=== PATIENT | female | born 1965 | race Caucasian/White ===

== ENCOUNTER → 2016-11-20 | Outpatient (CLI) | payer MEDICARE, BC | LOC: MW.CHRC 08:00 | DX: J32.9 Chronic sinusitis, unspecified (principal) | CPT/HCPCS: G0463 ==

== ENCOUNTER → 2016-12-25 | Outpatient (CLI) | payer MEDICARE, BC ==
[~2016-12-25] MED LIST: Gadobutrol 7.5 mMOL/7.5 ML SDV IVPUSH STA
--- NOTE | 2016-12-26 09:31 | MR ---
EXAMINATION: MRI of the brain with and without contrast. TECHNIQUE: Multiplanar and multisequence imaging of the brain without and following the administrati on of 7.5 mL of Gadavist. HISTORY: Multiple sclerosis. FINDINGS: Cerebral hemispheres and the deep nuclei are without hemorrhage, mass, edema, enhancement or atrophy . Multifocal periventricular, subcortical and callosal white matter FLAIR signal abnormalities are again noted. Overall these have a similar appearance and distribution to the previous MRI. There is no evidence of diffusion restriction or enhancement. No extraaxial collections or hemorrhage. Ventricular system is of normal size and configuration with out hydrocephalus. The brainstem and cerebellum are without hemorrhage, mass, edema, gliosis, enhanc ement or atrophy. Carotid basilar artery flow voids are intact. The otomastoid airspaces are clear. No internal gino tory canal or cerebellopontine angle masses or enhancement. Paranasal sinuses are clear. Globes, optic nerves, orbital apices, optic chiasm, optic tracts, and visual cortices are unremarka ble. The pituitary and sella turcica are unremarkable. No meningeal enhancement. The craniocervical junction is unremarkable without Chiari malformation. No siderosis or evidence of vascular malformation. The calvarium is intact. IMPRESSION: 1. Multifocal FLAIR signal abnormalities in cerebral white matter consistent with multiple sclerosis . There is no increased in size or number, and also no evidence of enhancement to suggest active dem yelination.
--- NOTE | 2016-12-26 09:57 | MR ---
EXAMINATION: MRI of the cervical and thoracic spine with and without contrast HISTORY: Multiple sclerosis COMPARISON: 01/27/2015 TECHNIQUE: Multiplanar multisequence images obtained of the cervical spine before and following the administration of 7.5 mL of Gadavist. FINDINGS: Cervical spine: There is straightening of the cervical lordosis, likely positional. Vertebral body h eights appear grossly maintained. No suspicious bone marrow signal changes identified. There is no a bnormal enhancement. There is increased T2 and STIR signal noted within the upper thoracic spine. Tu bes tiny foci of increased signal is noted posterior to C2 and C3 along the right aspect of the cord . The visualized intracranial compartments appear normal. The paravertebral soft tissues appear norm al. C2-C3: Unremarkable. C3-C4: No significant disc bulge or spinal canal stenosis. Mild left neural foraminal stenosis. C4-C5: Moderate diffuse disc bulge asymmetric at the midline, abutting the spinal cord. There is mil d overall spinal canal stenosis. Mild left neural foraminal stenosis. C5-C6: Small diffuse disc bulge asymmetric to the right with mild spinal canal stenosis. Mild right neural foraminal stenosis. C6-C7: Small midline disc protrusion without significant spinal canal stenosis. No significant neura l foraminal stenosis. C7-T1: Unremarkable. Thoracic spine: There is a prominent S-shaped curvature of the thoracic spine. The vertebral body he ights appear grossly maintained. There is no abnormal bone marrow signal identified. There is no abn ormal enhancement. There is increased signal within the upper cervical spinal cord, similar in appea coleman to an MRI dated 11/28/2009. There is also prominence of the central canal from approximately T4- T8 and again near T11. There is no abnormal enhancement to suggest active demyelination. There are a few small disc bulges within the upper thoracic spine without significant spinal canal o r neural foraminal stenosis. IMPRESSION: 1. There are 2 tiny areas of increased signal within the cervical spine posterior to C2. These are l ikely stable but retrospective comparison to old studies. 2. There is a mild prominence of the central canal within the mid to lower thoracic spine, stable in comparison to the previous MRI dated 11/28/2009. 3. Mildly increased cord signal is noted within the upper thoracic spine, new since 2009. 4. Multilevel degenerative disc disease noted within the cervical spine and less so within the thora cic spine. 5. A shaped scoliosis of the thoracic spine with prominent dextrocurvature.
== END ==
LOC: MW.MRI 09:15
PROVIDERS: ATTEND Psychiatry & Neurology Neuromuscular Medicine
DX: G35 Multiple sclerosis (principal); M47.9 Spondylosis, unspecified; M41.9 Scoliosis, unspecified
CPT/HCPCS: 70553; 72156; 72157; A9585

== ENCOUNTER → 2017-01-02 | Outpatient (CLI) | payer MEDICARE, BC ==
[2017-01-02 11:21] LABS: CHLORIDE,CL 106 mmol/L (98-110); SODIUM,NA 142 mmol/L (136-146)
== END ==
LOC: MW.CHNEURO 10:19
PROVIDERS: ATTEND Psychiatry & Neurology Neuromuscular Medicine
DX: G35 Multiple sclerosis (principal)
CPT/HCPCS: 36415; 80053; 85025; 99214

== ENCOUNTER → 2017-01-31 | Outpatient (CLI) | payer MEDICARE, BC | LOC: MW.CHRC 08:52 | PROVIDERS: ATTEND Family Medicine | DX: R53.83 Other fatigue (principal) | CPT/HCPCS: 36415; 84439; 84443; 86140; 96372; G0463; J3301 ==

== ENCOUNTER 2017-04-06 19:45 | Emergency (ER) | payer MEDICARE, BC ==
--- NOTE | 2017-04-06 20:37 | EDM.PDOC ---
ED HPI GENERAL MEDICAL PROBLEM - General Chief Complaint: Neuro Symptoms/Deficits Stated Complaint: PT HAS DIFFICULTY BREATHING Time Seen by Provider: 04/06/17 20:04 Source of Information: Reports: Patient History Limitations: Reports: No Limitations - History of Present Illness INITIAL COMMENTS - FREE TEXT/NARRATIVE: Presents reporting that she is "not getting air into my lungs". "I know the oxygen is good in my blood but the air is just not getting down into lungs" The patient has MS and lives with her parents who assist her. Her dad states that her nose has been plugged and therefore she has been mouth breathing so her mouth is dry. She is a smoker. She states that she has to urinate but when nursing got her up she could not void. She states that she has intermittent problems with urinary retention and does have to be cathed at times. She has had some yeast infections in her groin and dami-area. Her mom usually helps her ambulate and get to the bathroom. Upper Back Pain Score (Numeric/FACES): 5 - Related Data Allergies Allergy/AdvReac Type Severity Reaction Status Date / Time No Known Allergies Allergy Verified 04/06/17 19:55 Home Meds: Home Meds DULoxetine HCl [Cymbalta] 60 mg PO DAILY 08/22/15 [History] Gabapentin [Neurontin] 300 mg PO TID 08/22/15 [History] LORazepam 1 mg PO TID 08/22/15 [History] Pantoprazole Sodium 40 mg PO DAILY 08/22/15 [History] Teriflunomide [Aubagio] 14 mg PO DAILY 08/22/15 [History] busPIRone HCl [busPIRone] 30 mg PO BID 08/22/15 [History] traZODone 200 mg PO BEDTIME 10/21/15 [History] Baclofen 20 mg PO TID 10/24/15 [History] Cholecalciferol (Vitamin D3) [Vitamin D3] 1,000 unit PO DAILY 10/24/15 [History] traMADol [Ultram] 1 tab PO TID PRN 12/22/15 [History] Cranberry 4,200 mg PO 04/06/17 [History] Venlafaxine HCl [Venlafaxine ER] 75 mg PO DAILY 04/06/17 [History] tiZANidine [Zanaflex] 2 mg PO 04/06/17 [History] Past Medical History Other HEENT History: top and bottom dentures Cardiovascular History: Reports: None Respiratory 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 (See Below) Other Respiratory History: 30 yr history of smoking, use Nicorettes on & off, current use 1/2 pack per day Gastrointestinal History: Reports: Cholelithiasis, GERD Other Gastrointestinal History: hx: Gallstones, 'unsure if they are still there , they do not give me any trouble" Genitourinary History: Reports: None [employer] 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 (See Below) Other OB/BYN History: Pelvic pain 'midline' Musculoskeletal 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 (See Below) Other Musculoskeletal History: Scoliosis Upper and lower back, Multiple Sclerosis "mobility good, but occasionally I use a walker" Neurological History: Reports: MS Other Neuro History: Good mobility generally, but "sometimes use walker when not up to par or feel weak" Psychiatric History: Reports: Anxiety Endocrine/Metabolic History: Reports: Obesity/BMI 30+ Hematologic History: Reports: None Immunologic History: Reports: None Oncologic (Cancer) History: Reports: None Dermatologic History: Reports: None - Infectious Disease History Infectious Disease History: Reports: Chicken Pox, Measles - Past Surgical History HEENT Surgical 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 (See Below) Female Surgical History: Reports: Tubal Ligation Musculoskeletal Surgical 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 (See Below) Social & Family History - Family History Family Medical History: Noncontributory - Tobacco Use Smoking Status *Q: Current Every Day Smoker Years of Tobacco use: 30 Packs/Tins Daily: 0.5 - Recreational Drug Use Recreational Drug Use: No Drug Use in Last 12 Months: No ED ROS GENERAL - Review of Systems Review Of Systems: See Below Constitutional: Denies: Fever, Chills HEENT: Reports: Rhinitis (stuffiness), Other (dry mouth). Denies: Ear Pain Respiratory: Reports: Shortness of Breath (as per HPI), Cough (three days ago better now) Cardiovascular: Reports: No Symptoms Endocrine: Reports: No Symptoms GI/Abdominal: Reports: No Symptoms. Denies: Abdominal Pain, Constipation, Diarrhea : Reports: Urgency, Urinary Retention Musculoskeletal: Reports: Other (weakness/has MS) Skin: Reports: No Symptoms Neurological: Reports: Weakness Psychiatric: Reports: Depression Hematologic/Lymphatic: Reports: No Symptoms Immunologic: Reports: No Symptoms ED EXAM, NEURO - Physical Exam Exam: See Below Exam Limited By: No Limitations General Appearance: Alert, No Apparent Distress Ears: Normal External Exam Nose: Normal Inspection Throat/Mouth: Normal Inspection, Normal Lips, Normal Oropharynx, No Airway Compromise, Other (White film on tongue and anterior pharynx. Erythematous sore are on lateral tongue.) Head Exam: Atraumatic, Normocephalic Neck: Normal Inspection, Non-Tender, Full Range of Motion. No: Lymphadenopathy (L), Lymphadenopathy (R) Respiratory/Chest: No Respiratory Distress, Lungs Clear, Normal Breath Sounds, No Accessory Muscle Use, Other (few wheezes RLL) Cardiovascular: Normal Peripheral Pulses, Regular Rate, Rhythm, No Edema, No Murmur GI/Abdominal: Normal Bowel Sounds, Soft, Non-Tender, No Distention (Female) Exam: Other (50cc clear light yellow urine with in and out cath) Neurological: Alert, Oriented x 3 Back Exam: Normal Inspection. No: CVA Tenderness (L), CVA Tenderness (R) Extremities: Normal Inspection Psychiatric: Normal Affect, Normal Mood Skin Exam: Warm, Dry, Intact, Normal Color, No Rash Course - Vital Signs Last Recorded V/S: Last Vital Signs Temp 36.6 C 04/06/17 19:48 Pulse 101 H 04/06/17 20:37 Resp 19 04/06/17 20:37 BP 153/104 H 04/06/17 20:37 Pulse Ox 97 04/06/17 20:37 - Orders/Labs/Meds Orders: Active Orders 24 hr Category Date Time Status Chest 2V [CR] Stat Exams 04/06/17 20:28 Ordered Labs: Laboratory Tests 04/06/17 04/06/17 04/06/17 Range/Units 20:00 20:00 20:30 WBC 10.26 (4.0-11.0) K/uL RBC 4.77 (4.30-5.90) M/uL Hgb 15.1 (12.0-16.0) g/dL Hct 44.8 (36.0-46.0) % MCV 93.9 (80.0-98.0) fL MCH 31.7 (27.0-32.0) pg MCHC 33.7 (31.0-37.0) g/dL RDW Std Deviation 48.0 (28.0-62.0) fl RDW Coeff of Ade 14 (11.0-15.0) % Plt Count 292 (150-400) K/uL MPV 9.80 (7.40-12.00) fL Neut % (Auto) 72.5 (48.0-80.0) % Lymph % (Auto) 15.6 L (16.0-40.0) % [place] % (Auto) 10.8 (0.0-15.0) % Eos % (Auto) 0.8 (0.0-7.0) % Baso % (Auto) 0.3 (0.0-1.5) % Neut # (Auto) 7.4 H (1.4-5.7) K/uL Lymph # (Auto) 1.6 (0.6-2.4) K/uL [place] # (Auto) 1.1 H (0.0-0.8) K/uL Eos # (Auto) 0.1 (0.0-0.7) K/uL Baso # (Auto) 0.0 (0.0-0.1) K/uL Nucleated RBC % 0.0 /100WBC Nucleated RBCs # 0 K/uL Sodium 140 (136-146) mmol/L Potassium 3.9 (3.5-5.1) mmol/L Chloride 105 (98-110) mmol/L Carbon Dioxide 24 (21-31) mmol/L BUN 5 L (6.0-23.0) mg/dL Creatinine 0.8 (0.6-1.5) mg/dL Est Cr Clr Drug Dosing 65.80 mL/min Estimated GFR (MDRD) > 60.0 ml/min Glucose 108 (60-110) mg/dL Calcium 9.4 (8.8-10.8) mg/dL Total Bilirubin 0.3 (0.1-1.5) mg/dL AST 17 (5-40) IU/L ALT 11 (8-54) IU/L Alkaline Phosphatase 74 (40-150) Total Protein 7.3 (6.0-8.0) g/dL Albumin 4.0 (3.5-5.0) g/dL Globulin 3.3 (2.0-3.5) g/dL Albumin/Globulin Ratio 1.2 L (1.3-2.8) Urine Color YELLOW Urine Appearance CLEAR Urine pH 6.0 (5.0-8.0) Ur Specific [place] 1.020 (1.001-1.035) Urine Protein NEGATIVE (NEGATIVE) mg/dL Urine Glucose (UA) NEGATIVE (NEGATIVE) mg/dL Urine Ketones TRACE H (NEGATIVE) mg/dL Urine Occult Blood NEGATIVE (NEGATIVE) Urine Nitrite NEGATIVE (NEGATIVE) Urine Bilirubin NEGATIVE (NEGATIVE) Urine Urobilinogen 0.2 (<2.0) EU/dL Ur Leukocyte Esterase NEGATIVE (NEGATIVE) Urine RBC 0-2 (0-2/HPF) Urine WBC 0-3 (0-5/HPF) Ur Epithelial Cells OCCASIONAL (NONE-FEW) Urine Bacteria FEW (NEGATIVE) Departure - Departure Time of Disposition: 21:41 Disposition: Home, Self-Care 01 Condition: Good Clinical Impression: Oral candidiasis - Discharge Information Referrals: PCP,None [Primary Care Provider] - [facility] [place] [Outside] [facility] [Outside] Forms: ED Department Discharge Additional Instructions: 1. Please follow up with Dr. Parsons early next week for your MS symptoms. 2. Nystatin swish, hold in mouth as long as possible and swallow 4 times daily for the next 7 days - My Orders Last 24 Hours: My Active Orders 04/06/17 20:28 Chest 2V [CR] Stat - Assessment/Plan Last 24 Hours: My Active Orders 04/06/17 20:28 Chest 2V [CR] Stat
[2017-04-06 20:43] LABS: CHLORIDE,CL 105 mmol/L (98-110); SODIUM,NA 140 mmol/L (136-146)
[2017-04-06 22:27] VITALS: BP 135/99
--- NOTE | 2017-04-08 11:34 | CR ---
EXAM DATE: 04/06/17 PATIENT'S AGE: 51 Patient: JESUS ALBERTO SCALES Facility: [place], [place] Site . Site : 1965 Study: XRay Chest [id number]/15/2017 9:06:02 PM Ordering Physician: Doctor Levin Final Report: INDICATION: Pain and shortness of breath TECHNIQUE: Chest 2 views. COMPARISON: 10/11/2015 FINDINGS: Cardiovascular and mediastinum: Heart size and vasculature are normal in caliber and appearance. Mediastinum is within normal limits. Lungs and pleural spaces: Lungs are clear. No sign of infiltrate or mass. No sign of pleural effusion. No pneumothorax. Bones and soft tissues: Significant scoliosis thoracic spine IMPRESSION: No acute pulmonary or cardiac abnormalities. Dictated by Roverto Waite MD @ 04/06/2017 9:08:31 PM Dictated by: Roverto Waite MD @ 04/06/2017 21:12:51 (Electronic Signature) Report Signed by Proxy. LISETTE
== END 2017-04-06 22:10 | disposition home or self-care (01) ==
LOC: MW.ED 19:45
DX: B37.0 Candidal stomatitis (principal); K21.9 Gastro-esophageal reflux disease without esophagitis; F41.9 Anxiety disorder, unspecified; G35 Multiple sclerosis; F17.210 Nicotine dependence, cigarettes, uncomplicated; E66.9 Obesity, unspecified; Z68.33 Body mass index [BMI] 33.0-33.9, adult; Z79.899 Other long term (current) drug therapy; Z98.51 Tubal ligation status
CPT/HCPCS: 36415; 71020; 71020-26; 80053; 81001; 82962; 85025; 93005; 99283; 99284

== ENCOUNTER 2018-10-26 18:03 | Inpatient (IN) | payer MEDICARE, BC ==
[2018-10-26] MEDS ORDERED: Sodium Chloride 0.9% 1,000 ML IV ONE (18:14)
[2018-10-26] MEDS ORDERED: Sodium Chloride 0.9% 2.5 ML Syringe FLUSH PRN (18:14)
[2018-10-26] MEDS ORDERED: Albuterol/Ipratropium 3.0-0.5 MG/3 ML Neb Soln NEB ONE (18:14)
[2018-10-26] MEDS ORDERED: Sodium Chloride 0.9% 10 ML Syringe FLUSH PRN (18:14)
--- NOTE | 2018-10-26 18:30 | EDM.PDOC ---
ED HPI GENERAL MEDICAL PROBLEM - General Chief Complaint: Neuro Symptoms/Deficits Stated Complaint: STROKE CODE Time Seen by Provider: 10/26/18 18:07 - History of Present Illness INITIAL COMMENTS - FREE TEXT/NARRATIVE: HISTORY AND PHYSICAL: History of present illness: The patient is a 53-year-old female with a known history of multiple sclerosis uses a walker on a regular basis and lives with her mother and presents with EMS for progressive deterioration of mental status and a near fall earlier today. The patient has had diminished mental status all day and her last well time was 11 AM. Mom says that over the last few weeks to months she has had very little stimulation or outside activity and merely goes from her bed to her recliner where she spends the whole day and then goes back to bed. She has not been doing physical therapy and she has not been taking care of herself as well as she should be. Mom says that today she was more drowsy and sleepy when she woke up and she helped her up out of bed and she actually had to try to feed her because the patient kept falling asleep. The patient was seen an outside clinic or bronchitis the middle of September and mom says she still has never improved from those symptoms but they did not return for follow-up. Mom also tells me that she is prone to UTIs and she would be worried about that as well. She has not had any fevers at home but she has had a harsh cough since the middle of September and she has not had any abdominal pain vomiting or diarrhea per mom. The near fall today was when the patient was up with her walker and she was so weak that she went to her knees but she did not pass out or blackout and her mother was right there to help her up. Mom says that all day she has been very drowsy and has not been speaking very much. According to mom she tells me that the patient signed DNR papers at some point in one of her hospitalizations but she is not sure where they are at. When I asked the patient if she's having any abdominal pain or chest pain she tells me know with a nod. Mom tells me that overall the patient has been deteriorating in her clinical status over several weeks if not more than a month. She has had progression in her weakness and has not been doing her physical therapy nor has she been doing much as far as activities and not leaving the house. Today she has had a significant drop off in her mental status which is why mom observed her throughout the day and then called EMS to bring her here; this been progressive throughout the day. Mom insists though that she has been progressively declining over the last few weeks to months and she has never really recovered or cleared her cough and congestion since she was seen at the outside clinic mid September. Review of systems: As per history of present illness and below otherwise all systems reviewed and negative. Past medical history: As per history of present illness and as reviewed below otherwise noncontributory. Surgical history: As per history of present illness and as reviewed below otherwise noncontributory. Social history: No reported history of drug or alcohol abuse. Family history: As per history of present illness and as reviewed below otherwise noncontributory. Physical exam: General: Well-developed well-nourished overweight female who is nontoxic and vital signs were noted by me. She is very drowsy on my evaluation but she opens her eyes and follows simple commands. She is maintaining her airway. HEENT: Atraumatic, normocephalic, pupils reactive, negative for conjunctival pallor or scleral icterus, mucous membranes moist, throat clear, neck supple, nontender, trachea midline. Lungs: Poor effort and diminished breath sounds in all zaman with coarse breath sounds but no stridor or abdominal worker breathing, breath sounds equal bilaterally, chest nontender. Heart: S1S2, regular rate and rhythm no overt murmurs Abdomen: Soft, nondistended, nontender. Negative for masses or hepatosplenomegaly. Hypoactive bowel sounds Pelvis: Stable nontender. Genitourinary: Deferred. Rectal: Deferred. Extremities: Atraumatic, there are no overt defects or deformities of the bony architecture of the extremities. Neurovascular unremarkable. Neuro: Patient is able to follow simple commands and can squeeze my hands bilaterally wiggle her toes and over her eyes and not questions. She also will take breaths when asked for to an open her mouth and eyes. It is difficult to further assess sensation or cerebellum. I do not feel that there is any focality to this exam but she has generalized weakness throughout all extremities but very diminished movement in the lower extremities and strength of 2/5 on clinic lead and upper extremities. Exam nonfocal. Diagnostics: EKG CBC CMP INR troponin TSH UA with reflex culture lactic acid influenza CT scan of the head and chest x-ray Blood sugar per EMS was 99 Therapeutics: IV O2 monitor, IV fluids Rocephin This case was called as a stroke code via EMS but from the history that I'm obtaining it is more a case of altered mental status. Either way the patient's last known well time was 11 AM which puts her outside of the window for TPA. Patient is back from CT and lab is drawing blood. The patient is still very drowsy but still opens her eyes more readily to voice and follows simple commands. CT scan results were called to me from the tele-radiologist at 1846. He sees multiple spots that he thought was more small vessel disease but says that in light of her history of MS and could be demyelinating lesions. There is no acute bleed or mass tumor or stroke. Patient is now saying that she knows she is in the hospital and is talking more. 1910: Case was discussed with Dr. Marlena pelayo who accepts the patient for observation admission. Family was made aware of this care plan. Case will be endorsed to Dr. Larose to follow-up the testing results and facilitate disposition. Critical care time excluding procedures:35min Impression: Altered mental status with history of multiple sclerosis, progressive deterioration of overall physical condition , probable pneumonia Definitive disposition and diagnosis as appropriate pending reevaluation and review of above. - Related Data Allergies Allergy/AdvReac Type Severity Reaction Status Date / Time No Known Allergies Allergy Verified 10/26/18 18:29 Home Meds: Home Meds DULoxetine HCl [Cymbalta] 60 mg PO DAILY 08/22/15 [History] Gabapentin [Neurontin] 300 mg PO TID 08/22/15 [History] Pantoprazole Sodium 40 mg PO DAILY 08/22/15 [History] Teriflunomide [Aubagio] 14 mg PO DAILY 08/22/15 [History] traZODone 100 mg PO BEDTIME 10/21/15 [History] Baclofen 20 mg PO TID 10/24/15 [History] Cholecalciferol (Vitamin D3) [Vitamin D3] 1,000 unit PO DAILY 10/24/15 [History] traMADol [Ultram] 1 tab PO TID PRN 12/22/15 [History] Diazepam [Valium] 5 mg PO DAILY 10/26/18 [History] Past Medical History Other HEENT History: top and bottom dentures Cardiovascular History: Reports: None Respiratory 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 (See Below) Other Respiratory History: 30 yr history of smoking, use [place] on & off, current use 1/2 pack per day Gastrointestinal History: Reports: Cholelithiasis, GERD Other Gastrointestinal History: hx: Gallstones, 'unsure if they are still there , they do not give me any trouble" Genitourinary History: Reports: None RETORT KILN BURNER 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 (See Below) Other RETORT KILN BURNER History: Pelvic pain 'midline' Musculoskeletal 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 (See Below) Other Musculoskeletal History: Scoliosis Upper and lower back, Multiple Sclerosis "mobility good, but occasionally I use a walker" Neurological History: Reports: MS Other Neuro History: Good mobility generally, but "sometimes use walker when not up to par or feel weak" Psychiatric History: Reports: Anxiety Endocrine/Metabolic History: Reports: Obesity/BMI 30+ Hematologic History: Reports: None Immunologic History: Reports: None Oncologic (Cancer) History: Reports: None Dermatologic History: Reports: None - Infectious Disease History Infectious Disease History: Reports: Chicken Pox, Measles - Past Surgical History HEENT Surgical 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 (See Below) Female Surgical History: Reports: Tubal Ligation Musculoskeletal Surgical 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 (See Below) Social & Family History - Family History Family Medical History: Noncontributory ED ROS GENERAL - Review of Systems Review Of Systems: ROS reveals no pertinent complaints other than HPI. ED EXAM, GENERAL - Physical Exam Exam: See Below (The dictation) Course - Vital Signs Last Recorded V/S: Last Vital Signs Temp 37.0 C 10/27/18 04:00 Pulse 93 10/27/18 04:00 Resp 10 L 10/27/18 04:00 BP 126/83 10/27/18 04:00 Pulse Ox 98 10/27/18 04:00 - Orders/Labs/Meds Orders: Active Orders 24 hr Category Date Time Status Cardiac Monitoring [RC] . DIRECTED Care 10/26/18 18:12 Active EKG Documentation Completion [RC] STAT Care 10/26/18 18:12 Active Oxygen Therapy, ED [RC] ASDIRECTED Care 10/26/18 18:12 Active Pulse Oximetry [RC] ASDIRECTED Care 10/26/18 18:12 Active RT Aerosol Therapy [RC] ASDIRECTED Care 10/26/18 18:14 Active CULTURE BLOOD [BC] Stat Lab 10/26/18 19:08 Results CULTURE BLOOD [BC] Stat Lab 10/26/18 19:14 Results Sodium Chloride 0.9% [Saline Flush] Med 10/26/18 18:14 Active 10 ml FLUSH ASDIRECTED PRN Sodium Chloride 0.9% [Saline Flush] Med 10/26/18 18:14 Active 2.5 ml FLUSH ASDIRECTED PRN Blood Culture x2 Reflex Set [OM.PC] Stat Oth 10/26/18 18:13 Ordered Saline Lock Insert [OM.PC] Stat Oth 10/26/18 18:12 Ordered Medication Orders Acetaminophen (Tylenol) 650 mg PO Q4H PRN PRN Reason: Pain (Mild 1-3)/fever Baclofen (Lioresal) 20 mg PO TID [facility] Last Admin: 10/27/18 06:30 Dose: 20 mg Admin: 10/26/18 22:46 Dose: Diazepam (Valium.) 5 mg PO DAILY [facility] Docusate Sodium (Colace) 100 mg PO BID PRN PRN Reason: Constipation Duloxetine HCl (Cymbalta) 60 mg PO DAILY [facility] Enoxaparin Sodium (Lovenox) 40 mg SUBCUT Q24H [facility] Last Admin: 10/26/18 23:41 Dose: 40 mg Gabapentin (Neurontin) 300 mg PO TID [facility] Last Admin: 10/27/18 06:30 Dose: 300 mg Teriflunomide [ Aubagio] 14mg Own Med 14 mg PO DAILY [facility] Ondansetron HCl (Zofran Odt) 4 mg PO Q4H PRN PRN Reason: nausea, able to take PO Oxycodone HCl (Oxycodone) 5 mg PO Q4H PRN PRN Reason: Pain (moderate 4-6) Pantoprazole Sodium (Protonix) 40 mg PO DAILY [facility] Sodium Chloride (Saline Flush) 10 ml FLUSH ASDIRECTED PRN PRN Reason: Keep Vein Open Last Admin: 10/26/18 18:54 Dose: 10 ml Sodium Chloride (Saline Flush) 2.5 ml FLUSH ASDIRECTED PRN PRN Reason: Keep Vein Open Last Admin: 10/26/18 18:54 Dose: 2.5 ml Temazepam (Restoril) 15 mg PO BEDTIME PRN PRN Reason: Sleep Tramadol HCl (Ultram) 50 mg PO TID PRN PRN Reason: Pain Trazodone HCl (Trazodone Hcl) 100 mg PO BEDTIME TRA Last Admin: 10/26/18 22:46 Dose: Not Given Labs: Laboratory Tests 10/26/18 10/26/18 10/26/18 Range/Units 18:47 18:47 18:47 WBC 7.01 (4.0-11.0) K/uL RBC 4.86 (4.30-5.90) M/uL Hgb 14.0 (12.0-16.0) g/dL Hct 44.1 (36.0-46.0) % MCV 90.7 (80.0-98.0) fL MCH 28.8 (27.0-32.0) pg MCHC 31.7 (31.0-37.0) g/dL RDW Std Deviation 49.1 (28.0-62.0) fl RDW Coeff of Ade 15 (11.0-15.0) % Plt Count 135 L (150-400) K/uL MPV 10.70 (7.40-12.00) fL Neut % (Auto) 74.2 (48.0-80.0) % Lymph % (Auto) 6.6 L (16.0-40.0) % [place] % (Auto) 10.1 (0.0-15.0) % Eos % (Auto) 8.8 H (0.0-7.0) % Baso % (Auto) 0.3 (0.0-1.5) % Neut # (Auto) 5.2 (1.4-5.7) K/uL Lymph # (Auto) 0.5 L (0.6-2.4) K/uL [place] # (Auto) 0.7 (0.0-0.8) K/uL Eos # (Auto) 0.6 (0.0-0.7) K/uL Baso # (Auto) 0.0 (0.0-0.1) K/uL Nucleated RBC % 0.0 /100WBC Nucleated RBCs # 0 K/uL INR 0.94 Lactate 1.3 (0.20-2.00) mmol/L Sodium (136-145) mmol/L Potassium (3.5-5.1) mmol/L Chloride (98-107) mmol/L Carbon Dioxide (21.0-32.0) mmol/L BUN (7.0-18.0) mg/dL Creatinine (0.6-1.0) mg/dL Est Cr Clr Drug Dosing Estimated GFR (MDRD) ml/min Glucose (74-106) mg/dL Calcium (8.5-10.1) mg/dL Total Bilirubin (0.2-1.0) mg/dL AST (15-37) IU/L ALT (14-63) IU/L Alkaline Phosphatase (46-116) U/L Troponin I (0.000-0.056) ng/mL Total Protein (6.4-8.2) g/dL Albumin (3.4-5.0) g/dL Globulin (2.6-4.0) g/dL Albumin/Globulin Ratio (0.9-1.6) TSH 3rd Generation (0.36-3.74) uIU/mL Urine Color Urine Appearance Urine pH (5.0-8.0) Ur Specific [place] (1.001-1.035) Urine Protein (NEGATIVE) mg/dL Urine Glucose (UA) (NEGATIVE) mg/dL Urine Ketones (NEGATIVE) mg/dL Urine Occult Blood (NEGATIVE) Urine Nitrite (NEGATIVE) Urine Bilirubin (NEGATIVE) Urine Urobilinogen (<2.0) EU/dL Ur Leukocyte Esterase (NEGATIVE) 10/26/18 10/26/18 Range/Units 18:47 18:49 WBC (4.0-11.0) K/uL RBC (4.30-5.90) M/uL Hgb (12.0-16.0) g/dL Hct (36.0-46.0) % MCV (80.0-98.0) fL MCH (27.0-32.0) pg MCHC (31.0-37.0) g/dL RDW Std Deviation (28.0-62.0) fl RDW Coeff of Ade (11.0-15.0) % Plt Count (150-400) K/uL MPV (7.40-12.00) fL Neut % (Auto) (48.0-80.0) % Lymph % (Auto) (16.0-40.0) % [place] % (Auto) (0.0-15.0) % Eos % (Auto) (0.0-7.0) % Baso % (Auto) (0.0-1.5) % Neut # (Auto) (1.4-5.7) K/uL Lymph # (Auto) (0.6-2.4) K/uL [place] # (Auto) (0.0-0.8) K/uL Eos # (Auto) (0.0-0.7) K/uL Baso # (Auto) (0.0-0.1) K/uL Nucleated RBC % /100WBC Nucleated RBCs # K/uL INR Lactate (0.20-2.00) mmol/L Sodium 143 (136-145) mmol/L Potassium 4.1 (3.5-5.1) mmol/L Chloride 103 (98-107) mmol/L Carbon Dioxide 32.4 H (21.0-32.0) mmol/L BUN 15 (7.0-18.0) mg/dL Creatinine 1.5 H (0.6-1.0) mg/dL Est Cr Clr Drug Dosing TNP Estimated GFR (MDRD) 36.3 ml/min Glucose 87 (74-106) mg/dL Calcium 10.1 (8.5-10.1) mg/dL Total Bilirubin 0.3 (0.2-1.0) mg/dL AST 34 (15-37) IU/L ALT 41 (14-63) IU/L Alkaline Phosphatase 148 H (46-116) U/L Troponin I < 0.050 (0.000-0.056) ng/mL Total Protein 7.4 (6.4-8.2) g/dL Albumin 3.6 (3.4-5.0) g/dL Globulin 3.8 (2.6-4.0) g/dL Albumin/Globulin Ratio 0.9 (0.9-1.6) TSH 3rd Generation 3.73 (0.36-3.74) uIU/mL Urine Color YELLOW Urine Appearance CLEAR Urine pH 6.5 (5.0-8.0) Ur Specific [place] 1.010 (1.001-1.035) Urine Protein NEGATIVE (NEGATIVE) mg/dL Urine Glucose (UA) NEGATIVE (NEGATIVE) mg/dL Urine Ketones NEGATIVE (NEGATIVE) mg/dL Urine Occult Blood NEGATIVE (NEGATIVE) Urine Nitrite NEGATIVE (NEGATIVE) Urine Bilirubin NEGATIVE (NEGATIVE) Urine Urobilinogen 0.2 (<2.0) EU/dL Ur Leukocyte Esterase NEGATIVE (NEGATIVE) Meds: Medications Generic Name Dose Route Start Last Admin Trade Name Freq PRN Reason Stop Dose Admin Acetaminophen 650 mg 10/26/18 21:59 Tylenol PO Q4H PRN Pain (Mild 1-3)/fever Baclofen 20 mg 10/26/18 22:38 10/27/18 06:30 Lioresal PO 20 mg TID TRA Administration Diazepam 5 mg 10/27/18 09:00 Valium. PO DAILY [facility] Docusate Sodium 100 mg 10/26/18 21:59 Colace PO BID PRN Constipation Duloxetine HCl 60 mg 10/27/18 09:00 Cymbalta PO DAILY [facility] Enoxaparin Sodium 40 mg 10/26/18 22:00 10/26/18 23:41 Lovenox SUBCUT 40 mg Q24H TRA Administration Gabapentin 300 mg 10/27/18 06:00 10/27/18 06:30 Neurontin PO 300 mg TID [facility] Administration Teriflunomide [ 14 mg 10/27/18 09:00 Aubagio] 14mg Own PO Med DAILY [facility] Ondansetron HCl 4 mg 10/26/18 21:59 Zofran Odt PO Q4H PRN nausea, able to take PO Oxycodone HCl 5 mg 10/26/18 21:59 Oxycodone PO Q4H PRN Pain (moderate 4-6) Pantoprazole Sodium 40 mg 10/27/18 09:00 Protonix PO DAILY [facility] Sodium Chloride 10 ml 10/26/18 18:14 10/26/18 18:54 Saline Flush FLUSH 10 ml ASDIRECTED PRN Administration Keep Vein Open Sodium Chloride 2.5 ml 10/26/18 18:14 10/26/18 18:54 Saline Flush FLUSH 2.5 ml ASDIRECTED PRN Administration Keep Vein Open Temazepam 15 mg 10/26/18 21:59 Restoril PO BEDTIME PRN Sleep Tramadol HCl 50 mg 10/26/18 22:02 Ultram PO TID PRN Pain Trazodone HCl 100 mg 10/26/18 22:38 10/26/18 22:46 Trazodone Hcl PO Not Given BEDTIME TRA Discontinued Medications Generic Name Dose Route Start Last Admin Trade Name Perryq PRN Reason Stop Dose Admin Albuterol/Ipratropium 3 ml 10/26/18 18:14 10/26/18 19:01 Duoneb 3.0-0.5 Mg/3 Ml NEB 10/26/18 18:15 3 ml ONETIME ONE Administration Sodium Chloride 1,000 mls @ 999 mls/hr 10/26/18 18:14 10/26/18 18:55 Normal Saline IV 10/26/18 19:14 999 mls/hr STAT ONE Administration Ceftriaxone Sodium/Dextrose 2 50 mls @ 100 mls/hr 10/26/18 19:11 10/26/18 19: 21 gm/ Premix IV 10/26/18 19:40 100 mls/hr ONETIME ONE Administration Departure - Departure Time of Disposition: 20:00 Disposition: Refer to Observation Condition: Fair Clinical Impression: Altered mental status Qualifiers: Altered mental status type: somnolence Qualified Code(s): R40.0 - Somnolence Pneumonia Qualifiers: Pneumonia type: due to unspecified organism - Discharge Information - My Orders Last 24 Hours: My Active Orders 10/26/18 18:12 Cardiac Monitoring [RC] . DIRECTED EKG Documentation Completion [RC] STAT Oxygen Therapy, ED [RC] ASDIRECTED Pulse Oximetry [RC] ASDIRECTED Saline Lock Insert [OM.PC] Stat 10/26/18 18:13 Blood Culture x2 Reflex Set [OM.PC] Stat 10/26/18 18:14 RT Aerosol Therapy [RC] ASDIRECTED Sodium Chloride 0.9% [Saline Flush] 10 ml FLUSH ASDIRECTED PRN Sodium Chloride 0.9% [Saline Flush] 2.5 ml FLUSH ASDIRECTED PRN 10/26/18 19:08 CULTURE BLOOD [BC] Stat 10/26/18 19:14 CULTURE BLOOD [BC] Stat - Assessment/Plan Last 24 Hours: My Active Orders 10/26/18 18:12 Cardiac Monitoring [RC] . DIRECTED EKG Documentation Completion [RC] STAT Oxygen Therapy, ED [RC] ASDIRECTED Pulse Oximetry [RC] ASDIRECTED Saline Lock Insert [OM.PC] Stat 10/26/18 18:13 Blood Culture x2 Reflex Set [OM.PC] Stat 10/26/18 18:14 RT Aerosol Therapy [RC] ASDIRECTED Sodium Chloride 0.9% [Saline Flush] 10 ml FLUSH ASDIRECTED PRN Sodium Chloride 0.9% [Saline Flush] 2.5 ml FLUSH ASDIRECTED PRN 10/26/18 19:08 CULTURE BLOOD [BC] Stat 10/26/18 19:14 CULTURE BLOOD [BC] Stat
--- NOTE | 2018-10-26 18:50 | CT ---
INDICATION: Stroke CT, history of multiple sclerosis. TECHNIQUE: CT head without contrast. COMPARISON: None. FINDINGS: CSF spaces: Within normal limits for age. Brain parenchyma: Dao-white differentiation is distinct. Small amount of low-density in the deep white matter without mass effect. Skull base and calvarium: The visualized paranasal sinuses and mastoid air cells demonstrate no acute or significant findings. The visualized orbits are grossly unremarkable. No skull fractures. IMPRESSION: 1. No intracranial bleed or mass effect. 2. Mild nonspecific white matter disease although this can be consistent with the given history of multiple sclerosis. Results called to Dr. Mahmood at 1846 on 10/26/2018 Please note that all CT scans at this facility use dose modulation, iterative reconstruction, and/or weight-based dosing when appropriate to reduce radiation dose to as low as reasonably achievable. Dictated by Magnus Bean MD @ Oct 26 2018 6:44PM Signed by Dr. Magnus Bean @ Oct 26 2018 6:48PM
[2018-10-26] MEDS ORDERED: cefTRIAXone 2 GM in Premix Bag 1 BAG IV ONE (19:11)
--- NOTE | 2018-10-26 19:28 | CR ---
INDICATION: Shortness of breath. TECHNIQUE: One view. IMPRESSION: Scoliosis. Low lung volumes. Heart size within normal limits for low volumes and AP projection. Some crowding of the bronchovascular markings. No definitive focal pneumonia or other airspace opacity. No acute fracture, pneumothorax or effusion. Dictated by Adolfo Loyd MD @ Oct 26 2018 7:26PM Signed by Dr. Adolfo Loyd @ Oct 26 2018 7:27PM
[2018-10-26 19:29] LABS: CHLORIDE,CL 103 mmol/L (98-107); SODIUM,NA 143 mmol/L (136-145)
[2018-10-26] MEDS ORDERED: Docusate Sodium 100 MG Cap PO PRN (21:59)
[2018-10-26] MEDS ORDERED: Acetaminophen 325 MG Tab PO PRN (21:59)
[2018-10-26] MEDS ORDERED: oxyCODONE 5 MG Tab PO PRN (21:59)
[2018-10-26] MEDS ORDERED: Temazepam 15 MG Cap PO PRN (21:59)
[2018-10-26] MEDS ORDERED: traMADol 50 MG Tab PO PRN (22:02)
--- NOTE | 2018-10-26 22:14 | PCM.HP ---
H&P History of Present Illness - General Date of Service: 10/26/18 Admit Problem/Dx: Admission Diagnosis/Problem Admission Diagnosis/Problem Altered mental status Source of Information: Patient, Family, Old Records History Limitations: Reports: Altered Mental Status - History of Present Illness Initial Comments - Free Text/Narative: The patient is a 53-year-old lady who has a known history of multiple sclerosis. She presented to the emergency department secondary to progressive deterioration and near fall. Patient's mother has reported that she has had worsening of her mental status all day and there was concern with regards to stroke. The patient had been admitted through the emergency department as a stroke code workup. Records are medicated of the patient does have rather progressive multiple sclerosis and has not been taking care of herself or meeting her activities of daily living. Patient's mother is with her. Also the patient has been complaining of a cough that has been somewhat chronic in nature. Has not been necessarily related to oral food intake. The patient herself has been complaining of being hot primarily. The patient herself has denied any problems although she has somewhat of a poor historian. Most of the information therefore has been taken from her mother as well as charting. Onset of Symptoms: Reports: Gradual Duration of Symptoms: Reports: Day(s):, Getting Worse Location: Reports: Generalized Associated Symptoms: Reports: Other (Multiple sclerosis) - Related Data Allergies/Adverse Reactions: Allergies Allergy/AdvReac Type Severity Reaction Status Date / Time No Known Allergies Allergy Verified 10/26/18 18:29 Home Medications: Home Meds DULoxetine HCl [Cymbalta] 60 mg PO DAILY 08/22/15 [History] Gabapentin [Neurontin] 300 mg PO TID 08/22/15 [History] Pantoprazole Sodium 40 mg PO DAILY 08/22/15 [History] Teriflunomide [Aubagio] 14 mg PO DAILY 08/22/15 [History] traZODone 100 mg PO BEDTIME 10/21/15 [History] Baclofen 20 mg PO TID 10/24/15 [History] Cholecalciferol (Vitamin D3) [Vitamin D3] 1,000 unit PO DAILY 10/24/15 [History] traMADol [Ultram] 1 tab PO TID PRN 12/22/15 [History] Diazepam [Valium] 5 mg PO DAILY 10/26/18 [History] Past Medical History Other HEENT History: top and bottom dentures Cardiovascular History: Reports: None Respiratory 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 (See Below) Other Respiratory History: 30 yr history of smoking, use [place] on & off, current use 1/2 pack per day Gastrointestinal History: Reports: Cholelithiasis, GERD Other Gastrointestinal History: hx: Gallstones, 'unsure if they are still there , they do not give me any trouble" Genitourinary History: Reports: None [employer]PER[employer] 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 (See Below) Other OB/BYN History: Pelvic pain 'midline' Musculoskeletal 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 (See Below) Other Musculoskeletal History: Scoliosis Upper and lower back, Multiple Sclerosis "mobility good, but occasionally I use a walker" Neurological History: Reports: MS Other Neuro History: Good mobility generally, but "sometimes use walker when not up to par or feel weak" Psychiatric History: Reports: Anxiety Endocrine/Metabolic History: Reports: Obesity/BMI 30+ Hematologic History: Reports: None Immunologic History: Reports: None Oncologic (Cancer) History: Reports: None Dermatologic History: Reports: None - Infectious Disease History Infectious Disease History: Reports: Chicken Pox, Measles - Past Surgical History HEENT Surgical 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 (See Below) Female Surgical History: Reports: Tubal Ligation Musculoskeletal Surgical 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 (See Below) Social & Family History - Family History Family Medical History: Noncontributory - Tobacco Use Smoking Status *Q: Former Smoker Used Tobacco, but Quit: Yes Month/Year Tobacco Last Used: 2016 - Recreational Drug Use Recreational Drug Use: No - Living Situation & Occupation Living situation: Reports: Single, with Family Occupation: Disabled H&P Review of Systems - Review of Systems: Review Of Systems: Unable To Obtain (Poor historian, review of systems not reliable.) Exam - Exam Exam: See Below - Vital Signs Vital Signs: Last Vital Signs Temp 36.6 C 10/26/18 20:30 Pulse 82 10/26/18 20:30 Resp 19 10/26/18 20:30 BP 115/70 10/26/18 20:30 Pulse Ox 96 10/26/18 20:30 Weight: 105.233 kg - Exam Quality Assessment: Supplemental Oxygen General: Alert, Oriented, Cooperative, Other (Slow to respond) HEENT: Conjunctiva Clear, EACs Clear, EOMI, Pupils Equal, Pupils Reactive. No: Mucosa Moist & [place] (dry) Neck: Supple, Trachea Midline Lungs: Clear to Auscultation. No: Normal Respiratory Effort Cardiovascular: Regular Rate, Regular Rhythm GI/Abdominal Exam: Normal Bowel Sounds, Soft, Non-Tender, No Distention (Female) Exam: Deferred Rectal (Female) Exam: Deferred Back Exam: Normal Inspection. No: Full Range of Motion (Weakness and lack of motion secondary to MS) Extremities: No Pedal Edema, Limited Range of Motion. No: Normal Range of Motion (Secondary to MS) Skin: Warm, Dry, Intact Neurological: Cranial Nerves Intact, Abnormal Gait. No: Strength Equal Bilateral Neuro Extensive - Mental Status: Memory Intact, Inattentive, Slow Response to Commands Neuro Extensive - Motor, Sensory, Reflexes: CN II-XII Intact Psychiatric: Alert, Normal Mood. No: Normal Affect (Flat affect) - Patient Data Lab Results Last 24 hrs: Laboratory Results - last 24 hr 10/26/18 10/26/18 10/26/18 Range/Units 18:47 18:47 18:47 WBC 7.01 (4.0-11.0) K/uL RBC 4.86 (4.30-5.90) M/uL Hgb 14.0 (12.0-16.0) g/dL Hct 44.1 (36.0-46.0) % MCV 90.7 (80.0-98.0) fL MCH 28.8 (27.0-32.0) pg MCHC 31.7 (31.0-37.0) g/dL RDW Std Deviation 49.1 (28.0-62.0) fl RDW Coeff of Ade 15 (11.0-15.0) % Plt Count 135 L (150-400) K/uL MPV 10.70 (7.40-12.00) fL Neut % (Auto) 74.2 (48.0-80.0) % Lymph % (Auto) 6.6 L (16.0-40.0) % [place] % (Auto) 10.1 (0.0-15.0) % Eos % (Auto) 8.8 H (0.0-7.0) % Baso % (Auto) 0.3 (0.0-1.5) % Neut # (Auto) 5.2 (1.4-5.7) K/uL Lymph # (Auto) 0.5 L (0.6-2.4) K/uL [place] # (Auto) 0.7 (0.0-0.8) K/uL Eos # (Auto) 0.6 (0.0-0.7) K/uL Baso # (Auto) 0.0 (0.0-0.1) K/uL Nucleated RBC % 0.0 /100WBC Nucleated RBCs # 0 K/uL INR 0.94 Lactate 1.3 (0.20-2.00) mmol/L Sodium (136-145) mmol/L Potassium (3.5-5.1) mmol/L Chloride (98-107) mmol/L Carbon Dioxide (21.0-32.0) mmol/L BUN (7.0-18.0) mg/dL Creatinine (0.6-1.0) mg/dL Est Cr Clr Drug Dosing Estimated GFR (MDRD) ml/min Glucose (74-106) mg/dL Calcium (8.5-10.1) mg/dL Total Bilirubin (0.2-1.0) mg/dL AST (15-37) IU/L ALT (14-63) IU/L Alkaline Phosphatase (46-116) U/L Troponin I (0.000-0.056) ng/mL Total Protein (6.4-8.2) g/dL Albumin (3.4-5.0) g/dL Globulin (2.6-4.0) g/dL Albumin/Globulin Ratio (0.9-1.6) TSH 3rd Generation (0.36-3.74) uIU/mL Urine Color Urine Appearance Urine pH (5.0-8.0) Ur Specific [place] (1.001-1.035) Urine Protein (NEGATIVE) mg/dL Urine Glucose (UA) (NEGATIVE) mg/dL Urine Ketones (NEGATIVE) mg/dL Urine Occult Blood (NEGATIVE) Urine Nitrite (NEGATIVE) Urine Bilirubin (NEGATIVE) Urine Urobilinogen (<2.0) EU/dL Ur Leukocyte Esterase (NEGATIVE) 10/26/18 10/26/18 Range/Units 18:47 18:49 WBC (4.0-11.0) K/uL RBC (4.30-5.90) M/uL Hgb (12.0-16.0) g/dL Hct (36.0-46.0) % MCV (80.0-98.0) fL MCH (27.0-32.0) pg MCHC (31.0-37.0) g/dL RDW Std Deviation (28.0-62.0) fl RDW Coeff of Ade (11.0-15.0) % Plt Count (150-400) K/uL MPV (7.40-12.00) fL Neut % (Auto) (48.0-80.0) % Lymph % (Auto) (16.0-40.0) % [place] % (Auto) (0.0-15.0) % Eos % (Auto) (0.0-7.0) % Baso % (Auto) (0.0-1.5) % Neut # (Auto) (1.4-5.7) K/uL Lymph # (Auto) (0.6-2.4) K/uL [place] # (Auto) (0.0-0.8) K/uL Eos # (Auto) (0.0-0.7) K/uL Baso # (Auto) (0.0-0.1) K/uL Nucleated RBC % /100WBC Nucleated RBCs # K/uL INR Lactate (0.20-2.00) mmol/L Sodium 143 (136-145) mmol/L Potassium 4.1 (3.5-5.1) mmol/L Chloride 103 (98-107) mmol/L Carbon Dioxide 32.4 H (21.0-32.0) mmol/L BUN 15 (7.0-18.0) mg/dL Creatinine 1.5 H (0.6-1.0) mg/dL Est Cr Clr Drug Dosing TNP Estimated GFR (MDRD) 36.3 ml/min Glucose 87 (74-106) mg/dL Calcium 10.1 (8.5-10.1) mg/dL Total Bilirubin 0.3 (0.2-1.0) mg/dL AST 34 (15-37) IU/L ALT 41 (14-63) IU/L Alkaline Phosphatase 148 H (46-116) U/L Troponin I < 0.050 (0.000-0.056) ng/mL Total Protein 7.4 (6.4-8.2) g/dL Albumin 3.6 (3.4-5.0) g/dL Globulin 3.8 (2.6-4.0) g/dL Albumin/Globulin Ratio 0.9 (0.9-1.6) TSH 3rd Generation 3.73 (0.36-3.74) uIU/mL Urine Color YELLOW Urine Appearance CLEAR Urine pH 6.5 (5.0-8.0) Ur Specific [place] 1.010 (1.001-1.035) Urine Protein NEGATIVE (NEGATIVE) mg/dL Urine Glucose (UA) NEGATIVE (NEGATIVE) mg/dL Urine Ketones NEGATIVE (NEGATIVE) mg/dL Urine Occult Blood NEGATIVE (NEGATIVE) Urine Nitrite NEGATIVE (NEGATIVE) Urine Bilirubin NEGATIVE (NEGATIVE) Urine Urobilinogen 0.2 (<2.0) EU/dL Ur Leukocyte Esterase NEGATIVE (NEGATIVE) Result Diagrams: 10/27/18 05:45 10/27/18 05:45 Cj Results Last 24 hrs: Microbiology 10/26/18 19:27 Influenza Type A Antigen Screen - Final Nasopharyngeal Swab NEGATIVE INFLUENZA A VIRUS AG Influenza Type B Antigen Screen - Final NEGATIVE INFLUENZA B VIRUS AG 10/26/18 19:14 Anaerobic Blood Culture - Final Blood - Venous - Lab Draw 10/26/18 19:08 Anaerobic Blood Culture - Final Blood - Venous *Q Meaningful Use (ADM) - VTE *Q VTE Mechanical Contraindications *Q: At Risk for Falls - Problem List (1) Altered mental status SNOMED Code(s): 296282609 ICD Code: R41.82 - ALTERED MENTAL STATUS, UNSPECIFIED Status: Acute Priority: High Current Visit: Yes Qualifiers: Altered mental status type: disorientation Qualified Code(s): R41.0 - Disorientation, unspecified (2) Multiple sclerosis SNOMED Code(s): 78199431 ICD Code: G35 - MULTIPLE SCLEROSIS Status: Chronic Priority: High Current Visit: Yes (3) Acute kidney insufficiency SNOMED Code(s): 941804072 ICD Code: N28.9 - DISORDER OF KIDNEY AND URETER, UNSPECIFIED Status: Acute Priority: High Current Visit: Yes (4) Total self-care deficit SNOMED Code(s): 41112029 ICD Code: R41.89 - OTH SYMPTOMS AND SIGNS W COGNITIVE FUNCTIONS AND AWARENESS Status: Acute Current Visit: Yes (5) Mobility impaired SNOMED Code(s): 16706953 ICD Code: Z74.09 - OTHER REDUCED MOBILITY Status: Acute Current Visit: Yes Problem List Initiated/Reviewed/Updated: Yes Orders Last 24hrs: Active Orders 24 hr Category Date Time Status Patient Status [ADT] Stat ADT 10/26/18 19:12 Active Cardiac Monitoring [RC] . DIRECTED Care 10/26/18 18:12 Active EKG Documentation Completion [RC] STAT Care 10/26/18 18:12 Active Oxygen Therapy [RC] PRN Care 10/26/18 21:59 Active Oxygen Therapy, ED [RC] ASDIRECTED Care 10/26/18 18:12 Active Pulse Oximetry [RC] ASDIRECTED Care 10/26/18 18:12 Active RT Aerosol Therapy [RC] ASDIRECTED Care 10/26/18 18:14 Active Up With Assistance [RC] ASDIRECTED Care 10/26/18 21:59 Active VTE/DVT Education [RC] PER UNIT ROUTINE Care 10/26/18 21:59 Active Vital Signs [RC] Q4H Care 10/26/18 21:59 Active Regular Diet [DIET] Diet 10/26/18 Breakfast Active CBC WITH AUTO DIFF [HEME] AM Lab 10/27/18 05:11 Ordered COMPREHENSIVE METABOLIC PN,CMP [CHEM] AM Lab 10/27/18 05:11 Ordered CULTURE BLOOD [BC] Stat Lab 10/26/18 19:08 Results CULTURE BLOOD [BC] Stat Lab 10/26/18 19:14 Results Acetaminophen [Tylenol] Med 10/26/18 21:59 Ordered 650 mg PO Q4H PRN Baclofen [Baclofen] Med 10/27/18 06:00 Ordered 20 mg PO TID DULoxetine [Cymbalta] Med 10/27/18 09:00 Ordered 60 mg PO DAILY Docusate Sodium [Colace] Med 10/26/18 21:59 Ordered 100 mg PO BID PRN Enoxaparin [Lovenox] Med 10/26/18 22:00 Ordered 30 mg SUBCUT Q24H Gabapentin [Neurontin] Med 10/27/18 06:00 Ordered 300 mg PO TID Ondansetron [Zofran ODT] Med 10/26/18 21:59 Ordered 4 mg PO Q4H PRN Pantoprazole [ProTONIX] Med 10/27/18 09:00 Ordered 40 mg PO DAILY Sodium Chloride 0.9% [Saline Flush] Med 10/26/18 18:14 Active 10 ml FLUSH ASDIRECTED PRN Sodium Chloride 0.9% [Saline Flush] Med 10/26/18 18:14 Active 2.5 ml FLUSH ASDIRECTED PRN Temazepam [Restoril] Med 10/26/18 21:59 Ordered 15 mg PO BEDTIME PRN Teriflunomide [Aubagio] Med 10/27/18 09:00 Ordered 14 mg PO DAILY diazePAM [Valium] Med 10/27/18 09:00 Ordered 5 mg PO DAILY oxyCODONE Med 10/26/18 21:59 Ordered 5 mg PO Q4H PRN traMADol [Ultram] Med 10/26/18 22:02 Ordered DOSE mg PO TID PRN traZODone HCl [Trazodone HCl] Med 10/27/18 21:00 Ordered 100 mg PO BEDTIME Blood Culture x2 Reflex Set [OM.PC] Stat Oth 10/26/18 18:13 Ordered Saline Lock Insert [OM.PC] Stat Oth 10/26/18 18:12 Ordered VTE Mechanical Contraindications [AST] Per Unit Routine Oth 10/26/18 21:59 Ordered Resuscitation Status Routine Resus Stat 10/26/18 21:59 Ordered Medication Orders Acetaminophen (Tylenol) 650 mg PO Q4H PRN PRN Reason: Pain (Mild 1-3)/fever Diazepam (Valium.) 5 mg PO DAILY [facility] Docusate Sodium (Colace) 100 mg PO BID PRN PRN Reason: Constipation Duloxetine HCl (Cymbalta) 60 mg PO DAILY [facility] Enoxaparin Sodium (Lovenox) 30 mg SUBCUT Q24H [facility] Gabapentin (Neurontin) 300 mg PO TID [facility] Non-Formulary Medication (Baclofen [Baclofen]) 20 mg PO TID [facility] Non-Formulary Medication (Teriflunomide [Aubagio]) 14 mg PO DAILY [facility] Ondansetron HCl (Zofran Odt) 4 mg PO Q4H PRN PRN Reason: nausea, able to take PO Oxycodone HCl (Oxycodone) 5 mg PO Q4H PRN PRN Reason: Pain (moderate 4-6) Pantoprazole Sodium (Protonix) 40 mg PO DAILY [facility] Sodium Chloride (Saline Flush) 10 ml FLUSH ASDIRECTED PRN PRN Reason: Keep Vein Open Last Admin: 10/26/18 18:54 Dose: 10 ml Sodium Chloride (Saline Flush) 2.5 ml FLUSH ASDIRECTED PRN PRN Reason: Keep Vein Open Last Admin: 10/26/18 18:54 Dose: 2.5 ml Temazepam (Restoril) 15 mg PO BEDTIME PRN PRN Reason: Sleep Tramadol HCl (Ultram) mg PO TID PRN PRN Reason: Pain Trazodone HCl (Trazodone Hcl) 100 mg PO BEDTIME TRA Assessment/Plan Comment:: The patient is a 53-year-old lady who has rather advanced multiple sclerosis. She is currently in a DNR/DNI category. The patient's mother has been experiencing worsening decline in her health with the patient being unable to take care of her own ADLs. Patient will be admitted to inpatient out of concern for possible correction facility placement. The patient has been weak and this has presented difficulties with her ambulation. The patient is a poor historian. I do not suspect that the patient is having difficulty with stroke or other issues. She does see Dr. Quinonez as an outpatient. She is also on medication for her multiple sclerosis. This will be continued. I've also ordered physical therapy for evaluation. Repeat laboratory studies have been ordered for the morning.
[2018-10-26] MEDS: Baclofen 10 MG Tab PO SCH (22:46)
[2018-10-26] MEDS: Enoxaparin 40 MG/0.4 ML Syringe SUBCUT SCH (23:41)
[2018-10-27 06:17] LABS: CHLORIDE,CL 105 mmol/L (98-107); SODIUM,NA 141 mmol/L (136-145)
[2018-10-27] MEDS: Gabapentin 300 MG Cap PO SCH ×3 (06:30→21:16)
[2018-10-27] MEDS: Baclofen 10 MG Tab PO SCH ×3 (06:30→21:16)
[2018-10-27] MEDS ORDERED: Diazepam 5 MG Tab PO SCH (09:00)
[2018-10-27] MEDS: Pantoprazole 40 MG Tab.CR PO SCH (09:00)
[2018-10-27] MEDS: DULoxetine 60 MG Cap PO SCH (09:01)
[2018-10-27] MEDS: TERIFLUNOMIDE 14 MG PO SCH (09:02)
--- NOTE | 2018-10-27 11:52 | PCM.PN ---
- General Info Date of Service: 10/27/18 Admission Dx/Problem (Free Text): Admission Diagnosis/Problem Admission Diagnosis/Problem Altered mental status Subjective Update: The patient is a 53-year-old lady who has a known history of multiple sclerosis. She presented to the emergency department secondary to progressive deterioration and near fall. Patient's mother has reported that she has had worsening of her mental status all day and there was concern with regards to stroke. The patient had been admitted through the emergency department as a stroke code workup. Today the patient is somewhat more alert. She is complaining of it being hot. Patient's mother is with her and able to supply additional information. The patient normally sees Dr. Quinonez. The patient has denied any pain. She is a poor historian. Functional Status: Reports: Pain Controlled, Tolerating Diet - Review of Systems General: Reports: No Symptoms HEENT: Reports: No Symptoms Pulmonary: Reports: No Symptoms Cardiovascular: Reports: No Symptoms Gastrointestinal: Reports: No Symptoms Genitourinary: Reports: No Symptoms Musculoskeletal: Reports: No Symptoms Skin: Reports: No Symptoms Neurological: Reports: No Symptoms Psychiatric: Reports: No Symptoms Systems Review Comment:: The patient is a poor historian therefore, her history is somewhat suspect. - Patient Data Vitals - Most Recent: Last Vital Signs Temp 36.9 C 10/27/18 08:00 Pulse 101 H 10/27/18 08:00 Resp 20 10/27/18 08:00 BP 110/64 10/27/18 08:00 Pulse Ox 90 L 10/27/18 08:00 Weight - Most Recent: 105.233 kg I&O - Last 24 Hours: Intake & Output 10/26/18 10/27/18 10/27/18 22:59 06:59 14:59 Intake Total 0 Output Total 1200 Balance -1200 Lab Results Last 24 Hours: Laboratory Results - last 24 hr 10/26/18 10/26/18 10/26/18 Range/Units 18:47 18:47 18:47 WBC 7.01 (4.0-11.0) K/uL RBC 4.86 (4.30-5.90) M/uL Hgb 14.0 (12.0-16.0) g/dL Hct 44.1 (36.0-46.0) % MCV 90.7 (80.0-98.0) fL MCH 28.8 (27.0-32.0) pg MCHC 31.7 (31.0-37.0) g/dL RDW Std Deviation 49.1 (28.0-62.0) fl RDW Coeff of Ade 15 (11.0-15.0) % Plt Count 135 L (150-400) K/uL MPV 10.70 (7.40-12.00) fL Neut % (Auto) 74.2 (48.0-80.0) % Lymph % (Auto) 6.6 L (16.0-40.0) % [place] % (Auto) 10.1 (0.0-15.0) % Eos % (Auto) 8.8 H (0.0-7.0) % Baso % (Auto) 0.3 (0.0-1.5) % Neut # (Auto) 5.2 (1.4-5.7) K/uL Lymph # (Auto) 0.5 L (0.6-2.4) K/uL [place] # (Auto) 0.7 (0.0-0.8) K/uL Eos # (Auto) 0.6 (0.0-0.7) K/uL Baso # (Auto) 0.0 (0.0-0.1) K/uL Add Manual Diff Neutrophils % (Manual) (48.0-80.0) % Lymphocytes % (Manual) (16.0-40.0) % Monocytes % (Manual) (0.0-15.0) % Eosinophils % (Manual) (0.0-7.0) % Basophils % (Manual) (0.0-1.5) % Nucleated RBC % 0.0 /100WBC Absolute Seg Neuts (1.4-5.7) Lymphocytes # (Manual) (0.6-2.4) Monocytes # (Manual) (0.0-0.8) Eosinophils # (Manual) (0.0-0.7) Basophils # (Manual) (0.0-0.1) Nucleated RBCs # 0 K/uL INR 0.94 Lactate 1.3 (0.20-2.00) mmol/L Sodium (136-145) mmol/L Potassium (3.5-5.1) mmol/L Chloride (98-107) mmol/L Carbon Dioxide (21.0-32.0) mmol/L BUN (7.0-18.0) mg/dL Creatinine (0.6-1.0) mg/dL Est Cr Clr Drug Dosing Estimated GFR (MDRD) ml/min Glucose (74-106) mg/dL Calcium (8.5-10.1) mg/dL Total Bilirubin (0.2-1.0) mg/dL AST (15-37) IU/L ALT (14-63) IU/L Alkaline Phosphatase (46-116) U/L Troponin I (0.000-0.056) ng/mL Total Protein (6.4-8.2) g/dL Albumin (3.4-5.0) g/dL Globulin (2.6-4.0) g/dL Albumin/Globulin Ratio (0.9-1.6) TSH 3rd Generation (0.36-3.74) uIU/mL Urine Color Urine Appearance Urine pH (5.0-8.0) Ur Specific [place] (1.001-1.035) Urine Protein (NEGATIVE) mg/dL Urine Glucose (UA) (NEGATIVE) mg/dL Urine Ketones (NEGATIVE) mg/dL Urine Occult Blood (NEGATIVE) Urine Nitrite (NEGATIVE) Urine Bilirubin (NEGATIVE) Urine Urobilinogen (<2.0) EU/dL Ur Leukocyte Esterase (NEGATIVE) 10/26/18 10/26/18 10/27/18 Range/Units 18:47 18:49 05:45 WBC 5.65 (4.0-11.0) K/uL RBC 4.32 (4.30-5.90) M/uL Hgb 12.4 (12.0-16.0) g/dL Hct 39.4 (36.0-46.0) % MCV 91.2 (80.0-98.0) fL MCH 28.7 (27.0-32.0) pg MCHC 31.5 (31.0-37.0) g/dL RDW Std Deviation 48.6 (28.0-62.0) fl RDW Coeff of Ade 15 (11.0-15.0) % Plt Count 136 L (150-400) K/uL MPV 10.80 (7.40-12.00) fL Neut % (Auto) (48.0-80.0) % Lymph % (Auto) (16.0-40.0) % [place] % (Auto) (0.0-15.0) % Eos % (Auto) (0.0-7.0) % Baso % (Auto) (0.0-1.5) % Neut # (Auto) (1.4-5.7) K/uL Lymph # (Auto) (0.6-2.4) K/uL [place] # (Auto) (0.0-0.8) K/uL Eos # (Auto) (0.0-0.7) K/uL Baso # (Auto) (0.0-0.1) K/uL Add Manual Diff YES Neutrophils % (Manual) 66 (48.0-80.0) % Lymphocytes % (Manual) 14 L (16.0-40.0) % Monocytes % (Manual) 7 (0.0-15.0) % Eosinophils % (Manual) 12 H (0.0-7.0) % Basophils % (Manual) 1 (0.0-1.5) % Nucleated RBC % 0.0 /100WBC Absolute Seg Neuts 3.7 (1.4-5.7) Lymphocytes # (Manual) 0.8 (0.6-2.4) Monocytes # (Manual) 0.4 (0.0-0.8) Eosinophils # (Manual) 0.7 (0.0-0.7) Basophils # (Manual) 0.1 (0.0-0.1) Nucleated RBCs # 0 K/uL INR Lactate (0.20-2.00) mmol/L Sodium 143 (136-145) mmol/L Potassium 4.1 (3.5-5.1) mmol/L Chloride 103 (98-107) mmol/L Carbon Dioxide 32.4 H (21.0-32.0) mmol/L BUN 15 (7.0-18.0) mg/dL Creatinine 1.5 H (0.6-1.0) mg/dL Est Cr Clr Drug Dosing TNP Estimated GFR (MDRD) 36.3 ml/min Glucose 87 (74-106) mg/dL Calcium 10.1 (8.5-10.1) mg/dL Total Bilirubin 0.3 (0.2-1.0) mg/dL AST 34 (15-37) IU/L ALT 41 (14-63) IU/L Alkaline Phosphatase 148 H (46-116) U/L Troponin I < 0.050 (0.000-0.056) ng/mL Total Protein 7.4 (6.4-8.2) g/dL Albumin 3.6 (3.4-5.0) g/dL Globulin 3.8 (2.6-4.0) g/dL Albumin/Globulin Ratio 0.9 (0.9-1.6) TSH 3rd Generation 3.73 (0.36-3.74) uIU/mL Urine Color YELLOW Urine Appearance CLEAR Urine pH 6.5 (5.0-8.0) Ur Specific [place] 1.010 (1.001-1.035) Urine Protein NEGATIVE (NEGATIVE) mg/dL Urine Glucose (UA) NEGATIVE (NEGATIVE) mg/dL Urine Ketones NEGATIVE (NEGATIVE) mg/dL Urine Occult Blood NEGATIVE (NEGATIVE) Urine Nitrite NEGATIVE (NEGATIVE) Urine Bilirubin NEGATIVE (NEGATIVE) Urine Urobilinogen 0.2 (<2.0) EU/dL Ur Leukocyte Esterase NEGATIVE (NEGATIVE) 10/27/18 Range/Units 05:45 WBC (4.0-11.0) K/uL RBC (4.30-5.90) M/uL Hgb (12.0-16.0) g/dL Hct (36.0-46.0) % MCV (80.0-98.0) fL MCH (27.0-32.0) pg MCHC (31.0-37.0) g/dL RDW Std Deviation (28.0-62.0) fl RDW Coeff of Ade (11.0-15.0) % Plt Count (150-400) K/uL MPV (7.40-12.00) fL Neut % (Auto) (48.0-80.0) % Lymph % (Auto) (16.0-40.0) % [place] % (Auto) (0.0-15.0) % Eos % (Auto) (0.0-7.0) % Baso % (Auto) (0.0-1.5) % Neut # (Auto) (1.4-5.7) K/uL Lymph # (Auto) (0.6-2.4) K/uL [place] # (Auto) (0.0-0.8) K/uL Eos # (Auto) (0.0-0.7) K/uL Baso # (Auto) (0.0-0.1) K/uL Add Manual Diff Neutrophils % (Manual) (48.0-80.0) % Lymphocytes % (Manual) (16.0-40.0) % Monocytes % (Manual) (0.0-15.0) % Eosinophils % (Manual) (0.0-7.0) % Basophils % (Manual) (0.0-1.5) % Nucleated RBC % /100WBC Absolute Seg Neuts (1.4-5.7) Lymphocytes # (Manual) (0.6-2.4) Monocytes # (Manual) (0.0-0.8) Eosinophils # (Manual) (0.0-0.7) Basophils # (Manual) (0.0-0.1) Nucleated RBCs # K/uL INR Lactate (0.20-2.00) mmol/L Sodium 141 (136-145) mmol/L Potassium 4.3 (3.5-5.1) mmol/L Chloride 105 (98-107) mmol/L Carbon Dioxide 30.3 (21.0-32.0) mmol/L BUN 10 (7.0-18.0) mg/dL Creatinine 1.1 H (0.6-1.0) mg/dL Est Cr Clr Drug Dosing TNP Estimated GFR (MDRD) 52.0 ml/min Glucose 97 (74-106) mg/dL Calcium 9.7 (8.5-10.1) mg/dL Total Bilirubin 0.2 (0.2-1.0) mg/dL AST 26 (15-37) IU/L ALT 34 (14-63) IU/L Alkaline Phosphatase 148 H (46-116) U/L Troponin I (0.000-0.056) ng/mL Total Protein 6.9 (6.4-8.2) g/dL Albumin 3.0 L (3.4-5.0) g/dL Globulin 3.9 (2.6-4.0) g/dL Albumin/Globulin Ratio 0.8 L (0.9-1.6) TSH 3rd Generation (0.36-3.74) uIU/mL Urine Color Urine Appearance Urine pH (5.0-8.0) Ur Specific [place] (1.001-1.035) Urine Protein (NEGATIVE) mg/dL Urine Glucose (UA) (NEGATIVE) mg/dL Urine Ketones (NEGATIVE) mg/dL Urine Occult Blood (NEGATIVE) Urine Nitrite (NEGATIVE) Urine Bilirubin (NEGATIVE) Urine Urobilinogen (<2.0) EU/dL Ur Leukocyte Esterase (NEGATIVE) Cj Results Last 24 Hours: Microbiology 10/26/18 19:27 Influenza Type A Antigen Screen - Final Nasopharyngeal Swab NEGATIVE INFLUENZA A VIRUS AG Influenza Type B Antigen Screen - Final NEGATIVE INFLUENZA B VIRUS AG 10/26/18 19:14 Anaerobic Blood Culture - Final Blood - Venous - Lab Draw 10/26/18 19:08 Anaerobic Blood Culture - Final Blood - Venous Med Orders - Current: Current Medications Acetaminophen (Tylenol) 650 mg PO Q4H PRN PRN Reason: Pain (Mild 1-3)/fever Baclofen (Lioresal) 20 mg PO TID [facility] Last Admin: 10/27/18 06:30 Dose: 20 mg Diazepam (Valium.) 5 mg PO DAILY [facility] Last Admin: 10/27/18 09:01 Dose: 5 mg Docusate Sodium (Colace) 100 mg PO BID PRN PRN Reason: Constipation Duloxetine HCl (Cymbalta) 60 mg PO DAILY [facility] Last Admin: 10/27/18 09:01 Dose: 60 mg Enoxaparin Sodium (Lovenox) 40 mg SUBCUT Q24H [facility] Last Admin: 10/26/18 23:41 Dose: 40 mg Gabapentin (Neurontin) 300 mg PO TID [facility] Last Admin: 10/27/18 06:30 Dose: 300 mg Ondansetron HCl (Zofran Odt) 4 mg PO Q4H PRN PRN Reason: nausea, able to take PO Oxycodone HCl (Oxycodone) 5 mg PO Q4H PRN PRN Reason: Pain (moderate 4-6) Pantoprazole Sodium (Protonix) 40 mg PO DAILY [facility] Last Admin: 10/27/18 09:00 Dose: 40 mg Teriflunomide [ (Aubagio] 14mg) 14 each PO DAILY [facility] Last Admin: 10/27/18 09:02 Dose: 14 each Sodium Chloride (Saline Flush) 10 ml FLUSH ASDIRECTED PRN PRN Reason: Keep Vein Open Last Admin: 10/26/18 18:54 Dose: 10 ml Sodium Chloride (Saline Flush) 2.5 ml FLUSH ASDIRECTED PRN PRN Reason: Keep Vein Open Last Admin: 10/26/18 18:54 Dose: 2.5 ml Temazepam (Restoril) 15 mg PO BEDTIME PRN PRN Reason: Sleep Tramadol HCl (Ultram) 50 mg PO TID PRN PRN Reason: Pain Trazodone HCl (Trazodone) 100 mg PO BEDTIME TRA Discontinued Medications Albuterol/Ipratropium (Duoneb 3.0-0.5 Mg/3 Ml) 3 ml NEB ONETIME ONE Stop: 10/26/18 18:15 Last Admin: 10/26/18 19:01 Dose: 3 ml Sodium Chloride (Normal Saline) 1,000 mls @ 999 mls/hr IV STAT ONE Stop: 10/26/18 19:14 Last Admin: 10/26/18 18:55 Dose: 999 mls/hr Ceftriaxone Sodium/Dextrose 2 (gm/ Premix) 50 mls @ 100 mls/hr IV ONETIME ONE Stop: 10/26/18 19:40 Last Admin: 10/26/18 19:21 Dose: 100 mls/hr Trazodone HCl (Trazodone Hcl) 100 mg PO BEDTIME TRA Last Admin: 10/26/18 22:46 Dose: Not Given - Exam Quality Assessment: No: Supplemental Oxygen General: Alert, Oriented, Cooperative, Lethargic HEENT: Pupils Equal, Pupils Reactive, EOMI Neck: Supple, Trachea Midline Lungs: Clear to Auscultation, Normal Respiratory Effort Cardiovascular: Regular Rate, Regular Rhythm GI/Abdominal Exam: Normal Bowel Sounds, No Distention (Female) Exam: Deferred Back Exam: Normal Inspection. No: Full Range of Motion (Related to multiple sclerosis) Extremities: No Pedal Edema. No: Normal Range of Motion (Generalized weakness) Skin: Warm, Dry, Intact Neurological: No New Focal Deficit Psy/Mental Status: Alert, Depressed. No: Normal Affect (Flat) - Problem List & Annotations (1) Altered mental status SNOMED Code(s): 397197027 Code(s): R41.82 - ALTERED MENTAL STATUS, UNSPECIFIED Status: Acute Priority: High Current Visit: Yes Qualifiers: Altered mental status type: disorientation Qualified Code(s): R41.0 - Disorientation, unspecified (2) Multiple sclerosis SNOMED Code(s): 59505105 Code(s): G35 - MULTIPLE SCLEROSIS Status: Chronic Priority: High Current Visit: Yes (3) Acute kidney insufficiency SNOMED Code(s): 207406786 Code(s): N28.9 - DISORDER OF KIDNEY AND URETER, UNSPECIFIED Status: Acute Priority: High Current Visit: Yes (4) Total self-care deficit SNOMED Code(s): 27045240 Code(s): R41.89 - OTH SYMPTOMS AND SIGNS W COGNITIVE FUNCTIONS AND AWARENESS Status: Acute Current Visit: Yes (5) Mobility impaired SNOMED Code(s): 88849353 Code(s): Z74.09 - OTHER REDUCED MOBILITY Status: Acute Current Visit: Yes - Problem List Review Problem List Initiated/Reviewed/Updated: Yes - My Orders Last 24 Hours: My Active Orders 10/26/18 21:59 Oxygen Therapy [RC] PRN Up With Assistance [RC] ASDIRECTED VTE/DVT Education [RC] PER UNIT ROUTINE Vital Signs [RC] Q4H Acetaminophen [Tylenol] 650 mg PO Q4H PRN Docusate Sodium [Colace] 100 mg PO BID PRN Ondansetron [Zofran ODT] 4 mg PO Q4H PRN Temazepam [Restoril] 15 mg PO BEDTIME PRN oxyCODONE 5 mg PO Q4H PRN VTE Mechanical Contraindications [AST] Per Unit Routine Resuscitation Status Routine 10/26/18 22:00 Enoxaparin [Lovenox] 40 mg SUBCUT Q24H 10/26/18 22:02 traMADol [Ultram] 50 mg PO TID PRN 10/26/18 22:38 Baclofen [Lioresal] 20 mg PO TID 10/27/18 06:00 Gabapentin [Neurontin] 300 mg PO TID 10/27/18 07:54 Consult to Physical Therapy [PT Evaluation and Treatment] [CONS] Routine OT Evaluation and Treatment [CONS] Routine 10/27/18 08:15 Admission Status [Patient Status] [ADT] Routine 10/27/18 09:00 DULoxetine [Cymbalta] 60 mg PO DAILY Pantoprazole [ProTONIX] 40 mg PO DAILY Patient's Own Medication [Ptom] 14 each PO DAILY diazePAM [Valium] 5 mg PO DAILY 10/27/18 21:00 traZODone 100 mg PO BEDTIME - Plan Plan:: The patient is a 53-year-old lady who is currently in a DO NOT INTUBATE/DO NOT RESUSCITATE category. She has advanced multiple sclerosis. She has had worsening health over the past several weeks. The patient recently has been unable to continue with her ADLs. I've ordered PT OT to help ascertain the degree of care that she is needing. The patient is overall very weak and is facing difficulties in ambulation. Unfortunately, the patient is a poor historian and her history therefore somewhat suspect. The patient is likely at this time or appropriate for assisted facility and order consultation for assisted facility. Repeat laboratory studies have been ordered for the morning.
[2018-10-27] MEDS: Ondansetron 4 MG Tab.DIS PO PRN (18:31)
[2018-10-27] MEDS: traZODone 50 MG Tab PO SCH (21:16)
[2018-10-27] MEDS: Enoxaparin 40 MG/0.4 ML Syringe SUBCUT SCH (21:16)
[2018-10-28] MEDS: Gabapentin 300 MG Cap PO SCH ×3 (05:31→22:00)
[2018-10-28] MEDS: Baclofen 10 MG Tab PO SCH ×3 (05:32→21:55)
[2018-10-28 05:42] LABS: CHLORIDE,CL 100 mmol/L (98-107); SODIUM,NA 139 mmol/L (136-145)
[2018-10-28] MEDS ORDERED: methylPREDNISolone Sodium Succinate 2 GM Vial IV SCH (09:00)
[2018-10-28] MEDS: Pantoprazole 40 MG Tab.CR PO SCH (09:03)
[2018-10-28] MEDS: DULoxetine 60 MG Cap PO SCH (09:04)
[2018-10-28] MEDS: TERIFLUNOMIDE 14 MG PO SCH (09:06)
--- NOTE | 2018-10-28 09:42 | PCM.PN ---
<Francisco Mejia - Last Filed: 10/28/18 09:36> - General Info Date of Service: 10/28/18 Subjective Update: 53F hx of multiple sclerosis admitted for complaints of worsening mental status , generalized weakness that predominately is affecting her lower extremities, and hypoxia. Mom was at the bedside today. Patient says that she feels weak, is short of breath, and feels anxious. She also feels her legs are weaker than usual. - Review of Systems General: Reports: Other (see hpi) - Patient Data Vitals - Most Recent: Last Vital Signs Temp 37.2 C 10/28/18 08:00 Pulse 93 10/28/18 04:00 Resp 18 10/28/18 08:00 BP 127/80 10/28/18 08:00 Pulse Ox 91 L 10/28/18 08:00 Weight - Most Recent: 105.233 kg I&O - Last 24 Hours: Intake & Output 10/27/18 10/28/18 10/28/18 22:59 06:59 14:59 Intake Total 800 500 Output Total 700 1300 Balance 100 -800 Lab Results Last 24 Hours: Laboratory Results - last 24 hr 10/28/18 10/28/18 Range/Units 05:00 05:00 WBC 7.13 (4.0-11.0) K/uL RBC 4.57 (4.30-5.90) M/uL Hgb 12.9 (12.0-16.0) g/dL Hct 41.3 (36.0-46.0) % MCV 90.4 (80.0-98.0) fL MCH 28.2 (27.0-32.0) pg MCHC 31.2 (31.0-37.0) g/dL RDW Std Deviation 47.7 (28.0-62.0) fl RDW Coeff of Ade 15 (11.0-15.0) % Plt Count 137 L (150-400) K/uL MPV 10.80 (7.40-12.00) fL Add Manual Diff YES Neutrophils % (Manual) 64 (48.0-80.0) % Band Neutrophils % 5 % Lymphocytes % (Manual) 22 (16.0-40.0) % Monocytes % (Manual) 8 (0.0-15.0) % Eosinophils % (Manual) 1 (0.0-7.0) % Nucleated RBC % 0.0 /100WBC Absolute Seg Neuts 4.6 (1.4-5.7) Band Neutrophils # 0.4 Lymphocytes # (Manual) 1.6 (0.6-2.4) Monocytes # (Manual) 0.6 (0.0-0.8) Eosinophils # (Manual) 0.1 (0.0-0.7) Nucleated RBCs # 0 K/uL Sodium 139 (136-145) mmol/L Potassium 3.9 (3.5-5.1) mmol/L Chloride 100 (98-107) mmol/L Carbon Dioxide 30.4 (21.0-32.0) mmol/L BUN 9 (7.0-18.0) mg/dL Creatinine 1.0 (0.6-1.0) mg/dL Est Cr Clr Drug Dosing TNP Estimated GFR (MDRD) 58.0 ml/min Glucose 83 (74-106) mg/dL Calcium 10.1 (8.5-10.1) mg/dL Cj Results Last 24 Hours: Microbiology 10/26/18 19:14 Aerobic Blood Culture - Preliminary Blood - Venous - Lab Draw NO GROWTH AFTER 1 DAY Anaerobic Blood Culture - Final 10/26/18 19:08 Aerobic Blood Culture - Preliminary Blood - Venous NO GROWTH AFTER 1 DAY Anaerobic Blood Culture - Final Med Orders - Current: Current Medications Acetaminophen (Tylenol) 650 mg PO Q4H PRN PRN Reason: Pain (Mild 1-3)/fever Baclofen (Lioresal) 20 mg PO TID [facility] Last Admin: 10/28/18 05:32 Dose: 20 mg Diazepam (Valium.) 5 mg PO TID [facility] Docusate Sodium (Colace) 100 mg PO BID PRN PRN Reason: Constipation Duloxetine HCl (Cymbalta) 60 mg PO DAILY [facility] Last Admin: 10/28/18 09:04 Dose: 60 mg Enoxaparin Sodium (Lovenox) 40 mg SUBCUT Q24H [facility] Last Admin: 10/27/18 21:16 Dose: 40 mg Gabapentin (Neurontin) 300 mg PO TID [facility] Last Admin: 10/28/18 05:31 Dose: 300 mg Methylprednisolone Sodium Succinate 1,000 mg/ Sodium Chloride 258 mls @ 258 mls /hr IV DAILY [facility] Ondansetron HCl (Zofran Odt) 4 mg PO Q4H PRN PRN Reason: nausea, able to take PO Last Admin: 10/27/18 18:31 Dose: 4 mg Oxycodone HCl (Oxycodone) 5 mg PO Q4H PRN PRN Reason: Pain (moderate 4-6) Pantoprazole Sodium (Protonix) 40 mg PO DAILY [facility] Last Admin: 10/28/18 09:03 Dose: 40 mg Teriflunomide [ (Aubagio] 14mg) 14 each PO DAILY [facility] Last Admin: 10/28/18 09:06 Dose: 14 each Sodium Chloride (Saline Flush) 10 ml FLUSH ASDIRECTED PRN PRN Reason: Keep Vein Open Last Admin: 10/26/18 18:54 Dose: 10 ml Sodium Chloride (Saline Flush) 2.5 ml FLUSH ASDIRECTED PRN PRN Reason: Keep Vein Open Last Admin: 10/26/18 18:54 Dose: 2.5 ml Temazepam (Restoril) 15 mg PO BEDTIME PRN PRN Reason: Sleep Tramadol HCl (Ultram) 50 mg PO TID PRN PRN Reason: Pain Trazodone HCl (Trazodone) 100 mg PO BEDTIME [facility] Last Admin: 10/27/18 21:16 Dose: 100 mg Discontinued Medications Albuterol/Ipratropium (Duoneb 3.0-0.5 Mg/3 Ml) 3 ml NEB ONETIME ONE Stop: 10/26/18 18:15 Last Admin: 10/26/18 19:01 Dose: 3 ml Diazepam (Valium.) 5 mg PO DAILY [facility] Last Admin: 10/27/18 09:01 Dose: 5 mg Sodium Chloride (Normal Saline) 1,000 mls @ 999 mls/hr IV STAT ONE Stop: 10/26/18 19:14 Last Admin: 10/26/18 18:55 Dose: 999 mls/hr Ceftriaxone Sodium/Dextrose 2 (gm/ Premix) 50 mls @ 100 mls/hr IV ONETIME ONE Stop: 10/26/18 19:40 Last Admin: 10/26/18 19:21 Dose: 100 mls/hr Trazodone HCl (Trazodone Hcl) 100 mg PO BEDTIME [facility] Last Admin: 10/26/18 22:46 Dose: Not Given - Exam Quality Assessment: Supplemental Oxygen General: Alert, Oriented HEENT: Pupils Equal, Pupils Reactive, EOMI, Mucous Membr. Moist/[place] Neck: Supple Lungs: Other (mild expiratory wheezing at the bases) Cardiovascular: Regular Rate, Regular Rhythm GI/Abdominal Exam: Normal Bowel Sounds, Soft, Non-Tender, No Organomegaly, No Distention, No Abnormal Bruit, No Mass, Pelvis Stable Back Exam: Normal Inspection, Full Range of Motion Extremities: Non-Tender, No Pedal Edema, Normal Capillary Refill, Other (rn oncology research strength 5/5 bilaterally. 4/5 strength for flexion extension at the elbows bilaterally. patient is unable to flex her leg at the hip to raise her foot off the bed. however, extension at the hip against resistance is 5/5. I don't have a baseline to compare to but mom says this is worse than usual. ) Peripheral Pulses: 2+: Dorsalis Pedis (L), Dorsalis Pedis (R) Skin: Warm, Dry, Intact Psy/Mental Status: Alert, Anxious - Problem List Review Problem List Initiated/Reviewed/Updated: Yes - My Orders Last 24 Hours: My Active Orders 10/28/18 09:00 methylPREDNISolone Sod Succ [Solu-MEDROL] 1,000 mg Sodium Chloride 0.9% [ Normal Saline] 250 ml IV DAILY 10/28/18 14:00 diazePAM [Valium] 5 mg PO TID - Plan Plan:: Assessment: #1. Multiple sclerosis exacerbation #2. Hypoxia #3. Chronic neuropathic pain #4. Subjective worsening of mental status Plan: #1. Will initiate methylprednisolone IV 1g daily x3 days and monitor response. She may benefit from a longer duration of corticosteroid therapy whether it be IV or a oral prednisone taper upon discharge. #2. Continue to titrate oxygen as needed #3. Disposition - home once stable as per families wishes. Will discuss home health with social work to see if this is a possibility for her. <Lorne Orta - Last Filed: 10/28/18 15:57> - General Info Subjective Update: I have seen and examined the patient independently of biomedical analytical scientist. I agree with the assessment and plan of care as outlined for this patient by the resident. Please see orders. She will be started on high dose steroids for MS flare. - Patient Data Vitals - Most Recent: Last Vital Signs Temp 36.9 C 10/28/18 12:16 Pulse 69 10/28/18 12:16 Resp 20 10/28/18 12:16 BP 126/80 10/28/18 12:16 Pulse Ox 93 L 10/28/18 12:16 I&O - Last 24 Hours: Intake & Output 10/28/18 10/28/18 10/28/18 06:59 14:59 22:59 Intake Total 500 Output Total 1300 Balance -800 Lab Results Last 24 Hours: Laboratory Results - last 24 hr 10/28/18 10/28/18 Range/Units 05:00 05:00 WBC 7.13 (4.0-11.0) K/uL RBC 4.57 (4.30-5.90) M/uL Hgb 12.9 (12.0-16.0) g/dL Hct 41.3 (36.0-46.0) % MCV 90.4 (80.0-98.0) fL MCH 28.2 (27.0-32.0) pg MCHC 31.2 (31.0-37.0) g/dL RDW Std Deviation 47.7 (28.0-62.0) fl RDW Coeff of Ade 15 (11.0-15.0) % Plt Count 137 L (150-400) K/uL MPV 10.80 (7.40-12.00) fL Add Manual Diff YES Neutrophils % (Manual) 64 (48.0-80.0) % Band Neutrophils % 5 % Lymphocytes % (Manual) 22 (16.0-40.0) % Monocytes % (Manual) 8 (0.0-15.0) % Eosinophils % (Manual) 1 (0.0-7.0) % Nucleated RBC % 0.0 /100WBC Absolute Seg Neuts 4.6 (1.4-5.7) Band Neutrophils # 0.4 Lymphocytes # (Manual) 1.6 (0.6-2.4) Monocytes # (Manual) 0.6 (0.0-0.8) Eosinophils # (Manual) 0.1 (0.0-0.7) Nucleated RBCs # 0 K/uL Sodium 139 (136-145) mmol/L Potassium 3.9 (3.5-5.1) mmol/L Chloride 100 (98-107) mmol/L Carbon Dioxide 30.4 (21.0-32.0) mmol/L BUN 9 (7.0-18.0) mg/dL Creatinine 1.0 (0.6-1.0) mg/dL Est Cr Clr Drug Dosing TNP Estimated GFR (MDRD) 58.0 ml/min Glucose 83 (74-106) mg/dL Calcium 10.1 (8.5-10.1) mg/dL Cj Results Last 24 Hours: Microbiology 10/26/18 19:14 Aerobic Blood Culture - Preliminary Blood - Venous - Lab Draw NO GROWTH AFTER 1 DAY Anaerobic Blood Culture - Final 10/26/18 19:08 Aerobic Blood Culture - Preliminary Blood - Venous NO GROWTH AFTER 1 DAY Anaerobic Blood Culture - Final Med Orders - Current: Current Medications Acetaminophen (Tylenol) 650 mg PO Q4H PRN PRN Reason: Pain (Mild 1-3)/fever Baclofen (Lioresal) 20 mg PO TID [facility] Last Admin: 10/28/18 13:59 Dose: 20 mg Diazepam (Valium.) 5 mg PO TID [facility] Last Admin: 10/28/18 13:59 Dose: 5 mg Docusate Sodium (Colace) 100 mg PO BID PRN PRN Reason: Constipation Duloxetine HCl (Cymbalta) 60 mg PO DAILY [facility] Last Admin: 10/28/18 09:04 Dose: 60 mg Enoxaparin Sodium (Lovenox) 40 mg SUBCUT Q24H [facility] Last Admin: 10/27/18 21:16 Dose: 40 mg Gabapentin (Neurontin) 300 mg PO TID [facility] Last Admin: 10/28/18 13:59 Dose: 300 mg Methylprednisolone Sodium Succinate 1,000 mg/ Sodium Chloride 258 mls @ 258 mls /hr IV DAILY [facility] Last Admin: 10/28/18 10:29 Dose: 258 mls/hr Ondansetron HCl (Zofran Odt) 4 mg PO Q4H PRN PRN Reason: nausea, able to take PO Last Admin: 10/28/18 14:58 Dose: 4 mg Oxycodone HCl (Oxycodone) 5 mg PO Q4H PRN PRN Reason: Pain (moderate 4-6) Pantoprazole Sodium (Protonix) 40 mg PO DAILY [facility] Last Admin: 10/28/18 09:03 Dose: 40 mg Teriflunomide [ (Aubagio] 14mg) 14 each PO DAILY [facility] Last Admin: 10/28/18 09:06 Dose: 14 each Sodium Chloride (Saline Flush) 10 ml FLUSH ASDIRECTED PRN PRN Reason: Keep Vein Open Last Admin: 10/26/18 18:54 Dose: 10 ml Sodium Chloride (Saline Flush) 2.5 ml FLUSH ASDIRECTED PRN PRN Reason: Keep Vein Open Last Admin: 10/26/18 18:54 Dose: 2.5 ml Temazepam (Restoril) 15 mg PO BEDTIME PRN PRN Reason: Sleep Tramadol HCl (Ultram) 50 mg PO TID PRN PRN Reason: Pain Trazodone HCl (Trazodone) 100 mg PO BEDTIME [facility] Last Admin: 10/27/18 21:16 Dose: 100 mg Discontinued Medications Albuterol/Ipratropium (Duoneb 3.0-0.5 Mg/3 Ml) 3 ml NEB ONETIME ONE Stop: 10/26/18 18:15 Last Admin: 10/26/18 19:01 Dose: 3 ml Diazepam (Valium.) 5 mg PO DAILY [facility] Last Admin: 10/27/18 09:01 Dose: 5 mg Sodium Chloride (Normal Saline) 1,000 mls @ 999 mls/hr IV STAT ONE Stop: 10/26/18 19:14 Last Admin: 10/26/18 18:55 Dose: 999 mls/hr Ceftriaxone Sodium/Dextrose 2 (gm/ Premix) 50 mls @ 100 mls/hr IV ONETIME ONE Stop: 10/26/18 19:40 Last Admin: 10/26/18 19:21 Dose: 100 mls/hr Trazodone HCl (Trazodone Hcl) 100 mg PO BEDTIME [facility] Last Admin: 10/26/18 22:46 Dose: Not Given - Problem List & Annotations (1) Altered mental status SNOMED Code(s): 234348624 Code(s): R41.82 - ALTERED MENTAL STATUS, UNSPECIFIED Status: Acute Priority: High Current Visit: Yes Qualifiers: Altered mental status type: disorientation Qualified Code(s): R41.0 - Disorientation, unspecified (2) Multiple sclerosis SNOMED Code(s): 52569146 Code(s): G35 - MULTIPLE SCLEROSIS Status: Chronic Priority: High Current Visit: Yes (3) Acute kidney insufficiency SNOMED Code(s): 274064857 Code(s): N28.9 - DISORDER OF KIDNEY AND URETER, UNSPECIFIED Status: Acute Priority: High Current Visit: Yes (4) Total self-care deficit SNOMED Code(s): 86299804 Code(s): R41.89 - OT SYMPTOMS AND SIGNS W COGNITIVE FUNCTIONS AND AWARENESS Status: Acute Current Visit: Yes (5) Mobility impaired SNOMED Code(s): 60942793 Code(s): Z74.09 - OTHER REDUCED MOBILITY Status: Acute Current Visit: Yes - My Orders Last 24 Hours: My Active Orders 10/27/18 21:00 traZODone 100 mg PO BEDTIME
[2018-10-28] MEDS: Diazepam 5 MG Tab PO SCH ×2 (13:59→22:00)
[2018-10-28] MEDS: Ondansetron 4 MG Tab.DIS PO PRN (14:58)
[2018-10-28] MEDS: Enoxaparin 40 MG/0.4 ML Syringe SUBCUT SCH (22:00)
[2018-10-29 06:00] LABS: CHLORIDE,CL 101 mmol/L (98-107); SODIUM,NA 141 mmol/L (136-145)
[2018-10-29] MEDS: traZODone 50 MG Tab PO SCH ×2 (06:44→21:15)
[2018-10-29] MEDS: Gabapentin 300 MG Cap PO SCH ×3 (06:49→21:15)
[2018-10-29] MEDS: Baclofen 10 MG Tab PO SCH ×3 (06:49→21:16)
[2018-10-29] MEDS: Diazepam 5 MG Tab PO SCH ×3 (06:50→21:15)
[2018-10-29] MEDS ORDERED: Albuterol/Ipratropium 3.0-0.5 MG/3 ML Neb Soln NEB SCH (08:00)
--- NOTE | 2018-10-29 08:48 | PCM.PN ---
<Francisco Mejia - Last Filed: 10/29/18 09:29> - General Info Date of Service: 10/29/18 Subjective Update: Patient says that she feels a bit better than yesterday overall. Has been working with PT. Still requiring 4L o2 via NC. She denies any chest pain, fever. - Review of Systems General: Reports: Other (see hpi) - Patient Data Vitals - Most Recent: Last Vital Signs Temp 35.3 C 10/29/18 07:48 Pulse 74 10/29/18 07:48 Resp 14 10/29/18 07:48 BP 126/88 10/29/18 07:48 Pulse Ox 90 L 10/29/18 07:48 Weight - Most Recent: 105.233 kg I&O - Last 24 Hours: Intake & Output 10/28/18 10/29/18 10/29/18 22:59 06:59 14:59 Intake Total 1370 800 Output Total 1825 6555 Balance -455 -1075 Lab Results Last 24 Hours: Laboratory Results - last 24 hr 10/29/18 10/29/18 Range/Units 05:05 05:05 WBC 5.39 (4.0-11.0) K/uL RBC 4.39 (4.30-5.90) M/uL Hgb 12.3 (12.0-16.0) g/dL Hct 39.3 (36.0-46.0) % MCV 89.5 (80.0-98.0) fL MCH 28.0 (27.0-32.0) pg MCHC 31.3 (31.0-37.0) g/dL RDW Std Deviation 47.0 (28.0-62.0) fl RDW Coeff of Ade 14 (11.0-15.0) % Plt Count 148 L (150-400) K/uL MPV 11.80 (7.40-12.00) fL Neut % (Auto) 79.9 (48.0-80.0) % Lymph % (Auto) 13.2 L (16.0-40.0) % [place] % (Auto) 6.9 (0.0-15.0) % Eos % (Auto) 0.0 (0.0-7.0) % Baso % (Auto) 0.0 (0.0-1.5) % Neut # (Auto) 4.3 (1.4-5.7) K/uL Lymph # (Auto) 0.7 (0.6-2.4) K/uL [place] # (Auto) 0.4 (0.0-0.8) K/uL Eos # (Auto) 0.0 (0.0-0.7) K/uL Baso # (Auto) 0.0 (0.0-0.1) K/uL Nucleated RBC % 0.0 /100WBC Nucleated RBCs # 0 K/uL Sodium 141 (136-145) mmol/L Potassium 4.1 (3.5-5.1) mmol/L Chloride 101 (98-107) mmol/L Carbon Dioxide 33.1 H (21.0-32.0) mmol/L BUN 11 (7.0-18.0) mg/dL Creatinine 0.9 (0.6-1.0) mg/dL Est Cr Clr Drug Dosing TNP Estimated GFR (MDRD) > 60.0 ml/min Glucose 157 H (74-106) mg/dL Calcium 9.7 (8.5-10.1) mg/dL Total Bilirubin 0.3 (0.2-1.0) mg/dL AST 47 H (15-37) IU/L ALT 31 (14-63) IU/L Alkaline Phosphatase 129 H (46-116) U/L Total Protein 7.1 (6.4-8.2) g/dL Albumin 3.0 L (3.4-5.0) g/dL Globulin 4.1 H (2.6-4.0) g/dL Albumin/Globulin Ratio 0.7 L (0.9-1.6) Cj Results Last 24 Hours: Microbiology 10/26/18 19:14 Aerobic Blood Culture - Preliminary Blood - Venous - Lab Draw NO GROWTH AFTER 2 DAYS Anaerobic Blood Culture - Final 10/26/18 19:08 Aerobic Blood Culture - Preliminary Blood - Venous NO GROWTH AFTER 2 DAYS Anaerobic Blood Culture - Final Med Orders - Current: Current Medications Acetaminophen (Tylenol) 650 mg PO Q4H PRN PRN Reason: Pain (Mild 1-3)/fever Albuterol/Ipratropium (Duoneb 3.0-0.5 Mg/3 Ml) 3 ml NEB Q4H TRA Baclofen (Lioresal) 20 mg PO TID [facility] Last Admin: 10/29/18 06:49 Dose: 20 mg Diazepam (Valium.) 5 mg PO TID [facility] Last Admin: 10/29/18 06:50 Dose: 5 mg Docusate Sodium (Colace) 100 mg PO BID PRN PRN Reason: Constipation Duloxetine HCl (Cymbalta) 60 mg PO DAILY [facility] Last Admin: 10/28/18 09:04 Dose: 60 mg Enoxaparin Sodium (Lovenox) 40 mg SUBCUT Q24H [facility] Last Admin: 10/28/18 22:00 Dose: 40 mg Gabapentin (Neurontin) 300 mg PO TID [facility] Last Admin: 10/29/18 06:49 Dose: 300 mg Methylprednisolone Sodium Succinate 1,000 mg/ Sodium Chloride 258 mls @ 258 mls /hr IV DAILY [facility] Last Admin: 10/28/18 10:29 Dose: 258 mls/hr Ondansetron HCl (Zofran Odt) 4 mg PO Q4H PRN PRN Reason: nausea, able to take PO Last Admin: 10/28/18 14:58 Dose: 4 mg Oxycodone HCl (Oxycodone) 5 mg PO Q4H PRN PRN Reason: Pain (moderate 4-6) Pantoprazole Sodium (Protonix) 40 mg PO DAILY [facility] Last Admin: 10/28/18 09:03 Dose: 40 mg Teriflunomide [ (Aubagio] 14mg) 14 each PO DAILY [facility] Last Admin: 10/28/18 09:06 Dose: 14 each Sodium Chloride (Saline Flush) 10 ml FLUSH ASDIRECTED PRN PRN Reason: Keep Vein Open Last Admin: 10/26/18 18:54 Dose: 10 ml Sodium Chloride (Saline Flush) 2.5 ml FLUSH ASDIRECTED PRN PRN Reason: Keep Vein Open Last Admin: 10/26/18 18:54 Dose: 2.5 ml Temazepam (Restoril) 15 mg PO BEDTIME PRN PRN Reason: Sleep Last Admin: 10/29/18 00:15 Dose: 15 mg Tramadol HCl (Ultram) 50 mg PO TID PRN PRN Reason: Pain Last Admin: 10/28/18 22:05 Dose: 50 mg Trazodone HCl (Trazodone) 100 mg PO BEDTIME [facility] Last Admin: 10/29/18 06:44 Dose: 100 mg Discontinued Medications Albuterol/Ipratropium (Duoneb 3.0-0.5 Mg/3 Ml) 3 ml NEB ONETIME ONE Stop: 10/26/18 18:15 Last Admin: 10/26/18 19:01 Dose: 3 ml Diazepam (Valium.) 5 mg PO DAILY [facility] Last Admin: 10/27/18 09:01 Dose: 5 mg Sodium Chloride (Normal Saline) 1,000 mls @ 999 mls/hr IV STAT ONE Stop: 10/26/18 19:14 Last Admin: 10/26/18 18:55 Dose: 999 mls/hr Ceftriaxone Sodium/Dextrose 2 (gm/ Premix) 50 mls @ 100 mls/hr IV ONETIME ONE Stop: 10/26/18 19:40 Last Admin: 10/26/18 19:21 Dose: 100 mls/hr Trazodone HCl (Trazodone Hcl) 100 mg PO BEDTIME [facility] Last Admin: 10/26/18 22:46 Dose: Not Given - Exam Quality Assessment: Supplemental Oxygen General: Alert, Oriented HEENT: Pupils Equal, Pupils Reactive, EOMI, Mucous Membr. Moist/[place] Neck: Supple Lungs: Other (expiratory wheezing bilaterally ) Cardiovascular: Regular Rate, Regular Rhythm GI/Abdominal Exam: Normal Bowel Sounds, Soft, Non-Tender, No Organomegaly, No Distention, No Abnormal Bruit, No Mass, Pelvis Stable Back Exam: Normal Inspection, Full Range of Motion Extremities: Normal Inspection, Normal Range of Motion, Non-Tender, No Pedal Edema, Normal Capillary Refill Peripheral Pulses: 2+: Dorsalis Pedis (L), Dorsalis Pedis (R) Skin: Warm, Dry, Intact Neurological: Other (no new changes) Psy/Mental Status: Alert, Normal Affect, Normal Mood - Problem List Review Problem List Initiated/Reviewed/Updated: Yes - My Orders Last 24 Hours: My Active Orders 10/28/18 09:00 methylPREDNISolone Sod Succ [Solu-MEDROL] 1,000 mg Sodium Chloride 0.9% [ Normal Saline] 250 ml IV DAILY 10/28/18 14:00 diazePAM [Valium] 5 mg PO TID 10/29/18 07:55 RT Aerosol Therapy [RC] ASDIRECTED 10/29/18 07:57 Chest 1V Frontal [CR] Stat 10/29/18 08:00 Albuterol/Ipratropium [DuoNeb 3.0-0.5 MG/3 ML] 3 ml NEB Q4H - Plan Plan:: Assessment: #1. Acute hypoxic respiratory failure #2. Multiple sclerosis exacerbation Plan: #1. Given her persistent hypoxia, I obtained a CXR which showed no acute findings. She is also wheezing today much more than yesterday, so I have ordered duonebs for this. #2. In regards to her MS exacerbation, she has been working with PT who have been unable to get her up and standing/walking. Mom says that since this past Saturday, she hasn't been able to walk with her walker which is her baseline. We will continue with the solu-medrol which may help with her generalized weakness along with her breathing. I discussed this case with her neurologist who recommended that she may benefit from an outpatient MRI upon discharge. Patient and family are hesitant about this with my discussion so I will leave this until their outpatient follow up appointment. #3. Goals for this patient are to get her off of the oxygen and on room air. I discussed with patient and her mom that she may need a lengthy duration of PT to be able to get up and walking with her walker again. She may benefit from temporary SNF placement as mom thinks that the patient in her current physical state would be too much for her to handle. <Lorne Orta - Last Filed: 10/29/18 12:03> - General Info Admission Dx/Problem (Free Text): I have seen and examined the patient independently of Francisco Mejia MD,administrative medical director. I have discussed the case with him. I agree with the assessment and plan of care outlined by administrative medical director. Please see orders. - Patient Data Vitals - Most Recent: Last Vital Signs Temp 36.5 C 10/29/18 08:00 Pulse 74 10/29/18 07:48 Resp 14 10/29/18 07:48 BP 126/88 10/29/18 07:48 Pulse Ox 90 L 10/29/18 07:48 I&O - Last 24 Hours: Intake & Output 10/28/18 10/29/18 10/29/18 22:59 06:59 14:59 Intake Total 1370 800 Output Total 1825 1875 Balance -455 -1075 Lab Results Last 24 Hours: Laboratory Results - last 24 hr 10/29/18 10/29/18 Range/Units 05:05 05:05 WBC 5.39 (4.0-11.0) K/uL RBC 4.39 (4.30-5.90) M/uL Hgb 12.3 (12.0-16.0) g/dL Hct 39.3 (36.0-46.0) % MCV 89.5 (80.0-98.0) fL MCH 28.0 (27.0-32.0) pg MCHC 31.3 (31.0-37.0) g/dL RDW Std Deviation 47.0 (28.0-62.0) fl RDW Coeff of Ade 14 (11.0-15.0) % Plt Count 148 L (150-400) K/uL MPV 11.80 (7.40-12.00) fL Neut % (Auto) 79.9 (48.0-80.0) % Lymph % (Auto) 13.2 L (16.0-40.0) % [place] % (Auto) 6.9 (0.0-15.0) % Eos % (Auto) 0.0 (0.0-7.0) % Baso % (Auto) 0.0 (0.0-1.5) % Neut # (Auto) 4.3 (1.4-5.7) K/uL Lymph # (Auto) 0.7 (0.6-2.4) K/uL [place] # (Auto) 0.4 (0.0-0.8) K/uL Eos # (Auto) 0.0 (0.0-0.7) K/uL Baso # (Auto) 0.0 (0.0-0.1) K/uL Nucleated RBC % 0.0 /100WBC Nucleated RBCs # 0 K/uL Sodium 141 (136-145) mmol/L Potassium 4.1 (3.5-5.1) mmol/L Chloride 101 (98-107) mmol/L Carbon Dioxide 33.1 H (21.0-32.0) mmol/L BUN 11 (7.0-18.0) mg/dL Creatinine 0.9 (0.6-1.0) mg/dL Est Cr Clr Drug Dosing TNP Estimated GFR (MDRD) > 60.0 ml/min Glucose 157 H (74-106) mg/dL Calcium 9.7 (8.5-10.1) mg/dL Total Bilirubin 0.3 (0.2-1.0) mg/dL AST 47 H (15-37) IU/L ALT 31 (14-63) IU/L Alkaline Phosphatase 129 H (46-116) U/L Total Protein 7.1 (6.4-8.2) g/dL Albumin 3.0 L (3.4-5.0) g/dL Globulin 4.1 H (2.6-4.0) g/dL Albumin/Globulin Ratio 0.7 L (0.9-1.6) Cj Results Last 24 Hours: Microbiology 10/26/18 19:14 Aerobic Blood Culture - Preliminary Blood - Venous - Lab Draw NO GROWTH AFTER 2 DAYS Anaerobic Blood Culture - Final 10/26/18 19:08 Aerobic Blood Culture - Preliminary Blood - Venous NO GROWTH AFTER 2 DAYS Anaerobic Blood Culture - Final Med Orders - Current: Current Medications Acetaminophen (Tylenol) 650 mg PO Q4H PRN PRN Reason: Pain (Mild 1-3)/fever Albuterol/Ipratropium (Duoneb 3.0-0.5 Mg/3 Ml) 3 ml NEB Q4HRRT [facility] Baclofen (Lioresal) 20 mg PO TID [facility] Last Admin: 10/29/18 06:49 Dose: 20 mg Diazepam (Valium.) 5 mg PO TID [facility] Last Admin: 10/29/18 06:50 Dose: 5 mg Docusate Sodium (Colace) 100 mg PO BID PRN PRN Reason: Constipation Duloxetine HCl (Cymbalta) 60 mg PO DAILY [facility] Last Admin: 10/29/18 09:14 Dose: 60 mg Enoxaparin Sodium (Lovenox) 40 mg SUBCUT Q24H [facility] Last Admin: 10/28/18 22:00 Dose: 40 mg Gabapentin (Neurontin) 300 mg PO TID [facility] Last Admin: 10/29/18 06:49 Dose: 300 mg Methylprednisolone Sodium Succinate 1,000 mg/ Sodium Chloride 258 mls @ 258 mls /hr IV DAILY [facility] Last Admin: 10/29/18 09:36 Dose: 258 mls/hr Ondansetron HCl (Zofran Odt) 4 mg PO Q4H PRN PRN Reason: nausea, able to take PO Last Admin: 10/28/18 14:58 Dose: 4 mg Oxycodone HCl (Oxycodone) 5 mg PO Q4H PRN PRN Reason: Pain (moderate 4-6) Pantoprazole Sodium (Protonix) 40 mg PO DAILY [facility] Last Admin: 10/29/18 09:13 Dose: 40 mg Teriflunomide [ (Aubagio] 14mg) 14 each PO DAILY [facility] Last Admin: 10/29/18 09:13 Dose: 14 each Sodium Chloride (Saline Flush) 10 ml FLUSH ASDIRECTED PRN PRN Reason: Keep Vein Open Last Admin: 10/26/18 18:54 Dose: 10 ml Sodium Chloride (Saline Flush) 2.5 ml FLUSH ASDIRECTED PRN PRN Reason: Keep Vein Open Last Admin: 10/26/18 18:54 Dose: 2.5 ml Temazepam (Restoril) 15 mg PO BEDTIME PRN PRN Reason: Sleep Last Admin: 10/29/18 00:15 Dose: 15 mg Tramadol HCl (Ultram) 50 mg PO TID PRN PRN Reason: Pain Last Admin: 10/28/18 22:05 Dose: 50 mg Trazodone HCl (Trazodone) 100 mg PO BEDTIME [facility] Last Admin: 10/29/18 06:44 Dose: 100 mg Discontinued Medications Albuterol/Ipratropium (Duoneb 3.0-0.5 Mg/3 Ml) 3 ml NEB ONETIME ONE Stop: 10/26/18 18:15 Last Admin: 10/26/18 19:01 Dose: 3 ml Albuterol/Ipratropium (Duoneb 3.0-0.5 Mg/3 Ml) 3 ml NEB Q4H [facility] Last Admin: 10/29/18 09:25 Dose: 3 ml Diazepam (Valium.) 5 mg PO DAILY [facility] Last Admin: 10/27/18 09:01 Dose: 5 mg Sodium Chloride (Normal Saline) 1,000 mls @ 999 mls/hr IV STAT ONE Stop: 10/26/18 19:14 Last Admin: 10/26/18 18:55 Dose: 999 mls/hr Ceftriaxone Sodium/Dextrose 2 (gm/ Premix) 50 mls @ 100 mls/hr IV ONETIME ONE Stop: 10/26/18 19:40 Last Admin: 10/26/18 19:21 Dose: 100 mls/hr Trazodone HCl (Trazodone Hcl) 100 mg PO BEDTIME TRA Last Admin: 10/26/18 22:46 Dose: Not Given - Problem List & Annotations (1) Altered mental status SNOMED Code(s): 294138701 Code(s): R41.82 - ALTERED MENTAL STATUS, UNSPECIFIED Status: Acute Priority: High Current Visit: Yes Qualifiers: Altered mental status type: disorientation Qualified Code(s): R41.0 - Disorientation, unspecified (2) Multiple sclerosis SNOMED Code(s): 03503220 Code(s): G35 - MULTIPLE SCLEROSIS Status: Chronic Priority: High Current Visit: Yes (3) Acute kidney insufficiency SNOMED Code(s): 548037661 Code(s): N28.9 - DISORDER OF KIDNEY AND URETER, UNSPECIFIED Status: Acute Priority: High Current Visit: Yes (4) Total self-care deficit SNOMED Code(s): 90813510 Code(s): R41.89 - OTH SYMPTOMS AND SIGNS W COGNITIVE FUNCTIONS AND AWARENESS Status: Acute Current Visit: Yes (5) Mobility impaired SNOMED Code(s): 78884345 Code(s): Z74.09 - OTHER REDUCED MOBILITY Status: Acute Current Visit: Yes
--- NOTE | 2018-10-29 09:00 | CR ---
EXAMINATION: Portable chest radiograph. HISTORY: Shortness of breath. Comparison: 10/26/2018. FINDINGS: The trachea is midline. The cardiomediastinal silhouette is within normal limits. No pulmonary infiltrates, effusions or pneumothorax. The aorta is tortuous. Osseous structures appear unremarkable. Moderate dextroscoliosis. IMPRESSION: No acute cardiopulmonary process.
[2018-10-29] MEDS: TERIFLUNOMIDE 14 MG PO SCH (09:13)
[2018-10-29] MEDS: Pantoprazole 40 MG Tab.CR PO SCH (09:13)
[2018-10-29] MEDS: DULoxetine 60 MG Cap PO SCH (09:14)
[2018-10-29] MEDS: Ondansetron 4 MG Tab.DIS PO PRN (12:09)
[2018-10-29] MEDS: Albuterol/Ipratropium 3.0-0.5 MG/3 ML Neb Soln NEB SCH ×3 (14:16→21:46)
[2018-10-29] MEDS: Enoxaparin 40 MG/0.4 ML Syringe SUBCUT SCH (21:16)
[2018-10-30] MEDS: Albuterol/Ipratropium 3.0-0.5 MG/3 ML Neb Soln NEB SCH ×4 (02:55→17:09)
[2018-10-30] MEDS: Baclofen 10 MG Tab PO SCH ×3 (06:17→21:17)
[2018-10-30] MEDS: Gabapentin 300 MG Cap PO SCH ×3 (06:17→21:17)
[2018-10-30] MEDS: Diazepam 5 MG Tab PO SCH ×3 (06:17→21:17)
[2018-10-30] MEDS ORDERED: Ondansetron 4 MG/2 ML SDV IVPUSH PRN (08:26)
--- NOTE | 2018-10-30 09:18 | PCM.PN ---
<Francisco Mejia - Last Filed: 10/30/18 09:13> - General Info Date of Service: 10/30/18 Subjective Update: States that she feels nauseous and tired this morning. Feels better from a respiratory standpoint. Denies any pain. - Review of Systems General: Reports: Other (negative except for hpi) - Patient Data Vitals - Most Recent: Last Vital Signs Temp 36.2 C 10/30/18 04:12 Pulse 72 10/30/18 04:12 Resp 16 10/30/18 04:12 BP 133/82 10/30/18 04:12 Pulse Ox 96 10/30/18 06:27 Weight - Most Recent: 105.233 kg I&O - Last 24 Hours: Intake & Output 10/29/18 10/30/18 10/30/18 22:59 06:59 14:59 Intake Total 400 400 Output Total 250 450 Balance 150 -50 Cj Results Last 24 Hours: Microbiology 10/26/18 19:14 Aerobic Blood Culture - Preliminary Blood - Venous - Lab Draw NO GROWTH AFTER 3 DAYS Anaerobic Blood Culture - Final 10/26/18 19:08 Aerobic Blood Culture - Preliminary Blood - Venous NO GROWTH AFTER 3 DAYS Anaerobic Blood Culture - Final Med Orders - Current: Current Medications Acetaminophen (Tylenol) 650 mg PO Q4H PRN PRN Reason: Pain (Mild 1-3)/fever Albuterol/Ipratropium (Duoneb 3.0-0.5 Mg/3 Ml) 3 ml NEB Q6HRRT [facility] Baclofen (Lioresal) 20 mg PO TID [facility] Last Admin: 10/30/18 06:17 Dose: 20 mg Diazepam (Valium.) 5 mg PO TID [facility] Last Admin: 10/30/18 06:17 Dose: 5 mg Docusate Sodium (Colace) 100 mg PO BID PRN PRN Reason: Constipation Duloxetine HCl (Cymbalta) 60 mg PO DAILY [facility] Last Admin: 10/29/18 09:14 Dose: 60 mg Enoxaparin Sodium (Lovenox) 40 mg SUBCUT Q24H [facility] Last Admin: 10/29/18 21:16 Dose: 40 mg Gabapentin (Neurontin) 300 mg PO TID [facility] Last Admin: 10/30/18 06:17 Dose: 300 mg Guaifenesin (Mucinex) 600 mg PO TID [facility] Methylprednisolone Sodium Succinate 1,000 mg/ Sodium Chloride 258 mls @ 258 mls /hr IV DAILY [facility] Last Admin: 10/29/18 09:36 Dose: 258 mls/hr Ondansetron HCl (Zofran) 4 mg IVPUSH Q4H PRN PRN Reason: Nausea Oxycodone HCl (Oxycodone) 5 mg PO Q4H PRN PRN Reason: Pain (moderate 4-6) Pantoprazole Sodium (Protonix) 40 mg PO DAILY [facility] Last Admin: 10/29/18 09:13 Dose: 40 mg Teriflunomide [ (Aubagio] 14mg) 14 each PO DAILY [facility] Last Admin: 10/29/18 09:13 Dose: 14 each Sodium Chloride (Saline Flush) 10 ml FLUSH ASDIRECTED PRN PRN Reason: Keep Vein Open Last Admin: 10/26/18 18:54 Dose: 10 ml Sodium Chloride (Saline Flush) 2.5 ml FLUSH ASDIRECTED PRN PRN Reason: Keep Vein Open Last Admin: 10/26/18 18:54 Dose: 2.5 ml Temazepam (Restoril) 15 mg PO BEDTIME PRN PRN Reason: Sleep Last Admin: 10/29/18 00:15 Dose: 15 mg Tramadol HCl (Ultram) 50 mg PO TID PRN PRN Reason: Pain Last Admin: 10/28/18 22:05 Dose: 50 mg Trazodone HCl (Trazodone) 100 mg PO BEDTIME [facility] Last Admin: 10/29/18 21:15 Dose: 100 mg Discontinued Medications Albuterol/Ipratropium (Duoneb 3.0-0.5 Mg/3 Ml) 3 ml NEB ONETIME ONE Stop: 10/26/18 18:15 Last Admin: 10/26/18 19:01 Dose: 3 ml Albuterol/Ipratropium (Duoneb 3.0-0.5 Mg/3 Ml) 3 ml NEB Q4H [facility] Last Admin: 10/29/18 09:25 Dose: 3 ml Albuterol/Ipratropium (Duoneb 3.0-0.5 Mg/3 Ml) 3 ml NEB Q4HRRT [facility] Last Admin: 10/30/18 06:27 Dose: 3 ml Diazepam (Valium.) 5 mg PO DAILY [facility] Last Admin: 10/27/18 09:01 Dose: 5 mg Sodium Chloride (Normal Saline) 1,000 mls @ 999 mls/hr IV STAT ONE Stop: 10/26/18 19:14 Last Admin: 10/26/18 18:55 Dose: 999 mls/hr Ceftriaxone Sodium/Dextrose 2 (gm/ Premix) 50 mls @ 100 mls/hr IV ONETIME ONE Stop: 10/26/18 19:40 Last Admin: 10/26/18 19:21 Dose: 100 mls/hr Ondansetron HCl (Zofran Odt) 4 mg PO Q4H PRN PRN Reason: nausea, able to take PO Last Admin: 10/29/18 12:09 Dose: 4 mg Trazodone HCl (Trazodone Hcl) 100 mg PO BEDTIME [facility] Last Admin: 10/26/18 22:46 Dose: Not Given - Exam Quality Assessment: Supplemental Oxygen General: Alert, Oriented HEENT: Pupils Equal, Pupils Reactive, EOMI, Mucous Membr. Moist/[place] Neck: Supple Lungs: Clear to Auscultation, Normal Respiratory Effort Cardiovascular: Regular Rate, Regular Rhythm Extremities: Normal Inspection, Normal Range of Motion, Non-Tender, No Pedal Edema, Normal Capillary Refill Peripheral Pulses: 2+: Dorsalis Pedis (L), Dorsalis Pedis (R) Skin: Warm, Dry, Intact Psy/Mental Status: Alert, Normal Affect, Normal Mood - Problem List Review Problem List Initiated/Reviewed/Updated: Yes - My Orders Last 24 Hours: My Active Orders 10/30/18 08:26 Ondansetron [Zofran] 4 mg IVPUSH Q4H PRN 10/30/18 14:00 guaiFENesin [Mucinex] 600 mg PO TID - Plan Plan:: Assessment: #1. Acute hypoxic respiratory failure #2. Multiple sclerosis exacerbation Plan: #1. Oxygen demand has decreased slightly. Will continue with IV solumedrol and encourage cooperation w/ PT. #2. Mom has filled out a form for dispo to [place] once medically stable. I anticipate this to be in the next 1-2 days. #3. Remove wells catheter. <Lorne Orta M - Last Filed: 10/30/18 10:53> - General Info Admission Dx/Problem (Free Text): Pending transfer to [place]. I have seen and examined the patient independently of Francisco Mejia MD,medical library assistant. I have discussed the case with him. I agree with the assessment and plan of care outlined by medical library assistant. Please see orders. - Patient Data Vitals - Most Recent: Last Vital Signs Temp 36.6 C 10/30/18 08:00 Pulse 73 10/30/18 08:00 Resp 18 10/30/18 08:00 BP 128/70 10/30/18 08:00 Pulse Ox 94 L 10/30/18 08:00 I&O - Last 24 Hours: Intake & Output 10/29/18 10/30/18 10/30/18 22:59 06:59 14:59 Intake Total 400 400 258 Output Total 250 450 Balance 150 -50 258 Cj Results Last 24 Hours: Microbiology 10/26/18 19:14 Aerobic Blood Culture - Preliminary Blood - Venous - Lab Draw NO GROWTH AFTER 3 DAYS Anaerobic Blood Culture - Final 10/26/18 19:08 Aerobic Blood Culture - Preliminary Blood - Venous NO GROWTH AFTER 3 DAYS Anaerobic Blood Culture - Final Med Orders - Current: Current Medications Acetaminophen (Tylenol) 650 mg PO Q4H PRN PRN Reason: Pain (Mild 1-3)/fever Albuterol/Ipratropium (Duoneb 3.0-0.5 Mg/3 Ml) 3 ml NEB Q6HRRT [facility] Baclofen (Lioresal) 20 mg PO TID [facility] Last Admin: 10/30/18 06:17 Dose: 20 mg Diazepam (Valium.) 5 mg PO TID [facility] Last Admin: 10/30/18 06:17 Dose: 5 mg Docusate Sodium (Colace) 100 mg PO BID PRN PRN Reason: Constipation Duloxetine HCl (Cymbalta) 60 mg PO DAILY [facility] Last Admin: 10/30/18 09:39 Dose: 60 mg Enoxaparin Sodium (Lovenox) 40 mg SUBCUT Q24H [facility] Last Admin: 10/29/18 21:16 Dose: 40 mg Gabapentin (Neurontin) 300 mg PO TID [facility] Last Admin: 10/30/18 06:17 Dose: 300 mg Guaifenesin (Mucinex) 600 mg PO TID [facility] Methylprednisolone Sodium Succinate 1,000 mg/ Sodium Chloride 258 mls @ 258 mls /hr IV DAILY [facility] Last Admin: 10/30/18 09:59 Dose: 258 mls/hr Ondansetron HCl (Zofran) 4 mg IVPUSH Q4H PRN PRN Reason: Nausea Oxycodone HCl (Oxycodone) 5 mg PO Q4H PRN PRN Reason: Pain (moderate 4-6) Pantoprazole Sodium (Protonix) 40 mg PO DAILY [facility] Last Admin: 10/30/18 09:39 Dose: 40 mg Teriflunomide [ (Aubagio] 14mg) 14 each PO DAILY [facility] Last Admin: 10/30/18 09:40 Dose: 14 each Sodium Chloride (Saline Flush) 10 ml FLUSH ASDIRECTED PRN PRN Reason: Keep Vein Open Last Admin: 10/26/18 18:54 Dose: 10 ml Sodium Chloride (Saline Flush) 2.5 ml FLUSH ASDIRECTED PRN PRN Reason: Keep Vein Open Last Admin: 10/26/18 18:54 Dose: 2.5 ml Temazepam (Restoril) 15 mg PO BEDTIME PRN PRN Reason: Sleep Last Admin: 10/29/18 00:15 Dose: 15 mg Tramadol HCl (Ultram) 50 mg PO TID PRN PRN Reason: Pain Last Admin: 10/28/18 22:05 Dose: 50 mg Trazodone HCl (Trazodone) 100 mg PO BEDTIME [facility] Last Admin: 10/29/18 21:15 Dose: 100 mg Discontinued Medications Albuterol/Ipratropium (Duoneb 3.0-0.5 Mg/3 Ml) 3 ml NEB ONETIME ONE Stop: 10/26/18 18:15 Last Admin: 10/26/18 19:01 Dose: 3 ml Albuterol/Ipratropium (Duoneb 3.0-0.5 Mg/3 Ml) 3 ml NEB Q4H [facility] Last Admin: 10/29/18 09:25 Dose: 3 ml Albuterol/Ipratropium (Duoneb 3.0-0.5 Mg/3 Ml) 3 ml NEB Q4HRRT [facility] Last Admin: 10/30/18 06:27 Dose: 3 ml Diazepam (Valium.) 5 mg PO DAILY [facility] Last Admin: 10/27/18 09:01 Dose: 5 mg Sodium Chloride (Normal Saline) 1,000 mls @ 999 mls/hr IV STAT ONE Stop: 10/26/18 19:14 Last Admin: 10/26/18 18:55 Dose: 999 mls/hr Ceftriaxone Sodium/Dextrose 2 (gm/ Premix) 50 mls @ 100 mls/hr IV ONETIME ONE Stop: 10/26/18 19:40 Last Admin: 10/26/18 19:21 Dose: 100 mls/hr Ondansetron HCl (Zofran Odt) 4 mg PO Q4H PRN PRN Reason: nausea, able to take PO Last Admin: 10/29/18 12:09 Dose: 4 mg Trazodone HCl (Trazodone Hcl) 100 mg PO BEDTIME TRA Last Admin: 10/26/18 22:46 Dose: Not Given - Problem List & Annotations (1) Altered mental status SNOMED Code(s): 654012000 Code(s): R41.82 - ALTERED MENTAL STATUS, UNSPECIFIED Status: Acute Priority: High Current Visit: Yes Qualifiers: Altered mental status type: disorientation Qualified Code(s): R41.0 - Disorientation, unspecified (2) Multiple sclerosis SNOMED Code(s): 36419452 Code(s): G35 - MULTIPLE SCLEROSIS Status: Chronic Priority: High Current Visit: Yes (3) Acute kidney insufficiency SNOMED Code(s): 639187694 Code(s): N28.9 - DISORDER OF KIDNEY AND URETER, UNSPECIFIED Status: Acute Priority: High Current Visit: Yes (4) Total self-care deficit SNOMED Code(s): 07070932 Code(s): R41.89 - OTH SYMPTOMS AND SIGNS W COGNITIVE FUNCTIONS AND AWARENESS Status: Acute Current Visit: Yes (5) Mobility impaired SNOMED Code(s): 77965900 Code(s): Z74.09 - OTHER REDUCED MOBILITY Status: Acute Current Visit: Yes - My Orders Last 24 Hours: My Active Orders 10/30/18 12:00 Albuterol/Ipratropium [DuoNeb 3.0-0.5 MG/3 ML] 3 ml NEB Q6HRRT
[2018-10-30] MEDS: Pantoprazole 40 MG Tab.CR PO SCH (09:39)
[2018-10-30] MEDS: DULoxetine 60 MG Cap PO SCH (09:39)
[2018-10-30] MEDS: TERIFLUNOMIDE 14 MG PO SCH (09:40)
[2018-10-30] MEDS: guaiFENesin 600 MG Tab.ER PO SCH ×2 (14:30→21:17)
[2018-10-30] MEDS: traZODone 50 MG Tab PO SCH (21:17)
[2018-10-30] MEDS: Enoxaparin 40 MG/0.4 ML Syringe SUBCUT SCH (21:17)
[2018-10-31] MEDS: Albuterol/Ipratropium 3.0-0.5 MG/3 ML Neb Soln NEB SCH ×3 (01:04→12:30)
[2018-10-31] MEDS: Baclofen 10 MG Tab PO SCH ×2 (06:05→13:59)
[2018-10-31] MEDS: Diazepam 5 MG Tab PO SCH ×2 (06:05→13:58)
[2018-10-31] MEDS: guaiFENesin 600 MG Tab.ER PO SCH ×2 (06:05→13:59)
[2018-10-31] MEDS: Gabapentin 300 MG Cap PO SCH ×2 (06:05→13:59)
[2018-10-31] MEDS: Pantoprazole 40 MG Tab.CR PO SCH (10:01)
[2018-10-31] MEDS: DULoxetine 60 MG Cap PO SCH (10:01)
[2018-10-31] MEDS: TERIFLUNOMIDE 14 MG PO SCH (10:03)
--- NOTE | 2018-10-31 11:53 | PCM.DCSUM1 ---
<Francisco Mejia - Last Filed: 10/31/18 11:47> Discharge Summary - Hospital Course Free Text/Narrative:: Admission diagnosis: #1. Ambulatory dysfunction #2. Altered mental status #3. History of Multiple sclerosis, chronic pain #4. Hypoxia Discharge diagnosis: #1. Multiple sclerosis exacerbation - improved symptoms #2. Hypoxia - improved Hospital course: 53F with a hx of advanced multiple sclerosis who presented to the ER with her mother who is her primary highway patrol officer with concerns of altered mental status, and worsening ambulatory function. Patient stated that 4 days prior to presentation, she was completely unable to walk or get out of bed. Her baseline is that shes able to ambulate with a walker with some difficulty. Mom says that her mental status has deteriorated over the past few months, and this wasnt an acute finding. She was admitted for her weakness and hypoxia of unknown etiology. CXR was urnemarkable x2. She did have an episode of bronchitis a month earlier. She has no hx of cardiopulmonary disease to her knowledge/medical records and she doesn't appear fluid overloaded. She was treated with IV solumedrol 1000mg/daily for her exacerbation which may have helped from her breathing standpoint as well. She was initially on 5L O2 via [place] which was titrated down to 1L upon discharge. If her hypoxia persists, I think it would be a good idea to get an echocardiogram and/or PFT as an outpatient. She is being transferred to [place] for m[facility] care along with physical therapy. This for the patient is considered to be a temporary stay. I also would like her to continue a prednisone taper for the next week. Dr. Evans was notified of this patient and will continue to follow. - Discharge Data Discharge Date: 10/31/18 Discharge Disposition: DC/Tfer to SNF 03 Condition: Stable - Patient Summary/Data Consults: Consultations 10/27/18 07:54 Consult to Physical Therapy [PT Evaluation and Treatment] [CONS] Routine OT Evaluation and Treatment [CONS] Routine 10/27/18 14:02 Consult to Case Management/Bleach Range Operator [CONS] Routine - Discharge Plan Prescriptions/Med Rec: predniSONE [Prednisone] 50 mg PO DAILY 7 Days #7 tablet Home Medications: Home Meds DULoxetine HCl [Cymbalta] 60 mg PO DAILY 08/22/15 [History] Gabapentin [Neurontin] 300 mg PO QAM 08/22/15 [History] Pantoprazole Sodium 40 mg PO DAILY 08/22/15 [History] Teriflunomide [Aubagio] 14 mg PO DAILY 08/22/15 [History] traZODone 200 mg PO BEDTIME 10/21/15 [History] Baclofen 20 mg PO BID 10/24/15 [History] Cholecalciferol (Vitamin D3) [Vitamin D3] 1,000 unit PO DAILY 10/24/15 [History] traMADol [Ultram] 1 tab PO TID PRN 12/22/15 [History] Diazepam [Valium] 5 mg PO TID PRN 10/26/18 [History] Albuterol [Ventolin HFA] 2 puff INH Q4H PRN 10/27/18 [History] Baclofen 40 mg PO PCLUNCH 10/27/18 [History] Gabapentin [Neurontin] 300 mg PO ACLUNCH 10/27/18 [History] Gabapentin [Neurontin] 600 mg PO BEDTIME 10/27/18 [History] hydrOXYzine pamoate [Hydroxyzine Pamoate] 1 - 2 cap PO BID PRN 10/27/18 [History ] DULoxetine HCl [Cymbalta] 30 mg PO BEDTIME 10/28/18 [History] predniSONE [Prednisone] 50 mg PO DAILY 7 Days #7 tablet 10/31/18 [Rx] Referrals: Yudi Morrison NP [Primary Care Provider] - Ryan Evans MD [Physician] - 11/03/18 8:10 am (next [place] rounds) - Discharge Summary/Plan Comment DC Time >30 min.: Yes - Patient Data Vitals - Most Recent: Last Vital Signs Temp 36.6 C 10/31/18 08:00 Pulse 72 10/31/18 08:00 Resp 18 10/31/18 08:00 BP 113/75 10/31/18 08:00 Pulse Ox 94 L 10/31/18 08:00 Weight - Most Recent: 105.233 kg I&O - Last 24 hours: Intake & Output 10/30/18 10/31/18 10/31/18 22:59 06:59 14:59 Intake Total 1140 200 258 Output Total 350 Balance 790 200 258 KRIS Results - Last 24 hrs: Microbiology 10/26/18 19:14 Aerobic Blood Culture - Preliminary Blood - Venous - Lab Draw NO GROWTH AFTER 4 DAYS Anaerobic Blood Culture - Final 10/26/18 19:08 Aerobic Blood Culture - Preliminary Blood - Venous NO GROWTH AFTER 4 DAYS Anaerobic Blood Culture - Final Med Orders - Current: Current Medications Acetaminophen (Tylenol) 650 mg PO Q4H PRN PRN Reason: Pain (Mild 1-3)/fever Albuterol/Ipratropium (Duoneb 3.0-0.5 Mg/3 Ml) 3 ml NEB Q6HRRT [facility] Last Admin: 10/31/18 06:16 Dose: 3 ml Baclofen (Lioresal) 20 mg PO TID [facility] Last Admin: 10/31/18 06:05 Dose: 20 mg Diazepam (Valium.) 5 mg PO TID [facility] Last Admin: 10/31/18 06:05 Dose: 5 mg Docusate Sodium (Colace) 100 mg PO BID PRN PRN Reason: Constipation Duloxetine HCl (Cymbalta) 60 mg PO DAILY [facility] Last Admin: 10/31/18 10:01 Dose: 60 mg Enoxaparin Sodium (Lovenox) 40 mg SUBCUT Q24H [facility] Last Admin: 10/30/18 21:17 Dose: 40 mg Gabapentin (Neurontin) 300 mg PO TID [facility] Last Admin: 10/31/18 06:05 Dose: 300 mg Guaifenesin (Mucinex) 600 mg PO TID [facility] Last Admin: 10/31/18 06:05 Dose: 600 mg Methylprednisolone Sodium Succinate 1,000 mg/ Sodium Chloride 258 mls @ 258 mls /hr IV DAILY [facility] Last Admin: 10/31/18 10:08 Dose: 258 mls/hr Ondansetron HCl (Zofran) 4 mg IVPUSH Q4H PRN PRN Reason: Nausea Oxycodone HCl (Oxycodone) 5 mg PO Q4H PRN PRN Reason: Pain (moderate 4-6) Pantoprazole Sodium (Protonix) 40 mg PO DAILY [facility] Last Admin: 10/31/18 10:01 Dose: 40 mg Teriflunomide [ (Aubagio] 14mg) 14 each PO DAILY [facility] Last Admin: 10/31/18 10:03 Dose: 14 each Sodium Chloride (Saline Flush) 10 ml FLUSH ASDIRECTED PRN PRN Reason: Keep Vein Open Last Admin: 10/26/18 18:54 Dose: 10 ml Sodium Chloride (Saline Flush) 2.5 ml FLUSH ASDIRECTED PRN PRN Reason: Keep Vein Open Last Admin: 10/26/18 18:54 Dose: 2.5 ml Temazepam (Restoril) 15 mg PO BEDTIME PRN PRN Reason: Sleep Last Admin: 10/29/18 00:15 Dose: 15 mg Tramadol HCl (Ultram) 50 mg PO TID PRN PRN Reason: Pain Last Admin: 10/28/18 22:05 Dose: 50 mg Trazodone HCl (Trazodone) 100 mg PO BEDTIME [facility] Last Admin: 10/30/18 21:17 Dose: 100 mg Discontinued Medications Albuterol/Ipratropium (Duoneb 3.0-0.5 Mg/3 Ml) 3 ml NEB ONETIME ONE Stop: 10/26/18 18:15 Last Admin: 10/26/18 19:01 Dose: 3 ml Albuterol/Ipratropium (Duoneb 3.0-0.5 Mg/3 Ml) 3 ml NEB Q4H [facility] Last Admin: 10/29/18 09:25 Dose: 3 ml Albuterol/Ipratropium (Duoneb 3.0-0.5 Mg/3 Ml) 3 ml NEB Q4HRRT [facility] Last Admin: 10/30/18 06:27 Dose: 3 ml Diazepam (Valium.) 5 mg PO DAILY [facility] Last Admin: 10/27/18 09:01 Dose: 5 mg Sodium Chloride (Normal Saline) 1,000 mls @ 999 mls/hr IV STAT ONE Stop: 10/26/18 19:14 Last Admin: 10/26/18 18:55 Dose: 999 mls/hr Ceftriaxone Sodium/Dextrose 2 (gm/ Premix) 50 mls @ 100 mls/hr IV ONETIME ONE Stop: 10/26/18 19:40 Last Admin: 10/26/18 19:21 Dose: 100 mls/hr Ondansetron HCl (Zofran Odt) 4 mg PO Q4H PRN PRN Reason: nausea, able to take PO Last Admin: 10/29/18 12:09 Dose: 4 mg Trazodone HCl (Trazodone Hcl) 100 mg PO BEDTIME [facility] Last Admin: 10/26/18 22:46 Dose: Not Given *Q Meaningful Use (DIS) - VTE *Q VTE Mechanical Contraindications *Q: At Risk for Falls <Lorne Orta - Last Filed: 10/31/18 12:23> Discharge Summary - Hospital Course Free Text/Narrative:: I have examined the patient independently of Francisco Mejia MD, medical office representative. I have discussed the case with the resident. I agree with the assessment and plan of care as outlined for this patient by the resident. Please see orders. - Discharge Diagnosis/Problem(s) (1) Altered mental status SNOMED Code(s): 882857431 ICD Code: R41.82 - ALTERED MENTAL STATUS, UNSPECIFIED Status: Acute Priority: High Current Visit: Yes Qualifiers: Altered mental status type: disorientation Qualified Code(s): R41.0 - Disorientation, unspecified (2) Multiple sclerosis SNOMED Code(s): 62034471 ICD Code: G35 - MULTIPLE SCLEROSIS Status: Chronic Priority: High Current Visit: Yes (3) Acute kidney insufficiency SNOMED Code(s): 333466219 ICD Code: N28.9 - DISORDER OF KIDNEY AND URETER, UNSPECIFIED Status: Acute Priority: High Current Visit: Yes (4) Total self-care deficit SNOMED Code(s): 74698534 ICD Code: R41.89 - OTH SYMPTOMS AND SIGNS W COGNITIVE FUNCTIONS AND AWARENESS Status: Acute Current Visit: Yes (5) Mobility impaired SNOMED Code(s): 45312707 ICD Code: Z74.09 - OTHER REDUCED MOBILITY Status: Acute Current Visit: Yes - Patient Summary/Data Consults: Consultations 10/27/18 07:54 Consult to Physical Therapy [PT Evaluation and Treatment] [CONS] Routine OT Evaluation and Treatment [CONS] Routine 10/27/18 14:02 Consult to Case Management/Bleach Range Operator [CONS] Routine - Patient Data Vitals - Most Recent: Last Vital Signs Temp 36.6 C 10/31/18 08:00 Pulse 72 10/31/18 08:00 Resp 18 10/31/18 08:00 BP 113/75 10/31/18 08:00 Pulse Ox 94 L 10/31/18 08:00 I&O - Last 24 hours: Intake & Output 10/30/18 10/31/18 10/31/18 22:59 06:59 14:59 Intake Total 1140 200 258 Output Total 350 Balance 790 200 258 KRIS Results - Last 24 hrs: Microbiology 10/26/18 19:14 Aerobic Blood Culture - Preliminary Blood - Venous - Lab Draw NO GROWTH AFTER 4 DAYS Anaerobic Blood Culture - Final 10/26/18 19:08 Aerobic Blood Culture - Preliminary Blood - Venous NO GROWTH AFTER 4 DAYS Anaerobic Blood Culture - Final Med Orders - Current: Current Medications Acetaminophen (Tylenol) 650 mg PO Q4H PRN PRN Reason: Pain (Mild 1-3)/fever Albuterol/Ipratropium (Duoneb 3.0-0.5 Mg/3 Ml) 3 ml NEB Q6HRRT [facility] Last Admin: 10/31/18 06:16 Dose: 3 ml Baclofen (Lioresal) 20 mg PO TID [facility] Last Admin: 10/31/18 06:05 Dose: 20 mg Diazepam (Valium.) 5 mg PO TID [facility] Last Admin: 10/31/18 06:05 Dose: 5 mg Docusate Sodium (Colace) 100 mg PO BID PRN PRN Reason: Constipation Duloxetine HCl (Cymbalta) 60 mg PO DAILY [facility] Last Admin: 10/31/18 10:01 Dose: 60 mg Enoxaparin Sodium (Lovenox) 40 mg SUBCUT Q24H [facility] Last Admin: 10/30/18 21:17 Dose: 40 mg Gabapentin (Neurontin) 300 mg PO TID [facility] Last Admin: 10/31/18 06:05 Dose: 300 mg Guaifenesin (Mucinex) 600 mg PO TID [facility] Last Admin: 10/31/18 06:05 Dose: 600 mg Methylprednisolone Sodium Succinate 1,000 mg/ Sodium Chloride 258 mls @ 258 mls /hr IV DAILY [facility] Last Admin: 10/31/18 10:08 Dose: 258 mls/hr Ondansetron HCl (Zofran) 4 mg IVPUSH Q4H PRN PRN Reason: Nausea Oxycodone HCl (Oxycodone) 5 mg PO Q4H PRN PRN Reason: Pain (moderate 4-6) Pantoprazole Sodium (Protonix) 40 mg PO DAILY [facility] Last Admin: 10/31/18 10:01 Dose: 40 mg Teriflunomide [ (Aubagio] 14mg) 14 each PO DAILY [facility] Last Admin: 10/31/18 10:03 Dose: 14 each Sodium Chloride (Saline Flush) 10 ml FLUSH ASDIRECTED PRN PRN Reason: Keep Vein Open Last Admin: 10/26/18 18:54 Dose: 10 ml Sodium Chloride (Saline Flush) 2.5 ml FLUSH ASDIRECTED PRN PRN Reason: Keep Vein Open Last Admin: 10/26/18 18:54 Dose: 2.5 ml Temazepam (Restoril) 15 mg PO BEDTIME PRN PRN Reason: Sleep Last Admin: 10/29/18 00:15 Dose: 15 mg Tramadol HCl (Ultram) 50 mg PO TID PRN PRN Reason: Pain Last Admin: 10/28/18 22:05 Dose: 50 mg Trazodone HCl (Trazodone) 100 mg PO BEDTIME [facility] Last Admin: 10/30/18 21:17 Dose: 100 mg Discontinued Medications Albuterol/Ipratropium (Duoneb 3.0-0.5 Mg/3 Ml) 3 ml NEB ONETIME ONE Stop: 10/26/18 18:15 Last Admin: 10/26/18 19:01 Dose: 3 ml Albuterol/Ipratropium (Duoneb 3.0-0.5 Mg/3 Ml) 3 ml NEB Q4H [facility] Last Admin: 10/29/18 09:25 Dose: 3 ml Albuterol/Ipratropium (Duoneb 3.0-0.5 Mg/3 Ml) 3 ml NEB Q4HRRT [facility] Last Admin: 10/30/18 06:27 Dose: 3 ml Diazepam (Valium.) 5 mg PO DAILY [facility] Last Admin: 10/27/18 09:01 Dose: 5 mg Sodium Chloride (Normal Saline) 1,000 mls @ 999 mls/hr IV STAT ONE Stop: 10/26/18 19:14 Last Admin: 10/26/18 18:55 Dose: 999 mls/hr Ceftriaxone Sodium/Dextrose 2 (gm/ Premix) 50 mls @ 100 mls/hr IV ONETIME ONE Stop: 10/26/18 19:40 Last Admin: 10/26/18 19:21 Dose: 100 mls/hr Ondansetron HCl (Zofran Odt) 4 mg PO Q4H PRN PRN Reason: nausea, able to take PO Last Admin: 10/29/18 12:09 Dose: 4 mg Trazodone HCl (Trazodone Hcl) 100 mg PO BEDTIME TRA Last Admin: 10/26/18 22:46 Dose: Not Given
[2018-10-31 13:15] VITALS: BP 125/75
== END 2018-10-31 14:30 | DRG 58 ==
LOC: MW.ED 18:03 → MW.MS 19:12 → OBSVTOIN 10-27 08:15
PROVIDERS: ADMIT Internal Medicine; ATTEND Internal Medicine
DX: J18.9 Pneumonia, unspecified organism (principal); R41.82 Altered mental status, unspecified; G35 Multiple sclerosis; J96.01 Acute respiratory failure with hypoxia; F17.210 Nicotine dependence, cigarettes, uncomplicated; K21.9 Gastro-esophageal reflux disease without esophagitis; M41.9 Scoliosis, unspecified; F41.9 Anxiety disorder, unspecified; E66.9 Obesity, unspecified; N28.9 Disorder of kidney and ureter, unspecified; R53.1 Weakness; R40.0 Somnolence; G89.29 Other chronic pain; G62.9 Polyneuropathy, unspecified; Z66 Do not resuscitate; Z74.09 Other reduced mobility; Z79.899 Other long term (current) drug therapy; Z87.440 Personal history of urinary (tract) infections
CPT/HCPCS: 36415 ×2; 70450; 71045; 80053 ×2; 81003; 83605; 84443; 84484; 85025 ×2; 85610; 87040 ×2; 87804 ×2; 93005; 94640; 96360; 96365; 99285; A9270 ×2; J0696; J1650; J7040; 80048; 96372; 97110-GO; 97110-GP; 97116-GP; 97162-GP; 97165-GO; 97530-GP; 99291; G0378; J2930; J7050; J7620-GY

== ENCOUNTER 2018-11-13 09:43 | Inpatient (IN) | payer MEDICARE, BC ==
[2018-11-13] MEDS ORDERED: methylPREDNISolone Sodium Succinate 125 MG/2 ML SDV IVPUSH ONE (09:47)
[2018-11-13] MEDS ORDERED: Albuterol/Ipratropium 3.0-0.5 MG/3 ML Neb Soln NEB ONE (09:47)
--- NOTE | 2018-11-13 09:48 | EDM.PDOC ---
ED HPI GENERAL MEDICAL PROBLEM - General Stated Complaint: FEVER Time Seen by Provider: 11/13/18 09:48 Source of Information: Reports: Patient - History of Present Illness INITIAL COMMENTS - FREE TEXT/NARRATIVE: HISTORY AND PHYSICAL: History of present illness: [Patient presents from [facility] by [id number] bus She was found to be hypoxic a [facility] home down around 67% on room air labeled "her on the bus to come over we had recommended EMS transfer however she was already in route on the bus] She arrives she does not have any complaints herself, however she does have fever and hypoxia she was provided DuoNeb and Solu-Medrol and a liter of fluid or blood pressure has dropped after the initial fluid 80s over 60s hence a bolus was provided with vancomycin and Zosyn Asymptomatic denies any chest pain shortness breath headache dizziness palpitation no bowel or urine symptoms Review of systems: As per history of present illness and below otherwise all systems reviewed and negative. Past medical history: As per history of present illness and as reviewed below otherwise noncontributory. Surgical history: As per history of present illness and as reviewed below otherwise noncontributory. Social history: No reported history of drug or alcohol abuse. Family history: As per history of present illness and as reviewed below otherwise noncontributory. Physical exam: HEENT: Atraumatic, normocephalic, pupils reactive, negative for conjunctival pallor or scleral icterus, mucous membranes moist, throat clear, neck supple, nontender, trachea midline. Lungs: Clear to auscultation, breath sounds equal bilaterally, chest nontender. Heart: S1S2, regular, negative for clicks, rubs, or JVD. Abdomen: Soft, nondistended, nontender. Negative for masses or hepatosplenomegaly. Negative for costovertebral tenderness. Pelvis: Stable nontender. Genitourinary: Deferred. Rectal: Deferred. Extremities: Atraumatic, negative for cords or calf pain. Neurovascular unremarkable. Neuro: Awake, alert, oriented. Cranial nerves II through XII unremarkable. Cerebellum unremarkable. Motor and sensory unremarkable throughout. Exam nonfocal. Diagnostics: [CBC CMP UA troponin blood cultures 2 Influenza/strep EKG Chest 1 view ] Therapeutics: [Normal saline 1 25 mL per hour DuoNeb Solu-Medrol 125 mg IV ]Potassium chloride 40 mEq Normal saline with 20 mEq of potassium Zosyn Vancomycin Lovenox 100 mg subcutaneous Impression: [Hypoxia Hypotension Fever Rule out sepsis Hypokalemia at 2.7 Elevated troponin Chronic history of baseline] Definitive disposition and diagnosis as appropriate pending reevaluation and review of above. Headache Pain Score (Numeric/FACES): 7 - Related Data Allergies Allergy/AdvReac Type Severity Reaction Status Date / Time No Known Allergies Allergy Verified 11/13/18 10:01 Home Meds: Home Meds DULoxetine HCl [Cymbalta] 60 mg PO DAILY 08/22/15 [History] Gabapentin [Neurontin] 300 mg PO QAM 08/22/15 [History] Pantoprazole Sodium 40 mg PO DAILY 08/22/15 [History] Teriflunomide [Aubagio] 14 mg PO DAILY 08/22/15 [History] traZODone 200 mg PO BEDTIME 10/21/15 [History] Baclofen 20 mg PO BID 10/24/15 [History] Cholecalciferol (Vitamin D3) [Vitamin D3] 1,000 unit PO DAILY 10/24/15 [History] traMADol [Ultram] 50 mg PO TID PRN 12/22/15 [History] Diazepam [Valium] 5 mg PO TID PRN 10/26/18 [History] Albuterol [Ventolin HFA] 2 puff INH Q4H PRN 10/27/18 [History] Baclofen 40 mg PO PCLUNCH 10/27/18 [History] Gabapentin [Neurontin] 300 mg PO ACLUNCH 10/27/18 [History] Gabapentin [Neurontin] 600 mg PO BEDTIME 10/27/18 [History] hydrOXYzine pamoate [Hydroxyzine Pamoate] 25 mg PO BID PRN 10/27/18 [History] DULoxetine HCl [Cymbalta] 30 mg PO BEDTIME 10/28/18 [History] predniSONE [Prednisone] 50 mg PO DAILY 7 Days #7 tablet 10/31/18 [Rx] Magnesium Hydroxide [Milk of Magnesia] 30 ml PO DAILY 11/13/18 [History] guaiFENesin [Guaifenesin ER] 600 mg PO DAILY 11/13/18 [History] Past Medical History Other HEENT History: top and bottom dentures Cardiovascular History: Reports: None Respiratory 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 (See Below) Other Respiratory History: 30 yr history of smoking, use [place] on & off, current use 1/2 pack per day Gastrointestinal History: Reports: Cholelithiasis, GERD Other Gastrointestinal History: hx: Gallstones, 'unsure if they are still there , they do not give me any trouble" Genitourinary History: Reports: None 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 (See Below) Other PASSENGER SOLICITOR History: Pelvic pain 'midline' Musculoskeletal 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 (See Below) Other Musculoskeletal History: Scoliosis Upper and lower back, Multiple Sclerosis "mobility good, but occasionally I use a walker" Neurological History: Reports: MS Other Neuro History: Good mobility generally, but "sometimes use walker when not up to par or feel weak" Psychiatric History: Reports: Anxiety Endocrine/Metabolic History: Reports: Obesity/BMI 30+ Hematologic History: Reports: None Immunologic History: Reports: None Oncologic (Cancer) History: Reports: None Dermatologic History: Reports: None - Infectious Disease History Infectious Disease History: Reports: Chicken Pox, Measles - Past Surgical History HEENT Surgical 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 (See Below) Female Surgical History: Reports: Tubal Ligation Musculoskeletal Surgical 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 (See Below) Social & Family History - Family History Family Medical History: Noncontributory - Caffeine Use Caffeine Use: Reports: Coffee, Tea - Living Situation & Occupation Living situation: Reports: Single, with Family Occupation: Disabled ED ROS GENERAL - Review of Systems Review Of Systems: See Below ED EXAM, GENERAL - Physical Exam Exam: See Below Course - Vital Signs Last Recorded V/S: Last Vital Signs Temp 99.9 F 11/13/18 10:45 Pulse 99 11/13/18 09:50 Resp 20 11/13/18 09:50 BP 118/62 11/13/18 09:50 Pulse Ox 84 L 11/13/18 09:50 - Orders/Labs/Meds Orders: Active Orders 24 hr Category Date Time Status EKG 12 Lead [EKG Documentation Completion] [RC] STAT Care 11/13/18 11:47 Active RT Aerosol Therapy [RC] ASDIRECTED Care 11/13/18 09:47 Active B-TYPE NATRIURETIC PEPTIDE,BNP [CHEM] Stat Lab 11/13/18 09:55 Received CULTURE BLOOD [BC] Stat Lab 11/13/18 09:55 Received CULTURE BLOOD [BC] Stat Lab 11/13/18 10:18 Received CULTURE STREP A CONFIRMATION [RM] Stat Lab 11/13/18 09:55 Results STREP SCRN A RAPID W CULT CONF [] Stat Lab 11/13/18 09:55 Results NS + KCl 20mEq/L [Normal Saline with 20 mEq KCl] 1,000 Med 11/13/18 11:15 Active ml IV ASDIRECTED Sodium Chloride 0.9% [Normal Saline] 1,000 ml Med 11/13/18 10:00 Active IV STAT Vancomycin [Vancocin] 1 gm Med 11/13/18 11:06 Active Sodium Chloride 0.9% [Normal Saline] 250 ml IV ONETIME Blood Culture x2 Reflex Set [OM.PC] Stat Oth 11/13/18 09:55 Ordered Medication Orders Sodium Chloride (Normal Saline) 1,000 mls @ 125 mls/hr IV STAT TRA Last Infusion: 11/13/18 11:15 Dose: 999 mls/hr Admin: 11/13/18 10:02 Dose: 125 mls/hr Potassium Chloride/Sodium Chloride (Normal Saline With 20 Meq Kcl) 1,000 mls @ 150 mls/hr IV ASDIRECTED TRA Last Admin: 11/13/18 11:22 Dose: 150 mls/hr Vancomycin HCl 1 gm/ Sodium (Chloride) 250 mls @ 250 mls/hr IV ONETIME ONE Stop: 11/13/18 12:05 Labs: Laboratory Tests 11/13/18 11/13/18 11/13/18 Range/Units 09:25 09:55 09:55 WBC 10.08 (4.0-11.0) K/uL RBC 4.21 L (4.30-5.90) M/uL Hgb 11.9 L (12.0-16.0) g/dL Hct 38.6 (36.0-46.0) % MCV 91.7 (80.0-98.0) fL MCH 28.3 (27.0-32.0) pg MCHC 30.8 L (31.0-37.0) g/dL RDW Std Deviation 51.8 (28.0-62.0) fl RDW Coeff of Ade 16 H (11.0-15.0) % Plt Count 297 (150-400) K/uL MPV 9.70 (7.40-12.00) fL Neut % (Auto) 82.6 H (48.0-80.0) % Lymph % (Auto) 9.8 L (16.0-40.0) % [place] % (Auto) 7.0 (0.0-15.0) % Eos % (Auto) 0.4 (0.0-7.0) % Baso % (Auto) 0.2 (0.0-1.5) % Neut # (Auto) 8.3 H (1.4-5.7) K/uL Lymph # (Auto) 1.0 (0.6-2.4) K/uL [place] # (Auto) 0.7 (0.0-0.8) K/uL Eos # (Auto) 0.0 (0.0-0.7) K/uL Baso # (Auto) 0.0 (0.0-0.1) K/uL Nucleated RBC % 0.2 /100WBC Nucleated RBCs # 0 K/uL INR 0.98 Lactate 2.0 (0.20-2.00) mmol/L Sodium (136-145) mmol/L Potassium (3.5-5.1) mmol/L Chloride (98-107) mmol/L Carbon Dioxide (21.0-32.0) mmol/L BUN (7.0-18.0) mg/dL Creatinine (0.6-1.0) mg/dL Est Cr Clr Drug Dosing mL/min Estimated GFR (MDRD) ml/min Glucose (74-106) mg/dL Calcium (8.5-10.1) mg/dL Total Bilirubin (0.2-1.0) mg/dL AST (15-37) IU/L ALT (14-63) IU/L Alkaline Phosphatase (46-116) U/L Troponin I (0.000-0.056) ng/mL Total Protein (6.4-8.2) g/dL Albumin (3.4-5.0) g/dL Globulin (2.6-4.0) g/dL Albumin/Globulin Ratio (0.9-1.6) Lipase (73-393) U/L Urine Color Urine Appearance Urine pH (5.0-8.0) Ur Specific [place] (1.001-1.035) Urine Protein (NEGATIVE) mg/dL Urine Glucose (UA) (NEGATIVE) mg/dL Urine Ketones (NEGATIVE) mg/dL Urine Occult Blood (NEGATIVE) Urine Nitrite (NEGATIVE) Urine Bilirubin (NEGATIVE) Urine Urobilinogen (<2.0) EU/dL Ur Leukocyte Esterase (NEGATIVE) 11/13/18 11/13/18 11/13/18 Range/Units 09:55 09:59 10:39 WBC (4.0-11.0) K/uL RBC (4.30-5.90) M/uL Hgb (12.0-16.0) g/dL Hct (36.0-46.0) % MCV (80.0-98.0) fL MCH (27.0-32.0) pg MCHC (31.0-37.0) g/dL RDW Std Deviation (28.0-62.0) fl RDW Coeff of Ade (11.0-15.0) % Plt Count (150-400) K/uL MPV (7.40-12.00) fL Neut % (Auto) (48.0-80.0) % Lymph % (Auto) (16.0-40.0) % [place] % (Auto) (0.0-15.0) % Eos % (Auto) (0.0-7.0) % Baso % (Auto) (0.0-1.5) % Neut # (Auto) (1.4-5.7) K/uL Lymph # (Auto) (0.6-2.4) K/uL [place] # (Auto) (0.0-0.8) K/uL Eos # (Auto) (0.0-0.7) K/uL Baso # (Auto) (0.0-0.1) K/uL Nucleated RBC % /100WBC Nucleated RBCs # K/uL INR Lactate (0.20-2.00) mmol/L Sodium 143 (136-145) mmol/L Potassium 2.7 L (3.5-5.1) mmol/L Chloride 103 (98-107) mmol/L Carbon Dioxide 30.5 (21.0-32.0) mmol/L BUN 9 (7.0-18.0) mg/dL Creatinine 1.0 (0.6-1.0) mg/dL Est Cr Clr Drug Dosing 50.27 mL/min Estimated GFR (MDRD) 58.0 ml/min Glucose 118 H (74-106) mg/dL Calcium 8.6 (8.5-10.1) mg/dL Total Bilirubin 0.3 (0.2-1.0) mg/dL AST 25 (15-37) IU/L ALT 22 (14-63) IU/L Alkaline Phosphatase 118 H (46-116) U/L Troponin I 0.075 H* (0.000-0.056) ng/mL Total Protein 6.4 (6.4-8.2) g/dL Albumin 2.8 L (3.4-5.0) g/dL Globulin 3.6 (2.6-4.0) g/dL Albumin/Globulin Ratio 0.8 L (0.9-1.6) Lipase 60 L (73-393) U/L Urine Color YELLOW Urine Appearance CLEAR Urine pH 6.0 (5.0-8.0) Ur Specific [place] 1.025 (1.001-1.035) Urine Protein NEGATIVE (NEGATIVE) mg/dL Urine Glucose (UA) NEGATIVE (NEGATIVE) mg/dL Urine Ketones NEGATIVE (NEGATIVE) mg/dL Urine Occult Blood NEGATIVE (NEGATIVE) Urine Nitrite NEGATIVE (NEGATIVE) Urine Bilirubin NEGATIVE (NEGATIVE) Urine Urobilinogen 0.2 (<2.0) EU/dL Ur Leukocyte Esterase NEGATIVE (NEGATIVE) Meds: Medications Generic Name Dose Route Start Last Admin Trade Name Freq PRN Reason Stop Dose Admin Sodium Chloride 1,000 mls @ 125 mls/hr 11/13/18 10:00 11/13/18 11:15 Normal Saline IV 999 mls/hr STAT TRA Infusion Potassium Chloride/Sodium Chloride 1,000 mls @ 150 mls/hr 11/13/18 11:15 11:22 Normal Saline With 20 Meq Kcl IV 150 mls/hr ASDIRECTED TRA Administration Vancomycin HCl 1 gm/ Sodium 250 mls @ 250 mls/hr 11/13/18 11:06 Chloride IV 11/13/18 12:05 ONETIME ONE Discontinued Medications Generic Name Dose Route Start Last Admin Trade Name Freq PRN Reason Stop Dose Admin Acetaminophen 1,000 mg 11/13/18 10:03 11/13/18 10:15 Tylenol Extra Strength PO 11/13/18 10:04 1,000 mg ONETIME ONE Administration Albuterol/Ipratropium 3 ml 11/13/18 09:47 11/13/18 10:02 Duoneb 3.0-0.5 Mg/3 Ml NEB 11/13/18 09:48 3 ml ONETIME ONE Administration Enoxaparin Sodium 100 mg 11/13/18 11:43 Lovenox SUBCUT 11/13/18 11:44 ONETIME ONE Piperacillin Sod/Tazobactam 50 mls @ 100 mls/hr 11/13/18 11:06 11/13/18 11:22 Sod 3.375 gm/ Sodium Chloride IV 11/13/18 11:35 100 mls/hr ONETIME ONE Administration Sodium Chloride Confirm 11/13/18 11:18 11/13/18 11:22 Normal Saline Administered 11/13/18 11:19 Not Given Dose 50 mls @ as directed .ROUTE .STK-MED ONE Methylprednisolone Sodium Succinate 125 mg 11/13/18 09:47 11/13/18 10:02 Solu-Medrol IVPUSH 11/13/18 09:48 125 mg ONETIME ONE Administration Potassium Chloride 40 meq 11/13/18 11:02 11/13/18 11:21 Potassium Chloride PO 11/13/18 11:03 40 meq ONETIME ONE Administration Departure - Departure Time of Disposition: 11:49 Disposition: Admitted As Inpatient 66 Condition: Poor Clinical Impression: Fever, Hypoxia, Systemic inflammatory response syndrome (SIRS), Elevated troponin - Discharge Information Referrals: Yudi Morrison NP [Primary Care Provider] - - My Orders Last 24 Hours: My Active Orders 11/13/18 09:47 RT Aerosol Therapy [RC] ASDIRECTED 11/13/18 09:55 B-TYPE NATRIURETIC PEPTIDE,BNP [CHEM] Stat CULTURE BLOOD [BC] Stat CULTURE STREP A CONFIRMATION [RM] Stat STREP SCRN A RAPID W CULT CONF [RM] Stat Blood Culture x2 Reflex Set [OM.PC] Stat 11/13/18 10:00 Sodium Chloride 0.9% [Normal Saline] 1,000 ml IV STAT 11/13/18 10:18 CULTURE BLOOD [BC] Stat 11/13/18 11:06 Vancomycin [Vancocin] 1 gm Sodium Chloride 0.9% [Normal Saline] 250 ml IV ONETIME 11/13/18 11:15 NS + KCl 20mEq/L [Normal Saline with 20 mEq KCl] 1,000 ml IV ASDIRECTED 11/13/18 11:47 EKG 12 Lead [EKG Documentation Completion] [RC] STAT - Assessment/Plan Last 24 Hours: My Active Orders 11/13/18 09:47 RT Aerosol Therapy [RC] ASDIRECTED 11/13/18 09:55 B-TYPE NATRIURETIC PEPTIDE,BNP [CHEM] Stat CULTURE BLOOD [BC] Stat CULTURE STREP A CONFIRMATION [RM] Stat STREP SCRN A RAPID W CULT CONF [] Stat Blood Culture x2 Reflex Set [OM.PC] Stat 11/13/18 10:00 Sodium Chloride 0.9% [Normal Saline] 1,000 ml IV STAT 11/13/18 10:18 CULTURE BLOOD [BC] Stat 11/13/18 11:06 Vancomycin [Vancocin] 1 gm Sodium Chloride 0.9% [Normal Saline] 250 ml IV ONETIME 11/13/18 11:15 NS + KCl 20mEq/L [Normal Saline with 20 mEq KCl] 1,000 ml IV ASDIRECTED 11/13/18 11:47 EKG 12 Lead [EKG Documentation Completion] [RC] STAT
[2018-11-13] MEDS ORDERED: Sodium Chloride 0.9% 1,000 ML IV SCH (10:00)
[2018-11-13] MEDS ORDERED: Acetaminophen 500 MG Tab PO ONE (10:03)
--- NOTE | 2018-11-13 10:47 | CR ---
EXAMINATION: Portable chest radiograph. HISTORY: Shortness of breath. Comparison: 10/29/2018. FINDINGS: The trachea is midline. The cardiomediastinal silhouette is within normal limits. No pulmonary infiltrates, effusions or pneumothorax. Moderate S-shaped scoliosis of the thoracolumbar spine. IMPRESSION: No acute cardiopulmonary process.
[2018-11-13] MEDS ORDERED: Potassium Chloride 10% 20 MEQ/15 ML Soln 30 ML UD Cup PO ONE (11:02)
[2018-11-13] MEDS ORDERED: Piperacillin/Tazobactam 3.375 GM in Sodium Chloride 0.9% 50 ML IV ONE (11:06)
[2018-11-13] MEDS ORDERED: Sodium Chloride 0.9% 50 ML ONE (11:18)
[2018-11-13] MEDS: NS + KCl 20mEq/L 1,000 ML IV SCH ×2 (11:22→18:33)
[2018-11-13] MEDS ORDERED: Enoxaparin 100 MG/1 ML Syringe SUBCUT ONE (11:43)
[2018-11-13] MEDS ORDERED: Sodium Chloride 0.9% 1,000 ML IV ONE (12:02)
[2018-11-13] MEDS ORDERED: Potassium Chloride 20 MEQ Tab.ER PO ONE (13:13)
[2018-11-13] MEDS ORDERED: Fludrocortisone 0.1 MG Tab PO ONE (13:36)
[2018-11-13] MEDS ORDERED: Vancomycin 1 GM, Vancomycin 500 MG in Sodium Chloride 0.9% 500 ML IV SCH (15:30)
--- NOTE | 2018-11-13 15:53 | PCM.HP ---
H&P History of Present Illness - General Date of Service: 11/13/18 Admit Problem/Dx: Admission Diagnosis/Problem Admission Diagnosis/Problem Systemic inflammatory response syndrome (SIRS) - History of Present Illness Initial Comments - Free Text/Narative: 53 yo female with pmh of severe MS with recent hospitalization for altered mental status, ambulatory disfunction and bronchitis. She was discharge to [facility] earlier this month where she completed a steroid taper. There she was doing fine until today she developed fever, shortness of breath and cough. She denies any abdominal pain, chest pain, or diarrhea or rash. At [place] she was noted to have fever of 103 and satting in the 60s or room air. In the ED she was requiring face mask to keep sats in the 90s. Her blood pressure dropped to the 80s systolic. She appear to be in no acute distress but had ronchi on lung exam. CXR was clear. She was given solumedrol, vancomycin , zosyn, lovenox, and two liters of normal saline. Headache Pain Score (Numeric/FACES): 7 - Related Data Allergies/Adverse Reactions: Allergies Allergy/AdvReac Type Severity Reaction Status Date / Time No Known Allergies Allergy Verified 11/13/18 10:01 Home Medications: Home Meds DULoxetine HCl [Cymbalta] 60 mg PO DAILY 08/22/15 [History] Gabapentin [Neurontin] 300 mg PO QAM 08/22/15 [History] Pantoprazole Sodium 40 mg PO DAILY 08/22/15 [History] Teriflunomide [Aubagio] 14 mg PO DAILY 08/22/15 [History] traZODone 200 mg PO BEDTIME 10/21/15 [History] Baclofen 20 mg PO BID 10/24/15 [History] Cholecalciferol (Vitamin D3) [Vitamin D3] 1,000 unit PO DAILY 10/24/15 [History] traMADol [Ultram] 50 mg PO Q8H 12/22/15 [History] Diazepam [Valium] 5 mg PO TID PRN 10/26/18 [History] Albuterol [Ventolin HFA] 2 puff INH Q4H PRN 10/27/18 [History] Baclofen 40 mg PO PCLUNCH 10/27/18 [History] Gabapentin [Neurontin] 300 mg PO ACLUNCH 10/27/18 [History] Gabapentin [Neurontin] 600 mg PO BEDTIME 10/27/18 [History] hydrOXYzine pamoate [Hydroxyzine Pamoate] 25 mg PO BID 10/27/18 [History] DULoxetine HCl [Cymbalta] 30 mg PO BEDTIME 10/28/18 [History] predniSONE [Prednisone] 50 mg PO DAILY 7 Days #7 tablet 10/31/18 [Rx] Magnesium Hydroxide [Milk of Magnesia] 30 ml PO DAILY PRN 11/13/18 [History] guaiFENesin [Guaifenesin ER] 600 mg PO DAILY 11/13/18 [History] Past Medical History Other HEENT History: top and bottom dentures Cardiovascular History: Reports: None Respiratory 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 (See Below) Other Respiratory History: 30 yr history of smoking, use [place] on & off, current use 1/2 pack per day Gastrointestinal History: Reports: Cholelithiasis, GERD Other Gastrointestinal History: hx: Gallstones, 'unsure if they are still there , they do not give me any trouble" Genitourinary History: Reports: None LAP HAND TOOL 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 (See Below) Other OB/BYN History: Pelvic pain 'midline' Musculoskeletal 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 (See Below) Other Musculoskeletal History: Scoliosis Upper and lower back, Multiple Sclerosis "mobility good, but occasionally I use a walker" Neurological History: Reports: MS Other Neuro History: Good mobility generally, but "sometimes use walker when not up to par or feel weak" Psychiatric History: Reports: Anxiety Endocrine/Metabolic History: Reports: Obesity/BMI 30+ Hematologic History: Reports: None Immunologic History: Reports: None Oncologic (Cancer) History: Reports: None Dermatologic History: Reports: None - Infectious Disease History Infectious Disease History: Reports: Chicken Pox, Measles - Past Surgical History HEENT Surgical 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 (See Below) Female Surgical History: Reports: Tubal Ligation Musculoskeletal Surgical 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 (See Below) Social & Family History - Family History Family Medical History: Noncontributory - Tobacco Use Smoking Status *Q: Never Smoker - Caffeine Use Caffeine Use: Reports: Coffee, Tea - Recreational Drug Use Recreational Drug Use: No - Living Situation & Occupation Living situation: Reports: Single, with Family Occupation: Disabled H&P Review of Systems - Review of Systems: Review Of Systems: ROS reveals no pertinent complaints other than HPI. Exam - Exam Exam: See Below - Vital Signs Vital Signs: Last Vital Signs Temp 37.7 C 11/13/18 10:45 Pulse 80 11/13/18 12:08 Resp 18 11/13/18 12:08 BP 94/50 L 11/13/18 12:08 Pulse Ox 96 11/13/18 12:08 Weight: 96.615 kg - Exam General: Alert, Oriented HEENT: Mucosa Moist & [place] Neck: Supple Lungs: Normal Respiratory Effort, Rhonchi, Wheezing Cardiovascular: Regular Rate, Regular Rhythm GI/Abdominal Exam: Soft, Non-Tender, No Distention, No Mass, Other (obese) Extremities: Non-Tender, No Pedal Edema Skin: Warm, Dry, Intact Neurological: Strength Equal Bilateral. No: Focal Deficit - Patient Data Lab Results Last 24 hrs: Laboratory Results - last 24 hr 11/13/18 11/13/18 11/13/18 Range/Units 09:25 09:55 09:55 WBC 10.08 (4.0-11.0) K/uL RBC 4.21 L (4.30-5.90) M/uL Hgb 11.9 L (12.0-16.0) g/dL Hct 38.6 (36.0-46.0) % MCV 91.7 (80.0-98.0) fL MCH 28.3 (27.0-32.0) pg MCHC 30.8 L (31.0-37.0) g/dL RDW Std Deviation 51.8 (28.0-62.0) fl RDW Coeff of Ade 16 H (11.0-15.0) % Plt Count 297 (150-400) K/uL MPV 9.70 (7.40-12.00) fL Neut % (Auto) 82.6 H (48.0-80.0) % Lymph % (Auto) 9.8 L (16.0-40.0) % [place] % (Auto) 7.0 (0.0-15.0) % Eos % (Auto) 0.4 (0.0-7.0) % Baso % (Auto) 0.2 (0.0-1.5) % Neut # (Auto) 8.3 H (1.4-5.7) K/uL Lymph # (Auto) 1.0 (0.6-2.4) K/uL [place] # (Auto) 0.7 (0.0-0.8) K/uL Eos # (Auto) 0.0 (0.0-0.7) K/uL Baso # (Auto) 0.0 (0.0-0.1) K/uL Nucleated RBC % 0.2 /100WBC Nucleated RBCs # 0 K/uL INR 0.98 ABG pH (7.35-7.45) ABG pCO2 (35-45) mmHG ABG pO2 (75-100) mmHG ABG HCO3 (22-26) mEq/L ABG Total CO2 ABG Base Excess (-2.0-2.0) Lactate 2.0 (0.20-2.00) mmol/L Sodium (136-145) mmol/L Potassium (3.5-5.1) mmol/L Chloride (98-107) mmol/L Carbon Dioxide (21.0-32.0) mmol/L BUN (7.0-18.0) mg/dL Creatinine (0.6-1.0) mg/dL Est Cr Clr Drug Dosing mL/min Estimated GFR (MDRD) ml/min Glucose (74-106) mg/dL Calcium (8.5-10.1) mg/dL Magnesium (1.8-2.4) mg/dL Total Bilirubin (0.2-1.0) mg/dL AST (15-37) IU/L ALT (14-63) IU/L Alkaline Phosphatase (46-116) U/L Troponin I (0.000-0.056) ng/mL B-Natriuretic Peptide (<100) PG/ML Total Protein (6.4-8.2) g/dL Albumin (3.4-5.0) g/dL Globulin (2.6-4.0) g/dL Albumin/Globulin Ratio (0.9-1.6) Lipase (73-393) U/L Urine Color Urine Appearance Urine pH (5.0-8.0) Ur Specific [place] (1.001-1.035) Urine Protein (NEGATIVE) mg/dL Urine Glucose (UA) (NEGATIVE) mg/dL Urine Ketones (NEGATIVE) mg/dL Urine Occult Blood (NEGATIVE) Urine Nitrite (NEGATIVE) Urine Bilirubin (NEGATIVE) Urine Urobilinogen (<2.0) EU/dL Ur Leukocyte Esterase (NEGATIVE) 11/13/18 11/13/18 11/13/18 Range/Units 09:55 09:55 09:55 WBC (4.0-11.0) K/uL RBC (4.30-5.90) M/uL Hgb (12.0-16.0) g/dL Hct (36.0-46.0) % MCV (80.0-98.0) fL MCH (27.0-32.0) pg MCHC (31.0-37.0) g/dL RDW Std Deviation (28.0-62.0) fl RDW Coeff of Ade (11.0-15.0) % Plt Count (150-400) K/uL MPV (7.40-12.00) fL Neut % (Auto) (48.0-80.0) % Lymph % (Auto) (16.0-40.0) % [place] % (Auto) (0.0-15.0) % Eos % (Auto) (0.0-7.0) % Baso % (Auto) (0.0-1.5) % Neut # (Auto) (1.4-5.7) K/uL Lymph # (Auto) (0.6-2.4) K/uL [place] # (Auto) (0.0-0.8) K/uL Eos # (Auto) (0.0-0.7) K/uL Baso # (Auto) (0.0-0.1) K/uL Nucleated RBC % /100WBC Nucleated RBCs # K/uL INR ABG pH (7.35-7.45) ABG pCO2 (35-45) mmHG ABG pO2 (75-100) mmHG ABG HCO3 (22-26) mEq/L ABG Total CO2 ABG Base Excess (-2.0-2.0) Lactate (0.20-2.00) mmol/L Sodium 143 (136-145) mmol/L Potassium 2.7 L (3.5-5.1) mmol/L Chloride 103 (98-107) mmol/L Carbon Dioxide 30.5 (21.0-32.0) mmol/L BUN 9 (7.0-18.0) mg/dL Creatinine 1.0 (0.6-1.0) mg/dL Est Cr Clr Drug Dosing 50.27 mL/min Estimated GFR (MDRD) 58.0 ml/min Glucose 118 H (74-106) mg/dL Calcium 8.6 (8.5-10.1) mg/dL Magnesium 1.5 L (1.8-2.4) mg/dL Total Bilirubin 0.3 (0.2-1.0) mg/dL AST 25 (15-37) IU/L ALT 22 (14-63) IU/L Alkaline Phosphatase 118 H (46-116) U/L Troponin I 0.075 H* (0.000-0.056) ng/mL B-Natriuretic Peptide 39 (<100) PG/ML Total Protein 6.4 (6.4-8.2) g/dL Albumin 2.8 L (3.4-5.0) g/dL Globulin 3.6 (2.6-4.0) g/dL Albumin/Globulin Ratio 0.8 L (0.9-1.6) Lipase (73-393) U/L Urine Color Urine Appearance Urine pH (5.0-8.0) Ur Specific [place] (1.001-1.035) Urine Protein (NEGATIVE) mg/dL Urine Glucose (UA) (NEGATIVE) mg/dL Urine Ketones (NEGATIVE) mg/dL Urine Occult Blood (NEGATIVE) Urine Nitrite (NEGATIVE) Urine Bilirubin (NEGATIVE) Urine Urobilinogen (<2.0) EU/dL Ur Leukocyte Esterase (NEGATIVE) 11/13/18 11/13/18 11/13/18 Range/Units 09:59 10:39 14:23 WBC (4.0-11.0) K/uL RBC (4.30-5.90) M/uL Hgb (12.0-16.0) g/dL Hct (36.0-46.0) % MCV (80.0-98.0) fL MCH (27.0-32.0) pg MCHC (31.0-37.0) g/dL RDW Std Deviation (28.0-62.0) fl RDW Coeff of Ade (11.0-15.0) % Plt Count (150-400) K/uL MPV (7.40-12.00) fL Neut % (Auto) (48.0-80.0) % Lymph % (Auto) (16.0-40.0) % [place] % (Auto) (0.0-15.0) % Eos % (Auto) (0.0-7.0) % Baso % (Auto) (0.0-1.5) % Neut # (Auto) (1.4-5.7) K/uL Lymph # (Auto) (0.6-2.4) K/uL [place] # (Auto) (0.0-0.8) K/uL Eos # (Auto) (0.0-0.7) K/uL Baso # (Auto) (0.0-0.1) K/uL Nucleated RBC % /100WBC Nucleated RBCs # K/uL INR ABG pH 7.399 (7.35-7.45) ABG pCO2 47 H (35-45) mmHG ABG pO2 122 H (75-100) mmHG ABG HCO3 29 H (22-26) mEq/L ABG Total CO2 27.3 ABG Base Excess 3.8 H (-2.0-2.0) Lactate (0.20-2.00) mmol/L Sodium (136-145) mmol/L Potassium (3.5-5.1) mmol/L Chloride (98-107) mmol/L Carbon Dioxide (21.0-32.0) mmol/L BUN (7.0-18.0) mg/dL Creatinine (0.6-1.0) mg/dL Est Cr Clr Drug Dosing mL/min Estimated GFR (MDRD) ml/min Glucose (74-106) mg/dL Calcium (8.5-10.1) mg/dL Magnesium (1.8-2.4) mg/dL Total Bilirubin (0.2-1.0) mg/dL AST (15-37) IU/L ALT (14-63) IU/L Alkaline Phosphatase (46-116) U/L Troponin I (0.000-0.056) ng/mL B-Natriuretic Peptide (<100) PG/ML Total Protein (6.4-8.2) g/dL Albumin (3.4-5.0) g/dL Globulin (2.6-4.0) g/dL Albumin/Globulin Ratio (0.9-1.6) Lipase 60 L (73-393) U/L Urine Color YELLOW Urine Appearance CLEAR Urine pH 6.0 (5.0-8.0) Ur Specific [place] 1.025 (1.001-1.035) Urine Protein NEGATIVE (NEGATIVE) mg/dL Urine Glucose (UA) NEGATIVE (NEGATIVE) mg/dL Urine Ketones NEGATIVE (NEGATIVE) mg/dL Urine Occult Blood NEGATIVE (NEGATIVE) Urine Nitrite NEGATIVE (NEGATIVE) Urine Bilirubin NEGATIVE (NEGATIVE) Urine Urobilinogen 0.2 (<2.0) EU/dL Ur Leukocyte Esterase NEGATIVE (NEGATIVE) Result Diagrams: 11/15/18 06:45 11/15/18 06:45 Cj Results Last 24 hrs: Microbiology 11/13/18 09:45 Influenza Type A Antigen Screen - Final Nasopharyngeal Swab NEGATIVE INFLUENZA A VIRUS AG Influenza Type B Antigen Screen - Final NEGATIVE INFLUENZA B VIRUS AG 11/13/18 09:55 Group A Streptococcus Rapid Screen - Final Throat NEGATIVE STREP A SCREEN Problem List Initiated/Reviewed/Updated: Yes Orders Last 24hrs: Active Orders 24 hr Category Date Time Status Admission Status [Patient Status] [ADT] Stat ADT 11/13/18 11:55 Active Antiembolic Devices [RC] PER UNIT ROUTINE Care 11/13/18 15:47 Ordered EKG 12 Lead [EKG Documentation Completion] [RC] STAT Care 11/13/18 11:47 Active Oxygen Therapy [RC] PRN Care 11/13/18 15:46 Ordered RT Aerosol Therapy [RC] ASDIRECTED Care 11/13/18 09:47 Active RT Aerosol Therapy [RC] ASDIRECTED Care 11/13/18 15:47 Ordered Up ad Molly [RC] ASDIRECTED Care 11/13/18 15:46 Ordered VTE/DVT Education [RC] PER UNIT ROUTINE Care 11/13/18 15:46 Ordered Vital Signs [RC] Q4H Care 11/13/18 15:46 Ordered Consult to Respiratory Therapy [Respiratory Care Assess Cons 11/13/18 13:32 Active and Treatment] [CONS] Routine Consult to Speech Language Pathology [FLOW TRADER Evaluation Cons 11/13/18 15:02 Active and Treatment] [CONS] Routine Regular Diet [DIET] Diet 11/13/18 Dinner Active Chest PE [Ang Chest] [CT] Routine Exams 11/13/18 14:48 Ordered Swallowing Function w Video [CR] Routine Exams 11/14/18 13:34 Ordered CBC WITH AUTO DIFF [HEME] AM Lab 11/14/18 05:11 Ordered COMPREHENSIVE METABOLIC PN,CMP [CHEM] AM Lab 11/14/18 05:11 Ordered CULTURE BLOOD [BC] Stat Lab 11/13/18 09:55 Received CULTURE BLOOD [BC] Stat Lab 11/13/18 10:18 Received CULTURE SPUTUM + SMEAR [RM] Routine Lab 11/13/18 15:42 Ordered CULTURE STREP A CONFIRMATION [RM] Stat Lab 11/13/18 09:55 Results CULTURE URINE [RM] Routine Lab 11/13/18 15:42 Ordered PROCALCITONIN [REF] Stat Lab 11/13/18 14:08 Received STREP SCRN A RAPID W CULT CONF [RM] Stat Lab 11/13/18 09:55 Results TROPONIN I [CHEM] Q6H Lab 11/13/18 15:44 Ordered TROPONIN I [CHEM] Q6H Lab 11/13/18 21:44 Ordered VANCOMYCIN TROUGH [CHEM] Timed Lab 11/14/18 14:30 Ordered Albuterol/Ipratropium [DuoNeb 3.0-0.5 MG/3 ML] Med 11/13/18 15:46 Ordered 3 ml NEB Q4HRRT PRN Famotidine [Pepcid] Med 11/13/18 21:00 Active 20 mg PO BID Heparin Sodium Med 11/13/18 14:45 Active 5,000 units SUBCUT Q8H Levofloxacin/Dextrose 5%-Water [Levaquin in D5W 750 MG/ Med 11/13/18 15:00 Ordered 150 ML] 750 mg Premix Bag 1 bag IV Q24H Midodrine Med 11/13/18 17:00 Active 5 mg PO TIDAC NS + KCl 20mEq/L [Normal Saline with 20 mEq KCl] 1,000 Med 11/13/18 11:15 Active ml IV ASDIRECTED Ondansetron [Zofran] Med 11/13/18 15:46 Ordered 4 mg IVPUSH Q4H PRN Oseltamivir [Tamiflu] Med 11/13/18 15:30 Ordered 75 mg PO BID Pharmacy to Dose - Vancomycin Med 11/13/18 15:00 Ordered 1 dose .XX ASDIRECTED Piperacillin/Tazobactam [Piperacil-Tazobact] 3.375 gm Med 11/13/18 16:00 Ordered Sodium Chloride 0.9% [Normal Saline] 50 ml IV Q6H Sodium Chloride 0.9% [Normal Saline] 1,000 ml Med 11/13/18 10:00 Active IV STAT Vancomycin 1 gm Med 11/13/18 15:30 Active Vancomycin 500 mg Sodium Chloride 0.9% [Normal Saline] 500 ml IV Q12H methylPREDNISolone Sod Succ [Solu-MEDROL] Med 11/13/18 22:00 Ordered 125 mg IVPUSH Q12H Blood Culture x2 Reflex Set [OM.PC] Stat Oth 11/13/18 09:55 Ordered Sequential Compression Device [OM.PC] Per Unit Routine Oth 11/13/18 15:46 Ordered Resuscitation Status Routine Resus Stat 11/13/18 15:46 Ordered Medication Orders Famotidine (Pepcid) 20 mg PO BID [facility] Heparin Sodium (Porcine) (Heparin Sodium) 5,000 units SUBCUT Q8H TRA Sodium Chloride (Normal Saline) 1,000 mls @ 125 mls/hr IV STAT [facility] Last Infusion: 11/13/18 11:15 Dose: 999 mls/hr Admin: 11/13/18 10:02 Dose: 125 mls/hr Potassium Chloride/Sodium Chloride (Normal Saline With 20 Meq Kcl) 1,000 mls @ 150 mls/hr IV ASDIRECTED [facility] Last Admin: 11/13/18 11:22 Dose: 150 mls/hr Levofloxacin/Dextrose 750 mg/ (Premix) 150 mls @ 100 mls/hr IV Q24H TRA Piperacillin Sod/Tazobactam (Sod 4.5 gm/ Sodium Chloride) 100 mls @ 200 mls/hr IV Q6H TRA Vancomycin HCl 1 gm/Vancomycin HCl 500 mg/ Sodium Chloride 500 mls @ 250 mls/ hr IV Q12H TRA Methylprednisolone Sodium Succinate (Solu-Medrol) 125 mg IVPUSH Q12H TRA Midodrine (Midodrine) 5 mg PO TIDAC TRA Oseltamivir Phosphate (Tamiflu) 75 mg PO BID TRA Vancomycin HCl (Pharmacy To Dose - Vancomycin) 1 dose .XX ASDIRECTED [facility] Assessment/Plan Comment:: 53 yo female admitted for acute hypoxic respiratory failure and signs concerning of sepsis. Her CXR is clear but symptoms concerning for a pneumonia or acute bronchitis. Acute hypoxic respiratory failure: on face mask [address] scan of chest Health care associated pneumonia: possible gram negative sugar respiratory infection, treating with zosyn, levaquin, tamiflu and vancomycin, cultures are pending Acute bronchitis: on solumedrol, duonebs Possible adrenal insufficiency: hypokalemic with low blood pressures, getting solumedrol and eICU ordered Florinef and midodrine, NIF is 30 Elevated troponin: likely demand from sepsis, will continue to trend.
[2018-11-13] MEDS ORDERED: Magnesium Sulfate/Water 2 GM in Premix Bag 1 BAG IV ONE (15:58)
[2018-11-13] MEDS ORDERED: Iopamidol 755 MG/ML 500 ML Multipack Bottle IVPUSH STA (16:16)
[2018-11-13] MEDS: Midodrine 5 MG Tab PO SCH (16:46)
[2018-11-13] MEDS: Oseltamivir 75 MG Cap PO SCH ×2 (16:47→20:03)
[2018-11-13] MEDS: Levofloxacin/Dextrose 5%-Water 750 MG in Premix Bag 1 BAG IV SCH (16:47)
--- NOTE | 2018-11-13 17:34 | CT ---
INDICATION: Fever and cough with hypoxia. TECHNIQUE: CT chest PE was acquired with 75 cc Isovue 370 IV contrast. COMPARISON: None. FINDINGS: Heart and vasculature: Contrast opacification of the pulmonary arterial tree is adequate. No sign of pulmonary embolism. Heart size is normal. Thoracic aorta and pulmonary artery are normal in caliber. Lungs and pleural: Small patchy infiltrates are present in both upper lobes. Moderate atelectasis or scarring is in the left lung base. Remainder of the lungs are clear. No pleural effusions, pleural thickening, or pneumothorax. Lymph nodes/mediastinum: No mediastinal, hilar, or axillary adenopathy. Thyroid gland is normal. Chest wall: No masses. Upper abdomen: Normal. Bones: There is severe scoliosis of the thoracic spine. No other significant finding. IMPRESSION: 1. No pulmonary embolism. 2. Small patchy infiltrates in both upper lobes consistent with an acute infectious process. 3. Moderate left basilar atelectasis. 4. Severe thoracic spine scoliosis. Please note that all CT scans at this facility use dose modulation, iterative reconstruction, and/or weight-based dosing when appropriate to reduce radiation dose to as low as reasonably achievable. Dictated by Chuck Arita MD @ Nov 13 2018 5:19PM Signed by Dr. Chuck Arita @ Nov 13 2018 5:33PM
[2018-11-13] MEDS: traMADol 50 MG Tab PO SCH (18:31)
[2018-11-13] MEDS: Piperacillin/Tazobactam 4.5 GM in Sodium Chloride 0.9% 100 ML IV SCH ×2 (18:32→23:48)
[2018-11-13] MEDS: Famotidine 20 MG Tab PO SCH (20:03)
[2018-11-13] MEDS: traZODone 50 MG Tab PO SCH (20:04)
[2018-11-13] MEDS: Heparin Sodium 5,000 Units/ML Vial SUBCUT SCH ×2 (20:35→21:46)
[2018-11-13] MEDS: methylPREDNISolone Sodium Succinate 125 MG/2 ML SDV IVPUSH SCH (21:47)
[2018-11-13] MEDS: Vancomycin 1 GM, Vancomycin 500 MG in Sodium Chloride 0.9% 500 ML IV SCH (23:46)
[2018-11-14] MEDS: Vancomycin 1 GM, Vancomycin 500 MG in Sodium Chloride 0.9% 500 ML IV SCH ×2 (00:29→12:41)
[2018-11-14] MEDS: traMADol 50 MG Tab PO SCH ×3 (01:27→18:00)
[2018-11-14] MEDS: NS + KCl 20mEq/L 1,000 ML IV SCH (04:37)
[2018-11-14] MEDS: Diazepam 2 MG Tab PO PRN (05:00)
[2018-11-14] MEDS: Heparin Sodium 5,000 Units/ML Vial SUBCUT SCH ×4 (05:00→20:34)
[2018-11-14 05:37] LABS: CHLORIDE,CL 109 mmol/L (98-107); SODIUM,NA 144 mmol/L (136-145)
[2018-11-14] MEDS: Piperacillin/Tazobactam 4.5 GM in Sodium Chloride 0.9% 100 ML IV SCH ×4 (05:45→23:29)
[2018-11-14] MEDS: Midodrine 5 MG Tab PO SCH ×2 (07:22→11:35)
[2018-11-14] MEDS: Famotidine 20 MG Tab PO SCH ×2 (10:10→20:21)
[2018-11-14] MEDS: Oseltamivir 75 MG Cap PO SCH ×2 (10:10→20:21)
[2018-11-14] MEDS: Teriflunomide [Aubagio] 14 MG PO SCH ×2 (10:11→14:04)
[2018-11-14] MEDS: methylPREDNISolone Sodium Succinate 125 MG/2 ML SDV IVPUSH SCH ×2 (10:12→17:15)
--- NOTE | 2018-11-14 13:44 | CR ---
EXAMINATION: Oropharyngeal video swallow study. HISTORY: Weakness COMPARISON: None TECHNIQUE: Lateral images obtained, speech pathologist present, various barium consistencies provided. FINDINGS: There is adequate bolus formation and transfer. There is adequate epiglottic inversion and tracheal elevation. Episode of flash penetration otherwise solid and liquid consistencies were well tolerated. IMPRESSION: 1. Mild flash penetration with thin liquids. Please see speech pathology report for full details.
[2018-11-14] MEDS: Levofloxacin/Dextrose 5%-Water 750 MG in Premix Bag 1 BAG IV SCH (15:17)
[2018-11-14] MEDS: Albuterol/Ipratropium 3.0-0.5 MG/3 ML Neb Soln NEB PRN ×2 (15:48→21:06)
[2018-11-14] MEDS: Ondansetron 4 MG/2 ML SDV IVPUSH PRN (16:08)
[2018-11-14] MEDS: guaiFENesin 600 MG Tab.ER PO SCH ×2 (16:08→20:21)
--- NOTE | 2018-11-14 18:49 | PCM.PN ---
- General Info Date of Service: 11/14/18 Subjective Update: She states that she is feeling little bit better, breathing is little bit easier. - Patient Data Vitals - Most Recent: Last Vital Signs Temp 36.6 C 11/14/18 16:00 Pulse 76 11/14/18 07:00 Resp 18 11/14/18 18:00 BP 149/78 H 11/14/18 18:00 Pulse Ox 96 11/14/18 18:00 Weight - Most Recent: 102.71 kg I&O - Last 24 Hours: Intake & Output 11/14/18 11/14/18 11/14/18 06:59 14:59 22:59 Intake Total 2199 1025 150 Output Total 850 Balance 1349 1025 150 Lab Results Last 24 Hours: Laboratory Results - last 24 hr 11/13/18 11/14/18 11/14/18 Range/Units 22:07 04:40 04:40 WBC 6.40 (4.0-11.0) K/uL RBC 3.71 L (4.30-5.90) M/uL Hgb 10.5 L (12.0-16.0) g/dL Hct 34.4 L (36.0-46.0) % MCV 92.7 (80.0-98.0) fL MCH 28.3 (27.0-32.0) pg MCHC 30.5 L (31.0-37.0) g/dL RDW Std Deviation 54.5 (28.0-62.0) fl RDW Coeff of Ade 16 H (11.0-15.0) % Plt Count 262 (150-400) K/uL MPV 9.40 (7.40-12.00) fL Neut % (Auto) 92.7 H (48.0-80.0) % Lymph % (Auto) 5.0 L (16.0-40.0) % [place] % (Auto) 2.3 (0.0-15.0) % Eos % (Auto) 0.0 (0.0-7.0) % Baso % (Auto) 0.0 (0.0-1.5) % Neut # (Auto) 5.9 H (1.4-5.7) K/uL Lymph # (Auto) 0.3 L (0.6-2.4) K/uL [place] # (Auto) 0.2 (0.0-0.8) K/uL Eos # (Auto) 0.0 (0.0-0.7) K/uL Baso # (Auto) 0.0 (0.0-0.1) K/uL Nucleated RBC % 0.0 /100WBC Nucleated RBCs # 0 K/uL Sodium 144 (136-145) mmol/L Potassium 4.6 (3.5-5.1) mmol/L Chloride 109 H (98-107) mmol/L Carbon Dioxide 29.7 (21.0-32.0) mmol/L BUN 10 (7.0-18.0) mg/dL Creatinine 0.9 (0.6-1.0) mg/dL Est Cr Clr Drug Dosing 55.86 mL/min Estimated GFR (MDRD) > 60.0 ml/min Glucose 175 H (74-106) mg/dL Calcium 7.9 L (8.5-10.1) mg/dL Magnesium (1.8-2.4) mg/dL Total Bilirubin 0.4 (0.2-1.0) mg/dL AST 34 (15-37) IU/L ALT 45 (14-63) IU/L Alkaline Phosphatase 100 (46-116) U/L Troponin I < 0.050 (0.000-0.056) ng/mL Total Protein 5.5 L (6.4-8.2) g/dL Albumin 2.3 L (3.4-5.0) g/dL Globulin 3.2 (2.6-4.0) g/dL Albumin/Globulin Ratio 0.7 L (0.9-1.6) 11/14/18 Range/Units 04:40 WBC (4.0-11.0) K/uL RBC (4.30-5.90) M/uL Hgb (12.0-16.0) g/dL Hct (36.0-46.0) % MCV (80.0-98.0) fL MCH (27.0-32.0) pg MCHC (31.0-37.0) g/dL RDW Std Deviation (28.0-62.0) fl RDW Coeff of Ade (11.0-15.0) % Plt Count (150-400) K/uL MPV (7.40-12.00) fL Neut % (Auto) (48.0-80.0) % Lymph % (Auto) (16.0-40.0) % [place] % (Auto) (0.0-15.0) % Eos % (Auto) (0.0-7.0) % Baso % (Auto) (0.0-1.5) % Neut # (Auto) (1.4-5.7) K/uL Lymph # (Auto) (0.6-2.4) K/uL [place] # (Auto) (0.0-0.8) K/uL Eos # (Auto) (0.0-0.7) K/uL Baso # (Auto) (0.0-0.1) K/uL Nucleated RBC % /100WBC Nucleated RBCs # K/uL Sodium (136-145) mmol/L Potassium (3.5-5.1) mmol/L Chloride (98-107) mmol/L Carbon Dioxide (21.0-32.0) mmol/L BUN (7.0-18.0) mg/dL Creatinine (0.6-1.0) mg/dL Est Cr Clr Drug Dosing mL/min Estimated GFR (MDRD) ml/min Glucose (74-106) mg/dL Calcium (8.5-10.1) mg/dL Magnesium 2.1 (1.8-2.4) mg/dL Total Bilirubin (0.2-1.0) mg/dL AST (15-37) IU/L ALT (14-63) IU/L Alkaline Phosphatase (46-116) U/L Troponin I (0.000-0.056) ng/mL Total Protein (6.4-8.2) g/dL Albumin (3.4-5.0) g/dL Globulin (2.6-4.0) g/dL Albumin/Globulin Ratio (0.9-1.6) Cj Results Last 24 Hours: Microbiology 11/13/18 10:18 Aerobic Blood Culture - Preliminary Blood - Venous - Lab Draw NO GROWTH AFTER 1 DAY Anaerobic Blood Culture - Preliminary NO GROWTH AFTER 1 DAY 11/13/18 09:55 Aerobic Blood Culture - Preliminary Blood - Venous NO GROWTH AFTER 1 DAY Anaerobic Blood Culture - Preliminary NO GROWTH AFTER 1 DAY Med Orders - Current: Current Medications Albuterol/Ipratropium (Duoneb 3.0-0.5 Mg/3 Ml) 3 ml NEB Q4HRRT PRN PRN Reason: Shortness Of Breath/wheezing Last Admin: 11/14/18 15:48 Dose: 3 ml Diazepam (Valium) 2 mg PO BID PRN PRN Reason: Anxiety Last Admin: 11/14/18 05:00 Dose: 2 mg Famotidine (Pepcid) 20 mg PO BID [facility] Last Admin: 11/14/18 10:10 Dose: 20 mg Guaifenesin (Mucinex) 600 mg PO BID [facility] Last Admin: 11/14/18 16:08 Dose: 600 mg Heparin Sodium (Porcine) (Heparin Sodium) 5,000 units SUBCUT Q8H [facility] Last Admin: 11/14/18 14:06 Dose: 5,000 units Sodium Chloride (Normal Saline) 1,000 mls @ 125 mls/hr IV STAT [facility] Last Infusion: 11/13/18 11:15 Dose: 999 mls/hr Levofloxacin/Dextrose 750 mg/ (Premix) 150 mls @ 100 mls/hr IV Q24H [facility] Last Admin: 11/14/18 15:17 Dose: 100 mls/hr Piperacillin Sod/Tazobactam (Sod 4.5 gm/ Sodium Chloride) 100 mls @ 200 mls/hr IV Q6H [facility] Last Admin: 11/14/18 18:32 Dose: 200 mls/hr Vancomycin HCl 1 gm/Vancomycin HCl 500 mg/ Sodium Chloride 500 mls @ 250 mls/ hr IV Q12H [facility] Last Admin: 11/14/18 12:41 Dose: 250 mls/hr Methylprednisolone Sodium Succinate (Solu-Medrol) 60 mg IVPUSH Q8H [facility] Last Admin: 11/14/18 17:15 Dose: 60 mg Ondansetron HCl (Zofran) 4 mg IVPUSH Q4H PRN PRN Reason: Nausea Last Admin: 11/14/18 16:08 Dose: 4 mg Oseltamivir Phosphate (Tamiflu) 75 mg PO BID [facility] Last Admin: 11/14/18 10:10 Dose: 75 mg Teriflunomide [ (Aubagio] 14 Mg) 1 each PO DAILY [facility] Last Admin: 11/14/18 14:04 Dose: 1 each Tramadol HCl (Ultram) 50 mg PO Q8H [facility] Last Admin: 11/14/18 18:00 Dose: 50 mg Trazodone HCl (Trazodone) 200 mg PO BEDTIME [facility] Last Admin: 11/13/18 20:04 Dose: 200 mg Vancomycin HCl (Pharmacy To Dose - Vancomycin) 1 dose .XX ASDIRECTED [facility] Discontinued Medications Acetaminophen (Tylenol Extra Strength) 1,000 mg PO ONETIME ONE Stop: 11/13/18 10:04 Last Admin: 11/13/18 10:15 Dose: 1,000 mg Albuterol/Ipratropium (Duoneb 3.0-0.5 Mg/3 Ml) 3 ml NEB ONETIME ONE Stop: 11/13/18 09:48 Last Admin: 11/13/18 10:02 Dose: 3 ml Enoxaparin Sodium (Lovenox) 100 mg SUBCUT ONETIME ONE Stop: 11/13/18 11:44 Last Admin: 11/13/18 12:10 Dose: 100 mg Fludrocortisone Acetate (Florinef) 0.1 mg PO ONETIME ONE Stop: 11/13/18 13:37 Last Admin: 11/13/18 14:42 Dose: 0.1 mg Heparin Sodium (Porcine) (Heparin Sodium) 5,000 units SUBCUT Q8H [facility] Last Admin: 11/13/18 20:35 Dose: Not Given Potassium Chloride/Sodium Chloride (Normal Saline With 20 Meq Kcl) 1,000 mls @ 150 mls/hr IV ASDIRECTED [facility] Last Admin: 11/14/18 04:37 Dose: 150 mls/hr Piperacillin Sod/Tazobactam (Sod 3.375 gm/ Sodium Chloride) 50 mls @ 100 mls/ hr IV ONETIME ONE Stop: 11/13/18 11:35 Last Admin: 11/13/18 11:22 Dose: 100 mls/hr Vancomycin HCl 1 gm/ Sodium (Chloride) 250 mls @ 250 mls/hr IV ONETIME ONE Stop: 11/13/18 12:05 Last Admin: 11/13/18 12:09 Dose: 250 mls/hr Sodium Chloride (Normal Saline) Confirm Administered Dose 50 mls @ as directed .ROUTE .STK-MED ONE Stop: 11/13/18 11:19 Last Admin: 11/13/18 11:22 Dose: Not Given Sodium Chloride (Normal Saline) 1,000 mls @ 999 mls/hr IV .Bolus ONE Stop: 11/13/18 13:02 Last Admin: 11/13/18 12:10 Dose: 999 mls/hr Vancomycin HCl 1 gm/Vancomycin HCl 500 mg/ Sodium Chloride 500 mls @ 250 mls/ hr IV Q12H [facility] Last Admin: 11/13/18 20:36 Dose: Not Given Magnesium Sulfate 2 gm/ Premix 50 mls @ 50 mls/hr IV ONETIME ONE Stop: 11/13/18 16:57 Last Admin: 11/13/18 16:48 Dose: 50 mls/hr Iopamidol (Isovue Multipack-370 (76%)) 75 ml IVPUSH ONETIME STA Stop: 11/13/18 16:17 Last Admin: 11/13/18 16:17 Dose: 75 ml Methylprednisolone Sodium Succinate (Solu-Medrol) 125 mg IVPUSH ONETIME ONE Stop: 11/13/18 09:48 Last Admin: 11/13/18 10:02 Dose: 125 mg Methylprednisolone Sodium Succinate (Solu-Medrol) 125 mg IVPUSH Q12H [facility] Last Admin: 11/14/18 10:12 Dose: 125 mg Midodrine (Midodrine) 5 mg PO TIDAC [facility] Last Admin: 11/14/18 11:35 Dose: Not Given Potassium Chloride (Potassium Chloride) 40 meq PO ONETIME ONE Stop: 11/13/18 11:03 Last Admin: 11/13/18 11:21 Dose: 40 meq Potassium Chloride (Klor-Con M20) 40 meq PO ONETIME ONE Stop: 11/13/18 13:14 Last Admin: 11/13/18 14:29 Dose: Not Given - Exam Quality Assessment: Supplemental Oxygen General: Alert, Oriented, Cooperative Lungs: Decreased Breath Sounds Cardiovascular: Regular Rate, Regular Rhythm - Problem List Review Problem List Initiated/Reviewed/Updated: Yes - My Orders Last 24 Hours: My Active Orders 11/14/18 16:00 guaiFENesin [Mucinex] 600 mg PO BID - Plan Plan:: 53 yo female admitted for acute hypoxic respiratory failure and signs concerning of sepsis secondary to unstable vital signs. Acute hypoxic respiratory failure: O2 requirement has improved since admission, continue to titrate the oxygen requirement as needed Health care associated pneumonia: possible gram negative sugar respiratory infection, treating with zosyn, levaquin, tamiflu and vancomycin, cultures are pending, influenza is negative Acute bronchitis: on solumedrol, duonebs continue; patient is doing acutely better from an acute bronchitis standpoint than on admission. Possible adrenal insufficiency: hypokalemic with low blood pressures, getting solumedrol and continue with Florinef and midodrine per eICU orders Elevated troponin: Thought to likely be secondary to demand ischemia from her sepsis, troponins were trended and last troponin was within normal limit compared to her initial troponin that was elevated. Patient to get a video swallow screen done today.
[2018-11-14] MEDS: traZODone 50 MG Tab PO SCH (20:22)
[2018-11-15] MEDS: methylPREDNISolone Sodium Succinate 125 MG/2 ML SDV IVPUSH SCH ×3 (00:07→17:15)
[2018-11-15] MEDS: Vancomycin 1 GM, Vancomycin 500 MG in Sodium Chloride 0.9% 500 ML IV SCH (00:09)
[2018-11-15] MEDS: traMADol 50 MG Tab PO SCH ×3 (02:08→18:36)
[2018-11-15] MEDS: Heparin Sodium 5,000 Units/ML Vial SUBCUT SCH ×3 (05:39→20:33)
[2018-11-15] MEDS: Piperacillin/Tazobactam 4.5 GM in Sodium Chloride 0.9% 100 ML IV SCH (06:23)
[2018-11-15 07:12] LABS: CHLORIDE,CL 105 mmol/L (98-107); SODIUM,NA 141 mmol/L (136-145)
[2018-11-15] MEDS: Famotidine 20 MG Tab PO SCH ×2 (08:30→20:01)
[2018-11-15] MEDS: Oseltamivir 75 MG Cap PO SCH (08:30)
[2018-11-15] MEDS: guaiFENesin 600 MG Tab.ER PO SCH ×2 (08:30→20:01)
[2018-11-15] MEDS: Teriflunomide [Aubagio] 14 MG PO SCH (08:30)
[2018-11-15] MEDS: Ondansetron 4 MG/2 ML SDV IVPUSH PRN ×2 (10:57→20:06)
--- NOTE | 2018-11-15 12:20 | PCM.PN ---
- General Info Date of Service: 11/15/18 Subjective Update: Patient having multiple bouts of diarrhea, antibiotics discontinued switched to oral Augmentin. Patient tends to be stable. - Patient Data Vitals - Most Recent: Last Vital Signs Temp 36.8 C 11/15/18 08:00 Pulse 76 11/14/18 07:00 Resp 13 11/15/18 09:00 BP 144/72 H 11/15/18 09:00 Pulse Ox 93 L 11/15/18 09:00 Weight - Most Recent: 102.71 kg I&O - Last 24 Hours: Intake & Output 11/14/18 11/15/18 11/15/18 22:59 06:59 14:59 Intake Total 750 700 Output Total 900 Balance -150 700 Lab Results Last 24 Hours: Laboratory Results - last 24 hr 11/13/18 11/14/18 11/15/18 Range/Units 14:08 23:21 06:45 WBC 7.51 (4.0-11.0) K/uL RBC 3.90 L (4.30-5.90) M/uL Hgb 11.1 L (12.0-16.0) g/dL Hct 36.0 (36.0-46.0) % MCV 92.3 (80.0-98.0) fL MCH 28.5 (27.0-32.0) pg MCHC 30.8 L (31.0-37.0) g/dL RDW Std Deviation 54.7 (28.0-62.0) fl RDW Coeff of Ade 16 H (11.0-15.0) % Plt Count 223 (150-400) K/uL MPV 9.60 (7.40-12.00) fL Neut % (Auto) 92.8 H (48.0-80.0) % Lymph % (Auto) 3.9 L (16.0-40.0) % [place] % (Auto) 3.3 (0.0-15.0) % Eos % (Auto) 0.0 (0.0-7.0) % Baso % (Auto) 0.0 (0.0-1.5) % Neut # (Auto) 7.0 H (1.4-5.7) K/uL Lymph # (Auto) 0.3 L (0.6-2.4) K/uL [place] # (Auto) 0.3 (0.0-0.8) K/uL Eos # (Auto) 0.0 (0.0-0.7) K/uL Baso # (Auto) 0.0 (0.0-0.1) K/uL Nucleated RBC % 0.0 /100WBC Nucleated RBCs # 0 K/uL Sodium (136-145) mmol/L Potassium (3.5-5.1) mmol/L Chloride (98-107) mmol/L Carbon Dioxide (21.0-32.0) mmol/L BUN (7.0-18.0) mg/dL Creatinine (0.6-1.0) mg/dL Est Cr Clr Drug Dosing mL/min Estimated GFR (MDRD) ml/min Glucose (74-106) mg/dL Calcium (8.5-10.1) mg/dL Procalcitonin 0.12 H (<0.10) ng/mL Vancomycin Trough 17.3 H (5.0-10.0) ug/mL 11/15/18 Range/Units 06:45 WBC (4.0-11.0) K/uL RBC (4.30-5.90) M/uL Hgb (12.0-16.0) g/dL Hct (36.0-46.0) % MCV (80.0-98.0) fL MCH (27.0-32.0) pg MCHC (31.0-37.0) g/dL RDW Std Deviation (28.0-62.0) fl RDW Coeff of Ade (11.0-15.0) % Plt Count (150-400) K/uL MPV (7.40-12.00) fL Neut % (Auto) (48.0-80.0) % Lymph % (Auto) (16.0-40.0) % [place] % (Auto) (0.0-15.0) % Eos % (Auto) (0.0-7.0) % Baso % (Auto) (0.0-1.5) % Neut # (Auto) (1.4-5.7) K/uL Lymph # (Auto) (0.6-2.4) K/uL [place] # (Auto) (0.0-0.8) K/uL Eos # (Auto) (0.0-0.7) K/uL Baso # (Auto) (0.0-0.1) K/uL Nucleated RBC % /100WBC Nucleated RBCs # K/uL Sodium 141 (136-145) mmol/L Potassium 4.3 (3.5-5.1) mmol/L Chloride 105 (98-107) mmol/L Carbon Dioxide 30.3 (21.0-32.0) mmol/L BUN 10 (7.0-18.0) mg/dL Creatinine 0.9 (0.6-1.0) mg/dL Est Cr Clr Drug Dosing 55.64 mL/min Estimated GFR (MDRD) > 60.0 ml/min Glucose 166 H (74-106) mg/dL Calcium 8.9 (8.5-10.1) mg/dL Procalcitonin (<0.10) ng/mL Vancomycin Trough (5.0-10.0) ug/mL Cj Results Last 24 Hours: Microbiology 11/13/18 11:03 Urine Culture - Final Urine, Catheterized MIXED STEPHEN <1000 CFU/ML 11/13/18 09:55 Quick Strep Confirmation Culture - Final Throat YEAST Normal Respiratory Stephen Group A Streptococcus Rapid Screen - Final NEGATIVE STREP A SCREEN 11/13/18 10:18 Aerobic Blood Culture - Preliminary Blood - Venous - Lab Draw NO GROWTH AFTER 2 DAYS Anaerobic Blood Culture - Preliminary NO GROWTH AFTER 2 DAYS 11/13/18 09:55 Aerobic Blood Culture - Preliminary Blood - Venous NO GROWTH AFTER 2 DAYS Anaerobic Blood Culture - Preliminary NO GROWTH AFTER 2 DAYS Med Orders - Current: Current Medications Albuterol/Ipratropium (Duoneb 3.0-0.5 Mg/3 Ml) 3 ml NEB Q4HRRT PRN PRN Reason: Shortness Of Breath/wheezing Last Admin: 11/14/18 21:06 Dose: 3 ml Amoxicillin/Clavulanate Potassium (Augmentin 875 Mg/125 Mg) 1 tab PO Q12HR TRA Diazepam (Valium) 2 mg PO BID PRN PRN Reason: Anxiety Last Admin: 11/14/18 05:00 Dose: 2 mg Famotidine (Pepcid) 20 mg PO BID [facility] Last Admin: 11/15/18 08:30 Dose: 20 mg Guaifenesin (Mucinex) 600 mg PO BID [facility] Last Admin: 11/15/18 08:30 Dose: 600 mg Heparin Sodium (Porcine) (Heparin Sodium) 5,000 units SUBCUT Q8H [facility] Last Admin: 11/15/18 05:39 Dose: 5,000 units Sodium Chloride (Normal Saline) 1,000 mls @ 125 mls/hr IV STAT [facility] Last Infusion: 11/13/18 11:15 Dose: 999 mls/hr Methylprednisolone Sodium Succinate (Solu-Medrol) 60 mg IVPUSH Q8H [facility] Last Admin: 11/15/18 08:31 Dose: 60 mg Ondansetron HCl (Zofran) 4 mg IVPUSH Q4H PRN PRN Reason: Nausea Last Admin: 11/15/18 10:57 Dose: 4 mg Teriflunomide [ (Aubagio] 14 Mg) 1 each PO DAILY [facility] Last Admin: 11/15/18 08:30 Dose: 1 each Tramadol HCl (Ultram) 50 mg PO Q8H [facility] Last Admin: 11/15/18 10:57 Dose: 50 mg Trazodone HCl (Trazodone) 200 mg PO BEDTIME [facility] Last Admin: 11/14/18 20:22 Dose: 200 mg Vancomycin HCl (Pharmacy To Dose - Vancomycin) 1 dose .XX ASDIRECTED [facility] Discontinued Medications Acetaminophen (Tylenol Extra Strength) 1,000 mg PO ONETIME ONE Stop: 11/13/18 10:04 Last Admin: 11/13/18 10:15 Dose: 1,000 mg Albuterol/Ipratropium (Duoneb 3.0-0.5 Mg/3 Ml) 3 ml NEB ONETIME ONE Stop: 11/13/18 09:48 Last Admin: 11/13/18 10:02 Dose: 3 ml Enoxaparin Sodium (Lovenox) 100 mg SUBCUT ONETIME ONE Stop: 11/13/18 11:44 Last Admin: 11/13/18 12:10 Dose: 100 mg Fludrocortisone Acetate (Florinef) 0.1 mg PO ONETIME ONE Stop: 11/13/18 13:37 Last Admin: 11/13/18 14:42 Dose: 0.1 mg Heparin Sodium (Porcine) (Heparin Sodium) 5,000 units SUBCUT Q8H [facility] Last Admin: 11/13/18 20:35 Dose: Not Given Potassium Chloride/Sodium Chloride (Normal Saline With 20 Meq Kcl) 1,000 mls @ 150 mls/hr IV ASDIRECTED [facility] Last Admin: 11/14/18 04:37 Dose: 150 mls/hr Piperacillin Sod/Tazobactam (Sod 3.375 gm/ Sodium Chloride) 50 mls @ 100 mls/ hr IV ONETIME ONE Stop: 11/13/18 11:35 Last Admin: 11/13/18 11:22 Dose: 100 mls/hr Vancomycin HCl 1 gm/ Sodium (Chloride) 250 mls @ 250 mls/hr IV ONETIME ONE Stop: 11/13/18 12:05 Last Admin: 11/13/18 12:09 Dose: 250 mls/hr Sodium Chloride (Normal Saline) Confirm Administered Dose 50 mls @ as directed .ROUTE .STK-MED ONE Stop: 11/13/18 11:19 Last Admin: 11/13/18 11:22 Dose: Not Given Sodium Chloride (Normal Saline) 1,000 mls @ 999 mls/hr IV .Bolus ONE Stop: 11/13/18 13:02 Last Admin: 11/13/18 12:10 Dose: 999 mls/hr Levofloxacin/Dextrose 750 mg/ (Premix) 150 mls @ 100 mls/hr IV Q24H [facility] Last Admin: 11/14/18 15:17 Dose: 100 mls/hr Piperacillin Sod/Tazobactam (Sod 4.5 gm/ Sodium Chloride) 100 mls @ 200 mls/hr IV Q6H [facility] Last Admin: 11/15/18 06:23 Dose: 200 mls/hr Vancomycin HCl 1 gm/Vancomycin HCl 500 mg/ Sodium Chloride 500 mls @ 250 mls/ hr IV Q12H [facility] Last Admin: 11/13/18 20:36 Dose: Not Given Magnesium Sulfate 2 gm/ Premix 50 mls @ 50 mls/hr IV ONETIME ONE Stop: 11/13/18 16:57 Last Admin: 11/13/18 16:48 Dose: 50 mls/hr Vancomycin HCl 1 gm/Vancomycin HCl 500 mg/ Sodium Chloride 500 mls @ 250 mls/ hr IV Q12H [facility] Last Admin: 11/15/18 00:09 Dose: 250 mls/hr Iopamidol (Isovue Multipack-370 (76%)) 75 ml IVPUSH ONETIME STA Stop: 11/13/18 16:17 Last Admin: 11/13/18 16:17 Dose: 75 ml Methylprednisolone Sodium Succinate (Solu-Medrol) 125 mg IVPUSH ONETIME ONE Stop: 11/13/18 09:48 Last Admin: 11/13/18 10:02 Dose: 125 mg Methylprednisolone Sodium Succinate (Solu-Medrol) 125 mg IVPUSH Q12H [facility] Last Admin: 11/14/18 10:12 Dose: 125 mg Midodrine (Midodrine) 5 mg PO TIDAC [facility] Last Admin: 11/14/18 11:35 Dose: Not Given Oseltamivir Phosphate (Tamiflu) 75 mg PO BID [facility] Last Admin: 11/15/18 08:30 Dose: 75 mg Potassium Chloride (Potassium Chloride) 40 meq PO ONETIME ONE Stop: 11/13/18 11:03 Last Admin: 11/13/18 11:21 Dose: 40 meq Potassium Chloride (Klor-Con M20) 40 meq PO ONETIME ONE Stop: 11/13/18 13:14 Last Admin: 11/13/18 14:29 Dose: Not Given - Exam Quality Assessment: Supplemental Oxygen General: Alert, Oriented, Cooperative Lungs: Decreased Breath Sounds - Problem List Review Problem List Initiated/Reviewed/Updated: Yes - My Orders Last 24 Hours: My Active Orders 11/14/18 16:00 guaiFENesin [Mucinex] 600 mg PO BID 11/15/18 10:45 CULTURE STOOL + CAMPY+SHIGATOX [RM] Routine Clostridium Difficile [CDIFF TOX A+B] [OP] Routine - Plan Plan:: 53 yo female admitted for acute hypoxic respiratory failure and signs concerning of sepsis secondary to unstable vital signs. Acute hypoxic respiratory failure: O2 requirement has improved since admission, continue to titrate the oxygen requirement as needed Health care associated pneumonia: As the cultures have been negative eICU has de -escalated the patient's antibiotic regimen to oral Augmentin. Acute bronchitis: on solumedrol, duonebs continue; patient is doing acutely better from an acute bronchitis standpoint than on admission. Possible adrenal insufficiency: hypokalemic with low blood pressures, getting solumedrol and continue with Florinef per eICU orders Elevated troponin: Thought to likely be secondary to demand ischemia from her sepsis, troponins were trended and last troponin was within normal limit compared to her initial troponin that was elevated. Stool studies and C. difficile study for diarrhea
[2018-11-15] MEDS: Nystatin Susp 100,000 Unit/ML 5 ML UD Cup PO SCH ×3 (12:40→23:51)
[2018-11-15] MEDS: Acidophilus with Citrus Pectin Tab PO SCH (12:40)
[2018-11-15] MEDS: Diazepam 2 MG Tab PO PRN (12:47)
[2018-11-15] MEDS: Albuterol/Ipratropium 3.0-0.5 MG/3 ML Neb Soln NEB PRN (14:42)
[2018-11-15] MEDS: traZODone 50 MG Tab PO SCH (20:01)
[2018-11-15] MEDS: Amoxicillin/Clavulanate K 875-125 MG Tab PO SCH (20:01)
[2018-11-16] MEDS: methylPREDNISolone Sodium Succinate 125 MG/2 ML SDV IVPUSH SCH ×2 (01:21→09:18)
[2018-11-16] MEDS: traMADol 50 MG Tab PO SCH ×3 (01:22→18:05)
[2018-11-16] MEDS: Heparin Sodium 5,000 Units/ML Vial SUBCUT SCH ×3 (05:37→20:44)
[2018-11-16] MEDS: Nystatin Susp 100,000 Unit/ML 5 ML UD Cup PO SCH ×3 (05:37→18:05)
[2018-11-16] MEDS: Amoxicillin/Clavulanate K 875-125 MG Tab PO SCH ×2 (08:08→20:02)
[2018-11-16] MEDS: Famotidine 20 MG Tab PO SCH ×2 (08:08→20:02)
[2018-11-16] MEDS: guaiFENesin 600 MG Tab.ER PO SCH ×2 (08:09→20:01)
[2018-11-16] MEDS: Acidophilus with Citrus Pectin Tab PO SCH (08:09)
[2018-11-16] MEDS: Diazepam 2 MG Tab PO PRN (08:09)
[2018-11-16] MEDS: Teriflunomide [Aubagio] 14 MG PO SCH (08:09)
[2018-11-16 08:14] LABS: CHLORIDE,CL 101 mmol/L (98-107); SODIUM,NA 138 mmol/L (136-145)
[2018-11-16] MEDS ORDERED: hydrALAZINE 20 MG/ML SDV IVPUSH PRN (08:59)
[2018-11-16] MEDS ORDERED: predniSONE 10 MG Tab PO SCH ×2 (09:00→09:15)
--- NOTE | 2018-11-16 10:09 | PCM.PN ---
- General Info Date of Service: 11/16/18 - Review of Systems Systems Review Comment:: feeling better, wheezing and cough improved. - Patient Data Vitals - Most Recent: Last Vital Signs Temp 36.6 C 11/16/18 04:00 Pulse 76 11/14/18 07:00 Resp 14 11/16/18 06:00 BP 142/80 H 11/16/18 06:00 Pulse Ox 96 11/16/18 06:00 Weight - Most Recent: 96.615 kg I&O - Last 24 Hours: Intake & Output 11/15/18 11/16/18 11/16/18 22:59 06:59 14:59 Intake Total 680 550 Output Total 1050 1300 Balance -370 -750 Lab Results Last 24 Hours: Laboratory Results - last 24 hr 11/16/18 11/16/18 Range/Units 07:50 07:50 WBC 6.67 (4.0-11.0) K/uL RBC 4.59 (4.30-5.90) M/uL Hgb 13.4 (12.0-16.0) g/dL Hct 42.0 (36.0-46.0) % MCV 91.5 (80.0-98.0) fL MCH 29.2 (27.0-32.0) pg MCHC 31.9 (31.0-37.0) g/dL RDW Std Deviation 53.3 (28.0-62.0) fl RDW Coeff of Ade 16 H (11.0-15.0) % Plt Count 163 (150-400) K/uL MPV 9.90 (7.40-12.00) fL Neut % (Auto) 92.1 H (48.0-80.0) % Lymph % (Auto) 4.3 L (16.0-40.0) % [place] % (Auto) 3.6 (0.0-15.0) % Eos % (Auto) 0.0 (0.0-7.0) % Baso % (Auto) 0.0 (0.0-1.5) % Neut # (Auto) 6.1 H (1.4-5.7) K/uL Lymph # (Auto) 0.3 L (0.6-2.4) K/uL [place] # (Auto) 0.2 (0.0-0.8) K/uL Eos # (Auto) 0.0 (0.0-0.7) K/uL Baso # (Auto) 0.0 (0.0-0.1) K/uL Nucleated RBC % 0.0 /100WBC Nucleated RBCs # 0 K/uL Sodium 138 (136-145) mmol/L Potassium 4.0 (3.5-5.1) mmol/L Chloride 101 (98-107) mmol/L Carbon Dioxide 30.6 (21.0-32.0) mmol/L BUN 12 (7.0-18.0) mg/dL Creatinine 0.8 (0.6-1.0) mg/dL Est Cr Clr Drug Dosing 62.60 mL/min Estimated GFR (MDRD) > 60.0 ml/min Glucose 160 H (74-106) mg/dL Calcium 9.9 (8.5-10.1) mg/dL Cj Results Last 24 Hours: Microbiology 11/14/18 16:15 Gram Stain - Final Sputum - Expectorated Sputum Culture - Final YEAST 11/13/18 11:03 Urine Culture - Final Urine, Catheterized MIXED STEPHEN <1000 CFU/ML 11/13/18 09:55 Quick Strep Confirmation Culture - Final Throat YEAST Normal Respiratory [facility] Group A Streptococcus Rapid Screen - Final NEGATIVE STREP A SCREEN 11/13/18 10:18 Aerobic Blood Culture - Preliminary Blood - Venous - Lab Draw NO GROWTH AFTER 2 DAYS Anaerobic Blood Culture - Preliminary NO GROWTH AFTER 2 DAYS 11/13/18 09:55 Aerobic Blood Culture - Preliminary Blood - Venous NO GROWTH AFTER 2 DAYS Anaerobic Blood Culture - Preliminary NO GROWTH AFTER 2 DAYS Med Orders - Current: Current Medications Acidophilus/Pectin (Acidophilus/Pectin, [place]) 1 tab PO DAILY [facility] Last Admin: 11/16/18 08:09 Dose: 1 tab Albuterol/Ipratropium (Duoneb 3.0-0.5 Mg/3 Ml) 3 ml NEB Q4HRRT PRN PRN Reason: Shortness Of Breath/wheezing Last Admin: 11/15/18 14:42 Dose: 3 ml Amoxicillin/Clavulanate Potassium (Augmentin 875 Mg/125 Mg) 1 tab PO Q12HR [facility] Last Admin: 11/16/18 08:08 Dose: 1 tab Diazepam (Valium) 2 mg PO BID PRN PRN Reason: Anxiety Last Admin: 11/16/18 08:09 Dose: 2 mg Famotidine (Pepcid) 20 mg PO BID [facility] Last Admin: 11/16/18 08:08 Dose: 20 mg Guaifenesin (Mucinex) 600 mg PO BID [facility] Last Admin: 11/16/18 08:09 Dose: 600 mg Heparin Sodium (Porcine) (Heparin Sodium) 5,000 units SUBCUT Q8H [facility] Last Admin: 11/16/18 05:37 Dose: 5,000 units Hydralazine HCl (Apresoline) 10 mg IVPUSH Q4H PRN PRN Reason: Hypertension Sodium Chloride (Normal Saline) 1,000 mls @ 125 mls/hr IV STAT [facility] Last Infusion: 11/13/18 11:15 Dose: 999 mls/hr Nystatin (Mycostatin) 5 ml PO QID [facility] Last Admin: 11/16/18 05:37 Dose: 5 ml Ondansetron HCl (Zofran) 4 mg IVPUSH Q4H PRN PRN Reason: Nausea Last Admin: 11/15/18 20:06 Dose: 4 mg Teriflunomide [ (Aubagio] 14 Mg) 1 each PO DAILY [facility] Last Admin: 11/16/18 08:09 Dose: 1 each Prednisone (Prednisone) 40 mg PO DAILY [facility]; Taper Stop: 11/20/18 09:14 Last Admin: 11/16/18 09:37 Dose: 40 mg Tramadol HCl (Ultram) 50 mg PO Q8H [facility] Last Admin: 11/16/18 09:35 Dose: 50 mg Trazodone HCl (Trazodone) 200 mg PO BEDTIME [facility] Last Admin: 11/15/18 20:01 Dose: 200 mg Discontinued Medications Acetaminophen (Tylenol Extra Strength) 1,000 mg PO ONETIME ONE Stop: 11/13/18 10:04 Last Admin: 11/13/18 10:15 Dose: 1,000 mg Albuterol/Ipratropium (Duoneb 3.0-0.5 Mg/3 Ml) 3 ml NEB ONETIME ONE Stop: 11/13/18 09:48 Last Admin: 11/13/18 10:02 Dose: 3 ml Enoxaparin Sodium (Lovenox) 100 mg SUBCUT ONETIME ONE Stop: 11/13/18 11:44 Last Admin: 11/13/18 12:10 Dose: 100 mg Fludrocortisone Acetate (Florinef) 0.1 mg PO ONETIME ONE Stop: 11/13/18 13:37 Last Admin: 11/13/18 14:42 Dose: 0.1 mg Heparin Sodium (Porcine) (Heparin Sodium) 5,000 units SUBCUT Q8H [facility] Last Admin: 11/13/18 20:35 Dose: Not Given Potassium Chloride/Sodium Chloride (Normal Saline With 20 Meq Kcl) 1,000 mls @ 150 mls/hr IV ASDIRECTED [facility] Last Admin: 11/14/18 04:37 Dose: 150 mls/hr Piperacillin Sod/Tazobactam (Sod 3.375 gm/ Sodium Chloride) 50 mls @ 100 mls/ hr IV ONETIME ONE Stop: 11/13/18 11:35 Last Admin: 11/13/18 11:22 Dose: 100 mls/hr Vancomycin HCl 1 gm/ Sodium (Chloride) 250 mls @ 250 mls/hr IV ONETIME ONE Stop: 11/13/18 12:05 Last Admin: 11/13/18 12:09 Dose: 250 mls/hr Sodium Chloride (Normal Saline) Confirm Administered Dose 50 mls @ as directed .ROUTE .STK-MED ONE Stop: 11/13/18 11:19 Last Admin: 11/13/18 11:22 Dose: Not Given Sodium Chloride (Normal Saline) 1,000 mls @ 999 mls/hr IV .Bolus ONE Stop: 11/13/18 13:02 Last Admin: 11/13/18 12:10 Dose: 999 mls/hr Levofloxacin/Dextrose 750 mg/ (Premix) 150 mls @ 100 mls/hr IV Q24H [facility] Last Admin: 11/14/18 15:17 Dose: 100 mls/hr Piperacillin Sod/Tazobactam (Sod 4.5 gm/ Sodium Chloride) 100 mls @ 200 mls/hr IV Q6H [facility] Last Admin: 11/15/18 06:23 Dose: 200 mls/hr Vancomycin HCl 1 gm/Vancomycin HCl 500 mg/ Sodium Chloride 500 mls @ 250 mls/ hr IV Q12H [facility] Last Admin: 11/13/18 20:36 Dose: Not Given Magnesium Sulfate 2 gm/ Premix 50 mls @ 50 mls/hr IV ONETIME ONE Stop: 11/13/18 16:57 Last Admin: 11/13/18 16:48 Dose: 50 mls/hr Vancomycin HCl 1 gm/Vancomycin HCl 500 mg/ Sodium Chloride 500 mls @ 250 mls/ hr IV Q12H [facility] Last Admin: 11/15/18 00:09 Dose: 250 mls/hr Iopamidol (Isovue Multipack-370 (76%)) 75 ml IVPUSH ONETIME STA Stop: 11/13/18 16:17 Last Admin: 11/13/18 16:17 Dose: 75 ml Methylprednisolone Sodium Succinate (Solu-Medrol) 125 mg IVPUSH ONETIME ONE Stop: 11/13/18 09:48 Last Admin: 11/13/18 10:02 Dose: 125 mg Methylprednisolone Sodium Succinate (Solu-Medrol) 125 mg IVPUSH Q12H [facility] Last Admin: 11/14/18 10:12 Dose: 125 mg Methylprednisolone Sodium Succinate (Solu-Medrol) 60 mg IVPUSH Q8H [facility] Last Admin: 11/16/18 09:18 Dose: Not Given Midodrine (Midodrine) 5 mg PO TIDAC [facility] Last Admin: 11/14/18 11:35 Dose: Not Given Oseltamivir Phosphate (Tamiflu) 75 mg PO BID [facility] Last Admin: 11/15/18 08:30 Dose: 75 mg Potassium Chloride (Potassium Chloride) 40 meq PO ONETIME ONE Stop: 11/13/18 11:03 Last Admin: 11/13/18 11:21 Dose: 40 meq Potassium Chloride (Klor-Con M20) 40 meq PO ONETIME ONE Stop: 11/13/18 13:14 Last Admin: 11/13/18 14:29 Dose: Not Given Prednisone (Prednisone) 40 mg PO .Daily Taper [facility] Vancomycin HCl (Pharmacy To Dose - Vancomycin) 1 dose .XX ASDIRECTED [facility] - Exam General: Alert Lungs: Clear to Auscultation, Normal Respiratory Effort Cardiovascular: Regular Rate, Regular Rhythm GI/Abdominal Exam: Soft, Non-Tender Extremities: No Pedal Edema Skin: Warm, Dry, Intact - Problem List Review Problem List Initiated/Reviewed/Updated: Yes - My Orders Last 24 Hours: My Active Orders 11/17/18 05:11 BASIC METABOLIC PANEL,BMP [CHEM] AM CBC WITH AUTO DIFF [HEME] AM - Plan Plan:: 53 yo female with severe MS, admitted for acute hypoxic respiratory failure, sepsis, pneumonia and bronchitis. continue Augmentin, switching to prednisone.
[2018-11-16] MEDS: Albuterol/Ipratropium 3.0-0.5 MG/3 ML Neb Soln NEB PRN (16:37)
[2018-11-16] MEDS: traZODone 50 MG Tab PO SCH (20:02)
[2018-11-17] MEDS: Nystatin Susp 100,000 Unit/ML 5 ML UD Cup PO SCH ×3 (00:04→13:24)
[2018-11-17] MEDS: traMADol 50 MG Tab PO SCH ×2 (01:02→09:04)
[2018-11-17] MEDS: Heparin Sodium 5,000 Units/ML Vial SUBCUT SCH (05:36)
[2018-11-17 07:00] LABS: CHLORIDE,CL 100 mmol/L (98-107); SODIUM,NA 141 mmol/L (136-145)
[2018-11-17] MEDS ORDERED: predniSONE 20 MG Tab PO SCH (08:00)
[2018-11-17] MEDS ORDERED: Potassium Chloride 20 MEQ Tab.ER PO SCH (09:00)
[2018-11-17] MEDS: Acidophilus with Citrus Pectin Tab PO SCH (09:02)
[2018-11-17] MEDS: Teriflunomide [Aubagio] 14 MG PO SCH (09:02)
[2018-11-17] MEDS: Amoxicillin/Clavulanate K 875-125 MG Tab PO SCH (09:02)
[2018-11-17] MEDS: guaiFENesin 600 MG Tab.ER PO SCH (09:02)
[2018-11-17] MEDS: Famotidine 20 MG Tab PO SCH (09:02)
--- NOTE | 2018-11-17 12:07 | PCM.DCSUM1 ---
Discharge Summary - Discharge Data Discharge Disposition: DC/Tfer to SNF 03 Condition: Stable - Patient Summary/Data Consults: Consultations 11/13/18 13:32 Consult to Respiratory Therapy [Respiratory Care Assess and Treatment] [CONS] Routine 11/13/18 15:02 Consult to Speech Language Pathology [LABORATORY INSPECTOR Evaluation and Treatment] [CONS] Routine 11/16/18 09:00 Consult to Physical Therapy [PT Evaluation and Treatment] [CONS] Routine - Discharge Plan Prescriptions/Med Rec: Albuterol/Ipratropium [DuoNeb 3.0-0.5 MG/3 ML] 3 ml NEB Q4HRRT PRN 30 Days #1 box PRN Reason: Shortness Of Breath/wheezing Amoxicillin/Clavulanate K [Augmentin 875-125 MG] 1 tab PO Q12HR 8 Days #16 tablet predniSONE 20 mg PO WITHBREAKFAST 14 Days #22 tablet Home Medications: Home Meds DULoxetine HCl [Cymbalta] 60 mg PO DAILY 08/22/15 [History] Gabapentin [Neurontin] 300 mg PO QAM 08/22/15 [History] Pantoprazole Sodium 40 mg PO DAILY 08/22/15 [History] Teriflunomide [Aubagio] 14 mg PO DAILY 08/22/15 [History] traZODone 200 mg PO BEDTIME 10/21/15 [History] Baclofen 20 mg PO BID 10/24/15 [History] Cholecalciferol (Vitamin D3) [Vitamin D3] 1,000 unit PO DAILY 10/24/15 [History] traMADol [Ultram] 50 mg PO Q8H 12/22/15 [History] Diazepam [Valium] 5 mg PO TID PRN 10/26/18 [History] Albuterol [Ventolin HFA] 2 puff INH Q4H PRN 10/27/18 [History] Baclofen 40 mg PO PCLUNCH 10/27/18 [History] Gabapentin [Neurontin] 300 mg PO ACLUNCH 10/27/18 [History] Gabapentin [Neurontin] 600 mg PO BEDTIME 10/27/18 [History] hydrOXYzine pamoate [Hydroxyzine Pamoate] 25 mg PO BID 10/27/18 [History] DULoxetine HCl [Cymbalta] 30 mg PO BEDTIME 10/28/18 [History] Magnesium Hydroxide [Milk of Magnesia] 30 ml PO DAILY PRN 11/13/18 [History] guaiFENesin [Guaifenesin ER] 600 mg PO DAILY 11/13/18 [History] Albuterol/Ipratropium [DuoNeb 3.0-0.5 MG/3 ML] 3 ml NEB Q4HRRT PRN 30 Days #1 box 11/17/18 [Rx] Amoxicillin/Clavulanate K [Augmentin 875-125 MG] 1 tab PO Q12HR 8 Days #16 tablet 11/17/18 [Rx] predniSONE 20 mg PO WITHBREAKFAST 14 Days #22 tablet 11/17/18 [Rx] Patient Handouts: Hypoxemia, How to Use a Nebulizer, Adult, Oral Thrush, Adult , [id number], Prednisone tablets, Peripheral Edema, Multiple Sclerosis, Community-Acquired Pneumonia, Adult, [id number] Referrals: Ryan Evans MD [Physician] - (Dr. Evans's clinic already notified that patient will be going back to [place] today and will be included in rounds while there.) - Patient Data Vitals - Most Recent: Last Vital Signs Temp 36.6 C 11/17/18 08:00 Pulse 76 11/14/18 07:00 Resp 16 11/17/18 10:00 BP 135/94 H 11/17/18 08:00 Pulse Ox 90 L 11/17/18 10:00 Weight - Most Recent: 96.615 kg I&O - Last 24 hours: Intake & Output 11/16/18 11/17/18 11/17/18 22:59 06:59 14:59 Intake Total 560 400 Output Total 650 750 Balance -90 -350 Lab Results - Last 24 hrs: Laboratory Results - last 24 hr 11/17/18 11/17/18 Range/Units 06:38 06:38 WBC 8.23 (4.0-11.0) K/uL RBC 4.23 L (4.30-5.90) M/uL Hgb 12.2 (12.0-16.0) g/dL Hct 38.4 (36.0-46.0) % MCV 90.8 (80.0-98.0) fL MCH 28.8 (27.0-32.0) pg MCHC 31.8 (31.0-37.0) g/dL RDW Std Deviation 51.1 (28.0-62.0) fl RDW Coeff of Ade 16 H (11.0-15.0) % Plt Count 148 L (150-400) K/uL MPV 10.00 (7.40-12.00) fL Neut % (Auto) 85.0 H (48.0-80.0) % Lymph % (Auto) 11.5 L (16.0-40.0) % [place] % (Auto) 3.4 (0.0-15.0) % Eos % (Auto) 0.1 (0.0-7.0) % Baso % (Auto) 0.0 (0.0-1.5) % Neut # (Auto) 7.0 H (1.4-5.7) K/uL Lymph # (Auto) 1.0 (0.6-2.4) K/uL [place] # (Auto) 0.3 (0.0-0.8) K/uL Eos # (Auto) 0.0 (0.0-0.7) K/uL Baso # (Auto) 0.0 (0.0-0.1) K/uL Nucleated RBC % 0.0 /100WBC Nucleated RBCs # 0 K/uL Sodium 141 (136-145) mmol/L Potassium 2.8 L (3.5-5.1) mmol/L Chloride 100 (98-107) mmol/L Carbon Dioxide 35.1 H (21.0-32.0) mmol/L BUN 15 (7.0-18.0) mg/dL Creatinine 0.9 (0.6-1.0) mg/dL Est Cr Clr Drug Dosing 55.64 mL/min Estimated GFR (MDRD) > 60.0 ml/min Glucose 108 H (74-106) mg/dL Calcium 9.7 (8.5-10.1) mg/dL KRIS Results - Last 24 hrs: Microbiology 11/16/18 09:40 Campylobacter Antigen Assay - Final Stool / Feces NEGATIVE CAMPYLOBACTER AG Shiga Toxin I - Final NEGATIVE FOR SHIGA TOXIN 1 Shiga Toxin II - Final NEGATIVE FOR SHIGA TOXIN 2 11/13/18 10:18 Aerobic Blood Culture - Preliminary Blood - Venous - Lab Draw NO GROWTH AFTER 4 DAYS Anaerobic Blood Culture - Preliminary NO GROWTH AFTER 4 DAYS 11/13/18 09:55 Aerobic Blood Culture - Preliminary Blood - Venous NO GROWTH AFTER 4 DAYS Anaerobic Blood Culture - Preliminary NO GROWTH AFTER 4 DAYS 11/16/18 09:40 Clostridium difficile Toxin A & B - Final Stool / Feces Negative for C.Diff Toxin/AG 11/14/18 16:15 Gram Stain - Final Sputum - Expectorated Sputum Culture - Final YEAST Med Orders - Current: Current Medications Acidophilus/Pectin (Acidophilus/Pectin, [place]) 1 tab PO DAILY [facility] Last Admin: 11/17/18 09:02 Dose: 1 tab Albuterol/Ipratropium (Duoneb 3.0-0.5 Mg/3 Ml) 3 ml NEB Q4HRRT PRN PRN Reason: Shortness Of Breath/wheezing Last Admin: 11/16/18 16:37 Dose: 3 ml Amoxicillin/Clavulanate Potassium (Augmentin 875 Mg/125 Mg) 1 tab PO Q12HR [facility] Last Admin: 11/17/18 09:02 Dose: 1 tab Diazepam (Valium) 2 mg PO BID PRN PRN Reason: Anxiety Last Admin: 11/16/18 08:09 Dose: 2 mg Famotidine (Pepcid) 20 mg PO BID [facility] Last Admin: 11/17/18 09:02 Dose: 20 mg Guaifenesin (Mucinex) 600 mg PO BID [facility] Last Admin: 11/17/18 09:02 Dose: 600 mg Heparin Sodium (Porcine) (Heparin Sodium) 5,000 units SUBCUT Q8H [facility] Last Admin: 11/17/18 05:36 Dose: 5,000 units Hydralazine HCl (Apresoline) 10 mg IVPUSH Q4H PRN PRN Reason: Hypertension Sodium Chloride (Normal Saline) 1,000 mls @ 125 mls/hr IV STAT [facility] Last Infusion: 11/13/18 11:15 Dose: 999 mls/hr Nystatin (Mycostatin) 5 ml PO QID [facility] Last Admin: 11/17/18 05:36 Dose: 5 ml Ondansetron HCl (Zofran) 4 mg IVPUSH Q4H PRN PRN Reason: Nausea Last Admin: 11/15/18 20:06 Dose: 4 mg Teriflunomide [ (Aubagio] 14 Mg) 1 each PO DAILY [facility] Last Admin: 11/17/18 09:02 Dose: Not Given Potassium Chloride (Klor-Con M20) 40 meq PO BID [facility] Last Admin: 11/17/18 09:02 Dose: 40 meq Prednisone (Prednisone) 40 mg PO WITHBREAKFAST [facility] Last Admin: 11/17/18 09:02 Dose: 40 mg Tramadol HCl (Ultram) 50 mg PO Q8H [facility] Last Admin: 11/17/18 09:04 Dose: 50 mg Trazodone HCl (Trazodone) 200 mg PO BEDTIME [facility] Last Admin: 11/16/18 20:02 Dose: 200 mg Discontinued Medications Acetaminophen (Tylenol Extra Strength) 1,000 mg PO ONETIME ONE Stop: 11/13/18 10:04 Last Admin: 11/13/18 10:15 Dose: 1,000 mg Albuterol/Ipratropium (Duoneb 3.0-0.5 Mg/3 Ml) 3 ml NEB ONETIME ONE Stop: 11/13/18 09:48 Last Admin: 11/13/18 10:02 Dose: 3 ml Enoxaparin Sodium (Lovenox) 100 mg SUBCUT ONETIME ONE Stop: 11/13/18 11:44 Last Admin: 11/13/18 12:10 Dose: 100 mg Fludrocortisone Acetate (Florinef) 0.1 mg PO ONETIME ONE Stop: 11/13/18 13:37 Last Admin: 11/13/18 14:42 Dose: 0.1 mg Heparin Sodium (Porcine) (Heparin Sodium) 5,000 units SUBCUT Q8H [facility] Last Admin: 11/13/18 20:35 Dose: Not Given Potassium Chloride/Sodium Chloride (Normal Saline With 20 Meq Kcl) 1,000 mls @ 150 mls/hr IV ASDIRECTED [facility] Last Admin: 11/14/18 04:37 Dose: 150 mls/hr Piperacillin Sod/Tazobactam (Sod 3.375 gm/ Sodium Chloride) 50 mls @ 100 mls/ hr IV ONETIME ONE Stop: 11/13/18 11:35 Last Admin: 11/13/18 11:22 Dose: 100 mls/hr Vancomycin HCl 1 gm/ Sodium (Chloride) 250 mls @ 250 mls/hr IV ONETIME ONE Stop: 11/13/18 12:05 Last Admin: 11/13/18 12:09 Dose: 250 mls/hr Sodium Chloride (Normal Saline) Confirm Administered Dose 50 mls @ as directed .ROUTE .STK-MED ONE Stop: 11/13/18 11:19 Last Admin: 11/13/18 11:22 Dose: Not Given Sodium Chloride (Normal Saline) 1,000 mls @ 999 mls/hr IV .Bolus ONE Stop: 11/13/18 13:02 Last Admin: 11/13/18 12:10 Dose: 999 mls/hr Levofloxacin/Dextrose 750 mg/ (Premix) 150 mls @ 100 mls/hr IV Q24H [facility] Last Admin: 11/14/18 15:17 Dose: 100 mls/hr Piperacillin Sod/Tazobactam (Sod 4.5 gm/ Sodium Chloride) 100 mls @ 200 mls/hr IV Q6H [facility] Last Admin: 11/15/18 06:23 Dose: 200 mls/hr Vancomycin HCl 1 gm/Vancomycin HCl 500 mg/ Sodium Chloride 500 mls @ 250 mls/ hr IV Q12H [facility] Last Admin: 11/13/18 20:36 Dose: Not Given Magnesium Sulfate 2 gm/ Premix 50 mls @ 50 mls/hr IV ONETIME ONE Stop: 11/13/18 16:57 Last Admin: 11/13/18 16:48 Dose: 50 mls/hr Vancomycin HCl 1 gm/Vancomycin HCl 500 mg/ Sodium Chloride 500 mls @ 250 mls/ hr IV Q12H [facility] Last Admin: 11/15/18 00:09 Dose: 250 mls/hr Iopamidol (Isovue Multipack-370 (76%)) 75 ml IVPUSH ONETIME STA Stop: 11/13/18 16:17 Last Admin: 11/13/18 16:17 Dose: 75 ml Methylprednisolone Sodium Succinate (Solu-Medrol) 125 mg IVPUSH ONETIME ONE Stop: 11/13/18 09:48 Last Admin: 11/13/18 10:02 Dose: 125 mg Methylprednisolone Sodium Succinate (Solu-Medrol) 125 mg IVPUSH Q12H [facility] Last Admin: 11/14/18 10:12 Dose: 125 mg Methylprednisolone Sodium Succinate (Solu-Medrol) 60 mg IVPUSH Q8H [facility] Last Admin: 11/16/18 09:18 Dose: Not Given Midodrine (Midodrine) 5 mg PO TIDAC [facility] Last Admin: 11/14/18 11:35 Dose: Not Given Oseltamivir Phosphate (Tamiflu) 75 mg PO BID [facility] Last Admin: 11/15/18 08:30 Dose: 75 mg Potassium Chloride (Potassium Chloride) 40 meq PO ONETIME ONE Stop: 11/13/18 11:03 Last Admin: 11/13/18 11:21 Dose: 40 meq Potassium Chloride (Klor-Con M20) 40 meq PO ONETIME ONE Stop: 11/13/18 13:14 Last Admin: 11/13/18 14:29 Dose: Not Given Prednisone (Prednisone) 40 mg PO .Daily Taper [facility] Prednisone (Prednisone) 40 mg PO DAILY [facility]; Taper Stop: 11/20/18 09:14 Last Admin: 11/16/18 09:37 Dose: 40 mg Vancomycin HCl (Pharmacy To Dose - Vancomycin) 1 dose .XX ASDIRECTED [facility]
[2018-11-17 13:42] VITALS: BP 143/73
--- NOTE | 2018-11-17 16:01 | ECHO ---
EXAM DATE: 11/13/18 PATIENT'S AGE: 53 The echocardiogram report can be seen in this patient's EMR (Electronic Medical Record) in the Reports section. This report has also been scanned into PACs. [place]
== END 2018-11-17 12:45 | DRG 871 ==
LOC: MW.ED 09:43 → MW.ICU 12:08
PROVIDERS: ADMIT Internal Medicine; ATTEND Internal Medicine
DX: R50.9 Fever, unspecified (principal); R09.02 Hypoxemia; I95.9 Hypotension, unspecified; A41.9 Sepsis, unspecified organism; R74.8 Abnormal levels of other serum enzymes; J96.01 Acute respiratory failure with hypoxia; Z79.52 Long term (current) use of systemic steroids; J15.6 Pneumonia due to other Gram-negative bacteria; E27.40 Unspecified adrenocortical insufficiency; I24.8 Other forms of acute ischemic heart disease; Y95 Nosocomial condition; E87.6 Hypokalemia; F17.210 Nicotine dependence, cigarettes, uncomplicated; R65.10 Systemic inflammatory response syndrome (SIRS) of non-infectious origin without acute organ dysfunction; K21.9 Gastro-esophageal reflux disease without esophagitis; G35 Multiple sclerosis; M41.9 Scoliosis, unspecified; F41.9 Anxiety disorder, unspecified; I10 Essential (primary) hypertension; R19.7 Diarrhea, unspecified; B37.9 Candidiasis, unspecified; E66.9 Obesity, unspecified; Z68.39 Body mass index [BMI] 39.0-39.9, adult; Z79.899 Other long term (current) drug therapy
CPT/HCPCS: 36415; 71045; 80053; 81003; 83605; 83690; 83735; 83880; 84484; 85025; 85610; 87040 ×2; 87081; 87086; 87804 ×2; 87880; 96361; 96365; 96375; 99285; A9270 ×2; J2543; J2930; J3480; J7040; J7050; 36600; 71275; 71275-26; 74230; 74230-26; 80048; 80202; 82803; 84145; 87046; 87070; 87205; 87324; 87899; 92611-GN; 93005; 93306; 94640; 97161-GP; J1644; J1650; J1956; J2405; J3370; J3475; J7030; J7620-GY; Q9967

== ENCOUNTER 2018-12-03 12:33 | Observation (INO) | payer MEDICARE, BC ==
[2018-12-03] MEDS ORDERED: Sodium Chloride 0.9% 10 ML Syringe FLUSH PRN (12:39)
[2018-12-03] MEDS ORDERED: Sodium Chloride 0.9% 2.5 ML Syringe FLUSH PRN (12:39)
--- NOTE | 2018-12-03 12:40 | EDM.PDOC ---
ED HPI GENERAL MEDICAL PROBLEM - General Chief Complaint: General Stated Complaint: FEVER Time Seen by Provider: 12/03/18 12:40 Source of Information: Reports: Patient History Limitations: Reports: No Limitations - History of Present Illness INITIAL COMMENTS - FREE TEXT/NARRATIVE: HISTORY AND PHYSICAL: History of present illness: Patient is a 53-year-old female patient of [facility] brought in by EMS for concern about altered mental status. Patient has history of MS, Per [facility], patient is currently being treated for pneumonia. Today she tripped over her oxygen and seemed confused. Denies hitting head or LOC. She was hospitalized 3 weeks ago for hypoxia and pneumonia. She has been at [facility] since then and on 2L of oxygen. She is currently on 4L O2 at 92%. She was also hospitalized 5 weeks ago for AMS and bronchitis. She is complaining of some SOB but denies chest pain, nausea, vomiting, diarrhea, abdominal pain, headache, visual changes. Review of systems: As per history of present illness and below otherwise all systems reviewed and negative. Past medical history: As per history of present illness and as reviewed below otherwise noncontributory. Surgical history: As per history of present illness and as reviewed below otherwise noncontributory. Social history: No reported history of drug or alcohol abuse. Family history: As per history of present illness and as reviewed below otherwise noncontributory. Physical exam: General: Patient sitting comfortably in no acute distress and nontoxic appearing HEENT: Atraumatic, normocephalic, pupils reactive, negative for conjunctival pallor or scleral icterus, mucous membranes moist, throat clear, neck supple, nontender, trachea midline. No meningeal signs. Lungs: Clear to auscultation, breath sounds equal bilaterally, chest nontender. Heart: S1S2, regular, negative for clicks, rubs, or overt murmur. Abdomen: Soft, nondistended, nontender. Negative for masses or hepatosplenomegaly. Negative for costovertebral tenderness. No rigidity, rebound , guarding. Pelvis: Stable nontender. Genitourinary: Deferred. Rectal: Deferred. Extremities: Atraumatic, negative for cords or calf pain. Neurovascular unremarkable. Neuro: Awake, alert, oriented. Cranial nerves II through XII unremarkable. Cerebellum unremarkable. Motor and sensory unremarkable throughout. Exam nonfocal. Notes: Diagnostics: CBC, CMP, lactate, CXR, EKG, blood culture x2 Therapeutics: 1L Normal Saline IV 40mgEq Potassium PO Zosyn IV Prescriptions: Impression: UTI, pneumonia, leukocytosis Plan: Discussed with Dr. Burnette, patient admitted to observation on IV antibiotics for UTI and pneumonia Definitive disposition and diagnosis as appropriate pending reevaluation and review of above. - Related Data Allergies Allergy/AdvReac Type Severity Reaction Status Date / Time No Known Allergies Allergy Verified 11/13/18 10:01 Home Meds: Home Meds DULoxetine HCl [Cymbalta] 60 mg PO DAILY 08/22/15 [History] Gabapentin [Neurontin] 300 mg PO QAM 08/22/15 [History] Pantoprazole Sodium 40 mg PO DAILY 08/22/15 [History] Teriflunomide [Aubagio] 14 mg PO DAILY 08/22/15 [History] traZODone 200 mg PO BEDTIME 10/21/15 [History] Baclofen 20 mg PO BID 10/24/15 [History] Cholecalciferol (Vitamin D3) [Vitamin D3] 1,000 unit PO DAILY 10/24/15 [History] traMADol [Ultram] 50 mg PO Q8H 12/22/15 [History] Diazepam [Valium] 5 mg PO TID PRN 10/26/18 [History] Albuterol [Ventolin HFA] 2 puff INH Q4H PRN 10/27/18 [History] Baclofen 40 mg PO PCLUNCH 10/27/18 [History] Gabapentin [Neurontin] 300 mg PO ACLUNCH 10/27/18 [History] Gabapentin [Neurontin] 600 mg PO BEDTIME 10/27/18 [History] hydrOXYzine pamoate [Hydroxyzine Pamoate] 25 mg PO BID 10/27/18 [History] DULoxetine HCl [Cymbalta] 30 mg PO BEDTIME 10/28/18 [History] Magnesium Hydroxide [Milk of Magnesia] 30 ml PO DAILY PRN 11/13/18 [History] guaiFENesin [Guaifenesin ER] 600 mg PO DAILY 11/13/18 [History] Albuterol/Ipratropium [DuoNeb 3.0-0.5 MG/3 ML] 3 ml NEB Q4HRRT PRN 30 Days #1 box 11/17/18 [Rx] Amoxicillin/Clavulanate K [Augmentin 875-125 MG] 1 tab PO Q12HR 8 Days #16 tablet 11/17/18 [Rx] predniSONE 20 mg PO WITHBREAKFAST 14 Days #22 tablet 11/17/18 [Rx] Past Medical History Other HEENT History: top and bottom dentures Cardiovascular History: Reports: None Respiratory 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 (See Below) Other Respiratory History: 30 yr history of smoking, use [place] on & off, current use 1/2 pack per day Gastrointestinal History: Reports: Cholelithiasis, GERD Other Gastrointestinal History: hx: Gallstones, 'unsure if they are still there , they do not give me any trouble" Genitourinary History: Reports: None 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 (See Below) Other 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 History: Pelvic pain 'midline' Musculoskeletal 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 (See Below) Other Musculoskeletal History: Scoliosis Upper and lower back, Multiple Sclerosis "mobility good, but occasionally I use a walker" Neurological History: Reports: MS Other Neuro History: Good mobility generally, but "sometimes use walker when not up to par or feel weak" Psychiatric History: Reports: Anxiety Endocrine/Metabolic History: Reports: Obesity/BMI 30+ Hematologic History: Reports: None Immunologic History: Reports: None Oncologic (Cancer) History: Reports: None Dermatologic History: Reports: None - Infectious Disease History Infectious Disease History: Reports: Chicken Pox, Measles - Past Surgical History HEENT Surgical 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 (See Below) Female Surgical History: Reports: Tubal Ligation Musculoskeletal Surgical 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 (See Below) Social & Family History - Family History Family Medical History: Noncontributory - Caffeine Use Caffeine Use: Reports: Coffee, Tea - Living Situation & Occupation Living situation: Reports: Single, with Family Occupation: Disabled ED ROS GENERAL - Review of Systems Review Of Systems: ROS reveals no pertinent complaints other than HPI. ED EXAM, GENERAL - Physical Exam Exam: See Below (see dictation) Course - Vital Signs Last Recorded V/S: Last Vital Signs Temp 98.3 F 12/03/18 14:26 Pulse 104 H 12/03/18 14:48 Resp 18 12/03/18 14:48 BP 103/64 12/03/18 14:48 Pulse Ox 95 12/03/18 14:48 - Orders/Labs/Meds Orders: Active Orders 24 hr Category Date Time Status RT Aerosol Therapy [RC] ASDIRECTED Care 12/03/18 12:50 Active CULTURE BLOOD [BC] Stat Lab 12/03/18 13:12 Received CULTURE BLOOD [BC] Stat Lab 12/03/18 13:12 Results CULTURE URINE [RM] Stat Lab 12/03/18 14:20 Received Sodium Chloride 0.9% [Normal Saline] 1,000 ml Med 12/03/18 14:30 Active IV STAT Sodium Chloride 0.9% [Saline Flush] Med 12/03/18 12:39 Active 10 ml FLUSH ASDIRECTED PRN Sodium Chloride 0.9% [Saline Flush] Med 12/03/18 12:39 Active 2.5 ml FLUSH ASDIRECTED PRN Blood Culture x2 Reflex Set [OM.PC] Stat Oth 12/03/18 12:39 Ordered Saline Lock Insert [OM.PC] Stat Oth 12/03/18 12:38 Ordered Medication Orders Sodium Chloride (Normal Saline) 1,000 mls @ 999 mls/hr IV STAT ONE Stop: 12/03/18 15:30 Last Admin: 12/03/18 14:45 Dose: 999 mls/hr Sodium Chloride (Saline Flush) 10 ml FLUSH ASDIRECTED PRN PRN Reason: Keep Vein Open Last Admin: 12/03/18 14:45 Dose: 10 ml Sodium Chloride (Saline Flush) 2.5 ml FLUSH ASDIRECTED PRN PRN Reason: Keep Vein Open Last Admin: 12/03/18 14:45 Dose: 2.5 ml Labs: Laboratory Tests 12/03/18 12/03/18 12/03/18 Range/Units 13:05 13:05 14:20 WBC 16.61 H (4.0-11.0) K/uL RBC 3.94 L (4.30-5.90) M/uL Hgb 11.4 L (12.0-16.0) g/dL Hct 36.4 (36.0-46.0) % MCV 92.4 (80.0-98.0) fL MCH 28.9 (27.0-32.0) pg MCHC 31.3 (31.0-37.0) g/dL RDW Std Deviation 54.5 (28.0-62.0) fl RDW Coeff of Ade 16 H (11.0-15.0) % Plt Count 259 (150-400) K/uL MPV 9.20 (7.40-12.00) fL Neut % (Auto) 78.9 (48.0-80.0) % Lymph % (Auto) 13.9 L (16.0-40.0) % [place] % (Auto) 6.6 (0.0-15.0) % Eos % (Auto) 0.4 (0.0-7.0) % Baso % (Auto) 0.2 (0.0-1.5) % Neut # (Auto) 13.1 H (1.4-5.7) K/uL Lymph # (Auto) 2.3 (0.6-2.4) K/uL [place] # (Auto) 1.1 H (0.0-0.8) K/uL Eos # (Auto) 0.1 (0.0-0.7) K/uL Baso # (Auto) 0.0 (0.0-0.1) K/uL Nucleated RBC % 0.0 /100WBC Nucleated RBCs # 0 K/uL Lactate (0.20-2.00) mmol/L Sodium 142 (136-145) mmol/L Potassium 2.7 L (3.5-5.1) mmol/L Chloride 98 (98-107) mmol/L Carbon Dioxide 33.4 H (21.0-32.0) mmol/L BUN 13 (7.0-18.0) mg/dL Creatinine 1.0 (0.6-1.0) mg/dL Est Cr Clr Drug Dosing 56.18 mL/min Estimated GFR (MDRD) 58.0 ml/min Glucose 150 H (74-106) mg/dL Calcium 8.7 (8.5-10.1) mg/dL Total Bilirubin 0.8 (0.2-1.0) mg/dL AST 74 H (15-37) IU/L ALT 40 (14-63) IU/L Alkaline Phosphatase 126 H (46-116) U/L Total Protein 6.1 L (6.4-8.2) g/dL Albumin 2.5 L (3.4-5.0) g/dL Globulin 3.6 (2.6-4.0) g/dL Albumin/Globulin Ratio 0.7 L (0.9-1.6) Urine Color YELLOW Urine Appearance CLOUDY Urine pH 7.0 (5.0-8.0) Ur Specific [place] 1.010 (1.001-1.035) Urine Protein TRACE H (NEGATIVE) mg/dL Urine Glucose (UA) NEGATIVE (NEGATIVE) mg/dL Urine Ketones NEGATIVE (NEGATIVE) mg/dL Urine Occult Blood TRACE-INTACT H (NEGATIVE) Urine Nitrite NEGATIVE (NEGATIVE) Urine Bilirubin NEGATIVE (NEGATIVE) Urine Urobilinogen 0.2 (<2.0) EU/dL Ur Leukocyte Esterase LARGE H (NEGATIVE) Urine RBC 0-1 (0-2/HPF) Urine WBC 70-80 (0-5/HPF) Ur Epithelial Cells FEW (NONE-FEW) Urine Bacteria 2+ H (NEGATIVE) 12/03/18 Range/Units 14:27 WBC (4.0-11.0) K/uL RBC (4.30-5.90) M/uL Hgb (12.0-16.0) g/dL Hct (36.0-46.0) % MCV (80.0-98.0) fL MCH (27.0-32.0) pg MCHC (31.0-37.0) g/dL RDW Std Deviation (28.0-62.0) fl RDW Coeff of Ade (11.0-15.0) % Plt Count (150-400) K/uL MPV (7.40-12.00) fL Neut % (Auto) (48.0-80.0) % Lymph % (Auto) (16.0-40.0) % [place] % (Auto) (0.0-15.0) % Eos % (Auto) (0.0-7.0) % Baso % (Auto) (0.0-1.5) % Neut # (Auto) (1.4-5.7) K/uL Lymph # (Auto) (0.6-2.4) K/uL [place] # (Auto) (0.0-0.8) K/uL Eos # (Auto) (0.0-0.7) K/uL Baso # (Auto) (0.0-0.1) K/uL Nucleated RBC % /100WBC Nucleated RBCs # K/uL Lactate 2.0 (0.20-2.00) mmol/L Sodium (136-145) mmol/L Potassium (3.5-5.1) mmol/L Chloride (98-107) mmol/L Carbon Dioxide (21.0-32.0) mmol/L BUN (7.0-18.0) mg/dL Creatinine (0.6-1.0) mg/dL Est Cr Clr Drug Dosing mL/min Estimated GFR (MDRD) ml/min Glucose (74-106) mg/dL Calcium (8.5-10.1) mg/dL Total Bilirubin (0.2-1.0) mg/dL AST (15-37) IU/L ALT (14-63) IU/L Alkaline Phosphatase (46-116) U/L Total Protein (6.4-8.2) g/dL Albumin (3.4-5.0) g/dL Globulin (2.6-4.0) g/dL Albumin/Globulin Ratio (0.9-1.6) Urine Color Urine Appearance Urine pH (5.0-8.0) Ur Specific [place] (1.001-1.035) Urine Protein (NEGATIVE) mg/dL Urine Glucose (UA) (NEGATIVE) mg/dL Urine Ketones (NEGATIVE) mg/dL Urine Occult Blood (NEGATIVE) Urine Nitrite (NEGATIVE) Urine Bilirubin (NEGATIVE) Urine Urobilinogen (<2.0) EU/dL Ur Leukocyte Esterase (NEGATIVE) Urine RBC (0-2/HPF) Urine WBC (0-5/HPF) Ur Epithelial Cells (NONE-FEW) Urine Bacteria (NEGATIVE) Meds: Medications Generic Name Dose Route Start Last Admin Trade Name Freq PRN Reason Stop Dose Admin Sodium Chloride 1,000 mls @ 999 mls/hr 12/03/18 14:30 12/03/18 14:45 Normal Saline IV 12/03/18 15:30 999 mls/hr STAT ONE Administration Sodium Chloride 10 ml 12/03/18 12:39 12/03/18 14:45 Saline Flush FLUSH 10 ml ASDIRECTED PRN Administration Keep Vein Open Sodium Chloride 2.5 ml 12/03/18 12:39 12/03/18 14:45 Saline Flush FLUSH 2.5 ml ASDIRECTED PRN Administration Keep Vein Open Discontinued Medications Generic Name Dose Route Start Last Admin Trade Name Freq PRN Reason Stop Dose Admin Albuterol/Ipratropium 3 ml 12/03/18 12:50 12/03/18 12:53 Duoneb 3.0-0.5 Mg/3 Ml NEB 12/03/18 12:51 3 ml ONETIME ONE Administration Albuterol/Ipratropium Confirm 12/03/18 12:51 12/03/18 12:53 Duoneb 3.0-0.5 Mg/3 Ml Administered 12/03/18 12:52 Not Given Dose 3 ml .ROUTE .STK-MED ONE Potassium Chloride 40 meq 12/03/18 14:29 12/03/18 14:44 Potassium Chloride PO 12/03/18 14:30 40 meq ONETIME ONE Administration Departure - Departure Time of Disposition: 15:37 Disposition: Refer to Observation Condition: Good Clinical Impression: UTI (urinary tract infection) Pneumonia Qualifiers: Pneumonia type: due to unspecified organism - Discharge Information Referrals: PCP,Unknown [Primary Care Provider] - Forms: ED Department Discharge - My Orders Last 24 Hours: My Active Orders 12/03/18 12:38 Saline Lock Insert [OM.PC] Stat 12/03/18 12:39 Sodium Chloride 0.9% [Saline Flush] 10 ml FLUSH ASDIRECTED PRN Sodium Chloride 0.9% [Saline Flush] 2.5 ml FLUSH ASDIRECTED PRN Blood Culture x2 Reflex Set [OM.PC] Stat 12/03/18 12:50 RT Aerosol Therapy [RC] ASDIRECTED 12/03/18 13:12 CULTURE BLOOD [BC] Stat CULTURE BLOOD [BC] Stat 12/03/18 14:20 CULTURE URINE [RM] Stat 12/03/18 14:30 Sodium Chloride 0.9% [Normal Saline] 1,000 ml IV STAT - Assessment/Plan Last 24 Hours: My Active Orders 12/03/18 12:38 Saline Lock Insert [OM.PC] Stat 12/03/18 12:39 Sodium Chloride 0.9% [Saline Flush] 10 ml FLUSH ASDIRECTED PRN Sodium Chloride 0.9% [Saline Flush] 2.5 ml FLUSH ASDIRECTED PRN Blood Culture x2 Reflex Set [OM.PC] Stat 12/03/18 12:50 RT Aerosol Therapy [RC] ASDIRECTED 12/03/18 13:12 CULTURE BLOOD [BC] Stat CULTURE BLOOD [BC] Stat 12/03/18 14:20 CULTURE URINE [RM] Stat 12/03/18 14:30 Sodium Chloride 0.9% [Normal Saline] 1,000 ml IV STAT
[2018-12-03] MEDS ORDERED: Albuterol/Ipratropium 3.0-0.5 MG/3 ML Neb Soln NEB ONE (12:50)
[2018-12-03] MEDS ORDERED: Albuterol/Ipratropium 3.0-0.5 MG/3 ML Neb Soln ONE (12:51)
--- NOTE | 2018-12-03 14:14 | CR ---
EXAMINATION: Two-view chest (PA and Lateral views). HISTORY: Shortness of breath. COMPARISON: 10/29/2018 FINDINGS: The trachea is midline. The cardiomediastinal silhouette is within normal limits. Faint patchy infiltrate is noted within the left lower lobe, not significantly changed. No pleural effusion or pneumothorax. There is moderate dextroscoliosis of the midthoracic spine. IMPRESSION: Patchy infiltrate within the left lower lobe, to a degree chronic. Overlying infectious process is not excluded.
--- NOTE | 2018-12-03 14:17 | CT ---
EXAMINATION: Non contrast CT head. Coronal and sagittal reformats. HISTORY: Pain FINDINGS: No evidence of intra or extra axial hemorrhage, mass, midline shift, hydrocephalus or edema. Mild generalized atrophy. Moderate periventricular and subcortical white matter hypodensities are noted. No hypoattenuation changes in the major vascular territories to suggest acute infarct. No abnormal intracranial calcifications are detected. No evidence of substantial vascular calcifications. Minimal fluid noted within the right mastoid air cells. Orbits and globes are symmetric. Pituitary fossa appears unremarkable. The calvarium is intact. No evidence of skull fracture. IMPRESSION: 1. No acute intracranial findings. 2. Generalized atrophy and likely small vessel ischemic changes.
[2018-12-03] MEDS ORDERED: Potassium Chloride 10% 20 MEQ/15 ML Soln 30 ML UD Cup PO ONE (14:29)
[2018-12-03] MEDS ORDERED: Sodium Chloride 0.9% 1,000 ML IV ONE ×2 (14:30→16:47)
[2018-12-03] MEDS ORDERED: Piperacillin/Tazobactam 3.375 GM in Sodium Chloride 0.9% 50 ML IV ONE (15:36)
[2018-12-03] MEDS ORDERED: Albuterol/Ipratropium 3.0-0.5 MG/3 ML Neb Soln NEB PRN (16:10)
[2018-12-03] MEDS ORDERED: Levofloxacin/Dextrose 5%-Water 750 MG in Premix Bag 1 BAG IV SCH ×2 (16:15→17:15)
[2018-12-03] MEDS ORDERED: Piperacillin/Tazobactam 4.5 GM in Sodium Chloride 0.9% 100 ML IV SCH (16:15)
--- NOTE | 2018-12-03 16:24 | PCM.HP ---
H&P History of Present Illness - General Date of Service: 12/03/18 Admit Problem/Dx: Admission Diagnosis/Problem Admission Diagnosis/Problem Pneumonia - History of Present Illness Initial Comments - Free Text/Narative: The patient is a 53-year-old female who is a resident [facility] due to her advanced MS She was brought in to the ER today with concern for altered mental status. She reports she tripped over her oxygen tank in her room today and hit her head. She hit her head in the left occipital region. She denies loss of consciousness, vision changes, headache, nausea, or vomiting. She was recently admitted from October 26 to October 31 for altered mental status and bronchitis and from September 12 to for hypoxia and pneumonia. She was sent home after that admission on 2L of oxygen. Today, they found that she was requiring more oxygen and was bumped up to 4 L but she denies any increased shortness of breath, fever, cough or chest pain. The patient denies any dysuria , increased frequency or urgency. She does note that she has history of UTIs. In the ER workup included labs that showed an elevated white count of 16.6 and a low potassium of 2.7. Chest x-ray shows patchy infiltrate left lobe. Radiology says it is chronic but could have a overlying infectious process. Her head CT showed no acute intracranial process, but shows generalized atrophy and small vessel ischemic changes. A UA was done and showed signs of infection. EKG was done which shows NSR no ST changes. In the ER, the patient was given a dose of Zosyn, duo nebs, potassium, and started on IV fluids. - Related Data Allergies/Adverse Reactions: Allergies Allergy/AdvReac Type Severity Reaction Status Date / Time No Known Allergies Allergy Verified 12/03/18 16:34 Home Medications: Home Meds DULoxetine HCl [Cymbalta] 60 mg PO DAILY 08/22/15 [History] Gabapentin [Neurontin] 300 mg PO QAM 08/22/15 [History] Pantoprazole Sodium 40 mg PO DAILY 08/22/15 [History] Teriflunomide [Aubagio] 14 mg PO DAILY 08/22/15 [History] traZODone 200 mg PO BEDTIME 10/21/15 [History] Baclofen 20 mg PO BID 10/24/15 [History] Cholecalciferol (Vitamin D3) [Vitamin D3] 1,000 unit PO DAILY 10/24/15 [History] traMADol [Ultram] 50 mg PO Q8H 12/22/15 [History] Diazepam [Valium] 5 mg PO TID PRN 10/26/18 [History] Albuterol [Ventolin HFA] 2 puff INH Q4H PRN 10/27/18 [History] Baclofen 40 mg PO PCLUNCH 10/27/18 [History] Gabapentin [Neurontin] 300 mg PO ACLUNCH 10/27/18 [History] Gabapentin [Neurontin] 600 mg PO BEDTIME 10/27/18 [History] hydrOXYzine pamoate [Hydroxyzine Pamoate] 25 mg PO BID 10/27/18 [History] DULoxetine HCl [Cymbalta] 30 mg PO BEDTIME 10/28/18 [History] Magnesium Hydroxide [Milk of Magnesia] 30 ml PO DAILY PRN 11/13/18 [History] guaiFENesin [Guaifenesin ER] 600 mg PO DAILY 11/13/18 [History] Albuterol/Ipratropium [DuoNeb 3.0-0.5 MG/3 ML] 3 ml NEB Q4HRRT PRN 30 Days #1 box 11/17/18 [Rx] Amoxicillin/Clavulanate K [Augmentin 875-125 MG] 1 tab PO Q12HR 8 Days #16 tablet 11/17/18 [Rx] predniSONE 20 mg PO WITHBREAKFAST 14 Days #22 tablet 11/17/18 [Rx] Past Medical History Other HEENT History: top and bottom dentures Cardiovascular History: Reports: None Respiratory 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 (See Below) Other Respiratory History: 30 yr history of smoking, use [place] on & off, current use 1/2 pack per day Gastrointestinal History: Reports: Cholelithiasis, GERD Other Gastrointestinal History: hx: Gallstones, 'unsure if they are still there , they do not give me any trouble" Genitourinary History: Reports: None [employer] 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 (See Below) Other OB/BYN History: Pelvic pain 'midline' Musculoskeletal 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 (See Below) Other Musculoskeletal History: Scoliosis Upper and lower back, Multiple Sclerosis "mobility good, but occasionally I use a walker" Neurological History: Reports: MS Other Neuro History: Good mobility generally, but "sometimes use walker when not up to par or feel weak" Psychiatric History: Reports: Anxiety Endocrine/Metabolic History: Reports: Obesity/BMI 30+ Hematologic History: Reports: None Immunologic History: Reports: None Oncologic (Cancer) History: Reports: None Dermatologic History: Reports: None - Infectious Disease History Infectious Disease History: Reports: Chicken Pox, Measles - Past Surgical History HEENT Surgical 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 (See Below) Female Surgical History: Reports: Tubal Ligation Musculoskeletal Surgical 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 (See Below) Social & Family History - Family History Family Medical History: Noncontributory - Tobacco Use Smoking Status *Q: Former Smoker Used Tobacco, but Quit: Yes Month/Year Tobacco Last Used: 30 - Caffeine Use Caffeine Use: Reports: Coffee, Tea - Recreational Drug Use Recreational Drug Use: No - Living Situation & Occupation Living situation: Reports: Single, with Family Occupation: Disabled H&P Review of Systems - Review of Systems: Review Of Systems: See Below General: Reports: No Symptoms HEENT: Reports: No Symptoms Pulmonary: Reports: No Symptoms Cardiovascular: Reports: No Symptoms Gastrointestinal: Reports: No Symptoms Genitourinary: Reports: No Symptoms Musculoskeletal: Reports: No Symptoms Skin: Reports: No Symptoms Psychiatric: Reports: No Symptoms Neurological: Reports: Confusion Hematologic/Lymphatic: Reports: No Symptoms Immunologic: Reports: No Symptoms Exam - Exam Exam: See Below - Vital Signs Vital Signs: Last Vital Signs Temp 98.3 F 12/03/18 14:26 Pulse 104 H 12/03/18 14:48 Resp 18 12/03/18 14:48 BP 103/64 12/03/18 14:48 Pulse Ox 95 12/03/18 14:48 Weight: 97.522 kg - Exam Quality Assessment: Supplemental Oxygen General: Alert, Oriented, Cooperative HEENT: Conjunctiva Clear, Posterior Pharynx Clear, Pupils Equal, Pupils Reactive Neck: Supple Lungs: Clear to Auscultation, Normal Respiratory Effort Cardiovascular: Regular Rate, Regular Rhythm GI/Abdominal Exam: Normal Bowel Sounds, Soft, Non-Tender, No Distention, Other ( suprapubic tenderness) Extremities: Pedal Edema Skin: Warm, Dry Neuro Extensive - Mental Status: Alert Psychiatric: Alert, Normal Affect, Normal Mood - Patient Data Lab Results Last 24 hrs: Laboratory Results - last 24 hr 12/03/18 12/03/18 12/03/18 Range/Units 13:05 13:05 13:05 WBC 16.61 H (4.0-11.0) K/uL RBC 3.94 L (4.30-5.90) M/uL Hgb 11.4 L (12.0-16.0) g/dL Hct 36.4 (36.0-46.0) % MCV 92.4 (80.0-98.0) fL MCH 28.9 (27.0-32.0) pg MCHC 31.3 (31.0-37.0) g/dL RDW Std Deviation 54.5 (28.0-62.0) fl RDW Coeff of Ade 16 H (11.0-15.0) % Plt Count 259 (150-400) K/uL MPV 9.20 (7.40-12.00) fL Neut % (Auto) 78.9 (48.0-80.0) % Lymph % (Auto) 13.9 L (16.0-40.0) % Todd % (Auto) 6.6 (0.0-15.0) % Eos % (Auto) 0.4 (0.0-7.0) % Baso % (Auto) 0.2 (0.0-1.5) % Neut # (Auto) 13.1 H (1.4-5.7) K/uL Lymph # (Auto) 2.3 (0.6-2.4) K/uL Todd # (Auto) 1.1 H (0.0-0.8) K/uL Eos # (Auto) 0.1 (0.0-0.7) K/uL Baso # (Auto) 0.0 (0.0-0.1) K/uL Nucleated RBC % 0.0 /100WBC Nucleated RBCs # 0 K/uL Lactate (0.20-2.00) mmol/L Sodium 142 (136-145) mmol/L Potassium 2.7 L (3.5-5.1) mmol/L Chloride 98 (98-107) mmol/L Carbon Dioxide 33.4 H (21.0-32.0) mmol/L BUN 13 (7.0-18.0) mg/dL Creatinine 1.0 (0.6-1.0) mg/dL Est Cr Clr Drug Dosing 56.18 mL/min Estimated GFR (MDRD) 58.0 ml/min Glucose 150 H (74-106) mg/dL Calcium 8.7 (8.5-10.1) mg/dL Magnesium 1.7 L (1.8-2.4) mg/dL Total Bilirubin 0.8 (0.2-1.0) mg/dL AST 74 H (15-37) IU/L ALT 40 (14-63) IU/L Alkaline Phosphatase 126 H (46-116) U/L Total Protein 6.1 L (6.4-8.2) g/dL Albumin 2.5 L (3.4-5.0) g/dL Globulin 3.6 (2.6-4.0) g/dL Albumin/Globulin Ratio 0.7 L (0.9-1.6) Urine Color Urine Appearance Urine pH (5.0-8.0) Ur Specific [place] (1.001-1.035) Urine Protein (NEGATIVE) mg/dL Urine Glucose (UA) (NEGATIVE) mg/dL Urine Ketones (NEGATIVE) mg/dL Urine Occult Blood (NEGATIVE) Urine Nitrite (NEGATIVE) Urine Bilirubin (NEGATIVE) Urine Urobilinogen (<2.0) EU/dL Ur Leukocyte Esterase (NEGATIVE) Urine RBC (0-2/HPF) Urine WBC (0-5/HPF) Ur Epithelial Cells (NONE-FEW) Urine Bacteria (NEGATIVE) 12/03/18 12/03/18 Range/Units 14:20 14:27 WBC (4.0-11.0) K/uL RBC (4.30-5.90) M/uL Hgb (12.0-16.0) g/dL Hct (36.0-46.0) % MCV (80.0-98.0) fL MCH (27.0-32.0) pg MCHC (31.0-37.0) g/dL RDW Std Deviation (28.0-62.0) fl RDW Coeff of Ade (11.0-15.0) % Plt Count (150-400) K/uL MPV (7.40-12.00) fL Neut % (Auto) (48.0-80.0) % Lymph % (Auto) (16.0-40.0) % Todd % (Auto) (0.0-15.0) % Eos % (Auto) (0.0-7.0) % Baso % (Auto) (0.0-1.5) % Neut # (Auto) (1.4-5.7) K/uL Lymph # (Auto) (0.6-2.4) K/uL Todd # (Auto) (0.0-0.8) K/uL Eos # (Auto) (0.0-0.7) K/uL Baso # (Auto) (0.0-0.1) K/uL Nucleated RBC % /100WBC Nucleated RBCs # K/uL Lactate 2.0 (0.20-2.00) mmol/L Sodium (136-145) mmol/L Potassium (3.5-5.1) mmol/L Chloride (98-107) mmol/L Carbon Dioxide (21.0-32.0) mmol/L BUN (7.0-18.0) mg/dL Creatinine (0.6-1.0) mg/dL Est Cr Clr Drug Dosing mL/min Estimated GFR (MDRD) ml/min Glucose (74-106) mg/dL Calcium (8.5-10.1) mg/dL Magnesium (1.8-2.4) mg/dL Total Bilirubin (0.2-1.0) mg/dL AST (15-37) IU/L ALT (14-63) IU/L Alkaline Phosphatase (46-116) U/L Total Protein (6.4-8.2) g/dL Albumin (3.4-5.0) g/dL Globulin (2.6-4.0) g/dL Albumin/Globulin Ratio (0.9-1.6) Urine Color YELLOW Urine Appearance CLOUDY Urine pH 7.0 (5.0-8.0) Ur Specific [place] 1.010 (1.001-1.035) Urine Protein TRACE H (NEGATIVE) mg/dL Urine Glucose (UA) NEGATIVE (NEGATIVE) mg/dL Urine Ketones NEGATIVE (NEGATIVE) mg/dL Urine Occult Blood TRACE-INTACT H (NEGATIVE) Urine Nitrite NEGATIVE (NEGATIVE) Urine Bilirubin NEGATIVE (NEGATIVE) Urine Urobilinogen 0.2 (<2.0) EU/dL Ur Leukocyte Esterase LARGE H (NEGATIVE) Urine RBC 0-1 (0-2/HPF) Urine WBC 70-80 (0-5/HPF) Ur Epithelial Cells FEW (NONE-FEW) Urine Bacteria 2+ H (NEGATIVE) Result Diagrams: 12/03/18 13:05 12/03/18 13:05 Cj Results Last 24 hrs: Microbiology 12/03/18 13:12 Anaerobic Blood Culture - Final Blood - Venous - Lab Draw Problem List Initiated/Reviewed/Updated: Yes Orders Last 24hrs: Active Orders 24 hr Category Date Time Status Admission Status [Patient Status] [ADT] Stat ADT 12/03/18 15:38 Active Intake and Output [RC] ASDIRECTED Care 12/03/18 16:10 Ordered RT Aerosol Therapy [RC] ASDIRECTED Care 12/03/18 12:50 Active RT Aerosol Therapy [RC] ASDIRECTED Care 12/03/18 16:11 Ordered Vital Signs [RC] PER UNIT ROUTINE Care 12/03/18 16:10 Ordered Regular Diet [DIET] Diet 12/04/18 Breakfast Ordered CULTURE BLOOD [BC] Stat Lab 12/03/18 13:12 Received CULTURE BLOOD [BC] Stat Lab 12/03/18 13:12 Results CULTURE URINE [RM] Stat Lab 12/03/18 14:20 Received VANCOMYCIN TROUGH [CHEM] Stat Lab 12/05/18 04:15 Ordered Albuterol/Ipratropium [DuoNeb 3.0-0.5 MG/3 ML] Med 12/03/18 16:10 Ordered 3 ml NEB Q4HRRT PRN Enoxaparin [Lovenox] Med 12/03/18 16:15 Ordered 40 mg SUBCUT Q24H Levofloxacin/Dextrose 5%-Water [Levaquin in D5W 750 MG/ Med 12/03/18 17:15 Active 150 ML] 750 mg Premix Bag 1 bag IV Q24H Pharmacy to Dose - Vancomycin Med 12/03/18 16:15 Ordered 1 dose .XX ASDIRECTED Piperacillin/Tazobactam [Piperacil-Tazobact] 4.5 gm Med 12/03/18 16:15 Ordered Sodium Chloride 0.9% [Normal Saline] 100 ml IV Q6H Potassium Chloride [Klor-Con M20] Med 12/03/18 21:00 Once 40 meq PO ONETIME ONE Sodium Chloride 0.9% [Saline Flush] Med 12/03/18 12:39 Active 10 ml FLUSH ASDIRECTED PRN Sodium Chloride 0.9% [Saline Flush] Med 12/03/18 12:39 Active 2.5 ml FLUSH ASDIRECTED PRN Vancomycin 1.5 gm Med 12/03/18 17:15 Active Sodium Chloride 0.9% [Normal Saline] 500 ml IV Q12H Blood Culture x2 Reflex Set [OM.PC] Stat Oth 12/03/18 12:39 Ordered Saline Lock Insert [OM.PC] Stat Oth 12/03/18 12:38 Ordered Code Status [Resuscitation Status] Stat Resus Stat 12/03/18 16:09 Ordered Medication Orders Albuterol/Ipratropium (Duoneb 3.0-0.5 Mg/3 Ml) 3 ml NEB Q4HRRT PRN PRN Reason: Shortness of Breath Enoxaparin Sodium (Lovenox) 40 mg SUBCUT Q24H TRA Piperacillin Sod/Tazobactam (Sod 4.5 gm/ Sodium Chloride) 100 mls @ 100 mls/hr IV Q6H TRA Levofloxacin/Dextrose 750 mg/ (Premix) 150 mls @ 100 mls/hr IV Q24H TRA Vancomycin HCl 1.5 gm/ Sodium (Chloride) 500 mls @ 333.333 mls/hr IV Q12H TRA Potassium Chloride (Klor-Con M20) 40 meq PO ONETIME ONE Stop: 12/03/18 21:01 Sodium Chloride (Saline Flush) 10 ml FLUSH ASDIRECTED PRN PRN Reason: Keep Vein Open Last Admin: 12/03/18 14:45 Dose: 10 ml Sodium Chloride (Saline Flush) 2.5 ml FLUSH ASDIRECTED PRN PRN Reason: Keep Vein Open Last Admin: 12/03/18 14:45 Dose: 2.5 ml Vancomycin HCl (Pharmacy To Dose - Vancomycin) 1 dose .XX ASDIRECTED [facility] Assessment/Plan Comment:: 1. Admit for observation 2. Code status- DNR/DNI 3. Vitals per routine 4. I/Os per routine 5. Diet- regular 6. DVT prophylaxis with lovenox 7. Acute respiratory failure secondary to healthcare associated pneumonia- patient requiring more oxygen then the 2L she was discharged home on after her last admission. Prior to these admission she did not require oxygen. She is on long-term steroids which may account for her elevated WBC. We will continue with duonebs. Due to her recent hospitalizations and stay in the [place] [facility] we will treat this as a healthcare associated pneumonia and place her on Zosyn, Levaquin, and Vancomycin. 8.UTI- urine culture pending, patient covered with antibiotics used for pneumonia above 9. Hypokalemia- will check a magnesium level and replace if needed. Will replace potassium and recheck level in AM.
[2018-12-03] MEDS ORDERED: Magnesium Sulfate/Water 2 GM in Premix Bag 1 BAG IV ONE (16:52)
[2018-12-03] MEDS ORDERED: Vancomycin 1.5 GM in Sodium Chloride 0.9% 500 ML IV SCH (17:15)
[2018-12-03] MEDS: Enoxaparin 40 MG/0.4 ML Syringe SUBCUT SCH (17:57)
[2018-12-03] MEDS ORDERED: Albuterol HFA 18 Gm Inhaler INH PRN (19:07)
[2018-12-03] MEDS ORDERED: hydrOXYzine Pamoate 25 MG Cap PO PRN (19:07)
[2018-12-03] MEDS: Levofloxacin/Dextrose 5%-Water 750 MG in Premix Bag 1 BAG IV SCH (20:54)
[2018-12-03] MEDS ORDERED: Potassium Chloride 20 MEQ Tab.ER PO ONE (21:00)
[2018-12-03] MEDS: Baclofen 10 MG Tab PO SCH (21:13)
[2018-12-03] MEDS: DULoxetine 30 MG Cap PO SCH (21:14)
[2018-12-03] MEDS: traMADol 50 MG Tab PO SCH (21:15)
[2018-12-03] MEDS: Gabapentin 300 MG Cap PO SCH (21:17)
[2018-12-03] MEDS: traZODone 50 MG Tab PO SCH (22:23)
[2018-12-03] MEDS: Vancomycin 1.5 GM in Sodium Chloride 0.9% 500 ML IV SCH (23:18)
[2018-12-04] MEDS: Piperacillin/Tazobactam 4.5 GM in Sodium Chloride 0.9% 100 ML IV SCH ×3 (01:06→10:12)
[2018-12-04] MEDS: traMADol 50 MG Tab PO SCH ×3 (03:09→20:29)
[2018-12-04 06:10] LABS: CHLORIDE,CL 105 mmol/L (98-107); SODIUM,NA 144 mmol/L (136-145)
[2018-12-04] MEDS: Vancomycin 1.5 GM in Sodium Chloride 0.9% 500 ML IV SCH (06:47)
[2018-12-04] MEDS: Pantoprazole 40 MG Tab.CR PO SCH (06:48)
[2018-12-04] MEDS ORDERED: Albuterol 8 GM Inhaler INH PRN (07:14)
[2018-12-04] MEDS: predniSONE 10 MG Tab PO SCH (08:14)
[2018-12-04] MEDS: Baclofen 10 MG Tab PO SCH ×3 (08:14→20:34)
[2018-12-04] MEDS: DULoxetine 60 MG Cap PO SCH (08:15)
[2018-12-04] MEDS: Gabapentin 300 MG Cap PO SCH ×3 (08:15→20:34)
[2018-12-04] MEDS: Diazepam 5 MG Tab PO PRN ×2 (08:15→15:42)
[2018-12-04] MEDS: Cholecalciferol (Vitamin D3) 1,000 Unit Tab PO SCH (08:15)
[2018-12-04] MEDS ORDERED: Potassium Chloride 20 MEQ Tab.ER PO ONE (08:48)
--- NOTE | 2018-12-04 08:55 | PCM.PN ---
- General Info Date of Service: 12/04/18 Subjective Update: The patient is a 53 year old female admitted for pneumonia and UTI. She reports she feel a lot better today and her breathing is better. Yesterday she was requiring 4L of O2 but is now down to 2.5. She was previously on 2 L at home. She denies any fever/chills, chest pain, shortness of breath, or trouble eating. - Review of Systems General: Reports: No Symptoms HEENT: Reports: No Symptoms Pulmonary: Reports: No Symptoms Cardiovascular: Reports: No Symptoms Gastrointestinal: Reports: No Symptoms Genitourinary: Reports: No Symptoms Musculoskeletal: Reports: No Symptoms Skin: Reports: No Symptoms Neurological: Reports: No Symptoms Psychiatric: Reports: No Symptoms - Patient Data Vitals - Most Recent: Last Vital Signs Temp 97.5 F 12/04/18 04:00 Pulse 78 12/04/18 04:00 Resp 18 12/04/18 04:00 BP 117/70 12/04/18 04:00 Pulse Ox 94 L 12/04/18 04:00 Weight - Most Recent: 97.522 kg I&O - Last 24 Hours: Intake & Output 12/03/18 12/04/18 12/04/18 22:59 06:59 14:59 Intake Total 200 1970 Output Total 400 Balance 200 1570 Lab Results Last 24 Hours: Laboratory Results - last 24 hr 12/03/18 12/03/18 12/03/18 Range/Units 13:05 13:05 13:05 WBC 16.61 H (4.0-11.0) K/uL RBC 3.94 L (4.30-5.90) M/uL Hgb 11.4 L (12.0-16.0) g/dL Hct 36.4 (36.0-46.0) % MCV 92.4 (80.0-98.0) fL MCH 28.9 (27.0-32.0) pg MCHC 31.3 (31.0-37.0) g/dL RDW Std Deviation 54.5 (28.0-62.0) fl RDW Coeff of Ade 16 H (11.0-15.0) % Plt Count 259 (150-400) K/uL MPV 9.20 (7.40-12.00) fL Neut % (Auto) 78.9 (48.0-80.0) % Lymph % (Auto) 13.9 L (16.0-40.0) % [place] % (Auto) 6.6 (0.0-15.0) % Eos % (Auto) 0.4 (0.0-7.0) % Baso % (Auto) 0.2 (0.0-1.5) % Neut # (Auto) 13.1 H (1.4-5.7) K/uL Lymph # (Auto) 2.3 (0.6-2.4) K/uL [place] # (Auto) 1.1 H (0.0-0.8) K/uL Eos # (Auto) 0.1 (0.0-0.7) K/uL Baso # (Auto) 0.0 (0.0-0.1) K/uL Nucleated RBC % 0.0 /100WBC Nucleated RBCs # 0 K/uL Lactate (0.20-2.00) mmol/L Sodium 142 (136-145) mmol/L Potassium 2.7 L (3.5-5.1) mmol/L Chloride 98 (98-107) mmol/L Carbon Dioxide 33.4 H (21.0-32.0) mmol/L BUN 13 (7.0-18.0) mg/dL Creatinine 1.0 (0.6-1.0) mg/dL Est Cr Clr Drug Dosing 56.18 mL/min Estimated GFR (MDRD) 58.0 ml/min Glucose 150 H (74-106) mg/dL Calcium 8.7 (8.5-10.1) mg/dL Magnesium 1.7 L (1.8-2.4) mg/dL Total Bilirubin 0.8 (0.2-1.0) mg/dL AST 74 H (15-37) IU/L ALT 40 (14-63) IU/L Alkaline Phosphatase 126 H (46-116) U/L Total Protein 6.1 L (6.4-8.2) g/dL Albumin 2.5 L (3.4-5.0) g/dL Globulin 3.6 (2.6-4.0) g/dL Albumin/Globulin Ratio 0.7 L (0.9-1.6) Urine Color Urine Appearance Urine pH (5.0-8.0) Ur Specific [place] (1.001-1.035) Urine Protein (NEGATIVE) mg/dL Urine Glucose (UA) (NEGATIVE) mg/dL Urine Ketones (NEGATIVE) mg/dL Urine Occult Blood (NEGATIVE) Urine Nitrite (NEGATIVE) Urine Bilirubin (NEGATIVE) Urine Urobilinogen (<2.0) EU/dL Ur Leukocyte Esterase (NEGATIVE) Urine RBC (0-2/HPF) Urine WBC (0-5/HPF) Ur Epithelial Cells (NONE-FEW) Urine Bacteria (NEGATIVE) 12/03/18 12/03/18 12/04/18 Range/Units 14:20 14:27 05:30 WBC 9.33 (4.0-11.0) K/uL RBC 3.56 L (4.30-5.90) M/uL Hgb 10.3 L (12.0-16.0) g/dL Hct 33.3 L (36.0-46.0) % MCV 93.5 (80.0-98.0) fL MCH 28.9 (27.0-32.0) pg MCHC 30.9 L (31.0-37.0) g/dL RDW Std Deviation 56.0 (28.0-62.0) fl RDW Coeff of Ade 17 H (11.0-15.0) % Plt Count 229 (150-400) K/uL MPV 8.90 (7.40-12.00) fL Neut % (Auto) 74.3 (48.0-80.0) % Lymph % (Auto) 17.5 (16.0-40.0) % [place] % (Auto) 7.3 (0.0-15.0) % Eos % (Auto) 0.8 (0.0-7.0) % Baso % (Auto) 0.1 (0.0-1.5) % Neut # (Auto) 6.9 H (1.4-5.7) K/uL Lymph # (Auto) 1.6 (0.6-2.4) K/uL [place] # (Auto) 0.7 (0.0-0.8) K/uL Eos # (Auto) 0.1 (0.0-0.7) K/uL Baso # (Auto) 0.0 (0.0-0.1) K/uL Nucleated RBC % 0.0 /100WBC Nucleated RBCs # 0 K/uL Lactate 2.0 (0.20-2.00) mmol/L Sodium (136-145) mmol/L Potassium (3.5-5.1) mmol/L Chloride (98-107) mmol/L Carbon Dioxide (21.0-32.0) mmol/L BUN (7.0-18.0) mg/dL Creatinine (0.6-1.0) mg/dL Est Cr Clr Drug Dosing mL/min Estimated GFR (MDRD) ml/min Glucose (74-106) mg/dL Calcium (8.5-10.1) mg/dL Magnesium (1.8-2.4) mg/dL Total Bilirubin (0.2-1.0) mg/dL AST (15-37) IU/L ALT (14-63) IU/L Alkaline Phosphatase (46-116) U/L Total Protein (6.4-8.2) g/dL Albumin (3.4-5.0) g/dL Globulin (2.6-4.0) g/dL Albumin/Globulin Ratio (0.9-1.6) Urine Color YELLOW Urine Appearance CLOUDY Urine pH 7.0 (5.0-8.0) Ur Specific [place] 1.010 (1.001-1.035) Urine Protein TRACE H (NEGATIVE) mg/dL Urine Glucose (UA) NEGATIVE (NEGATIVE) mg/dL Urine Ketones NEGATIVE (NEGATIVE) mg/dL Urine Occult Blood TRACE-INTACT H (NEGATIVE) Urine Nitrite NEGATIVE (NEGATIVE) Urine Bilirubin NEGATIVE (NEGATIVE) Urine Urobilinogen 0.2 (<2.0) EU/dL Ur Leukocyte Esterase LARGE H (NEGATIVE) Urine RBC 0-1 (0-2/HPF) Urine WBC 70-80 (0-5/HPF) Ur Epithelial Cells FEW (NONE-FEW) Urine Bacteria 2+ H (NEGATIVE) 12/04/18 Range/Units 05:30 WBC (4.0-11.0) K/uL RBC (4.30-5.90) M/uL Hgb (12.0-16.0) g/dL Hct (36.0-46.0) % MCV (80.0-98.0) fL MCH (27.0-32.0) pg MCHC (31.0-37.0) g/dL RDW Std Deviation (28.0-62.0) fl RDW Coeff of Ade (11.0-15.0) % Plt Count (150-400) K/uL MPV (7.40-12.00) fL Neut % (Auto) (48.0-80.0) % Lymph % (Auto) (16.0-40.0) % [place] % (Auto) (0.0-15.0) % Eos % (Auto) (0.0-7.0) % Baso % (Auto) (0.0-1.5) % Neut # (Auto) (1.4-5.7) K/uL Lymph # (Auto) (0.6-2.4) K/uL [place] # (Auto) (0.0-0.8) K/uL Eos # (Auto) (0.0-0.7) K/uL Baso # (Auto) (0.0-0.1) K/uL Nucleated RBC % /100WBC Nucleated RBCs # K/uL Lactate (0.20-2.00) mmol/L Sodium 144 (136-145) mmol/L Potassium 3.3 L (3.5-5.1) mmol/L Chloride 105 (98-107) mmol/L Carbon Dioxide 32.3 H (21.0-32.0) mmol/L BUN 9 (7.0-18.0) mg/dL Creatinine 0.8 (0.6-1.0) mg/dL Est Cr Clr Drug Dosing 64.32 mL/min Estimated GFR (MDRD) > 60.0 ml/min Glucose 129 H (74-106) mg/dL Calcium 8.4 L (8.5-10.1) mg/dL Magnesium 2.2 (1.8-2.4) mg/dL Total Bilirubin 1.0 (0.2-1.0) mg/dL AST 51 H (15-37) IU/L ALT 44 (14-63) IU/L Alkaline Phosphatase 118 H (46-116) U/L Total Protein 5.5 L (6.4-8.2) g/dL Albumin 2.1 L (3.4-5.0) g/dL Globulin 3.4 (2.6-4.0) g/dL Albumin/Globulin Ratio 0.6 L (0.9-1.6) Urine Color Urine Appearance Urine pH (5.0-8.0) Ur Specific [place] (1.001-1.035) Urine Protein (NEGATIVE) mg/dL Urine Glucose (UA) (NEGATIVE) mg/dL Urine Ketones (NEGATIVE) mg/dL Urine Occult Blood (NEGATIVE) Urine Nitrite (NEGATIVE) Urine Bilirubin (NEGATIVE) Urine Urobilinogen (<2.0) EU/dL Ur Leukocyte Esterase (NEGATIVE) Urine RBC (0-2/HPF) Urine WBC (0-5/HPF) Ur Epithelial Cells (NONE-FEW) Urine Bacteria (NEGATIVE) Jc Results Last 24 Hours: Microbiology 12/03/18 13:12 Anaerobic Blood Culture - Final Blood - Venous - Lab Draw Med Orders - Current: Current Medications Albuterol (Ventolin Hfa) 0 gm INH Q4H PRN PRN Reason: Shortness of Breath Albuterol/Ipratropium (Duoneb 3.0-0.5 Mg/3 Ml) 3 ml NEB Q4HRRT PRN PRN Reason: Shortness of Breath Baclofen (Lioresal) 20 mg PO BID [facility] Last Admin: 12/04/18 08:14 Dose: 20 mg Baclofen (Lioresal) 40 mg PO PCLUNCH [facility] Cholecalciferol (Vitamin D3) 1,000 units PO DAILY [facility] Last Admin: 12/04/18 08:15 Dose: 1,000 units Diazepam (Valium.) 5 mg PO TID PRN PRN Reason: Anxiety Last Admin: 12/04/18 08:15 Dose: 5 mg Duloxetine HCl (Cymbalta) 30 mg PO BEDTIME [facility] Last Admin: 12/03/18 21:14 Dose: 30 mg Duloxetine HCl (Cymbalta) 60 mg PO DAILY [facility] Last Admin: 12/04/18 08:15 Dose: 60 mg Enoxaparin Sodium (Lovenox) 40 mg SUBCUT Q24H [facility] Last Admin: 12/03/18 17:57 Dose: 40 mg Gabapentin (Neurontin) 300 mg PO QAM [facility] Last Admin: 12/04/18 08:15 Dose: 300 mg Gabapentin (Neurontin) 300 mg PO ACLUNCH [facility] Gabapentin (Neurontin) 600 mg PO BEDTIME [facility] Last Admin: 12/03/18 21:17 Dose: 600 mg Hydroxyzine Pamoate (Vistaril) 25 mg PO BID PRN PRN Reason: Anxiety Piperacillin Sod/Tazobactam (Sod 4.5 gm/ Sodium Chloride) 100 mls @ 100 mls/hr IV Q6H [facility] Last Admin: 12/04/18 04:18 Dose: 100 mls/hr Levofloxacin/Dextrose 750 mg/ (Premix) 150 mls @ 100 mls/hr IV Q24H [facility] Last Admin: 12/03/18 20:54 Dose: 100 mls/hr Vancomycin HCl 1.5 gm/ Sodium (Chloride) 500 mls @ 333.333 mls/hr IV Q12H [facility] Last Admin: 12/04/18 06:47 Dose: 333.333 mls/hr Pantoprazole Sodium (Protonix) 40 mg PO ACBRK [facility] Last Admin: 12/04/18 06:48 Dose: 40 mg Potassium Chloride (Klor-Con M20) 40 meq PO ONETIME ONE Stop: 12/04/18 08:49 Prednisone (Prednisone) 50 mg PO WITHBREAKFAST [facility] Last Admin: 12/04/18 08:14 Dose: 50 mg Sodium Chloride (Saline Flush) 10 ml FLUSH ASDIRECTED PRN PRN Reason: Keep Vein Open Last Admin: 12/03/18 14:45 Dose: 10 ml Sodium Chloride (Saline Flush) 2.5 ml FLUSH ASDIRECTED PRN PRN Reason: Keep Vein Open Last Admin: 12/03/18 14:45 Dose: 2.5 ml Tramadol HCl (Ultram) 50 mg PO Q8H [facility] Last Admin: 12/04/18 03:09 Dose: 50 mg Trazodone HCl (Trazodone) 200 mg PO BEDTIME [facility] Last Admin: 12/03/18 22:23 Dose: 200 mg Vancomycin HCl (Pharmacy To Dose - Vancomycin) 1 dose .XX ASDIRECTED [facility] Discontinued Medications Albuterol (Ventolin Hfa) 0 gm INH Q4H PRN PRN Reason: Shortness of Breath Albuterol/Ipratropium (Duoneb 3.0-0.5 Mg/3 Ml) 3 ml NEB ONETIME ONE Stop: 12/03/18 12:51 Last Admin: 12/03/18 12:53 Dose: 3 ml Albuterol/Ipratropium (Duoneb 3.0-0.5 Mg/3 Ml) Confirm Administered Dose 3 ml .ROUTE .STK-MED ONE Stop: 12/03/18 12:52 Last Admin: 12/03/18 12:53 Dose: Not Given Sodium Chloride (Normal Saline) 1,000 mls @ 999 mls/hr IV STAT ONE Stop: 12/03/18 15:30 Last Admin: 12/03/18 14:45 Dose: 999 mls/hr Piperacillin Sod/Tazobactam (Sod 3.375 gm/ Sodium Chloride) 50 mls @ 100 mls/ hr IV ONETIME ONE Stop: 12/03/18 16:05 Last Admin: 12/03/18 16:43 Dose: 100 mls/hr Levofloxacin/Dextrose 750 mg/ (Premix) 150 mls @ 100 mls/hr IV Q24H [facility] Last Admin: 12/03/18 18:04 Dose: Not Given Piperacillin Sod/Tazobactam (Sod 4.5 gm/ Sodium Chloride) 100 mls @ 100 mls/hr IV Q6H [facility] Last Admin: 12/03/18 18:04 Dose: Not Given Levofloxacin/Dextrose 750 mg/ (Premix) 150 mls @ 100 mls/hr IV Q24H [facility] Last Admin: 12/03/18 18:05 Dose: Not Given Vancomycin HCl 1.5 gm/ Sodium (Chloride) 500 mls @ 333.333 mls/hr IV Q12H [facility] Last Admin: 12/03/18 18:05 Dose: Not Given Sodium Chloride (Normal Saline) 1,000 mls @ 999 mls/hr IV .Bolus ONE Stop: 12/03/18 17:47 Last Admin: 12/03/18 16:48 Dose: 999 mls/hr Magnesium Sulfate 2 gm/ Premix 50 mls @ 25 mls/hr IV ONETIME ONE Stop: 12/03/18 18:51 Last Admin: 12/03/18 17:57 Dose: 25 mls/hr Potassium Chloride (Potassium Chloride) 40 meq PO ONETIME ONE Stop: 12/03/18 14:30 Last Admin: 12/03/18 14:44 Dose: 40 meq Potassium Chloride (Klor-Con M20) 40 meq PO ONETIME ONE Stop: 12/03/18 21:01 Last Admin: 12/03/18 21:18 Dose: 40 meq Trazodone HCl (Trazodone Hcl) 200 mg PO BEDTIME [facility] Last Admin: 12/04/18 01:57 Dose: Not Given - Exam Quality Assessment: Supplemental Oxygen General: Alert, Oriented, Cooperative Lungs: Crackles (left base) Cardiovascular: Regular Rate, Regular Rhythm GI/Abdominal Exam: Normal Bowel Sounds, Soft, Non-Tender, No Distention Extremities: Pedal Edema Skin: Warm, Dry Neurological: No New Focal Deficit Psy/Mental Status: Alert, Normal Affect, Normal Mood - Problem List Review Problem List Initiated/Reviewed/Updated: Yes - My Orders Last 24 Hours: My Active Orders 12/03/18 16:10 Intake and Output [RC] Q12H Vital Signs [RC] Q4H Albuterol/Ipratropium [DuoNeb 3.0-0.5 MG/3 ML] 3 ml NEB Q4HRRT PRN 12/03/18 16:11 RT Aerosol Therapy [RC] ASDIRECTED 12/03/18 16:15 Enoxaparin [Lovenox] 40 mg SUBCUT Q24H Pharmacy to Dose - Vancomycin 1 dose .XX ASDIRECTED 12/03/18 19:00 Levofloxacin/Dextrose 5%-Water [Levaquin in D5W 750 MG/150 ML] 750 mg Premix Bag 1 bag IV Q24H Vancomycin 1.5 gm Sodium Chloride 0.9% [Normal Saline] 500 ml IV Q12H 12/03/18 19:06 Code Status [Resuscitation Status] Routine 12/03/18 19:07 diazePAM [Valium] 5 mg PO TID PRN hydrOXYzine pamoate [Vistaril] 25 mg PO BID PRN 12/03/18 19:15 traMADol [Ultram] 50 mg PO Q8H 12/03/18 21:00 Baclofen [Lioresal] 20 mg PO BID DULoxetine [Cymbalta] 30 mg PO BEDTIME Gabapentin [Neurontin] 600 mg PO BEDTIME 12/03/18 21:45 traZODone 200 mg PO BEDTIME 12/03/18 22:30 Piperacillin/Tazobactam [Piperacil-Tazobact] 4.5 gm Sodium Chloride 0.9% [ Normal Saline] 100 ml IV Q6H 12/04/18 07:14 Albuterol [Ventolin HFA] 0 gm INH Q4H PRN 12/04/18 07:30 Pantoprazole [ProTONIX] 40 mg PO ACBRK 12/04/18 08:00 predniSONE 50 mg PO WITHBREAKFAST 12/04/18 08:48 Potassium Chloride [Klor-Con M20] 40 meq PO ONETIME ONE 12/04/18 09:00 Cholecalciferol (Vitamin D3) [Vitamin D3] 1,000 units PO DAILY DULoxetine [Cymbalta] 60 mg PO DAILY Gabapentin [Neurontin] 300 mg PO QAM 12/04/18 11:30 Gabapentin [Neurontin] 300 mg PO ACLUNCH 12/04/18 12:30 Baclofen [Lioresal] 40 mg PO PCLUNCH 12/04/18 Breakfast Regular Diet [DIET] 12/05/18 06:00 VANCOMYCIN TROUGH [CHEM] Stat - Plan Plan:: 1. Acute respiratory failure secondary to healthcare associated pneumonia- WBC resolved, o2 requirement improving, patient feeling better. Continue on duonebs but de-escalate antibiotic treatment to only Levaquin. 2.UTI- urine culture pending, patient covered with antibiotics used for pneumonia above 3. Hypokalemia- improved, will give another 40 mEq 4. Hypomagnesemia- resolved Likely discharge back to [place] tomorrow.
[2018-12-04] MEDS: Enoxaparin 40 MG/0.4 ML Syringe SUBCUT SCH (15:40)
[2018-12-04] MEDS: Levofloxacin/Dextrose 5%-Water 750 MG in Premix Bag 1 BAG IV SCH (20:26)
[2018-12-04] MEDS: traZODone 50 MG Tab PO SCH (20:27)
[2018-12-04] MEDS: DULoxetine 30 MG Cap PO SCH (20:34)
[2018-12-05] MEDS: traMADol 50 MG Tab PO SCH ×2 (03:16→10:41)
[2018-12-05] MEDS: Diazepam 5 MG Tab PO PRN ×2 (03:17→11:35)
[2018-12-05 05:40] LABS: CHLORIDE,CL 107 mmol/L (98-107); SODIUM,NA 145 mmol/L (136-145)
[2018-12-05] MEDS: Pantoprazole 40 MG Tab.CR PO SCH (06:33)
--- NOTE | 2018-12-05 07:50 | PCM.DCSUM1 ---
<Aleida Bains - Last Filed: 12/05/18 11:54> Discharge Summary - Hospital Course HPI Initial Comments: Admission Date:12/03/18 Discharge Date: 12/05/18 Admission Diagnosis: 1. Acute respiratory failure secondary to healthcare associated pneumonia 2. UTI 3. Hypokalemia 4. Multiple sclerosis Discharge Diagnosis: 1. Acute respiratory failure secondary to healthcare associated pneumonia- at baseline 2. UTI 3. Hypokalemia- resolved 4. Hypomagnesemia- resolved 5. Multiple sclerosis Procedures: None Consults: None Hospital Course: The patient is a 53-year-old female who is a resident at [facility] for her MS. She presented to the ER after a fall in her room, where she hit her head but denied any loss of consciousness. She had recently been admitted twice in the month of October for pneumonia and at her last admission, went home on 2 L of oxygen. In the ER workup included chest x- ray that showed a lower left lobe pneumonia and elevated white count. A UA showed signs of infection. She. She had an EKG done that was showed normal sinus rhythm. She was requiring 4 L of oxygen in the ER. They did do a head CT due to her fall, but it did not find any acute findings. It showed small vessel ischemic changes. She was admitted to the medical surgical floor, started on IV antibiotics. We started her on Zosyn, vancomycin and Levaquin due to her healthcare associated pneumonia. Over the course of her stay, her white blood count improved and her O2 requirement decreased, so we were able to de-escalate on the second day to just Levaquin. She received duo nebs throughout her stay. Urine culture was pending at time of discharge. The patient was found to be hypokalemic and hypomagnesemic. These were replaced and resolved. The patient was continued on her home medications for her chronic conditions. By day of discharge, patient reports she wanted to go back to [facility]. Disposition: [facility] Discharge Condition: Vitals stable, at her preadmission oxygen requirement level, tolerating oral diet, and UA without difficulty. Discharge Instructions: Regular diet as tolerated, activity as tolerated, take medications as prescribed and finish course of antibiotics. Symptoms report physician include headache, vision changes, fever, chills, chest pain, shortness of breath, abdominal pain, erythema, drainage, discharge, or not improving as expected Discharge Medications: DULoxetine HCl [Cymbalta] 60 mg PO DAILY Gabapentin [Neurontin] 300 mg PO QAM Pantoprazole Sodium 40 mg PO DAILY traZODone 200 mg PO BEDTIME Baclofen 20 mg PO BID 10/24/15 [History] Cholecalciferol (Vitamin D3) [Vitamin D3] 1,000 unit PO DAILY traMADol [Ultram] 50 mg PO Q8H Diazepam [Valium] 5 mg PO TID PRN Albuterol [Ventolin HFA] 2 puff INH Q4H PRN Baclofen 40 mg PO PCLUNCH Gabapentin [Neurontin] 300 mg PO ACLUNCH Gabapentin [Neurontin] 600 mg PO BEDTIME hydrOXYzine pamoate [Hydroxyzine Pamoate] 25 mg PO BID PRN DULoxetine HCl [Cymbalta] 30 mg PO BEDTIME Albuterol/Ipratropium [DuoNeb 3.0-0.5 MG/3 ML] 3 ml NEB Q4HRRT PRN Docusate Sodium [Colace] 100 mg PO DAILY Furosemide [Lasix] 40 mg PO DAILY L.acidoph,Paracasei, B.lactis [Probiotic] 1 cap PO DAILY Levofloxacin [Levaquin] 750 mg PO DAILY 5 Days Multivitamin [Multi-Vitamin Daily] 1 tab PO DAILY Teriflunomide [Aubagio] 14 mg PO DAILY guaiFENesin [Mucinex] 600 mg PO DAILY Follow-up: Dr. Evans will follow in [facility] Diagnosis: Stroke: No - Discharge Data Discharge Date: 12/05/18 Discharge Disposition: DC/Tfer to [facility] 03 Condition: Stable - Patient Instructions Diet: Regular Diet as Tolerated Activity: As Tolerated Showering/Bathing: May Shower Notify Provider of: Fever, Increased Pain, Swelling and Redness, Drainage, Nausea and/or Vomiting Other/Special Instructions: Additional symptoms include chest pain, shortness of breath, or abdominal pain. - Discharge Plan *PRESCRIPTION DRUG MONITORING PROGRAM REVIEWED*: No *COPY OF PRESCRIPTION DRUG MONITORING REPORT IN PATIENT JUAN MANUEL: No Prescriptions/Med Rec: Levofloxacin [Levaquin] 750 mg PO DAILY 5 Days #5 tablet Home Medications: Home Meds DULoxetine HCl [Cymbalta] 60 mg PO DAILY 08/22/15 [History] Gabapentin [Neurontin] 300 mg PO QAM 08/22/15 [History] Pantoprazole Sodium 40 mg PO DAILY 08/22/15 [History] traZODone 200 mg PO BEDTIME 10/21/15 [History] Baclofen 20 mg PO BID 10/24/15 [History] Cholecalciferol (Vitamin D3) [Vitamin D3] 1,000 unit PO DAILY 10/24/15 [History] traMADol [Ultram] 50 mg PO Q8H 12/22/15 [History] Diazepam [Valium] 5 mg PO TID PRN 10/26/18 [History] Albuterol [Ventolin HFA] 2 puff INH Q4H PRN 10/27/18 [History] Baclofen 40 mg PO PCLUNCH 10/27/18 [History] Gabapentin [Neurontin] 300 mg PO ACLUNCH 10/27/18 [History] Gabapentin [Neurontin] 600 mg PO BEDTIME 10/27/18 [History] hydrOXYzine pamoate [Hydroxyzine Pamoate] 25 mg PO BID PRN 10/27/18 [History] DULoxetine HCl [Cymbalta] 30 mg PO BEDTIME 10/28/18 [History] Albuterol/Ipratropium [DuoNeb 3.0-0.5 MG/3 ML] 3 ml NEB Q4HRRT PRN 12/03/18 [ History] Docusate Sodium [Colace] 100 mg PO DAILY 12/05/18 [History] Furosemide [Lasix] 40 mg PO DAILY 12/05/18 [History] L.acidoph,Paracasei, B.lactis [Probiotic] 1 cap PO DAILY 12/05/18 [History] Levofloxacin [Levaquin] 750 mg PO DAILY 5 Days #5 tablet 12/05/18 [Rx] Multivitamin [Multi-Vitamin Daily] 1 tab PO DAILY 12/05/18 [History] Teriflunomide [Aubagio] 14 mg PO DAILY 12/05/18 [History] guaiFENesin [Mucinex] 600 mg PO DAILY 12/05/18 [History] Oxygen Therapy Mode: Nasal Cannula Oxygen Flow Rate (L/min): 2 Forms: ED Department Discharge Referrals: PCP,Unknown [Primary Care Provider] - Ryan Evans MD [Physician] - 12/08/18 8:00 am (Next [place] rounds.) - Discharge Summary/Plan Comment DC Time >30 min.: No - Patient Data Vitals - Most Recent: Last Vital Signs Temp 98 F 12/05/18 04:00 Pulse 78 12/05/18 04:00 Resp 19 12/05/18 04:00 BP 105/59 L 12/05/18 04:00 Pulse Ox 94 L 12/05/18 04:00 Weight - Most Recent: 97.522 kg I&O - Last 24 hours: Intake & Output 12/04/18 12/05/18 12/05/18 22:59 06:59 14:59 Intake Total 1100 800 Output Total 1500 950 Balance -400 -150 Lab Results - Last 24 hrs: Laboratory Results - last 24 hr 12/05/18 12/05/18 Range/Units 05:03 05:03 WBC 8.09 (4.0-11.0) K/uL RBC 3.47 L (4.30-5.90) M/uL Hgb 9.8 L (12.0-16.0) g/dL Hct 32.7 L (36.0-46.0) % MCV 94.2 (80.0-98.0) fL MCH 28.2 (27.0-32.0) pg MCHC 30.0 L (31.0-37.0) g/dL RDW Std Deviation 57.1 (28.0-62.0) fl RDW Coeff of Ade 17 H (11.0-15.0) % Plt Count 245 (150-400) K/uL MPV 8.90 (7.40-12.00) fL Neut % (Auto) 68.2 (48.0-80.0) % Lymph % (Auto) 21.1 (16.0-40.0) % [place] % (Auto) 9.3 (0.0-15.0) % Eos % (Auto) 1.0 (0.0-7.0) % Baso % (Auto) 0.4 (0.0-1.5) % Neut # (Auto) 5.5 (1.4-5.7) K/uL Lymph # (Auto) 1.7 (0.6-2.4) K/uL Bull[place] # (Auto) 0.8 (0.0-0.8) K/uL Eos # (Auto) 0.1 (0.0-0.7) K/uL Baso # (Auto) 0.0 (0.0-0.1) K/uL Nucleated RBC % 0.0 /100WBC Nucleated RBCs # 0 K/uL Sodium 145 (136-145) mmol/L Potassium 3.8 (3.5-5.1) mmol/L Chloride 107 (98-107) mmol/L Carbon Dioxide 34.6 H (21.0-32.0) mmol/L BUN 6 L (7.0-18.0) mg/dL Creatinine 0.7 (0.6-1.0) mg/dL Est Cr Clr Drug Dosing 73.51 mL/min Estimated GFR (MDRD) > 60.0 ml/min Glucose 111 H (74-106) mg/dL Calcium 8.6 (8.5-10.1) mg/dL Total Bilirubin 0.4 (0.2-1.0) mg/dL AST 21 (15-37) IU/L ALT 42 (14-63) IU/L Alkaline Phosphatase 107 (46-116) U/L Total Protein 5.6 L (6.4-8.2) g/dL Albumin 2.2 L (3.4-5.0) g/dL Globulin 3.4 (2.6-4.0) g/dL Albumin/Globulin Ratio 0.7 L (0.9-1.6) KRIS Results - Last 24 hrs: Microbiology 12/03/18 13:12 Aerobic Blood Culture - Preliminary Blood - Venous - Lab Draw NO GROWTH AFTER 1 DAY Anaerobic Blood Culture - Final 12/03/18 13:12 Aerobic Blood Culture - Preliminary Blood - Venous NO GROWTH AFTER 1 DAY Anaerobic Blood Culture - Preliminary NO GROWTH AFTER 1 DAY Med Orders - Current: Current Medications Albuterol (Ventolin Hfa) 0 gm INH Q4H PRN PRN Reason: Shortness of Breath Albuterol/Ipratropium (Duoneb 3.0-0.5 Mg/3 Ml) 3 ml NEB Q4HRRT PRN PRN Reason: Shortness of Breath Baclofen (Lioresal) 20 mg PO BID [facility] Last Admin: 12/04/18 20:34 Dose: 20 mg Baclofen (Lioresal) 40 mg PO PCLUNCH [facility] Last Admin: 12/04/18 11:41 Dose: 40 mg Cholecalciferol (Vitamin D3) 1,000 units PO DAILY [facility] Last Admin: 12/04/18 08:15 Dose: 1,000 units Diazepam (Valium.) 5 mg PO TID PRN PRN Reason: Anxiety Last Admin: 12/05/18 03:17 Dose: 5 mg Duloxetine HCl (Cymbalta) 30 mg PO BEDTIME [facility] Last Admin: 12/04/18 20:34 Dose: 30 mg Duloxetine HCl (Cymbalta) 60 mg PO DAILY [facility] Last Admin: 12/04/18 08:15 Dose: 60 mg Enoxaparin Sodium (Lovenox) 40 mg SUBCUT Q24H [facility] Last Admin: 12/04/18 15:40 Dose: 40 mg Gabapentin (Neurontin) 300 mg PO QAM [facility] Last Admin: 12/04/18 08:15 Dose: 300 mg Gabapentin (Neurontin) 300 mg PO ACLUNCH [facility] Last Admin: 12/04/18 10:48 Dose: 300 mg Gabapentin (Neurontin) 600 mg PO BEDTIME [facility] Last Admin: 12/04/18 20:34 Dose: 600 mg Hydroxyzine Pamoate (Vistaril) 25 mg PO BID PRN PRN Reason: Anxiety Levofloxacin/Dextrose 750 mg/ (Premix) 150 mls @ 100 mls/hr IV Q24H [facility] Last Admin: 12/04/18 20:26 Dose: 100 mls/hr Pantoprazole Sodium (Protonix) 40 mg PO ACBRK [facility] Last Admin: 12/05/18 06:33 Dose: 40 mg Prednisone (Prednisone) 50 mg PO WITHBREAKFAST [facility] Last Admin: 12/04/18 08:14 Dose: 50 mg Sodium Chloride (Saline Flush) 10 ml FLUSH ASDIRECTED PRN PRN Reason: Keep Vein Open Last Admin: 12/03/18 14:45 Dose: 10 ml Sodium Chloride (Saline Flush) 2.5 ml FLUSH ASDIRECTED PRN PRN Reason: Keep Vein Open Last Admin: 12/03/18 14:45 Dose: 2.5 ml Tramadol HCl (Ultram) 50 mg PO Q8H [facility] Last Admin: 12/05/18 03:16 Dose: 50 mg Trazodone HCl (Trazodone) 200 mg PO BEDTIME [facility] Last Admin: 12/04/18 20:27 Dose: 200 mg Discontinued Medications Albuterol (Ventolin Hfa) 0 gm INH Q4H PRN PRN Reason: Shortness of Breath Albuterol/Ipratropium (Duoneb 3.0-0.5 Mg/3 Ml) 3 ml NEB ONETIME ONE Stop: 12/03/18 12:51 Last Admin: 12/03/18 12:53 Dose: 3 ml Albuterol/Ipratropium (Duoneb 3.0-0.5 Mg/3 Ml) Confirm Administered Dose 3 ml .ROUTE .STK-MED ONE Stop: 12/03/18 12:52 Last Admin: 12/03/18 12:53 Dose: Not Given Sodium Chloride (Normal Saline) 1,000 mls @ 999 mls/hr IV STAT ONE Stop: 12/03/18 15:30 Last Admin: 12/03/18 14:45 Dose: 999 mls/hr Piperacillin Sod/Tazobactam (Sod 3.375 gm/ Sodium Chloride) 50 mls @ 100 mls/ hr IV ONETIME ONE Stop: 12/03/18 16:05 Last Admin: 12/03/18 16:43 Dose: 100 mls/hr Levofloxacin/Dextrose 750 mg/ (Premix) 150 mls @ 100 mls/hr IV Q24H [facility] Last Admin: 12/03/18 18:04 Dose: Not Given Piperacillin Sod/Tazobactam (Sod 4.5 gm/ Sodium Chloride) 100 mls @ 100 mls/hr IV Q6H [facility] Last Admin: 12/03/18 18:04 Dose: Not Given Levofloxacin/Dextrose 750 mg/ (Premix) 150 mls @ 100 mls/hr IV Q24H [facility] Last Admin: 12/03/18 18:05 Dose: Not Given Vancomycin HCl 1.5 gm/ Sodium (Chloride) 500 mls @ 333.333 mls/hr IV Q12H [facility] Last Admin: 12/03/18 18:05 Dose: Not Given Sodium Chloride (Normal Saline) 1,000 mls @ 999 mls/hr IV .Bolus ONE Stop: 12/03/18 17:47 Last Admin: 12/03/18 16:48 Dose: 999 mls/hr Magnesium Sulfate 2 gm/ Premix 50 mls @ 25 mls/hr IV ONETIME ONE Stop: 12/03/18 18:51 Last Admin: 12/03/18 17:57 Dose: 25 mls/hr Piperacillin Sod/Tazobactam (Sod 4.5 gm/ Sodium Chloride) 100 mls @ 100 mls/hr IV Q6H [facility] Last Admin: 12/04/18 10:12 Dose: 100 mls/hr Vancomycin HCl 1.5 gm/ Sodium (Chloride) 500 mls @ 333.333 mls/hr IV Q12H [facility] Last Admin: 12/04/18 06:47 Dose: 333.333 mls/hr Potassium Chloride (Potassium Chloride) 40 meq PO ONETIME ONE Stop: 12/03/18 14:30 Last Admin: 12/03/18 14:44 Dose: 40 meq Potassium Chloride (Klor-Con M20) 40 meq PO ONETIME ONE Stop: 12/03/18 21:01 Last Admin: 12/03/18 21:18 Dose: 40 meq Potassium Chloride (Klor-Con M20) 40 meq PO ONETIME ONE Stop: 12/04/18 08:49 Last Admin: 12/04/18 10:08 Dose: 40 meq Trazodone HCl (Trazodone Hcl) 200 mg PO BEDTIME [facility] Last Admin: 12/04/18 01:57 Dose: Not Given Vancomycin HCl (Pharmacy To Dose - Vancomycin) 1 dose .XX ASDIRECTED [facility] <Vasyl Burnette - Last Filed: 12/09/18 11:22> - Patient Data Vitals - Most Recent: Last Vital Signs Temp 36.2 C 12/05/18 12:00 Pulse 91 12/05/18 12:00 Resp 18 12/05/18 12:00 BP 129/62 12/05/18 12:00 Pulse Ox 98 12/05/18 12:00 KRIS Results - Last 24 hrs: Microbiology 12/03/18 13:12 Aerobic Blood Culture - Final Blood - Venous - Lab Draw NO GROWTH AFTER 5 DAYS Anaerobic Blood Culture - Final 12/03/18 13:12 Aerobic Blood Culture - Final Blood - Venous NO GROWTH AFTER 5 DAYS Anaerobic Blood Culture - Final NO GROWTH AFTER 5 DAYS Med Orders - Current: Current Medications Discontinued Medications Albuterol (Ventolin Hfa) 0 gm INH Q4H PRN PRN Reason: Shortness of Breath Albuterol (Ventolin Hfa) 0 gm INH Q4H PRN PRN Reason: Shortness of Breath Albuterol/Ipratropium (Duoneb 3.0-0.5 Mg/3 Ml) 3 ml NEB ONETIME ONE Stop: 12/03/18 12:51 Last Admin: 12/03/18 12:53 Dose: 3 ml Albuterol/Ipratropium (Duoneb 3.0-0.5 Mg/3 Ml) Confirm Administered Dose 3 ml .ROUTE .STK-MED ONE Stop: 12/03/18 12:52 Last Admin: 12/03/18 12:53 Dose: Not Given Albuterol/Ipratropium (Duoneb 3.0-0.5 Mg/3 Ml) 3 ml NEB Q4HRRT PRN PRN Reason: Shortness of Breath Baclofen (Lioresal) 20 mg PO BID [facility] Last Admin: 12/05/18 08:26 Dose: 20 mg Baclofen (Lioresal) 40 mg PO PCLUNCH [facility] Last Admin: 12/05/18 11:35 Dose: 40 mg Cholecalciferol (Vitamin D3) 1,000 units PO DAILY [facility] Last Admin: 12/05/18 08:26 Dose: 1,000 units Diazepam (Valium.) 5 mg PO TID PRN PRN Reason: Anxiety Last Admin: 12/05/18 11:35 Dose: 5 mg Duloxetine HCl (Cymbalta) 30 mg PO BEDTIME [facility] Last Admin: 12/04/18 20:34 Dose: 30 mg Duloxetine HCl (Cymbalta) 60 mg PO DAILY [facility] Last Admin: 12/05/18 08:26 Dose: 60 mg Enoxaparin Sodium (Lovenox) 40 mg SUBCUT Q24H [facility] Last Admin: 12/04/18 15:40 Dose: 40 mg Gabapentin (Neurontin) 300 mg PO QAM [facility] Last Admin: 12/05/18 08:26 Dose: 300 mg Gabapentin (Neurontin) 300 mg PO ACLUNCH [facility] Last Admin: 12/05/18 10:40 Dose: 300 mg Gabapentin (Neurontin) 600 mg PO BEDTIME [facility] Last Admin: 12/04/18 20:34 Dose: 600 mg Hydroxyzine Pamoate (Vistaril) 25 mg PO BID PRN PRN Reason: Anxiety Sodium Chloride (Normal Saline) 1,000 mls @ 999 mls/hr IV STAT ONE Stop: 12/03/18 15:30 Last Admin: 12/03/18 14:45 Dose: 999 mls/hr Piperacillin Sod/Tazobactam (Sod 3.375 gm/ Sodium Chloride) 50 mls @ 100 mls/ hr IV ONETIME ONE Stop: 12/03/18 16:05 Last Admin: 12/03/18 16:43 Dose: 100 mls/hr Levofloxacin/Dextrose 750 mg/ (Premix) 150 mls @ 100 mls/hr IV Q24H [facility] Last Admin: 12/03/18 18:04 Dose: Not Given Piperacillin Sod/Tazobactam (Sod 4.5 gm/ Sodium Chloride) 100 mls @ 100 mls/hr IV Q6H [facility] Last Admin: 12/03/18 18:04 Dose: Not Given Levofloxacin/Dextrose 750 mg/ (Premix) 150 mls @ 100 mls/hr IV Q24H [facility] Last Admin: 12/03/18 18:05 Dose: Not Given Vancomycin HCl 1.5 gm/ Sodium (Chloride) 500 mls @ 333.333 mls/hr IV Q12H [facility] Last Admin: 12/03/18 18:05 Dose: Not Given Sodium Chloride (Normal Saline) 1,000 mls @ 999 mls/hr IV .Bolus ONE Stop: 12/03/18 17:47 Last Admin: 12/03/18 16:48 Dose: 999 mls/hr Magnesium Sulfate 2 gm/ Premix 50 mls @ 25 mls/hr IV ONETIME ONE Stop: 12/03/18 18:51 Last Admin: 12/03/18 17:57 Dose: 25 mls/hr Piperacillin Sod/Tazobactam (Sod 4.5 gm/ Sodium Chloride) 100 mls @ 100 mls/hr IV Q6H [facility] Last Admin: 12/04/18 10:12 Dose: 100 mls/hr Levofloxacin/Dextrose 750 mg/ (Premix) 150 mls @ 100 mls/hr IV Q24H [facility] Last Admin: 12/04/18 20:26 Dose: 100 mls/hr Vancomycin HCl 1.5 gm/ Sodium (Chloride) 500 mls @ 333.333 mls/hr IV Q12H [facility] Last Admin: 12/04/18 06:47 Dose: 333.333 mls/hr Pantoprazole Sodium (Protonix) 40 mg PO ACBRK [facility] Last Admin: 12/05/18 06:33 Dose: 40 mg Potassium Chloride (Potassium Chloride) 40 meq PO ONETIME ONE Stop: 12/03/18 14:30 Last Admin: 12/03/18 14:44 Dose: 40 meq Potassium Chloride (Klor-Con M20) 40 meq PO ONETIME ONE Stop: 12/03/18 21:01 Last Admin: 12/03/18 21:18 Dose: 40 meq Potassium Chloride (Klor-Con M20) 40 meq PO ONETIME ONE Stop: 12/04/18 08:49 Last Admin: 12/04/18 10:08 Dose: 40 meq Prednisone (Prednisone) 50 mg PO WITHBREAKFAST [facility] Last Admin: 12/05/18 08:25 Dose: 50 mg Sodium Chloride (Saline Flush) 10 ml FLUSH ASDIRECTED PRN PRN Reason: Keep Vein Open Last Admin: 12/03/18 14:45 Dose: 10 ml Sodium Chloride (Saline Flush) 2.5 ml FLUSH ASDIRECTED PRN PRN Reason: Keep Vein Open Last Admin: 12/03/18 14:45 Dose: 2.5 ml Tramadol HCl (Ultram) 50 mg PO Q8H [facility] Last Admin: 12/05/18 10:41 Dose: 50 mg Trazodone HCl (Trazodone Hcl) 200 mg PO BEDTIME [facility] Last Admin: 12/04/18 01:57 Dose: Not Given Trazodone HCl (Trazodone) 200 mg PO BEDTIME [facility] Last Admin: 12/04/18 20:27 Dose: 200 mg Vancomycin HCl (Pharmacy To Dose - Vancomycin) 1 dose .XX ASDIRECTED [facility] - Free Text/Narrative Note: I have seen and evaluated the patient. I have discussed findings and treatment plan with the resident. I agree with the assessment and plan outlined in the following note.
[2018-12-05] MEDS: predniSONE 10 MG Tab PO SCH (08:25)
[2018-12-05] MEDS: Cholecalciferol (Vitamin D3) 1,000 Unit Tab PO SCH (08:26)
[2018-12-05] MEDS: Gabapentin 300 MG Cap PO SCH ×2 (08:26→10:40)
[2018-12-05] MEDS: Baclofen 10 MG Tab PO SCH ×2 (08:26→11:35)
[2018-12-05] MEDS: DULoxetine 60 MG Cap PO SCH (08:26)
[2018-12-05 12:51] VITALS: BP 129/62
== END 2018-12-05 13:45 ==
LOC: MW.ED 12:33 → MW.MS 16:10
PROVIDERS: ADMIT Internal Medicine; ATTEND Internal Medicine
DX: J18.9 Pneumonia, unspecified organism (principal); J96.00 Acute respiratory failure, unspecified whether with hypoxia or hypercapnia; Y95 Nosocomial condition; N39.0 Urinary tract infection, site not specified; E87.6 Hypokalemia; E83.42 Hypomagnesemia; G35 Multiple sclerosis; E66.9 Obesity, unspecified; Z68.36 Body mass index [BMI] 36.0-36.9, adult; K21.9 Gastro-esophageal reflux disease without esophagitis; F41.9 Anxiety disorder, unspecified; Z87.891 Personal history of nicotine dependence; Z79.899 Other long term (current) drug therapy
CPT/HCPCS: 36415; 70450; 71046; 80053; 81001; 83605; 83735; 85025; 87040; 87086; 87088; 87186; 93005; 94640; 96361; 96365; 96366; 96367; 96372; 96375; 96376; 99285; A9270; G0378; J1650; J1956; J2543; J3370; J3475; J7030; J7040; J7050; 96360; 99284; J3535-GY; J7620-GY

== ENCOUNTER 2019-08-05 18:53 | Inpatient (IN) | payer MEDICARE, BC ==
[2019-08-05] MEDS ORDERED: Sodium Chloride 0.9% 10 ML Syringe FLUSH PRN (18:59)
[2019-08-05] MEDS ORDERED: Sodium Chloride 0.9% 2.5 ML Syringe FLUSH PRN (18:59)
[2019-08-05] MEDS ORDERED: Sodium Chloride 0.9% 10 ML SDV IV PRN (18:59)
--- NOTE | 2019-08-05 19:15 | EDM.PDOC ---
ED HPI GENERAL MEDICAL PROBLEM - General Chief Complaint: Neuro Symptoms/Deficits Stated Complaint: WEAK Time Seen by Provider: 08/05/19 18:59 Source of Information: Reports: EMS History Limitations: Reports: Altered Mental Status - History of Present Illness INITIAL COMMENTS - FREE TEXT/NARRATIVE: HISTORY AND PHYSICAL: History of present illness: Patient is a 54-year-old female who presents to the ED today via EMS for concern of altered mental status since this afternoon. Last known time well is 1230pm. Per EMS, patient was with her parents who tried to wake her up from a nap and had difficulties doing so so called EMS. Patient has a history of multiple sclerosis, frequent pneumonia, and frequent urinary tract infection. Patient uses a walker per her baseline for mobility. Upon arrival patient is alert, orientated to person place and time, but is drowsy appearing. O2 upon arrival 94% on RA Review of systems: As per history of present illness and below otherwise all systems reviewed and negative. Past medical history: As per history of present illness and as reviewed below otherwise noncontributory. Surgical history: As per history of present illness and as reviewed below otherwise noncontributory. Social history: See social history for further information Family history: As per history of present illness and as reviewed below otherwise noncontributory. Physical exam: General: Patient is drowsy, oriented, and in no no acute distress. Patient laying on exam table and drowsy. HEENT: Atraumatic, normocephalic, pupils equal and reactive bilaterally, negative for conjunctival pallor or scleral icterus, mucous membranes moist, TMs normal bilaterally, throat clear, neck supple, nontender, trachea midline. No drooling or trismus noted. No meningeal signs. No hot potato voice noted. Lungs: Wheezing to auscultation of bilateral lung bases, breath sounds equal bilaterally, chest nontender. Heart: S1S2, regular rate and rhythm without overt murmur Abdomen: Obese, soft, nondistended, nontender. Negative for masses or hepatosplenomegaly. Negative for costovertebral tenderness. Pelvis: Stable nontender. Genitourinary: Deferred. Rectal: Deferred. Skin: Intact, warm, dry. No lesions or rashes noted. Extremities: Atraumatic, negative for cords or calf pain. Neurovascular unremarkable. Neuro: Awake, alert, oriented. Cranial nerves II through XII unremarkable. Exam nonfocal. Notes: Stroke code was called enroute to to the ED. Last known time while was 12:[address] Stone directly involved in patient care. Dr. Woodward, hospitalist construction consultant, consulted on patient and will admit to inpatient ICU. Voices understanding and is agreeable to plan of care. Denies any further questions or concerns at this time. Diagnostics: CBC, CMP, UA, EKG, chest x-ray, EKG, troponin, head CT, PT/INR, TSH, lactate, blood cultures 2, lipase, ammonia, urine drug screen, ethanol Therapeutics: bipap, duoneb Impression: Altered Mental status Hypercarbia Chronic history at baseline Plan: 1. Admit to inpatient ICU to Dr. Woodward Definitive disposition and diagnosis as appropriate pending reevaluation and review of above. - Related Data Allergies Allergy/AdvReac Type Severity Reaction Status Date / Time No Known Allergies Allergy Verified 08/05/19 19:01 Home Meds: Home Meds DULoxetine HCl [Cymbalta] 60 mg PO DAILY 08/22/15 [History] Gabapentin [Neurontin] 300 mg PO QAM 08/22/15 [History] Pantoprazole Sodium 40 mg PO DAILY 08/22/15 [History] traZODone 200 mg PO BEDTIME 10/21/15 [History] Baclofen 20 mg PO BID 10/24/15 [History] Cholecalciferol (Vitamin D3) [Vitamin D3] 1,000 unit PO DAILY 10/24/15 [History] traMADol [Ultram] 50 mg PO Q8H 12/22/15 [History] Diazepam [Valium] 5 mg PO TID PRN 10/26/18 [History] Albuterol [Ventolin HFA] 2 puff INH Q4H PRN 10/27/18 [History] Baclofen 40 mg PO PCLUNCH 10/27/18 [History] Gabapentin [Neurontin] 300 mg PO ACLUNCH 10/27/18 [History] Gabapentin [Neurontin] 600 mg PO BEDTIME 10/27/18 [History] hydrOXYzine pamoate [Hydroxyzine Pamoate] 25 mg PO BID PRN 10/27/18 [History] DULoxetine HCl [Cymbalta] 30 mg PO BEDTIME 10/28/18 [History] Albuterol/Ipratropium [DuoNeb 3.0-0.5 MG/3 ML] 3 ml NEB Q4HRRT PRN 12/03/18 [ History] Docusate Sodium [Colace] 100 mg PO DAILY 12/05/18 [History] Furosemide [Lasix] 40 mg PO DAILY 12/05/18 [History] L.acidoph,Paracasei, B.lactis [Probiotic] 1 cap PO DAILY 12/05/18 [History] Levofloxacin [Levaquin] 750 mg PO DAILY 5 Days #5 tablet 12/05/18 [Rx] Multivitamin [Multi-Vitamin Daily] 1 tab PO DAILY 12/05/18 [History] Teriflunomide [Aubagio] 14 mg PO DAILY 12/05/18 [History] guaiFENesin [Mucinex] 600 mg PO DAILY 12/05/18 [History] Past Medical History Other HEENT History: top and bottom dentures Cardiovascular History: Reports: None Respiratory 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 (See Below) Other Respiratory History: 30 yr history of smoking, use [place] on & off, current use 1/2 pack per day Gastrointestinal History: Reports: Cholelithiasis, GERD Other Gastrointestinal History: hx: Gallstones, 'unsure if they are still there , they do not give me any trouble" Genitourinary History: Reports: None 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 (See Below) Other SOFTWARE TOOLS ENGINEER History: Pelvic pain 'midline' Musculoskeletal 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 (See Below) Other Musculoskeletal History: Scoliosis Upper and lower back, Multiple Sclerosis "mobility good, but occasionally I use a walker" Neurological History: Reports: MS Other Neuro History: Good mobility generally, but "sometimes use walker when not up to par or feel weak" Psychiatric History: Reports: Anxiety Endocrine/Metabolic History: Reports: Obesity/BMI 30+ Hematologic History: Reports: None Immunologic History: Reports: None Oncologic (Cancer) History: Reports: None Dermatologic History: Reports: None - Infectious Disease History Infectious Disease History: Reports: Chicken Pox, Measles - Past Surgical History HEENT Surgical 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 (See Below) Female Surgical History: Reports: Tubal Ligation Musculoskeletal Surgical 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 (See Below) Social & Family History - Family History Family Medical History: Noncontributory - Caffeine Use Caffeine Use: Reports: Coffee, Tea - Living Situation & Occupation Living situation: Reports: Single, with Family Occupation: Disabled ED ROS GENERAL - Review of Systems Review Of Systems: Comprehensive ROS is negative, except as noted in HPI. ED EXAM, GENERAL - Physical Exam Exam: See Below (See dictation) Course - Vital Signs Last Recorded V/S: Last Vital Signs Temp 95.9 F 08/05/19 18:56 Pulse 62 08/05/19 20:59 Resp 18 08/05/19 20:14 BP 131/86 08/05/19 20:59 Pulse Ox 98 08/05/19 20:59 - Orders/Labs/Meds Orders: Active Orders 24 hr Category Date Time Status Admission Status [Patient Status] [ADT] Stat ADT 08/05/19 21:18 Ordered Ambulate [RC] ASDIRECTED Care 08/05/19 21:31 Ordered Assess Neurological Status [RC] ASDIRECTED Care 08/05/19 18:59 Active Bedrest [RC] ASDIRECTED Care 08/05/19 18:59 Active Blood Glucose Check, Bedside [RC] ONETIME Care 08/05/19 18:59 Active Cardiac Monitoring [RC] . DIRECTED Care 08/05/19 18:59 Active Cardiac Monitoring [RC] CONTINUOUS Care 08/05/19 21:32 Ordered EKG Documentation Completion [RC] STAT Care 08/05/19 18:59 Active Height and Weight [RC] UPON Care 08/05/19 18:59 Active Initiate Acute Stroke Protocol [RC] STAT Care 08/05/19 18:59 Active NIH Stroke Scale [RC] ASDIRECTED Care 08/05/19 18:59 Active Nursing Bedside Swallow Screen [RC] ASDIRECTED Care 08/05/19 18:59 Active Oxygen Therapy [RC] ASDIRECTED Care 08/05/19 18:59 Active Oxygen Therapy [RC] PRN Care 08/05/19 21:31 Ordered RT Aerosol Therapy [RC] ASDIRECTED Care 08/05/19 19:23 Active RT Aerosol Therapy [RC] ASDIRECTED Care 08/05/19 21:34 Ordered Stroke Education, General [RC] Click to Edit Care 08/05/19 18:59 Active Vital Signs [RC] Q15M Care 08/05/19 18:59 Active Vital Signs [RC] Q4H Care 08/05/19 21:31 Ordered CULTURE BLOOD [BC] Stat Lab 08/05/19 20:07 Results CULTURE BLOOD [BC] Stat Lab 08/05/19 20:21 Results Sodium Chloride 0.9% [Normal Saline] Med 08/05/19 18:59 Active 10 ml IV ASDIRECTED PRN Sodium Chloride 0.9% [Saline Flush] Med 08/05/19 18:59 Active 10 ml FLUSH ASDIRECTED PRN Sodium Chloride 0.9% [Saline Flush] Med 08/05/19 18:59 Active 2.5 ml FLUSH ASDIRECTED PRN Blood Culture x2 Reflex Set [OM.PC] Stat Oth 08/05/19 19:03 Ordered Peripheral IV Insertion Adult [OM.PC] Stat Oth 08/05/19 18:59 Ordered Peripheral IV Insertion Adult [OM.PC] Stat Ot 08/05/19 18:59 Ordered Medication Orders Sodium Chloride (Saline Flush) 10 ml FLUSH ASDIRECTED PRN PRN Reason: Keep Vein Open Sodium Chloride (Saline Flush) 2.5 ml FLUSH ASDIRECTED PRN PRN Reason: Keep Vein Open Sodium Chloride (Normal Saline) 10 ml IV ASDIRECTED PRN PRN Reason: IV Use Labs: Laboratory Tests 08/05/19 08/05/19 08/05/19 Range/Units 19:39 19:39 20:04 WBC (4.0-11.0) K/uL RBC (4.30-5.90) M/uL Hgb (12.0-16.0) g/dL Hct (36.0-46.0) % MCV (80.0-98.0) fL MCH (27.0-32.0) pg MCHC (31.0-37.0) g/dL RDW Std Deviation (28.0-62.0) fl RDW Coeff of Ade (11.0-15.0) % Plt Count (150-400) K/uL MPV (7.40-12.00) fL Neut % (Auto) (48.0-80.0) % Lymph % (Auto) (16.0-40.0) % [place] % (Auto) (0.0-15.0) % Eos % (Auto) (0.0-7.0) % Baso % (Auto) (0.0-1.5) % Neut # (Auto) (1.4-5.7) K/uL Lymph # (Auto) (0.6-2.4) K/uL [place] # (Auto) (0.0-0.8) K/uL Eos # (Auto) (0.0-0.7) K/uL Baso # (Auto) (0.0-0.1) K/uL Nucleated RBC % /100WBC Nucleated RBCs # K/uL INR APTT (18.6-31.3) SEC ABG pH 7.336 L (7.35-7.45) ABG pCO2 67 H (35-45) mmHG ABG pO2 90 (75-100) mmHG ABG HCO3 36 H (22-26) mEq/L ABG Total CO2 32.8 ABG Base Excess 7.6 H (-2.0-2.0) Lactate (0.20-2.00) mmol/L Sodium (136-145) mmol/L Potassium (3.5-5.1) mmol/L Chloride (98-107) mmol/L Carbon Dioxide (21.0-32.0) mmol/L BUN (7.0-18.0) mg/dL Creatinine (0.6-1.0) mg/dL Est Cr Clr Drug Dosing Estimated GFR (MDRD) ml/min Glucose (74-106) mg/dL Calcium (8.5-10.1) mg/dL Total Bilirubin (0.2-1.0) mg/dL AST (15-37) IU/L ALT (14-63) IU/L Alkaline Phosphatase (46-116) U/L Ammonia (19-54) ug/dL Troponin I (0.000-0.056) ng/mL Total Protein (6.4-8.2) g/dL Albumin (3.4-5.0) g/dL Globulin (2.6-4.0) g/dL Albumin/Globulin Ratio (0.9-1.6) TSH 3rd Generation (0.36-3.74) uIU/mL Urine Color YELLOW Urine Appearance CLEAR Urine pH 5.5 (5.0-8.0) Ur Specific [place] <= 1.005 (1.001-1.035) Urine Protein NEGATIVE (NEGATIVE) mg/dL Urine Glucose (UA) NEGATIVE (NEGATIVE) mg/dL Urine Ketones NEGATIVE (NEGATIVE) mg/dL Urine Occult Blood NEGATIVE (NEGATIVE) Urine Nitrite NEGATIVE (NEGATIVE) Urine Bilirubin NEGATIVE (NEGATIVE) Urine Urobilinogen 0.2 (<2.0) EU/dL Ur Leukocyte Esterase NEGATIVE (NEGATIVE) Urine Opiates Screen NEGATIVE (NEGATIVE) Ur Oxycodone Screen NEGATIVE (NEGATIVE) Urine Methadone Screen NEGATIVE (NEGATIVE) Ur Barbiturates Screen NEGATIVE (NEGATIVE) Ur Phencyclidine Scrn NEGATIVE (NEGATIVE) Ur Amphetamine Screen NEGATIVE (NEGATIVE) U Methamphetamines Scrn NEGATIVE (NEGATIVE) U Benzodiazepines Scrn POSITIVE (NEGATIVE) U Cocaine Metab Screen NEGATIVE (NEGATIVE) U Marijuana (THC) Screen NEGATIVE (NEGATIVE) Ethyl Alcohol mg/dL 08/05/19 08/05/19 08/05/19 Range/Units 20:07 20:07 20:07 WBC 13.55 H (4.0-11.0) K/uL RBC 4.46 (4.30-5.90) M/uL Hgb 13.0 (12.0-16.0) g/dL Hct 41.7 (36.0-46.0) % MCV 93.5 (80.0-98.0) fL MCH 29.1 (27.0-32.0) pg MCHC 31.2 (31.0-37.0) g/dL RDW Std Deviation 56.7 (28.0-62.0) fl RDW Coeff of Ade 17 H (11.0-15.0) % Plt Count 171 (150-400) K/uL MPV 11.00 (7.40-12.00) fL Neut % (Auto) 81.9 H (48.0-80.0) % Lymph % (Auto) 7.0 L (16.0-40.0) % [place] % (Auto) 9.1 (0.0-15.0) % Eos % (Auto) 1.9 (0.0-7.0) % Baso % (Auto) 0.1 (0.0-1.5) % Neut # (Auto) 11.1 H (1.4-5.7) K/uL Lymph # (Auto) 1.0 (0.6-2.4) K/uL [place] # (Auto) 1.2 H (0.0-0.8) K/uL Eos # (Auto) 0.3 (0.0-0.7) K/uL Baso # (Auto) 0.0 (0.0-0.1) K/uL Nucleated RBC % 0.0 /100WBC Nucleated RBCs # 0 K/uL INR 0.90 APTT 31.0 (18.6-31.3) SEC ABG pH (7.35-7.45) ABG pCO2 (35-45) mmHG ABG pO2 (75-100) mmHG ABG HCO3 (22-26) mEq/L ABG Total CO2 ABG Base Excess (-2.0-2.0) Lactate (0.20-2.00) mmol/L Sodium 144 (136-145) mmol/L Potassium 4.4 (3.5-5.1) mmol/L Chloride 102 (98-107) mmol/L Carbon Dioxide 33.0 H (21.0-32.0) mmol/L BUN 14 (7.0-18.0) mg/dL Creatinine 1.3 H (0.6-1.0) mg/dL Est Cr Clr Drug Dosing TNP Estimated GFR (MDRD) 42.7 ml/min Glucose 83 (74-106) mg/dL Calcium 9.0 (8.5-10.1) mg/dL Total Bilirubin 0.3 (0.2-1.0) mg/dL AST 18 (15-37) IU/L ALT 23 (14-63) IU/L Alkaline Phosphatase 144 H (46-116) U/L Ammonia (19-54) ug/dL Troponin I < 0.050 (0.000-0.056) ng/mL Total Protein 7.3 (6.4-8.2) g/dL Albumin 3.6 (3.4-5.0) g/dL Globulin 3.7 (2.6-4.0) g/dL Albumin/Globulin Ratio 1.0 (0.9-1.6) TSH 3rd Generation 2.62 (0.36-3.74) uIU/mL Urine Color Urine Appearance Urine pH (5.0-8.0) Ur Specific [place] (1.001-1.035) Urine Protein (NEGATIVE) mg/dL Urine Glucose (UA) (NEGATIVE) mg/dL Urine Ketones (NEGATIVE) mg/dL Urine Occult Blood (NEGATIVE) Urine Nitrite (NEGATIVE) Urine Bilirubin (NEGATIVE) Urine Urobilinogen (<2.0) EU/dL Ur Leukocyte Esterase (NEGATIVE) Urine Opiates Screen (NEGATIVE) Ur Oxycodone Screen (NEGATIVE) Urine Methadone Screen (NEGATIVE) Ur Barbiturates Screen (NEGATIVE) Ur Phencyclidine Scrn (NEGATIVE) Ur Amphetamine Screen (NEGATIVE) U Methamphetamines Scrn (NEGATIVE) U Benzodiazepines Scrn (NEGATIVE) U Cocaine Metab Screen (NEGATIVE) U Marijuana (THC) Screen (NEGATIVE) Ethyl Alcohol < 3.0 mg/dL 08/05/19 08/05/19 Range/Units 20:07 20:07 WBC (4.0-11.0) K/uL RBC (4.30-5.90) M/uL Hgb (12.0-16.0) g/dL Hct (36.0-46.0) % MCV (80.0-98.0) fL MCH (27.0-32.0) pg MCHC (31.0-37.0) g/dL RDW Std Deviation (28.0-62.0) fl RDW Coeff of Ade (11.0-15.0) % Plt Count (150-400) K/uL MPV (7.40-12.00) fL Neut % (Auto) (48.0-80.0) % Lymph % (Auto) (16.0-40.0) % [place] % (Auto) (0.0-15.0) % Eos % (Auto) (0.0-7.0) % Baso % (Auto) (0.0-1.5) % Neut # (Auto) (1.4-5.7) K/uL Lymph # (Auto) (0.6-2.4) K/uL [place] # (Auto) (0.0-0.8) K/uL Eos # (Auto) (0.0-0.7) K/uL Baso # (Auto) (0.0-0.1) K/uL Nucleated RBC % /100WBC Nucleated RBCs # K/uL INR APTT (18.6-31.3) SEC ABG pH (7.35-7.45) ABG pCO2 (35-45) mmHG ABG pO2 (75-100) mmHG ABG HCO3 (22-26) mEq/L ABG Total CO2 ABG Base Excess (-2.0-2.0) Lactate 1.1 (0.20-2.00) mmol/L Sodium (136-145) mmol/L Potassium (3.5-5.1) mmol/L Chloride (98-107) mmol/L Carbon Dioxide (21.0-32.0) mmol/L BUN (7.0-18.0) mg/dL Creatinine (0.6-1.0) mg/dL Est Cr Clr Drug Dosing Estimated GFR (MDRD) ml/min Glucose (74-106) mg/dL Calcium (8.5-10.1) mg/dL Total Bilirubin (0.2-1.0) mg/dL AST (15-37) IU/L ALT (14-63) IU/L Alkaline Phosphatase (46-116) U/L Ammonia 22 (19-54) ug/dL Troponin I (0.000-0.056) ng/mL Total Protein (6.4-8.2) g/dL Albumin (3.4-5.0) g/dL Globulin (2.6-4.0) g/dL Albumin/Globulin Ratio (0.9-1.6) TSH 3rd Generation (0.36-3.74) uIU/mL Urine Color Urine Appearance Urine pH (5.0-8.0) Ur Specific [place] (1.001-1.035) Urine Protein (NEGATIVE) mg/dL Urine Glucose (UA) (NEGATIVE) mg/dL Urine Ketones (NEGATIVE) mg/dL Urine Occult Blood (NEGATIVE) Urine Nitrite (NEGATIVE) Urine Bilirubin (NEGATIVE) Urine Urobilinogen (<2.0) EU/dL Ur Leukocyte Esterase (NEGATIVE) Urine Opiates Screen (NEGATIVE) Ur Oxycodone Screen (NEGATIVE) Urine Methadone Screen (NEGATIVE) Ur Barbiturates Screen (NEGATIVE) Ur Phencyclidine Scrn (NEGATIVE) Ur Amphetamine Screen (NEGATIVE) U Methamphetamines Scrn (NEGATIVE) U Benzodiazepines Scrn (NEGATIVE) U Cocaine Metab Screen (NEGATIVE) U Marijuana (THC) Screen (NEGATIVE) Ethyl Alcohol mg/dL Meds: Medications Generic Name Dose Route Start Last Admin Trade Name Freq PRN Reason Stop Dose Admin Sodium Chloride 10 ml 08/05/19 18:59 Saline Flush FLUSH ASDIRECTED PRN Keep Vein Open Sodium Chloride 2.5 ml 08/05/19 18:59 Saline Flush FLUSH ASDIRECTED PRN Keep Vein Open Sodium Chloride 10 ml 08/05/19 18:59 Normal Saline IV ASDIRECTED PRN IV Use Discontinued Medications Generic Name Dose Route Start Last Admin Trade Name Niall PRN Reason Stop Dose Admin Albuterol/Ipratropium 3 ml 08/05/19 19:23 08/05/19 19:32 Duoneb 3.0-0.5 Mg/3 Ml NEB 08/05/19 19:24 3 ml ONETIME ONE Administration Departure - Departure Time of Disposition: 21:41 Disposition: Admitted As Inpatient 66 Clinical Impression: Hypercarbia Altered mental status Qualifiers: Altered mental status type: disorientation Qualified Code(s): R41.0 - Disorientation, unspecified - Discharge Information Referrals: PCP,None [Primary Care Provider] - Forms: ED Department Discharge - My Orders Last 24 Hours: My Active Orders 08/05/19 18:59 Assess Neurological Status [RC] ASDIRECTED Bedrest [RC] ASDIRECTED Blood Glucose Check, Bedside [RC] ONETIME Cardiac Monitoring [RC] . DIRECTED EKG Documentation Completion [RC] STAT Height and Weight [RC] UPON Initiate Acute Stroke Protocol [RC] STAT NIH Stroke Scale [RC] ASDIRECTED Nursing Bedside Swallow Screen [RC] ASDIRECTED Oxygen Therapy [RC] ASDIRECTED Stroke Education, General [RC] Click to Edit Vital Signs [RC] Q15M Sodium Chloride 0.9% [Normal Saline] 10 ml IV ASDIRECTED PRN Sodium Chloride 0.9% [Saline Flush] 10 ml FLUSH ASDIRECTED PRN Sodium Chloride 0.9% [Saline Flush] 2.5 ml FLUSH ASDIRECTED PRN Peripheral IV Insertion Adult [OM.PC] Stat Peripheral IV Insertion Adult [OM.PC] Stat 08/05/19 19:03 Blood Culture x2 Reflex Set [OM.PC] Stat 08/05/19 19:23 RT Aerosol Therapy [RC] ASDIRECTED 08/05/19 20:07 CULTURE BLOOD [BC] Stat 08/05/19 20:21 CULTURE BLOOD [BC] Stat 08/05/19 21:18 Admission Status [Patient Status] [ADT] Stat - Assessment/Plan Last 24 Hours: My Active Orders 08/05/19 18:59 Assess Neurological Status [RC] ASDIRECTED Bedrest [RC] ASDIRECTED Blood Glucose Check, Bedside [RC] ONETIME Cardiac Monitoring [RC] . DIRECTED EKG Documentation Completion [RC] STAT Height and Weight [RC] UPON Initiate Acute Stroke Protocol [RC] STAT NIH Stroke Scale [RC] ASDIRECTED Nursing Bedside Swallow Screen [RC] ASDIRECTED Oxygen Therapy [RC] ASDIRECTED Stroke Education, General [RC] Click to Edit Vital Signs [RC] Q15M Sodium Chloride 0.9% [Normal Saline] 10 ml IV ASDIRECTED PRN Sodium Chloride 0.9% [Saline Flush] 10 ml FLUSH ASDIRECTED PRN Sodium Chloride 0.9% [Saline Flush] 2.5 ml FLUSH ASDIRECTED PRN Peripheral IV Insertion Adult [OM.PC] Stat Peripheral IV Insertion Adult [OM.PC] Stat 08/05/19 19:03 Blood Culture x2 Reflex Set [OM.PC] Stat 08/05/19 19:23 RT Aerosol Therapy [RC] ASDIRECTED 08/05/19 20:07 CULTURE BLOOD [BC] Stat 08/05/19 20:21 CULTURE BLOOD [BC] Stat 08/05/19 21:18 Admission Status [Patient Status] [ADT] Stat
[2019-08-05] MEDS ORDERED: Albuterol/Ipratropium 3.0-0.5 MG/3 ML Neb Soln NEB ONE (19:23)
--- NOTE | 2019-08-05 19:26 | CR ---
Indication: Stroke code. Technique: A single AP portable view of the chest was obtained. Comparison: December 03, 2018. Findings: Scoliosis of the spine is identified. The aorta is tortuous. The heart is borderline in size. The lungs are clear. No infiltrate, pleural effusion, or pneumothorax is identified. Impression: Stable chest x-ray. Dictated by Lali More MD @ Aug 05 2019 7:23PM Signed by Dr. Lali More @ Aug 05 2019 7:24PM
--- NOTE | 2019-08-05 19:29 | CT ---
INDICATION: Slurred speech. Stroke protocol. A reported history of multiple sclerosis. TECHNIQUE: CT head without contrast. COMPARISON: 12/03/2018 FINDINGS: Cortical atrophy is again seen with stable ventriculomegaly. There is no mass effect or midline shift. White matter hypodensities are again seen, nonspecific, which could be related to the patient`s reported history of multiple sclerosis and chronic small vessel ischemic changes. There is no loss of [place]-white differentiation. There is no evidence of an acute intracranial hemorrhage. No acute calvarial fracture is seen. The visualized paranasal sinuses are clear. There is partial opacification of a few posterior right mastoid air cells. The visualized orbits are within normal limits. IMPRESSION: No evidence of an acute intracranial hemorrhage, mass effect or loss of [place]-white differentiation. White-matter hypodensities again seen, nonspecific, which could be related to the reported history of multiple sclerosis and chronic small vessel ischemic changes. Dictated by Chapo De Leon MD @ 08/05/2019 7:27:28 PM Please note that all CT scans at this facility use dose modulation, iterative reconstruction, and/or weight-based dosing when appropriate to reduce radiation dose to as low as reasonably achievable. Dictated by: Chapo De Leon MD @ 08/05/2019 19:27:31 (Electronically Signed)
[2019-08-05 21:00] LABS: BLOOD UREA NITROGEN,BUN 14 mg/dL (7.0-18.0); CHLORIDE,CL 102 mmol/L (98-107); GLUCOSE RANDOM 83 mg/dL (74-106); POTASSIUM,K 4.4 mmol/L (3.5-5.1); SODIUM,NA 144 mmol/L (136-145)
[2019-08-05] MEDS ORDERED: Albuterol/Ipratropium 3.0-0.5 MG/3 ML Neb Soln NEB PRN (21:31)
--- NOTE | 2019-08-05 22:35 | PCM.HP.2 ---
H&P History of Present Illness - General Date of Service: 08/05/19 Admit Problem/Dx: Admission Diagnosis/Problem Admission Diagnosis/Problem Altered mental status Source of Information: Family History Limitations: Reports: Altered Mental Status - History of Present Illness Initial Comments - Free Text/Narative: Patient is a 54-year-old female with PMH of severe MS, recurrent pneumonia and UTIs managed by Dr Quinonez presents to ER secondary to concern of altered mental status since this afternoon. Per family patient was in her usual state of health around noon today. Her parents who tried to wake her up from a nap but was hard to be aroused so EMS was called. Patient uses a walker per her baseline for mobility. Upon arrival to ER, patient was alert, orientated to person place and time, but is was drowsy. ABG showed Hypercapnia. CT scan was negative for acute stroke. Patiently started on BIPAP which she was able to tolerate well and admitted for management of Hypercapnic raspatory failure to ICU. Onset of Symptoms: Reports: Today Duration of Symptoms: Reports: Hour(s): - Related Data Allergies/Adverse Reactions: Allergies Allergy/AdvReac Type Severity Reaction Status Date / Time No Known Allergies Allergy Verified 08/05/19 19:01 Home Medications: Home Meds DULoxetine HCl [Cymbalta] 60 mg PO DAILY 08/22/15 [History] Gabapentin [Neurontin] 300 mg PO QAM 08/22/15 [History] Pantoprazole Sodium 40 mg PO DAILY 08/22/15 [History] traZODone 200 mg PO BEDTIME 10/21/15 [History] Baclofen 20 mg PO BID 10/24/15 [History] Cholecalciferol (Vitamin D3) [Vitamin D3] 1,000 unit PO DAILY 10/24/15 [History] traMADol [Ultram] 50 mg PO Q8H 12/22/15 [History] Diazepam [Valium] 5 mg PO TID PRN 10/26/18 [History] Albuterol [Ventolin HFA] 2 puff INH Q4H PRN 10/27/18 [History] Baclofen 40 mg PO PCLUNCH 10/27/18 [History] Gabapentin [Neurontin] 300 mg PO ACLUNCH 10/27/18 [History] Gabapentin [Neurontin] 600 mg PO BEDTIME 10/27/18 [History] hydrOXYzine pamoate [Hydroxyzine Pamoate] 25 mg PO BID PRN 10/27/18 [History] DULoxetine HCl [Cymbalta] 30 mg PO BEDTIME 10/28/18 [History] Albuterol/Ipratropium [DuoNeb 3.0-0.5 MG/3 ML] 3 ml NEB Q4HRRT PRN 12/03/18 [ History] Docusate Sodium [Colace] 100 mg PO DAILY 12/05/18 [History] Furosemide [Lasix] 40 mg PO DAILY 12/05/18 [History] L.acidoph,Paracasei, B.lactis [Probiotic] 1 cap PO DAILY 12/05/18 [History] Levofloxacin [Levaquin] 750 mg PO DAILY 5 Days #5 tablet 12/05/18 [Rx] Multivitamin [Multi-Vitamin Daily] 1 tab PO DAILY 12/05/18 [History] Teriflunomide [Aubagio] 14 mg PO DAILY 12/05/18 [History] guaiFENesin [Mucinex] 600 mg PO DAILY 12/05/18 [History] Past Medical History Other HEENT History: top and bottom dentures Cardiovascular History: Reports: None Respiratory 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 (See Below) Other Respiratory History: 30 yr history of smoking, use [place] on & off, current use 1/2 pack per day Gastrointestinal History: Reports: Cholelithiasis, GERD Other Gastrointestinal History: hx: Gallstones, 'unsure if they are still there , they do not give me any trouble" Genitourinary History: Reports: None GUIDE TRAVEL 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 (See Below) Other OB/BYN History: Pelvic pain 'midline' Musculoskeletal 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 (See Below) Other Musculoskeletal History: Scoliosis Upper and lower back, Multiple Sclerosis "mobility good, but occasionally I use a walker" Neurological History: Reports: MS Other Neuro History: Good mobility generally, but "sometimes use walker when not up to par or feel weak" Psychiatric History: Reports: Anxiety Endocrine/Metabolic History: Reports: Obesity/BMI 30+ Hematologic History: Reports: None Immunologic History: Reports: None Oncologic (Cancer) History: Reports: None Dermatologic History: Reports: None - Infectious Disease History Infectious Disease History: Reports: Chicken Pox, Measles - Past Surgical History HEENT Surgical 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 (See Below) Female Surgical History: Reports: Tubal Ligation Musculoskeletal Surgical 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 (See Below) Social & Family History - Family History Family Medical History: Noncontributory - Caffeine Use Caffeine Use: Reports: Coffee, Tea - Living Situation & Occupation Living situation: Reports: Single, with Family Occupation: Disabled H&P Review of Systems - Review of Systems: Review Of Systems: Unable To Obtain Reason Not Obtained: AMS Exam - Exam Exam: See Below - Vital Signs Vital Signs: Last Vital Signs Temp 35.5 C 08/05/19 18:56 Pulse 65 08/05/19 21:00 Resp 18 08/05/19 20:14 BP 125/73 08/05/19 21:00 Pulse Ox 100 08/05/19 21:00 Weight: 90.718 kg - Exam Quality Assessment: Supplemental Oxygen General: Lethargic, Other (mildly confused, altered) Neck: Supple, Trachea Midline Lungs: Clear to Auscultation, Decreased Breath Sounds Cardiovascular: Regular Rate, Regular Rhythm GI/Abdominal Exam: Soft, Non-Tender Extremities: Pedal Edema Peripheral Pulses: 3+: Dorsalis Pedis (L), Dorsalis Pedis (R) Neuro Extensive - Mental Status: Inattentive. No: Alert, Oriented x3, Normal Mood/Affect - Patient Data Lab Results Last 24 hrs: Laboratory Results - last 24 hr 08/05/19 08/05/19 08/05/19 Range/Units 19:39 19:39 20:04 WBC (4.0-11.0) K/uL RBC (4.30-5.90) M/uL Hgb (12.0-16.0) g/dL Hct (36.0-46.0) % MCV (80.0-98.0) fL MCH (27.0-32.0) pg MCHC (31.0-37.0) g/dL RDW Std Deviation (28.0-62.0) fl RDW Coeff of Ade (11.0-15.0) % Plt Count (150-400) K/uL MPV (7.40-12.00) fL Neut % (Auto) (48.0-80.0) % Lymph % (Auto) (16.0-40.0) % [place] % (Auto) (0.0-15.0) % Eos % (Auto) (0.0-7.0) % Baso % (Auto) (0.0-1.5) % Neut # (Auto) (1.4-5.7) K/uL Lymph # (Auto) (0.6-2.4) K/uL [place] # (Auto) (0.0-0.8) K/uL Eos # (Auto) (0.0-0.7) K/uL Baso # (Auto) (0.0-0.1) K/uL Nucleated RBC % /100WBC Nucleated RBCs # K/uL INR APTT (18.6-31.3) SEC ABG pH 7.336 L (7.35-7.45) ABG pCO2 67 H (35-45) mmHG ABG pO2 90 (75-100) mmHG ABG HCO3 36 H (22-26) mEq/L ABG Total CO2 32.8 ABG Base Excess 7.6 H (-2.0-2.0) Lactate (0.20-2.00) mmol/L Sodium (136-145) mmol/L Potassium (3.5-5.1) mmol/L Chloride (98-107) mmol/L Carbon Dioxide (21.0-32.0) mmol/L BUN (7.0-18.0) mg/dL Creatinine (0.6-1.0) mg/dL Est Cr Clr Drug Dosing Estimated GFR (MDRD) ml/min Glucose (74-106) mg/dL Calcium (8.5-10.1) mg/dL Total Bilirubin (0.2-1.0) mg/dL AST (15-37) IU/L ALT (14-63) IU/L Alkaline Phosphatase (46-116) U/L Ammonia (19-54) ug/dL Troponin I (0.000-0.056) ng/mL Total Protein (6.4-8.2) g/dL Albumin (3.4-5.0) g/dL Globulin (2.6-4.0) g/dL Albumin/Globulin Ratio (0.9-1.6) TSH 3rd Generation (0.36-3.74) uIU/mL Urine Color YELLOW Urine Appearance CLEAR Urine pH 5.5 (5.0-8.0) Ur Specific [place] <= 1.005 (1.001-1.035) Urine Protein NEGATIVE (NEGATIVE) mg/dL Urine Glucose (UA) NEGATIVE (NEGATIVE) mg/dL Urine Ketones NEGATIVE (NEGATIVE) mg/dL Urine Occult Blood NEGATIVE (NEGATIVE) Urine Nitrite NEGATIVE (NEGATIVE) Urine Bilirubin NEGATIVE (NEGATIVE) Urine Urobilinogen 0.2 (<2.0) EU/dL Ur Leukocyte Esterase NEGATIVE (NEGATIVE) Urine Opiates Screen NEGATIVE (NEGATIVE) Ur Oxycodone Screen NEGATIVE (NEGATIVE) Urine Methadone Screen NEGATIVE (NEGATIVE) Ur Barbiturates Screen NEGATIVE (NEGATIVE) Ur Phencyclidine Scrn NEGATIVE (NEGATIVE) Ur Amphetamine Screen NEGATIVE (NEGATIVE) U Methamphetamines Scrn NEGATIVE (NEGATIVE) U Benzodiazepines Scrn POSITIVE (NEGATIVE) U Cocaine Metab Screen NEGATIVE (NEGATIVE) U Marijuana (THC) Screen NEGATIVE (NEGATIVE) Ethyl Alcohol mg/dL 08/05/19 08/05/19 08/05/19 Range/Units 20:07 20:07 20:07 WBC 13.55 H (4.0-11.0) K/uL RBC 4.46 (4.30-5.90) M/uL Hgb 13.0 (12.0-16.0) g/dL Hct 41.7 (36.0-46.0) % MCV 93.5 (80.0-98.0) fL MCH 29.1 (27.0-32.0) pg MCHC 31.2 (31.0-37.0) g/dL RDW Std Deviation 56.7 (28.0-62.0) fl RDW Coeff of Ade 17 H (11.0-15.0) % Plt Count 171 (150-400) K/uL MPV 11.00 (7.40-12.00) fL Neut % (Auto) 81.9 H (48.0-80.0) % Lymph % (Auto) 7.0 L (16.0-40.0) % [place] % (Auto) 9.1 (0.0-15.0) % Eos % (Auto) 1.9 (0.0-7.0) % Baso % (Auto) 0.1 (0.0-1.5) % Neut # (Auto) 11.1 H (1.4-5.7) K/uL Lymph # (Auto) 1.0 (0.6-2.4) K/uL [place] # (Auto) 1.2 H (0.0-0.8) K/uL Eos # (Auto) 0.3 (0.0-0.7) K/uL Baso # (Auto) 0.0 (0.0-0.1) K/uL Nucleated RBC % 0.0 /100WBC Nucleated RBCs # 0 K/uL INR 0.90 APTT 31.0 (18.6-31.3) SEC ABG pH (7.35-7.45) ABG pCO2 (35-45) mmHG ABG pO2 (75-100) mmHG ABG HCO3 (22-26) mEq/L ABG Total CO2 ABG Base Excess (-2.0-2.0) Lactate (0.20-2.00) mmol/L Sodium 144 (136-145) mmol/L Potassium 4.4 (3.5-5.1) mmol/L Chloride 102 (98-107) mmol/L Carbon Dioxide 33.0 H (21.0-32.0) mmol/L BUN 14 (7.0-18.0) mg/dL Creatinine 1.3 H (0.6-1.0) mg/dL Est Cr Clr Drug Dosing TNP Estimated GFR (MDRD) 42.7 ml/min Glucose 83 (74-106) mg/dL Calcium 9.0 (8.5-10.1) mg/dL Total Bilirubin 0.3 (0.2-1.0) mg/dL AST 18 (15-37) IU/L ALT 23 (14-63) IU/L Alkaline Phosphatase 144 H (46-116) U/L Ammonia (19-54) ug/dL Troponin I < 0.050 (0.000-0.056) ng/mL Total Protein 7.3 (6.4-8.2) g/dL Albumin 3.6 (3.4-5.0) g/dL Globulin 3.7 (2.6-4.0) g/dL Albumin/Globulin Ratio 1.0 (0.9-1.6) TSH 3rd Generation 2.62 (0.36-3.74) uIU/mL Urine Color Urine Appearance Urine pH (5.0-8.0) Ur Specific [place] (1.001-1.035) Urine Protein (NEGATIVE) mg/dL Urine Glucose (UA) (NEGATIVE) mg/dL Urine Ketones (NEGATIVE) mg/dL Urine Occult Blood (NEGATIVE) Urine Nitrite (NEGATIVE) Urine Bilirubin (NEGATIVE) Urine Urobilinogen (<2.0) EU/dL Ur Leukocyte Esterase (NEGATIVE) Urine Opiates Screen (NEGATIVE) Ur Oxycodone Screen (NEGATIVE) Urine Methadone Screen (NEGATIVE) Ur Barbiturates Screen (NEGATIVE) Ur Phencyclidine Scrn (NEGATIVE) Ur Amphetamine Screen (NEGATIVE) U Methamphetamines Scrn (NEGATIVE) U Benzodiazepines Scrn (NEGATIVE) U Cocaine Metab Screen (NEGATIVE) U Marijuana (THC) Screen (NEGATIVE) Ethyl Alcohol < 3.0 mg/dL 08/05/19 08/05/19 08/05/19 Range/Units 20:07 20:07 21:55 WBC (4.0-11.0) K/uL RBC (4.30-5.90) M/uL Hgb (12.0-16.0) g/dL Hct (36.0-46.0) % MCV (80.0-98.0) fL MCH (27.0-32.0) pg MCHC (31.0-37.0) g/dL RDW Std Deviation (28.0-62.0) fl RDW Coeff of Ade (11.0-15.0) % Plt Count (150-400) K/uL MPV (7.40-12.00) fL Neut % (Auto) (48.0-80.0) % Lymph % (Auto) (16.0-40.0) % [place] % (Auto) (0.0-15.0) % Eos % (Auto) (0.0-7.0) % Baso % (Auto) (0.0-1.5) % Neut # (Auto) (1.4-5.7) K/uL Lymph # (Auto) (0.6-2.4) K/uL [place] # (Auto) (0.0-0.8) K/uL Eos # (Auto) (0.0-0.7) K/uL Baso # (Auto) (0.0-0.1) K/uL Nucleated RBC % /100WBC Nucleated RBCs # K/uL INR APTT (18.6-31.3) SEC ABG pH 7.356 (7.35-7.45) ABG pCO2 65 H (35-45) mmHG ABG pO2 190 H (75-100) mmHG ABG HCO3 36 H (22-26) mEq/L ABG Total CO2 33.1 ABG Base Excess 8.5 H (-2.0-2.0) Lactate 1.1 (0.20-2.00) mmol/L Sodium (136-145) mmol/L Potassium (3.5-5.1) mmol/L Chloride (98-107) mmol/L Carbon Dioxide (21.0-32.0) mmol/L BUN (7.0-18.0) mg/dL Creatinine (0.6-1.0) mg/dL Est Cr Clr Drug Dosing Estimated GFR (MDRD) ml/min Glucose (74-106) mg/dL Calcium (8.5-10.1) mg/dL Total Bilirubin (0.2-1.0) mg/dL AST (15-37) IU/L ALT (14-63) IU/L Alkaline Phosphatase (46-116) U/L Ammonia 22 (19-54) ug/dL Troponin I (0.000-0.056) ng/mL Total Protein (6.4-8.2) g/dL Albumin (3.4-5.0) g/dL Globulin (2.6-4.0) g/dL Albumin/Globulin Ratio (0.9-1.6) TSH 3rd Generation (0.36-3.74) uIU/mL Urine Color Urine Appearance Urine pH (5.0-8.0) Ur Specific [place] (1.001-1.035) Urine Protein (NEGATIVE) mg/dL Urine Glucose (UA) (NEGATIVE) mg/dL Urine Ketones (NEGATIVE) mg/dL Urine Occult Blood (NEGATIVE) Urine Nitrite (NEGATIVE) Urine Bilirubin (NEGATIVE) Urine Urobilinogen (<2.0) EU/dL Ur Leukocyte Esterase (NEGATIVE) Urine Opiates Screen (NEGATIVE) Ur Oxycodone Screen (NEGATIVE) Urine Methadone Screen (NEGATIVE) Ur Barbiturates Screen (NEGATIVE) Ur Phencyclidine Scrn (NEGATIVE) Ur Amphetamine Screen (NEGATIVE) U Methamphetamines Scrn (NEGATIVE) U Benzodiazepines Scrn (NEGATIVE) U Cocaine Metab Screen (NEGATIVE) U Marijuana (THC) Screen (NEGATIVE) Ethyl Alcohol mg/dL Result Diagrams: 08/05/19 20:07 08/05/19 20:07 Cj Results Last 24 hrs: Microbiology 08/05/19 19:53 Influenza Type A Antigen Screen - Final Nasopharyngeal Swab NEGATIVE INFLUENZA A VIRUS AG REFERENCE RANGE: NEGATIVE Influenza Type B Antigen Screen - Final NEGATIVE INFLUENZA B VIRUS AG REFERENCE RANGE: NEGATIVE 08/05/19 20:21 Anaerobic Blood Culture - Final Blood - Venous - Lab Draw 08/05/19 20:07 Anaerobic Blood Culture - Final Blood - Venous *Q Meaningful Use (ADM) - VTE Risk Assess *Q Each Risk Factor Represents 1 Point: Age 41 - 59 years, Medical Patient Currently on Bedrest Total Score 1 Point Risk Factors: 2 - Problem List (1) Hypercapnic respiratory failure SNOMED Code(s): 886905372 ICD Code: J96.92 - RESPIRATORY FAILURE, UNSPECIFIED WITH HYPERCAPNIA Status : Acute Current Visit: Yes (2) Altered mental status SNOMED Code(s): 724150788 ICD Code: R41.82 - ALTERED MENTAL STATUS, UNSPECIFIED Status: Acute Priority: High Current Visit: Yes Qualifiers: Altered mental status type: disorientation Qualified Code(s): R41.0 - Disorientation, unspecified (3) Hypercarbia SNOMED Code(s): 66517820 ICD Code: R06.89 - OTHER ABNORMALITIES OF BREATHING Status: Acute Current Visit: Yes Problem List Initiated/Reviewed/Updated: Yes Orders Last 24hrs: Active Orders 24 hr Category Date Time Status Admission Status [Patient Status] [ADT] Stat ADT 08/05/19 21:18 Active Ambulate [RC] ASDIRECTED Care 08/05/19 21:31 Active Assess Neurological Status [RC] ASDIRECTED Care 08/05/19 18:59 Active BIPAP Adult [RT BiPAP/CPAP] [RC] ASDIRECTED Care 08/05/19 21:35 Active Bedrest [RC] ASDIRECTED Care 08/05/19 18:59 Active Blood Glucose Check, Bedside [RC] ONETIME Care 08/05/19 18:59 Active Cardiac Monitoring [RC] . DIRECTED Care 08/05/19 18:59 Active Cardiac Monitoring [RC] CONTINUOUS Care 08/05/19 21:32 Active EKG Documentation Completion [RC] STAT Care 08/05/19 18:59 Active Height and Weight [RC] UPON Care 08/05/19 18:59 Active Initiate Acute Stroke Protocol [RC] STAT Care 08/05/19 18:59 Active NIH Stroke Scale [RC] ASDIRECTED Care 08/05/19 18:59 Active Nursing Bedside Swallow Screen [RC] ASDIRECTED Care 08/05/19 18:59 Active Oxygen Therapy [RC] ASDIRECTED Care 08/05/19 18:59 Active Oxygen Therapy [RC] PRN Care 08/05/19 21:31 Active RT Aerosol Therapy [RC] ASDIRECTED Care 08/05/19 19:23 Active RT Aerosol Therapy [RC] ASDIRECTED Care 08/05/19 21:34 Active Stroke Education, General [RC] Click to Edit Care 08/05/19 18:59 Active VTE/DVT Education [RC] PER UNIT ROUTINE Care 08/05/19 21:31 Active Vital Signs [RC] Q15M Care 08/05/19 18:59 Active Vital Signs [RC] Q4H Care 08/05/19 21:31 Active PT Evaluation and Treatment [CONS] Routine Cons 08/05/19 21:31 Active Nothing per Oral Now Diet [DIET] Diet 08/05/19 Dinner Active CULTURE BLOOD [BC] Stat Lab 08/05/19 20:07 Results CULTURE BLOOD [BC] Stat Lab 08/05/19 20:21 Results Albuterol/Ipratropium [DuoNeb 3.0-0.5 MG/3 ML] Med 08/05/19 21:31 Active 3 ml NEB Q4HRRT PRN Heparin Sodium Med 08/05/19 21:45 Active 5,000 units SUBCUT Q8H Sodium Chloride 0.9% [Normal Saline] Med 08/05/19 18:59 Active 10 ml IV ASDIRECTED PRN Sodium Chloride 0.9% [Saline Flush] Med 08/05/19 18:59 Active 10 ml FLUSH ASDIRECTED PRN Sodium Chloride 0.9% [Saline Flush] Med 08/05/19 18:59 Active 2.5 ml FLUSH ASDIRECTED PRN Blood Culture x2 Reflex Set [OM.PC] Stat Oth 08/05/19 19:03 Ordered Peripheral IV Insertion Adult [OM.PC] Stat Oth 08/05/19 18:59 Ordered Peripheral IV Insertion Adult [OM.PC] Stat Oth 08/05/19 18:59 Ordered Resuscitation Status Routine Resus Stat 08/05/19 21:31 Ordered Medication Orders Albuterol/Ipratropium (Duoneb 3.0-0.5 Mg/3 Ml) 3 ml NEB Q4HRRT PRN PRN Reason: Shortness Of Breath/wheezing Heparin Sodium (Porcine) (Heparin Sodium) 5,000 units SUBCUT Q8H TRA Sodium Chloride (Saline Flush) 10 ml FLUSH ASDIRECTED PRN PRN Reason: Keep Vein Open Sodium Chloride (Saline Flush) 2.5 ml FLUSH ASDIRECTED PRN PRN Reason: Keep Vein Open Sodium Chloride (Normal Saline) 10 ml IV ASDIRECTED PRN PRN Reason: IV Use Assessment/Plan Comment:: A/P: Acute hypercapnic respiratory failure: could be due to progression of MS Hypercapnia likely cause of AMS, Rest of the work up in unremarkable CT scan negative Started on BIPAP, seems to be tolerating well Will f/u on repeat ABG NPO for now to prevent aspiration If Hypercapnia/ Mental status worsens might have to be intubated for airway protection Will cont to monitor closely EICU on board
[2019-08-06] MEDS: Heparin Sodium 5,000 Units/ML Vial SUBCUT SCH ×4 (00:04→20:45)
[2019-08-06] MEDS ORDERED: Sodium Chloride 0.9% 500 ML IV SCH (01:15)
[2019-08-06 06:47] LABS: CARBON DIOXIDE,CO2 33.7 mmol/L (21.0-32.0); POTASSIUM,K 4.5 mmol/L (3.5-5.1)
--- NOTE | 2019-08-06 07:03 | PCM.SN ---
- Free Text/Narrative Note: Anesthesia Time 0625 - 0700 Called by nursing as they have been unable to obtain ABG. Rt Radial pulse was palpated very weak. Alcohol prep was used. 23g needle was then introduced into the Rt radial artery, steady blood return noted. 1mL of blood was obtain and sent to lab for ABG. Pressure held for 5 minutes after puncture. Pt tolerated procedure well.
--- NOTE | 2019-08-06 07:54 | PCM.PN ---
- General Info Date of Service: 08/06/19 Admission Dx/Problem (Free Text): Admission Diagnosis/Problem Admission Diagnosis/Problem Altered mental status Subjective Update: Much more alert today. reports sinus congestion and congested cough. Reports a lot of wheezing recently as well. No chest pain and no pain noted. Functional Status: Reports: Pain Controlled, Tolerating Diet. Denies: Ambulating - Review of Systems HEENT: Reports: Sinus Congestion. Denies: Headaches, Sore Throat, Visual Changes Pulmonary: Reports: Shortness of Breath, Cough, Wheezing. Denies: Sputum Cardiovascular: Reports: No Symptoms Gastrointestinal: Reports: No Symptoms. Denies: Abdominal Pain, Nausea, Vomiting Genitourinary: Reports: No Symptoms. Denies: Dysuria, Frequency, Burning Musculoskeletal: Reports: No Symptoms Skin: Reports: No Symptoms Neurological: Reports: Other (hot flashes) Psychiatric: Reports: No Symptoms - Patient Data Vitals - Most Recent: Last Vital Signs Temp 98 F 08/06/19 04:00 Pulse 65 08/05/19 21:00 Resp 15 08/06/19 07:00 BP 111/61 08/06/19 07:00 Pulse Ox 94 L 08/06/19 07:00 Weight - Most Recent: 106.1 kg I&O - Last 24 Hours: Intake & Output 08/05/19 08/06/19 08/06/19 22:59 06:59 14:59 Intake Total 500 Output Total 850 Balance -350 Lab Results Last 24 Hours: Laboratory Results - last 24 hr 08/05/19 08/05/19 08/05/19 Range/Units 19:39 19:39 20:04 WBC (4.0-11.0) K/uL RBC (4.30-5.90) M/uL Hgb (12.0-16.0) g/dL Hct (36.0-46.0) % MCV (80.0-98.0) fL MCH (27.0-32.0) pg MCHC (31.0-37.0) g/dL RDW Std Deviation (28.0-62.0) fl RDW Coeff of Ade (11.0-15.0) % Plt Count (150-400) K/uL MPV (7.40-12.00) fL Neut % (Auto) (48.0-80.0) % Lymph % (Auto) (16.0-40.0) % [place] % (Auto) (0.0-15.0) % Eos % (Auto) (0.0-7.0) % Baso % (Auto) (0.0-1.5) % Neut # (Auto) (1.4-5.7) K/uL Lymph # (Auto) (0.6-2.4) K/uL [place] # (Auto) (0.0-0.8) K/uL Eos # (Auto) (0.0-0.7) K/uL Baso # (Auto) (0.0-0.1) K/uL Nucleated RBC % /100WBC Nucleated RBCs # K/uL INR APTT (18.6-31.3) SEC ABG pH 7.336 L (7.35-7.45) ABG pCO2 67 H (35-45) mmHG ABG pO2 90 (75-100) mmHG ABG HCO3 36 H (22-26) mEq/L ABG Total CO2 32.8 ABG Base Excess 7.6 H (-2.0-2.0) Lactate (0.20-2.00) mmol/L Sodium (136-145) mmol/L Potassium (3.5-5.1) mmol/L Chloride (98-107) mmol/L Carbon Dioxide (21.0-32.0) mmol/L BUN (7.0-18.0) mg/dL Creatinine (0.6-1.0) mg/dL Est Cr Clr Drug Dosing Estimated GFR (MDRD) ml/min Glucose (74-106) mg/dL Calcium (8.5-10.1) mg/dL Phosphorus (2.6-4.7) mg/dL Magnesium (1.8-2.4) mg/dL Total Bilirubin (0.2-1.0) mg/dL AST (15-37) IU/L ALT (14-63) IU/L Alkaline Phosphatase (46-116) U/L Ammonia (19-54) ug/dL Troponin I (0.000-0.056) ng/mL Total Protein (6.4-8.2) g/dL Albumin (3.4-5.0) g/dL Globulin (2.6-4.0) g/dL Albumin/Globulin Ratio (0.9-1.6) TSH 3rd Generation (0.36-3.74) uIU/mL Urine Color YELLOW Urine Appearance CLEAR Urine pH 5.5 (5.0-8.0) Ur Specific [place] <= 1.005 (1.001-1.035) Urine Protein NEGATIVE (NEGATIVE) mg/dL Urine Glucose (UA) NEGATIVE (NEGATIVE) mg/dL Urine Ketones NEGATIVE (NEGATIVE) mg/dL Urine Occult Blood NEGATIVE (NEGATIVE) Urine Nitrite NEGATIVE (NEGATIVE) Urine Bilirubin NEGATIVE (NEGATIVE) Urine Urobilinogen 0.2 (<2.0) EU/dL Ur Leukocyte Esterase NEGATIVE (NEGATIVE) Urine Opiates Screen NEGATIVE (NEGATIVE) Ur Oxycodone Screen NEGATIVE (NEGATIVE) Urine Methadone Screen NEGATIVE (NEGATIVE) Ur Barbiturates Screen NEGATIVE (NEGATIVE) Ur Phencyclidine Scrn NEGATIVE (NEGATIVE) Ur Amphetamine Screen NEGATIVE (NEGATIVE) U Methamphetamines Scrn NEGATIVE (NEGATIVE) U Benzodiazepines Scrn POSITIVE (NEGATIVE) U Cocaine Metab Screen NEGATIVE (NEGATIVE) U Marijuana (THC) Screen NEGATIVE (NEGATIVE) Ethyl Alcohol mg/dL 08/05/19 08/05/19 08/05/19 Range/Units 20:07 20:07 20:07 WBC 13.55 H (4.0-11.0) K/uL RBC 4.46 (4.30-5.90) M/uL Hgb 13.0 (12.0-16.0) g/dL Hct 41.7 (36.0-46.0) % MCV 93.5 (80.0-98.0) fL MCH 29.1 (27.0-32.0) pg MCHC 31.2 (31.0-37.0) g/dL RDW Std Deviation 56.7 (28.0-62.0) fl RDW Coeff of Ade 17 H (11.0-15.0) % Plt Count 171 (150-400) K/uL MPV 11.00 (7.40-12.00) fL Neut % (Auto) 81.9 H (48.0-80.0) % Lymph % (Auto) 7.0 L (16.0-40.0) % [place] % (Auto) 9.1 (0.0-15.0) % Eos % (Auto) 1.9 (0.0-7.0) % Baso % (Auto) 0.1 (0.0-1.5) % Neut # (Auto) 11.1 H (1.4-5.7) K/uL Lymph # (Auto) 1.0 (0.6-2.4) K/uL [place] # (Auto) 1.2 H (0.0-0.8) K/uL Eos # (Auto) 0.3 (0.0-0.7) K/uL Baso # (Auto) 0.0 (0.0-0.1) K/uL Nucleated RBC % 0.0 /100WBC Nucleated RBCs # 0 K/uL INR 0.90 APTT 31.0 (18.6-31.3) SEC ABG pH (7.35-7.45) ABG pCO2 (35-45) mmHG ABG pO2 (75-100) mmHG ABG HCO3 (22-26) mEq/L ABG Total CO2 ABG Base Excess (-2.0-2.0) Lactate (0.20-2.00) mmol/L Sodium 144 (136-145) mmol/L Potassium 4.4 (3.5-5.1) mmol/L Chloride 102 (98-107) mmol/L Carbon Dioxide 33.0 H (21.0-32.0) mmol/L BUN 14 (7.0-18.0) mg/dL Creatinine 1.3 H (0.6-1.0) mg/dL Est Cr Clr Drug Dosing TNP Estimated GFR (MDRD) 42.7 ml/min Glucose 83 (74-106) mg/dL Calcium 9.0 (8.5-10.1) mg/dL Phosphorus (2.6-4.7) mg/dL Magnesium (1.8-2.4) mg/dL Total Bilirubin 0.3 (0.2-1.0) mg/dL AST 18 (15-37) IU/L ALT 23 (14-63) IU/L Alkaline Phosphatase 144 H (46-116) U/L Ammonia (19-54) ug/dL Troponin I < 0.050 (0.000-0.056) ng/mL Total Protein 7.3 (6.4-8.2) g/dL Albumin 3.6 (3.4-5.0) g/dL Globulin 3.7 (2.6-4.0) g/dL Albumin/Globulin Ratio 1.0 (0.9-1.6) TSH 3rd Generation 2.62 (0.36-3.74) uIU/mL Urine Color Urine Appearance Urine pH (5.0-8.0) Ur Specific [place] (1.001-1.035) Urine Protein (NEGATIVE) mg/dL Urine Glucose (UA) (NEGATIVE) mg/dL Urine Ketones (NEGATIVE) mg/dL Urine Occult Blood (NEGATIVE) Urine Nitrite (NEGATIVE) Urine Bilirubin (NEGATIVE) Urine Urobilinogen (<2.0) EU/dL Ur Leukocyte Esterase (NEGATIVE) Urine Opiates Screen (NEGATIVE) Ur Oxycodone Screen (NEGATIVE) Urine Methadone Screen (NEGATIVE) Ur Barbiturates Screen (NEGATIVE) Ur Phencyclidine Scrn (NEGATIVE) Ur Amphetamine Screen (NEGATIVE) U Methamphetamines Scrn (NEGATIVE) U Benzodiazepines Scrn (NEGATIVE) U Cocaine Metab Screen (NEGATIVE) U Marijuana (THC) Screen (NEGATIVE) Ethyl Alcohol < 3.0 mg/dL 08/05/19 08/05/19 08/05/19 Range/Units 20:07 20:07 21:55 WBC (4.0-11.0) K/uL RBC (4.30-5.90) M/uL Hgb (12.0-16.0) g/dL Hct (36.0-46.0) % MCV (80.0-98.0) fL MCH (27.0-32.0) pg MCHC (31.0-37.0) g/dL RDW Std Deviation (28.0-62.0) fl RDW Coeff of Ade (11.0-15.0) % Plt Count (150-400) K/uL MPV (7.40-12.00) fL Neut % (Auto) (48.0-80.0) % Lymph % (Auto) (16.0-40.0) % [place] % (Auto) (0.0-15.0) % Eos % (Auto) (0.0-7.0) % Baso % (Auto) (0.0-1.5) % Neut # (Auto) (1.4-5.7) K/uL Lymph # (Auto) (0.6-2.4) K/uL [place] # (Auto) (0.0-0.8) K/uL Eos # (Auto) (0.0-0.7) K/uL Baso # (Auto) (0.0-0.1) K/uL Nucleated RBC % /100WBC Nucleated RBCs # K/uL INR APTT (18.6-31.3) SEC ABG pH 7.356 (7.35-7.45) ABG pCO2 65 H (35-45) mmHG ABG pO2 190 H (75-100) mmHG ABG HCO3 36 H (22-26) mEq/L ABG Total CO2 33.1 ABG Base Excess 8.5 H (-2.0-2.0) Lactate 1.1 (0.20-2.00) mmol/L Sodium (136-145) mmol/L Potassium (3.5-5.1) mmol/L Chloride (98-107) mmol/L Carbon Dioxide (21.0-32.0) mmol/L BUN (7.0-18.0) mg/dL Creatinine (0.6-1.0) mg/dL Est Cr Clr Drug Dosing Estimated GFR (MDRD) ml/min Glucose (74-106) mg/dL Calcium (8.5-10.1) mg/dL Phosphorus (2.6-4.7) mg/dL Magnesium (1.8-2.4) mg/dL Total Bilirubin (0.2-1.0) mg/dL AST (15-37) IU/L ALT (14-63) IU/L Alkaline Phosphatase (46-116) U/L Ammonia 22 (19-54) ug/dL Troponin I (0.000-0.056) ng/mL Total Protein (6.4-8.2) g/dL Albumin (3.4-5.0) g/dL Globulin (2.6-4.0) g/dL Albumin/Globulin Ratio (0.9-1.6) TSH 3rd Generation (0.36-3.74) uIU/mL Urine Color Urine Appearance Urine pH (5.0-8.0) Ur Specific [place] (1.001-1.035) Urine Protein (NEGATIVE) mg/dL Urine Glucose (UA) (NEGATIVE) mg/dL Urine Ketones (NEGATIVE) mg/dL Urine Occult Blood (NEGATIVE) Urine Nitrite (NEGATIVE) Urine Bilirubin (NEGATIVE) Urine Urobilinogen (<2.0) EU/dL Ur Leukocyte Esterase (NEGATIVE) Urine Opiates Screen (NEGATIVE) Ur Oxycodone Screen (NEGATIVE) Urine Methadone Screen (NEGATIVE) Ur Barbiturates Screen (NEGATIVE) Ur Phencyclidine Scrn (NEGATIVE) Ur Amphetamine Screen (NEGATIVE) U Methamphetamines Scrn (NEGATIVE) U Benzodiazepines Scrn (NEGATIVE) U Cocaine Metab Screen (NEGATIVE) U Marijuana (THC) Screen (NEGATIVE) Ethyl Alcohol mg/dL 08/06/19 08/06/19 08/06/19 Range/Units 00:13 01:30 06:16 WBC 8.96 (4.0-11.0) K/uL RBC 4.00 L (4.30-5.90) M/uL Hgb 11.4 L (12.0-16.0) g/dL Hct 37.9 (36.0-46.0) % MCV 94.8 (80.0-98.0) fL MCH 28.5 (27.0-32.0) pg MCHC 30.1 L (31.0-37.0) g/dL RDW Std Deviation 56.7 (28.0-62.0) fl RDW Coeff of Ade 17 H (11.0-15.0) % Plt Count 157 (150-400) K/uL MPV 11.40 (7.40-12.00) fL Neut % (Auto) 78.7 (48.0-80.0) % Lymph % (Auto) 10.4 L (16.0-40.0) % [place] % (Auto) 8.4 (0.0-15.0) % Eos % (Auto) 2.3 (0.0-7.0) % Baso % (Auto) 0.2 (0.0-1.5) % Neut # (Auto) 7.1 H (1.4-5.7) K/uL Lymph # (Auto) 0.9 (0.6-2.4) K/uL [place] # (Auto) 0.8 (0.0-0.8) K/uL Eos # (Auto) 0.2 (0.0-0.7) K/uL Baso # (Auto) 0.0 (0.0-0.1) K/uL Nucleated RBC % 0.0 /100WBC Nucleated RBCs # 0 K/uL INR APTT (18.6-31.3) SEC ABG pH 7.312 L 7.320 L (7.35-7.45) ABG pCO2 74 H 71 H (35-45) mmHG ABG pO2 99 93 (75-100) mmHG ABG HCO3 37 H 37 H (22-26) mEq/L ABG Total CO2 34.6 34.4 ABG Base Excess 8.5 H 8.4 H (-2.0-2.0) Lactate (0.20-2.00) mmol/L Sodium (136-145) mmol/L Potassium (3.5-5.1) mmol/L Chloride (98-107) mmol/L Carbon Dioxide (21.0-32.0) mmol/L BUN (7.0-18.0) mg/dL Creatinine (0.6-1.0) mg/dL Est Cr Clr Drug Dosing Estimated GFR (MDRD) ml/min Glucose (74-106) mg/dL Calcium (8.5-10.1) mg/dL Phosphorus (2.6-4.7) mg/dL Magnesium (1.8-2.4) mg/dL Total Bilirubin (0.2-1.0) mg/dL AST (15-37) IU/L ALT (14-63) IU/L Alkaline Phosphatase (46-116) U/L Ammonia (19-54) ug/dL Troponin I (0.000-0.056) ng/mL Total Protein (6.4-8.2) g/dL Albumin (3.4-5.0) g/dL Globulin (2.6-4.0) g/dL Albumin/Globulin Ratio (0.9-1.6) TSH 3rd Generation (0.36-3.74) uIU/mL Urine Color Urine Appearance Urine pH (5.0-8.0) Ur Specific [place] (1.001-1.035) Urine Protein (NEGATIVE) mg/dL Urine Glucose (UA) (NEGATIVE) mg/dL Urine Ketones (NEGATIVE) mg/dL Urine Occult Blood (NEGATIVE) Urine Nitrite (NEGATIVE) Urine Bilirubin (NEGATIVE) Urine Urobilinogen (<2.0) EU/dL Ur Leukocyte Esterase (NEGATIVE) Urine Opiates Screen (NEGATIVE) Ur Oxycodone Screen (NEGATIVE) Urine Methadone Screen (NEGATIVE) Ur Barbiturates Screen (NEGATIVE) Ur Phencyclidine Scrn (NEGATIVE) Ur Amphetamine Screen (NEGATIVE) U Methamphetamines Scrn (NEGATIVE) U Benzodiazepines Scrn (NEGATIVE) U Cocaine Metab Screen (NEGATIVE) U Marijuana (THC) Screen (NEGATIVE) Ethyl Alcohol mg/dL 08/06/19 08/06/19 Range/Units 06:16 06:55 WBC (4.0-11.0) K/uL RBC (4.30-5.90) M/uL Hgb (12.0-16.0) g/dL Hct (36.0-46.0) % MCV (80.0-98.0) fL MCH (27.0-32.0) pg MCHC (31.0-37.0) g/dL RDW Std Deviation (28.0-62.0) fl RDW Coeff of Ade (11.0-15.0) % Plt Count (150-400) K/uL MPV (7.40-12.00) fL Neut % (Auto) (48.0-80.0) % Lymph % (Auto) (16.0-40.0) % [place] % (Auto) (0.0-15.0) % Eos % (Auto) (0.0-7.0) % Baso % (Auto) (0.0-1.5) % Neut # (Auto) (1.4-5.7) K/uL Lymph # (Auto) (0.6-2.4) K/uL [place] # (Auto) (0.0-0.8) K/uL Eos # (Auto) (0.0-0.7) K/uL Baso # (Auto) (0.0-0.1) K/uL Nucleated RBC % /100WBC Nucleated RBCs # K/uL INR APTT (18.6-31.3) SEC ABG pH 7.380 (7.35-7.45) ABG pCO2 64 H (35-45) mmHG ABG pO2 88 (75-100) mmHG ABG HCO3 38 H (22-26) mEq/L ABG Total CO2 34.6 ABG Base Excess 10.2 H (-2.0-2.0) Lactate (0.20-2.00) mmol/L Sodium 145 (136-145) mmol/L Potassium 4.5 (3.5-5.1) mmol/L Chloride 105 (98-107) mmol/L Carbon Dioxide 33.7 H (21.0-32.0) mmol/L BUN 12 (7.0-18.0) mg/dL Creatinine 1.1 H (0.6-1.0) mg/dL Est Cr Clr Drug Dosing 46.24 Estimated GFR (MDRD) 51.8 ml/min Glucose 94 (74-106) mg/dL Calcium 8.8 (8.5-10.1) mg/dL Phosphorus 4.1 (2.6-4.7) mg/dL Magnesium 1.6 L (1.8-2.4) mg/dL Total Bilirubin (0.2-1.0) mg/dL AST (15-37) IU/L ALT (14-63) IU/L Alkaline Phosphatase (46-116) U/L Ammonia (19-54) ug/dL Troponin I (0.000-0.056) ng/mL Total Protein (6.4-8.2) g/dL Albumin (3.4-5.0) g/dL Globulin (2.6-4.0) g/dL Albumin/Globulin Ratio (0.9-1.6) TSH 3rd Generation (0.36-3.74) uIU/mL Urine Color Urine Appearance Urine pH (5.0-8.0) Ur Specific [place] (1.001-1.035) Urine Protein (NEGATIVE) mg/dL Urine Glucose (UA) (NEGATIVE) mg/dL Urine Ketones (NEGATIVE) mg/dL Urine Occult Blood (NEGATIVE) Urine Nitrite (NEGATIVE) Urine Bilirubin (NEGATIVE) Urine Urobilinogen (<2.0) EU/dL Ur Leukocyte Esterase (NEGATIVE) Urine Opiates Screen (NEGATIVE) Ur Oxycodone Screen (NEGATIVE) Urine Methadone Screen (NEGATIVE) Ur Barbiturates Screen (NEGATIVE) Ur Phencyclidine Scrn (NEGATIVE) Ur Amphetamine Screen (NEGATIVE) U Methamphetamines Scrn (NEGATIVE) U Benzodiazepines Scrn (NEGATIVE) U Cocaine Metab Screen (NEGATIVE) U Marijuana (THC) Screen (NEGATIVE) Ethyl Alcohol mg/dL Cj Results Last 24 Hours: Microbiology 08/05/19 19:53 Influenza Type A Antigen Screen - Final Nasopharyngeal Swab NEGATIVE INFLUENZA A VIRUS AG REFERENCE RANGE: NEGATIVE Influenza Type B Antigen Screen - Final NEGATIVE INFLUENZA B VIRUS AG REFERENCE RANGE: NEGATIVE 08/05/19 20:21 Anaerobic Blood Culture - Final Blood - Venous - Lab Draw 08/05/19 20:07 Anaerobic Blood Culture - Final Blood - Venous Med Orders - Current: Current Medications Albuterol/Ipratropium (Duoneb 3.0-0.5 Mg/3 Ml) 3 ml NEB Q4HRRT PRN PRN Reason: Shortness Of Breath/wheezing Heparin Sodium (Porcine) (Heparin Sodium) 5,000 units SUBCUT Q8H [facility] Last Admin: 08/06/19 06:27 Dose: 5,000 units Sodium Chloride (Normal Saline) 500 mls @ 999 mls/hr IV ASDIRECTED TRA Last Admin: 08/06/19 01:33 Dose: 999 mls/hr Sodium Chloride (Saline Flush) 10 ml FLUSH ASDIRECTED PRN PRN Reason: Keep Vein Open Sodium Chloride (Saline Flush) 2.5 ml FLUSH ASDIRECTED PRN PRN Reason: Keep Vein Open Sodium Chloride (Normal Saline) 10 ml IV ASDIRECTED PRN PRN Reason: IV Use Discontinued Medications Albuterol/Ipratropium (Duoneb 3.0-0.5 Mg/3 Ml) 3 ml NEB ONETIME ONE Stop: 08/05/19 19:24 Last Admin: 08/05/19 19:32 Dose: 3 ml - Exam General: Alert, Oriented, Cooperative, No Acute Distress Lungs: Decreased Breath Sounds, Crackles, Wheezing. No: Normal Respiratory Effort Cardiovascular: Regular Rate, Regular Rhythm Extremities: Normal Inspection, Normal Range of Motion, Pedal Edema (+1 edema, reports at baseline) Neurological: No New Focal Deficit Psy/Mental Status: Alert, Normal Affect, Normal Mood - Problem List & Annotations (1) Hypercapnic respiratory failure SNOMED Code(s): 488369624 Code(s): J96.92 - RESPIRATORY FAILURE, UNSPECIFIED WITH HYPERCAPNIA Status : Acute Current Visit: Yes (2) Altered mental status SNOMED Code(s): 329194173 Code(s): R41.82 - ALTERED MENTAL STATUS, UNSPECIFIED Status: Acute Priority: High Current Visit: Yes Qualifiers: Altered mental status type: disorientation Qualified Code(s): R41.0 - Disorientation, unspecified (3) COPD (chronic obstructive pulmonary disease) SNOMED Code(s): 10731466 Code(s): J44.9 - CHRONIC OBSTRUCTIVE PULMONARY DISEASE, UNSPECIFIED Status : Acute Current Visit: Yes Qualifiers: COPD type: COPD with acute exacerbation Qualified Code(s): J44.1 - Chronic obstructive pulmonary disease with (acute) exacerbation (4) Total self-care deficit SNOMED Code(s): 16713250 Code(s): R41.89 - OTH SYMPTOMS AND SIGNS W COGNITIVE FUNCTIONS AND AWARENESS Status: Acute Current Visit: No (5) Multiple sclerosis SNOMED Code(s): 90895320 Code(s): G35 - MULTIPLE SCLEROSIS Status: Chronic Priority: High Current Visit: No - Problem List Review Problem List Initiated/Reviewed/Updated: Yes - Plan Plan:: This 54 year old female admitted with Acute hypercapnic/hypoxic respiratory failure and AMS 1. Acute hypercapnic/hypoxic respiratory failure: Improving, placed on Bipap. Monitor ABGs for improving CO2. Likely multifactorial, could be due to progression of MS, large number of sedating home medications and COPD exacerbation from URI. 2. COPD exacerbation: Will add steroids and Levaquin for COPD exacerbation. CT of chest negative for infiltrate. Schedule Duonebs. Again monitor ABGs, d/c Bipap with CO2 improves. 3. MS: Stable, complaining of hot flashes. No pain noted. Consult ST for swallow evaluation, consider progression in MS with concerns of swallowing and breathing disruption. VTE prophylaxis: Heparin Dispo: 2-3 days pending improvement.
--- NOTE | 2019-08-06 07:58 | PN ---
[facility] Physician - Brief Progress [id number]/14/2019 07:42[facility] Regla Mcgee, [place] - [facility]OU[facility] - [facility]ENTERDAJAJESUS ALBERTO DONATOScottDate of Service 08/06/2019 07:42HPI/Lorna nts of Note Chart reviewed and case d/w Dr Woodward. On camera, the patient is lying in bed on BIPAP, appears in NAD and no use of accessory respiratory muscles. Mrs Alas was brought to the hospital because he family could not wake her up. In ED, she was alert and oriented but drowsy. ABG showed hyp ercapnia higher than her baseline. She was placed on BIPAP.PMH: severe progressive MS, recurrent PNA and UTI.Investigations reviewed - pertinent: ABG 10/2018 7.39, pCO2 47, bicarb 27.Admisison ABG 7.33/ 67 - 7.31/74 - 7.32/71CxR: MAYDA/EA/P:Acute on chronic hypercapnic respiratory failure.Likely a combina tion of worsening MS, and possibly related to several sedating medicaitons at home (Baclofen, Valium, Trazodone, Neurontin).Hold any meds which can contribute to sedation until mental status normalizes and pH normalizes.ABG seem to reflect progression of her baseline hypercapnia compared to 10/2018, whe n looking at the change in bicarb.Consider home BIPAP at night.Also may want to discuss possible pall iative care and quality of life if her respiratory failure continues to progress.GI/DVT prophylaxis - Heparin SC.Interventions Major-Respiratory failure - evaluation and management
[2019-08-06] MEDS ORDERED: methylPREDNISolone Sodium Succinate 125 MG/2 ML SDV IVPUSH ONE (08:46)
[2019-08-06] MEDS: guaiFENesin 600 MG Tab.ER PO SCH ×2 (09:52→20:01)
[2019-08-06] MEDS: Levofloxacin/Dextrose 5%-Water 750 MG in Premix Bag 1 BAG IV SCH (10:13)
[2019-08-06] MEDS: Albuterol/Ipratropium 3.0-0.5 MG/3 ML Neb Soln NEB SCH ×4 (10:24→21:34)
[2019-08-06] MEDS: Teriflunomide [Aubagio] 14 MG PO SCH (12:15)
[2019-08-06] MEDS: Fluticasone Propionate Nasal Spray 16 GM Bottle NASBOTH SCH (13:38)
[2019-08-06] MEDS ORDERED: Acetaminophen 325 MG Tab PO PRN (14:37)
[2019-08-06] MEDS ORDERED: Pantoprazole 40 MG Tab.CR ONE (15:11)
[2019-08-06] MEDS ORDERED: Magnesium Sulfate/Water 4 GM in Premix Bag 1 BAG IV ONE (18:40)
[2019-08-06] MEDS: methylPREDNISolone Sodium Succinate 40 MG/1 ML SDV IVPUSH SCH (18:48)
[2019-08-06] MEDS: Ondansetron 4 MG/2 ML SDV IVPUSH PRN (18:49)
[2019-08-06] MEDS ORDERED: LORazepam 1 MG Tab PO ONE (19:45)
[2019-08-06] MEDS: DULoxetine 30 MG Cap PO SCH (20:01)
[2019-08-07] MEDS: Albuterol/Ipratropium 3.0-0.5 MG/3 ML Neb Soln NEB SCH ×6 (01:57→21:11)
[2019-08-07] MEDS: Fluticasone Propionate Nasal Spray 16 GM Bottle NASBOTH SCH ×2 (02:33→10:02)
[2019-08-07] MEDS: methylPREDNISolone Sodium Succinate 40 MG/1 ML SDV IVPUSH SCH ×3 (03:23→18:21)
[2019-08-07 05:58] LABS: CARBON DIOXIDE,CO2 28.5 mmol/L (21.0-32.0); POTASSIUM,K 4.1 mmol/L (3.5-5.1)
[2019-08-07] MEDS: Heparin Sodium 5,000 Units/ML Vial SUBCUT SCH ×3 (06:14→21:04)
--- NOTE | 2019-08-07 08:48 | PCM.PN ---
- General Info Date of Service: 08/07/19 Admission Dx/Problem (Free Text): Admission Diagnosis/Problem Admission Diagnosis/Problem Altered mental status Subjective Update: Feeling improved today, still has congested moist cough. Unable to produce much sputum. Nursing helping with IS and acapella as well as some Chest PT. Tolerated Bipap overnight. No chest pain this morning, having some nausea intermittently. Functional Status: Reports: Pain Controlled, Tolerating Diet. Denies: Ambulating - Review of Systems General: Reports: Fatigue, Malaise HEENT: Reports: Sinus Congestion. Denies: Ear Pain, Headaches, Visual Changes Pulmonary: Reports: Shortness of Breath, Cough, Wheezing. Denies: Sputum Cardiovascular: Reports: No Symptoms. Denies: Chest Pain Gastrointestinal: Reports: Nausea. Denies: Abdominal Pain, Vomiting Genitourinary: Reports: No Symptoms Musculoskeletal: Reports: No Symptoms Skin: Reports: No Symptoms Neurological: Reports: No Symptoms Psychiatric: Reports: No Symptoms - Patient Data Vitals - Most Recent: Last Vital Signs Temp 97.8 F 08/07/19 04:00 Pulse 65 08/05/19 21:00 Resp 23 H 08/07/19 07:00 BP 112/60 08/07/19 07:00 Pulse Ox 91 L 08/07/19 07:00 Weight - Most Recent: 105.2 kg I&O - Last 24 Hours: Intake & Output 08/06/19 08/07/19 08/07/19 22:59 06:59 14:59 Intake Total 340 150 Output Total 1025 450 Balance -685 -300 Lab Results Last 24 Hours: Laboratory Results - last 24 hr 08/06/19 08/07/19 08/07/19 Range/Units 12:04 05:25 05:25 WBC 8.11 (4.0-11.0) K/uL RBC 4.09 L (4.30-5.90) M/uL Hgb 11.5 L (12.0-16.0) g/dL Hct 37.3 (36.0-46.0) % MCV 91.2 (80.0-98.0) fL MCH 28.1 (27.0-32.0) pg MCHC 30.8 L (31.0-37.0) g/dL RDW Std Deviation 54.1 (28.0-62.0) fl RDW Coeff of Ade 17 H (11.0-15.0) % Plt Count 171 (150-400) K/uL MPV 10.40 (7.40-12.00) fL Neut % (Auto) 90.9 H (48.0-80.0) % Lymph % (Auto) 5.3 L (16.0-40.0) % Finney % (Auto) 3.8 (0.0-15.0) % Eos % (Auto) 0.0 (0.0-7.0) % Baso % (Auto) 0.0 (0.0-1.5) % Neut # (Auto) 7.4 H (1.4-5.7) K/uL Lymph # (Auto) 0.4 L (0.6-2.4) K/uL Finney # (Auto) 0.3 (0.0-0.8) K/uL Eos # (Auto) 0.0 (0.0-0.7) K/uL Baso # (Auto) 0.0 (0.0-0.1) K/uL Nucleated RBC % 0.0 /100WBC Nucleated RBCs # 0 K/uL ABG pH 7.529 H (7.35-7.45) ABG pCO2 39 (35-45) mmHG ABG pO2 63 L (75-100) mmHG ABG HCO3 33 H (22-26) mEq/L ABG Total CO2 29.3 ABG Base Excess 9.3 H (-2.0-2.0) Sodium 140 (136-145) mmol/L Potassium 4.1 (3.5-5.1) mmol/L Chloride 103 (98-107) mmol/L Carbon Dioxide 28.5 (21.0-32.0) mmol/L BUN 15 (7.0-18.0) mg/dL Creatinine 1.2 H (0.6-1.0) mg/dL Est Cr Clr Drug Dosing 42.39 mL/min Estimated GFR (MDRD) 46.8 ml/min Glucose 158 H (74-106) mg/dL Calcium 9.3 (8.5-10.1) mg/dL Magnesium 2.1 (1.8-2.4) mg/dL Cj Results Last 24 Hours: Microbiology 08/05/19 20:21 Aerobic Blood Culture - Preliminary Blood - Venous - Lab Draw NO GROWTH AFTER 1 DAY Anaerobic Blood Culture - Final 08/05/19 20:07 Aerobic Blood Culture - Preliminary Blood - Venous NO GROWTH AFTER 1 DAY Anaerobic Blood Culture - Final Med Orders - Current: Current Medications Acetaminophen (Tylenol) 650 mg PO Q4H PRN PRN Reason: Pain Albuterol/Ipratropium (Duoneb 3.0-0.5 Mg/3 Ml) 3 ml NEB Q4HRRT [facility] Last Admin: 08/07/19 01:57 Dose: 3 ml Cholecalciferol (Vitamin D3) 25 mcg PO DAILY [facility] Diazepam (Valium.) 5 mg PO BID PRN PRN Reason: Anxiety Duloxetine HCl (Cymbalta) 30 mg PO BEDTIME [facility] Last Admin: 08/06/19 20:01 Dose: 30 mg Duloxetine HCl (Cymbalta) 60 mg PO DAILY [facility] Fluticasone Propionate (Flonase) 0 gm NASBOTH DAILY [facility] Last Admin: 08/07/19 02:33 Dose: 1 spray Guaifenesin (Mucinex) 600 mg PO BID [facility] Last Admin: 08/06/19 20:01 Dose: 600 mg Heparin Sodium (Porcine) (Heparin Sodium) 5,000 units SUBCUT Q8H [facility] Last Admin: 08/07/19 06:14 Dose: 5,000 units Levofloxacin/Dextrose 750 mg/ (Premix) 150 mls @ 100 mls/hr IV Q48H [facility] Last Admin: 08/06/19 10:13 Dose: 100 mls/hr Pantoprazole Sodium 40 mg/ (Sodium Chloride) 10 mls @ 300 mls/hr IV DAILY [facility] Methylprednisolone Sodium Succinate (Solu-Medrol) 40 mg IVPUSH Q8H [facility] Last Admin: 08/07/19 03:23 Dose: 40 mg Ondansetron HCl (Zofran) 4 mg IVPUSH Q4H PRN PRN Reason: Nausea Last Admin: 08/06/19 18:49 Dose: 4 mg Teriflunomide [ (Aubagio] 14 Mg) 1 each PO DAILY [facility] Last Admin: 08/06/19 12:15 Dose: 1 each Sodium Chloride (Saline Flush) 10 ml FLUSH ASDIRECTED PRN PRN Reason: Keep Vein Open Sodium Chloride (Saline Flush) 2.5 ml FLUSH ASDIRECTED PRN PRN Reason: Keep Vein Open Sodium Chloride (Normal Saline) 10 ml IV ASDIRECTED PRN PRN Reason: IV Use Discontinued Medications Albuterol/Ipratropium (Duoneb 3.0-0.5 Mg/3 Ml) 3 ml NEB ONETIME ONE Stop: 08/05/19 19:24 Last Admin: 08/05/19 19:32 Dose: 3 ml Albuterol/Ipratropium (Duoneb 3.0-0.5 Mg/3 Ml) 3 ml NEB Q4HRRT PRN PRN Reason: Shortness Of Breath/wheezing Last Admin: 08/06/19 07:56 Dose: 3 ml Sodium Chloride (Normal Saline) 500 mls @ 999 mls/hr IV ASDIRECTED [facility] Last Admin: 08/06/19 01:33 Dose: 999 mls/hr Magnesium Sulfate 4 gm/ Premix 100 mls @ 50 mls/hr IV ONETIME ONE Stop: 08/06/19 20:39 Last Admin: 08/06/19 18:56 Dose: 50 mls/hr Lorazepam (Ativan) 1 mg PO ONETIME ONE Stop: 08/06/19 19:46 Last Admin: 08/06/19 20:45 Dose: 1 mg Methylprednisolone Sodium Succinate (Solu-Medrol) 125 mg IVPUSH ONETIME ONE Stop: 08/06/19 08:47 Last Admin: 08/06/19 09:52 Dose: 125 mg Pantoprazole Sodium (Protonix) 40 mg PO DAILY [facility] Last Admin: 08/06/19 15:11 Dose: 40 mg Pantoprazole Sodium (Protonix) Confirm Administered Dose 40 mg .ROUTE .STK- MED ONE Stop: 08/06/19 15:12 Last Admin: 08/06/19 15:18 Dose: Not Given - Exam General: Alert, Oriented, Cooperative, No Acute Distress Lungs: Decreased Breath Sounds, Crackles, Rhonchi, Wheezing. No: Normal Respiratory Effort (dyspnea with speech) Cardiovascular: Regular Rate, Regular Rhythm GI/Abdominal Exam: Normal Bowel Sounds, Soft, Non-Tender Extremities: Normal Inspection, Normal Range of Motion, Non-Tender, Pedal Edema (+1 bilateral) Neurological: No New Focal Deficit Psy/Mental Status: Alert, Normal Affect, Normal Mood - Problem List & Annotations (1) Hypercapnic respiratory failure SNOMED Code(s): 671539918 Code(s): J96.92 - RESPIRATORY FAILURE, UNSPECIFIED WITH HYPERCAPNIA Status : Acute Current Visit: Yes Qualifiers: Chronicity: acute on chronic Qualified Code(s): J96.22 - Acute and chronic respiratory failure with hypercapnia (2) Altered mental status SNOMED Code(s): 479536891 Code(s): R41.82 - ALTERED MENTAL STATUS, UNSPECIFIED Status: Acute Priority: High Current Visit: Yes Qualifiers: Altered mental status type: disorientation Qualified Code(s): R41.0 - Disorientation, unspecified (3) COPD (chronic obstructive pulmonary disease) SNOMED Code(s): 50485721 Code(s): J44.9 - CHRONIC OBSTRUCTIVE PULMONARY DISEASE, UNSPECIFIED Status : Acute Current Visit: Yes Qualifiers: COPD type: COPD with acute exacerbation Qualified Code(s): J44.1 - Chronic obstructive pulmonary disease with (acute) exacerbation (4) Total self-care deficit SNOMED Code(s): 18588040 Code(s): R41.89 - OT SYMPTOMS AND SIGNS W COGNITIVE FUNCTIONS AND AWARENESS Status: Acute Current Visit: No (5) Multiple sclerosis SNOMED Code(s): 69953515 Code(s): G35 - MULTIPLE SCLEROSIS Status: Chronic Priority: High Current Visit: No - Problem List Review Problem List Initiated/Reviewed/Updated: Yes - My Orders Last 24 Hours: My Active Orders 08/06/19 08:45 Consult to Speech Language Pathology [M[employer] Evaluation and Treatment] [CONS] Routine 08/06/19 09:00 guaiFENesin [Mucinex] 600 mg PO BID 08/06/19 09:45 Levofloxacin/Dextrose 5%-Water [Levaquin in D5W 750 MG/150 ML] 750 mg Premix Bag 1 bag IV Q48H 08/06/19 10:00 Albuterol/Ipratropium [DuoNeb 3.0-0.5 MG/3 ML] 3 ml NEB Q4HRRT 08/06/19 10:08 Flutter Valve Therapy [RT Chest Physiotherapy] [RC] ASDIRECTED 08/06/19 12:15 Patient's Own Medication [Ptom] 1 each PO DAILY 08/06/19 13:15 Fluticasone Propionate [Flonase] See Dose Instructions NASBOTH DAILY 08/06/19 13:32 diazePAM [Valium] 5 mg PO BID PRN 08/06/19 14:06 Communication Order [RC] PRN 08/06/19 14:37 Acetaminophen [Tylenol] 650 mg PO Q4H PRN 08/06/19 19:00 methylPREDNISolone Sod Succ [Solu-MEDROL] 40 mg IVPUSH Q8H 08/06/19 21:00 DULoxetine [Cymbalta] 30 mg PO BEDTIME 08/06/19 Lunch Pureed Diet [DIET] 08/07/19 09:00 Cholecalciferol (Vitamin D3) [Vitamin D3] 25 mcg PO DAILY DULoxetine [Cymbalta] 60 mg PO DAILY 08/08/19 05:11 BMP [BASIC METABOLIC PANEL,BMP] [CHEM] AM CBC WITH AUTO DIFF [HEME] AM MAGNESIUM [CHEM] AM 08/09/19 05:11 BMP [BASIC METABOLIC PANEL,BMP] [CHEM] AM CBC WITH AUTO DIFF [HEME] AM MAGNESIUM [CHEM] AM - Plan Plan:: This 54 year old female admitted with Acute hypercapnic/hypoxic respiratory failure and AMS 1. Acute hypercapnic/hypoxic respiratory failure: Resolved, after being placed on Bipap. Likely multifactorial, chronic and could be due to progression of MS , large number of sedating home medications and COPD exacerbation from URI. Continue Bipap at night. Slowly add back home medications and monitor sedation. 2. COPD exacerbation: Wheezing improving, continue Steroids now and Levaquin for COPD exacerbation. Repeat CXR this morning. Schedule Duonebs. Continue to wean oxygen as possible. 3. MS: Stable, complaining of hot flashes. No pain noted. Consult ST for swallow evaluation, consider progression in MS with concerns of swallowing and breathing disruption. VTE prophylaxis: Heparin GI prophylaxis: Protonix Dispo: 2-3 days pending improvement.
[2019-08-07] MEDS ORDERED: Pantoprazole 40 MG Tab.CR PO SCH (09:00)
[2019-08-07] MEDS ORDERED: Furosemide 20 MG/2 ML VIAL IVPUSH ONE ×2 (09:25→15:51)
[2019-08-07] MEDS ORDERED: traMADol 50 MG Tab PO PRN (09:27)
--- NOTE | 2019-08-07 09:42 | PN ---
THC Physician - Brief Progress [id number]/15/2019 09:33[facility] Birch Regla franz, JUAN DANIEL - MWN (GERMAINE) - [facility]ENTERLOYDAGUTIERREZJESUS ALBERTO RoderickDate of Service 08/07/2019 09:33HPI/Lorna nts of Note eICU Progress [id number] admitted for acute on chronic hypercapnic respiratory failure. Hist ory obtained primarily from review of EMR.Camera exam: Sitting up in chair Vitals monitor reviewed.Vi tals: reviewedLabs: reviewedRadiology: reviewedMeds: reviewedeICU Impression and Recommendations:Acut e on chronic hypercapnic respiratory failure, resolvedSuggest cautious re-introduction of any necessa ry medication that can cause sedationConsider BPAP titration while inpatient and discharge on BPAP - if not, would recommend patient has at least 1 AM ABG done without BPAP overnight to rule out recurre nce of decompensated hypercapnic respiratory faliureDVT and GI prophylaxis as appropriate.We are avai lable to assist in further clarification, or implementation of any of the above recommendations if de sired by primary service.Thank you for allowing us to participate in the care of this patient.The abo ve note transcribed via dictation software. Please excuse any errors.Interventions Major-Hypercarbia - evaluation and management
--- NOTE | 2019-08-07 09:46 | CR ---
CHEST 1 VIEW AP INDICATION: Dyspnea IMPRESSION: Normal heart size and vascular pattern. Lungs are clear. No pneumothorax or pleural effusion. ECG Monitor leads projected over the patient. Scoliosis of the thoracic spine. No change since prior exam 08/05/2019. Dictated by Andrade Black MD @ Aug 07 2019 9:46AM Signed by Dr. Andrade Black @ Aug 07 2019 9:46AM
[2019-08-07] MEDS: Pantoprazole 40 MG in Sodium Chloride 0.9% 10 ML IV SCH (10:01)
[2019-08-07] MEDS: Cholecalciferol (Vitamin D3) 25 MCG Tab PO SCH (10:02)
[2019-08-07] MEDS: Teriflunomide [Aubagio] 14 MG PO SCH (10:02)
[2019-08-07] MEDS: DULoxetine 60 MG Cap PO SCH (10:02)
[2019-08-07] MEDS: guaiFENesin 600 MG Tab.ER PO SCH ×2 (10:02→21:06)
[2019-08-07] MEDS: Baclofen 10 MG Tab PO SCH ×2 (10:02→21:06)
[2019-08-07] MEDS: DULoxetine 30 MG Cap PO SCH (21:05)
[2019-08-07] MEDS: Latanoprost 0.005% Ophth Soln 2.5 ML Bottle EYEBOTH SCH (21:13)
[2019-08-07] MEDS: Ondansetron 4 MG/2 ML SDV IVPUSH PRN (21:33)
[2019-08-08] MEDS: Albuterol/Ipratropium 3.0-0.5 MG/3 ML Neb Soln NEB SCH ×6 (01:43→21:38)
[2019-08-08] MEDS: Ondansetron 4 MG/2 ML SDV IVPUSH PRN ×5 (01:44→21:37)
[2019-08-08] MEDS: methylPREDNISolone Sodium Succinate 40 MG/1 ML SDV IVPUSH SCH ×2 (03:21→21:28)
[2019-08-08] MEDS: Heparin Sodium 5,000 Units/ML Vial SUBCUT SCH ×3 (05:41→21:28)
[2019-08-08 06:35] LABS: CARBON DIOXIDE,CO2 29.6 mmol/L (21.0-32.0); POTASSIUM,K 3.8 mmol/L (3.5-5.1)
[2019-08-08] MEDS: Cholecalciferol (Vitamin D3) 25 MCG Tab PO SCH (09:40)
[2019-08-08] MEDS: Furosemide 40 MG Tab PO SCH (09:40)
[2019-08-08] MEDS: guaiFENesin 600 MG Tab.ER PO SCH ×2 (09:40→21:27)
[2019-08-08] MEDS: Baclofen 10 MG Tab PO SCH ×2 (09:40→21:26)
[2019-08-08] MEDS: DULoxetine 60 MG Cap PO SCH (09:40)
[2019-08-08] MEDS: Fluticasone Propionate Nasal Spray 16 GM Bottle NASBOTH SCH (09:41)
[2019-08-08] MEDS: Teriflunomide [Aubagio] 14 MG PO SCH (09:41)
[2019-08-08] MEDS: Pantoprazole 40 MG in Sodium Chloride 0.9% 10 ML IV SCH (09:49)
[2019-08-08] MEDS: Levofloxacin/Dextrose 5%-Water 750 MG in Premix Bag 1 BAG IV SCH (10:02)
--- NOTE | 2019-08-08 11:15 | PCM.PN ---
<Adin Alfaro - Last Filed: 08/08/19 14:08> - General Info Date of Service: 08/08/19 Subjective Update: no acute events overnight. patient feeling better but states she was not able to sleep overnight. Denies any chest pain, dysuria, blood in stool. - Patient Data Vitals - Most Recent: Last Vital Signs Temp 36.8 C 08/08/19 07:48 Pulse 80 08/08/19 07:48 Resp 18 08/08/19 07:48 BP 124/84 08/08/19 07:48 Pulse Ox 94 L 08/08/19 07:48 Weight - Most Recent: 106.64 kg I&O - Last 24 Hours: Intake & Output 08/07/19 08/08/19 08/08/19 22:59 06:59 14:59 Intake Total 50 200 Output Total 1230 1100 Balance -1180 -900 Lab Results Last 24 Hours: Laboratory Results - last 24 hr 08/08/19 08/08/19 Range/Units 05:55 05:55 WBC 13.89 H (4.0-11.0) K/uL RBC 4.05 L (4.30-5.90) M/uL Hgb 11.6 L (12.0-16.0) g/dL Hct 36.8 (36.0-46.0) % MCV 90.9 (80.0-98.0) fL MCH 28.6 (27.0-32.0) pg MCHC 31.5 (31.0-37.0) g/dL RDW Std Deviation 54.4 (28.0-62.0) fl RDW Coeff of Ade 17 H (11.0-15.0) % Plt Count 191 (150-400) K/uL MPV 11.40 (7.40-12.00) fL Neut % (Auto) 91.9 H (48.0-80.0) % Lymph % (Auto) 4.1 L (16.0-40.0) % Ogle % (Auto) 3.9 (0.0-15.0) % Eos % (Auto) 0.0 (0.0-7.0) % Baso % (Auto) 0.1 (0.0-1.5) % Neut # (Auto) 12.8 H (1.4-5.7) K/uL Lymph # (Auto) 0.6 (0.6-2.4) K/uL Ogle # (Auto) 0.5 (0.0-0.8) K/uL Eos # (Auto) 0.0 (0.0-0.7) K/uL Baso # (Auto) 0.0 (0.0-0.1) K/uL Nucleated RBC % 0.0 /100WBC Nucleated RBCs # 0 K/uL Sodium 138 (136-145) mmol/L Potassium 3.8 (3.5-5.1) mmol/L Chloride 100 (98-107) mmol/L Carbon Dioxide 29.6 (21.0-32.0) mmol/L BUN 29 H (7.0-18.0) mg/dL Creatinine 1.2 H (0.6-1.0) mg/dL Est Cr Clr Drug Dosing 42.39 mL/min Estimated GFR (MDRD) 46.8 ml/min Glucose 150 H (74-106) mg/dL Calcium 9.4 (8.5-10.1) mg/dL Magnesium 2.0 (1.8-2.4) mg/dL Cj Results Last 24 Hours: Microbiology 08/05/19 20:21 Aerobic Blood Culture - Preliminary Blood - Venous - Lab Draw NO GROWTH AFTER 2 DAYS Anaerobic Blood Culture - Final 08/05/19 20:07 Aerobic Blood Culture - Preliminary Blood - Venous NO GROWTH AFTER 2 DAYS Anaerobic Blood Culture - Final Med Orders - Current: Current Medications Acetaminophen (Tylenol) 650 mg PO Q4H PRN PRN Reason: Pain Albuterol/Ipratropium (Duoneb 3.0-0.5 Mg/3 Ml) 3 ml NEB Q4HRRT [facility] Last Admin: 08/08/19 10:22 Dose: Not Given Baclofen (Lioresal) 20 mg PO BID [facility] Last Admin: 08/08/19 09:40 Dose: 20 mg Cholecalciferol (Vitamin D3) 25 mcg PO DAILY [facility] Last Admin: 08/08/19 09:40 Dose: 25 mcg Diazepam (Valium.) 5 mg PO BID PRN PRN Reason: Anxiety Duloxetine HCl (Cymbalta) 30 mg PO BEDTIME [facility] Last Admin: 08/07/19 21:05 Dose: 30 mg Duloxetine HCl (Cymbalta) 60 mg PO DAILY [facility] Last Admin: 08/08/19 09:40 Dose: 60 mg Fluticasone Propionate (Flonase) 0 gm NASBOTH DAILY [facility] Last Admin: 08/08/19 09:41 Dose: 1 spray Furosemide (Lasix) 40 mg PO DAILY [facility] Last Admin: 08/08/19 09:40 Dose: 40 mg Guaifenesin (Mucinex) 600 mg PO BID [facility] Last Admin: 08/08/19 09:40 Dose: 600 mg Heparin Sodium (Porcine) (Heparin Sodium) 5,000 units SUBCUT Q8H [facility] Last Admin: 08/08/19 05:41 Dose: 5,000 units Levofloxacin/Dextrose 750 mg/ (Premix) 150 mls @ 100 mls/hr IV Q48H [facility] Last Admin: 08/08/19 10:02 Dose: 100 mls/hr Pantoprazole Sodium 40 mg/ (Sodium Chloride) 10 mls @ 300 mls/hr IV DAILY [facility] Last Admin: 08/08/19 09:49 Dose: 300 mls/hr Latanoprost (Xalatan 0.005% Ophth Soln) 0 ml EYEBOTH BEDTIME [facility] Last Admin: 08/07/19 21:13 Dose: 1 drop Methylprednisolone Sodium Succinate (Solu-Medrol) 40 mg IVPUSH BID [facility] Ondansetron HCl (Zofran) 4 mg IVPUSH Q4H PRN PRN Reason: Nausea Last Admin: 08/08/19 09:58 Dose: 4 mg Teriflunomide [ (Aubagio] 14 Mg) 1 each PO DAILY [facility] Last Admin: 08/08/19 09:41 Dose: 1 each Sodium Chloride (Saline Flush) 10 ml FLUSH ASDIRECTED PRN PRN Reason: Keep Vein Open Sodium Chloride (Saline Flush) 2.5 ml FLUSH ASDIRECTED PRN PRN Reason: Keep Vein Open Sodium Chloride (Normal Saline) 10 ml IV ASDIRECTED PRN PRN Reason: IV Use Tramadol HCl (Ultram) 50 mg PO Q12H PRN PRN Reason: Pain Discontinued Medications Albuterol/Ipratropium (Duoneb 3.0-0.5 Mg/3 Ml) 3 ml NEB ONETIME ONE Stop: 08/05/19 19:24 Last Admin: 08/05/19 19:32 Dose: 3 ml Albuterol/Ipratropium (Duoneb 3.0-0.5 Mg/3 Ml) 3 ml NEB Q4HRRT PRN PRN Reason: Shortness Of Breath/wheezing Last Admin: 08/06/19 07:56 Dose: 3 ml Furosemide (Lasix) 20 mg IVPUSH ONETIME ONE Stop: 08/07/19 09:26 Last Admin: 08/07/19 10:01 Dose: 20 mg Furosemide (Lasix) 20 mg IVPUSH ONETIME ONE Stop: 08/07/19 15:52 Last Admin: 08/07/19 17:37 Dose: 20 mg Sodium Chloride (Normal Saline) 500 mls @ 999 mls/hr IV ASDIRECTED [facility] Last Admin: 08/06/19 01:33 Dose: 999 mls/hr Magnesium Sulfate 4 gm/ Premix 100 mls @ 50 mls/hr IV ONETIME ONE Stop: 08/06/19 20:39 Last Admin: 08/06/19 18:56 Dose: 50 mls/hr Lorazepam (Ativan) 1 mg PO ONETIME ONE Stop: 08/06/19 19:46 Last Admin: 08/06/19 20:45 Dose: 1 mg Methylprednisolone Sodium Succinate (Solu-Medrol) 125 mg IVPUSH ONETIME ONE Stop: 08/06/19 08:47 Last Admin: 08/06/19 09:52 Dose: 125 mg Methylprednisolone Sodium Succinate (Solu-Medrol) 40 mg IVPUSH Q8H [facility] Last Admin: 08/08/19 03:21 Dose: 40 mg Pantoprazole Sodium (Protonix) 40 mg PO DAILY [facility] Last Admin: 08/06/19 15:11 Dose: 40 mg Pantoprazole Sodium (Protonix) Confirm Administered Dose 40 mg .ROUTE .STK- MED ONE Stop: 08/06/19 15:12 Last Admin: 08/06/19 15:18 Dose: Not Given - Exam General: Alert, Oriented, Cooperative, No Acute Distress Lungs: Other (bilateral lung sounds, no wheezing. minimal crackles. much improved.) Cardiovascular: Regular Rate, Regular Rhythm GI/Abdominal Exam: Normal Bowel Sounds, Soft, Non-Tender Extremities: Normal Inspection Skin: Warm, Dry - Problem List Review Problem List Initiated/Reviewed/Updated: Yes - My Orders Last 24 Hours: My Active Orders 08/08/19 21:00 methylPREDNISolone Sod Succ [Solu-MEDROL] 40 mg IVPUSH BID - Plan Plan:: 1. Acute COPD exacerbation 2. Leukocytosis 3. Dysphagia 4. Poor appetite 5. History of multiple sclerosis 6. Acute on chronic hypercapnic respiratory failure, resolved P: 1. Improving slowly. Will continue with Levaquin, duonebs and steroids for COPD exacerbation. Dysphagia attributed to her multiple sclerosis. Continue with pureed diet. Will eventually need a barium swallow study to further evaluation. Have added Megace for poor appetite. Will continue with BiPAP at night for now. dispo: 1-2 days <Mckinley Woodward - Last Filed: 08/10/19 19:32> - Patient Data Vitals - Most Recent: Last Vital Signs Temp 36.2 C 08/10/19 16:00 Pulse 66 08/10/19 16:00 Resp 18 08/10/19 16:00 BP 123/76 08/10/19 16:00 Pulse Ox 93 L 08/10/19 16:00 I&O - Last 24 Hours: Intake & Output 08/10/19 08/10/19 08/10/19 06:59 14:59 22:59 Intake Total 240 620 Output Total 500 500 Balance -260 120 Lab Results Last 24 Hours: Laboratory Results - last 24 hr 08/10/19 08/10/19 Range/Units 05:55 05:55 WBC 9.42 (4.0-11.0) K/uL RBC 4.60 (4.30-5.90) M/uL Hgb 13.3 (12.0-16.0) g/dL Hct 41.5 (36.0-46.0) % MCV 90.2 (80.0-98.0) fL MCH 28.9 (27.0-32.0) pg MCHC 32.0 (31.0-37.0) g/dL RDW Std Deviation 52.2 (28.0-62.0) fl RDW Coeff of Ade 16 H (11.0-15.0) % Plt Count 202 (150-400) K/uL MPV 11.70 (7.40-12.00) fL Neut % (Auto) 87.0 H (48.0-80.0) % Lymph % (Auto) 5.9 L (16.0-40.0) % Ogle % (Auto) 7.1 (0.0-15.0) % Eos % (Auto) 0.0 (0.0-7.0) % Baso % (Auto) 0.0 (0.0-1.5) % Neut # (Auto) 8.2 H (1.4-5.7) K/uL Lymph # (Auto) 0.6 (0.6-2.4) K/uL Ogle # (Auto) 0.7 (0.0-0.8) K/uL Eos # (Auto) 0.0 (0.0-0.7) K/uL Baso # (Auto) 0.0 (0.0-0.1) K/uL Nucleated RBC % 0.0 /100WBC Nucleated RBCs # 0 K/uL Sodium 140 (136-145) mmol/L Potassium 3.6 (3.5-5.1) mmol/L Chloride 97 L (98-107) mmol/L Carbon Dioxide 33.7 H (21.0-32.0) mmol/L BUN 36 H (7.0-18.0) mg/dL Creatinine 1.3 H (0.6-1.0) mg/dL Est Cr Clr Drug Dosing 39.13 mL/min Estimated GFR (MDRD) 42.7 ml/min Glucose 167 H (74-106) mg/dL Calcium 9.8 (8.5-10.1) mg/dL Phosphorus 3.2 (2.6-4.7) mg/dL Magnesium 2.1 (1.8-2.4) mg/dL Cj Results Last 24 Hours: Microbiology 08/05/19 20:21 Aerobic Blood Culture - Preliminary Blood - Venous - Lab Draw NO GROWTH AFTER 4 DAYS Anaerobic Blood Culture - Final 08/05/19 20:07 Aerobic Blood Culture - Preliminary Blood - Venous NO GROWTH AFTER 4 DAYS Anaerobic Blood Culture - Final Med Orders - Current: Current Medications Acetaminophen (Tylenol) 650 mg PO Q4H PRN PRN Reason: Pain Last Admin: 08/08/19 18:42 Dose: 650 mg Albuterol/Ipratropium (Duoneb 3.0-0.5 Mg/3 Ml) 3 ml NEB Q4HRRT PRN PRN Reason: Shortness Of Breath/wheezing Last Admin: 08/10/19 14:58 Dose: 3 ml Baclofen (Lioresal) 20 mg PO BID [facility] Last Admin: 08/10/19 08:03 Dose: 20 mg Cholecalciferol (Vitamin D3) 25 mcg PO DAILY [facility] Last Admin: 08/10/19 09:06 Dose: 25 mcg Diazepam (Valium.) 5 mg PO BID PRN PRN Reason: Anxiety Last Admin: 08/10/19 09:07 Dose: 5 mg Duloxetine HCl (Cymbalta) 30 mg PO BEDTIME [facility] Last Admin: 08/09/19 21:07 Dose: 30 mg Duloxetine HCl (Cymbalta) 60 mg PO DAILY [facility] Last Admin: 08/10/19 08:03 Dose: 60 mg Fluticasone Propionate (Flonase) 0 gm NASBOTH DAILY [facility] Last Admin: 08/10/19 09:08 Dose: 1 spray Guaifenesin (Mucinex) 600 mg PO BID [facility] Last Admin: 08/10/19 09:07 Dose: 600 mg Heparin Sodium (Porcine) (Heparin Sodium) 5,000 units SUBCUT Q8H [facility] Last Admin: 08/10/19 13:30 Dose: 5,000 units Latanoprost (Xalatan 0.005% Ophth Soln) 0 ml EYEBOTH BEDTIME [facility] Last Admin: 08/09/19 21:09 Dose: 1 drop Levofloxacin (Levaquin) 750 mg PO Q48H [facility] Last Admin: 08/10/19 10:48 Dose: 750 mg Megestrol Acetate (Megace) 40 mg PO DAILY [facility] Last Admin: 08/10/19 10:05 Dose: 40 mg Ondansetron HCl (Zofran) 4 mg IVPUSH Q4H PRN PRN Reason: Nausea Last Admin: 08/10/19 17:21 Dose: 4 mg Pantoprazole Sodium (Protonix) 40 mg PO ACBREAKFAST [facility] Teriflunomide [ (Aubagio] 14 Mg) 1 each PO DAILY [facility] Last Admin: 08/10/19 09:10 Dose: 1 each Nystatin [Nystatin] (30 Gm) 1 each TOP TID [facility] Last Admin: 08/10/19 13:30 Dose: 1 each Prednisone (Prednisone) 40 mg PO WITHBREAKFAST [facility] Last Admin: 08/10/19 10:03 Dose: 40 mg Sodium Chloride (Saline Flush) 10 ml FLUSH ASDIRECTED PRN PRN Reason: Keep Vein Open Sodium Chloride (Saline Flush) 2.5 ml FLUSH ASDIRECTED PRN PRN Reason: Keep Vein Open Sodium Chloride (Normal Saline) 10 ml IV ASDIRECTED PRN PRN Reason: IV Use Tramadol HCl (Ultram) 50 mg PO Q12H PRN PRN Reason: Pain Trazodone HCl (Trazodone) 200 mg PO BEDTIME [facility] Discontinued Medications Albuterol/Ipratropium (Duoneb 3.0-0.5 Mg/3 Ml) 3 ml NEB ONETIME ONE Stop: 08/05/19 19:24 Last Admin: 08/05/19 19:32 Dose: 3 ml Albuterol/Ipratropium (Duoneb 3.0-0.5 Mg/3 Ml) 3 ml NEB Q4HRRT PRN PRN Reason: Shortness Of Breath/wheezing Last Admin: 08/06/19 07:56 Dose: 3 ml Albuterol/Ipratropium (Duoneb 3.0-0.5 Mg/3 Ml) 3 ml NEB Q4HRRT [facility] Last Admin: 08/08/19 21:38 Dose: Not Given Furosemide (Lasix) 20 mg IVPUSH ONETIME ONE Stop: 08/07/19 09:26 Last Admin: 08/07/19 10:01 Dose: 20 mg Furosemide (Lasix) 20 mg IVPUSH ONETIME ONE Stop: 08/07/19 15:52 Last Admin: 08/07/19 17:37 Dose: 20 mg Furosemide (Lasix) 40 mg PO DAILY [facility] Last Admin: 08/09/19 08:53 Dose: 40 mg Furosemide (Lasix) 20 mg PO DAILY [facility] Sodium Chloride (Normal Saline) 500 mls @ 999 mls/hr IV ASDIRECTED [facility] Last Admin: 08/06/19 01:33 Dose: 999 mls/hr Levofloxacin/Dextrose 750 mg/ (Premix) 150 mls @ 100 mls/hr IV Q48H [facility] Last Admin: 08/08/19 10:02 Dose: 100 mls/hr Magnesium Sulfate 4 gm/ Premix 100 mls @ 50 mls/hr IV ONETIME ONE Stop: 08/06/19 20:39 Last Admin: 08/06/19 18:56 Dose: 50 mls/hr Pantoprazole Sodium 40 mg/ (Sodium Chloride) 10 mls @ 300 mls/hr IV DAILY [facility] Last Admin: 08/10/19 08:03 Dose: 300 mls/hr Lorazepam (Ativan) 1 mg PO ONETIME ONE Stop: 08/06/19 19:46 Last Admin: 08/06/19 20:45 Dose: 1 mg Methylprednisolone Sodium Succinate (Solu-Medrol) 125 mg IVPUSH ONETIME ONE Stop: 08/06/19 08:47 Last Admin: 08/06/19 09:52 Dose: 125 mg Methylprednisolone Sodium Succinate (Solu-Medrol) 40 mg IVPUSH Q8H [facility] Last Admin: 08/08/19 03:21 Dose: 40 mg Methylprednisolone Sodium Succinate (Solu-Medrol) 40 mg IVPUSH BID [facility] Last Admin: 08/09/19 21:09 Dose: 40 mg Pantoprazole Sodium (Protonix) 40 mg PO DAILY [facility] Last Admin: 08/06/19 15:11 Dose: 40 mg Pantoprazole Sodium (Protonix) Confirm Administered Dose 40 mg .ROUTE .STK- MED ONE Stop: 08/06/19 15:12 Last Admin: 08/06/19 15:18 Dose: Not Given - Problem List & Annotations (1) Hypercapnic respiratory failure SNOMED Code(s): 341172455 Code(s): J96.92 - RESPIRATORY FAILURE, UNSPECIFIED WITH HYPERCAPNIA Status : Resolved Current Visit: Yes Qualifiers: Chronicity: acute on chronic Qualified Code(s): J96.22 - Acute and chronic respiratory failure with hypercapnia (2) Altered mental status SNOMED Code(s): 601894099 Code(s): R41.82 - ALTERED MENTAL STATUS, UNSPECIFIED Status: Resolved Priority: High Current Visit: Yes Qualifiers: Altered mental status type: disorientation Qualified Code(s): R41.0 - Disorientation, unspecified (3) Hypercarbia SNOMED Code(s): 69830087 Code(s): R06.89 - OTHER ABNORMALITIES OF BREATHING Status: Acute Current Visit: Yes (4) Ambulatory dysfunction SNOMED Code(s): 080394115 Code(s): R26.2 - DIFFICULTY IN WALKING, NOT ELSEWHERE CLASSIFIED Status: Acute Current Visit: Yes - Plan Plan:: I have seen and evaluated the patient and agree with the residents note unless specified in my note
[2019-08-08] MEDS: NYSTATIN 30 GM TOP SCH ×3 (13:28→21:42)
[2019-08-08] MEDS: Diazepam 5 MG Tab PO PRN (15:14)
[2019-08-08] MEDS: DULoxetine 30 MG Cap PO SCH (21:27)
[2019-08-08] MEDS: Latanoprost 0.005% Ophth Soln 2.5 ML Bottle EYEBOTH SCH (21:36)
[2019-08-09] MEDS: Albuterol/Ipratropium 3.0-0.5 MG/3 ML Neb Soln NEB PRN ×2 (01:40→21:33)
[2019-08-09] MEDS: Heparin Sodium 5,000 Units/ML Vial SUBCUT SCH ×3 (05:52→21:07)
[2019-08-09] MEDS: NYSTATIN 30 GM TOP SCH ×3 (05:55→21:10)
[2019-08-09 06:19] LABS: CARBON DIOXIDE,CO2 31.2 mmol/L (21.0-32.0); POTASSIUM,K 3.8 mmol/L (3.5-5.1)
[2019-08-09] MEDS: Ondansetron 4 MG/2 ML SDV IVPUSH PRN ×3 (08:32→17:59)
[2019-08-09] MEDS: Pantoprazole 40 MG in Sodium Chloride 0.9% 10 ML IV SCH (08:38)
[2019-08-09] MEDS: methylPREDNISolone Sodium Succinate 40 MG/1 ML SDV IVPUSH SCH ×2 (08:39→21:09)
[2019-08-09] MEDS: Fluticasone Propionate Nasal Spray 16 GM Bottle NASBOTH SCH (08:51)
[2019-08-09] MEDS: DULoxetine 60 MG Cap PO SCH (08:52)
[2019-08-09] MEDS: Furosemide 40 MG Tab PO SCH (08:53)
[2019-08-09] MEDS: Baclofen 10 MG Tab PO SCH ×2 (08:53→21:07)
[2019-08-09] MEDS: Megestrol 40 MG Tab PO SCH (08:54)
[2019-08-09] MEDS: Cholecalciferol (Vitamin D3) 25 MCG Tab PO SCH (08:55)
[2019-08-09] MEDS: guaiFENesin 600 MG Tab.ER PO SCH ×2 (08:55→21:07)
[2019-08-09] MEDS: Teriflunomide [Aubagio] 14 MG PO SCH (09:00)
--- NOTE | 2019-08-09 12:07 | PCM.PN ---
- General Info Date of Service: 08/09/19 Admission Dx/Problem (Free Text): Admission Diagnosis/Problem Admission Diagnosis/Problem Altered mental status Subjective Update: no acute events overnight. patient feeling better but states she was not able to sleep overnight. Denies any chest pain, dysuria, blood in stool. - Review of Systems General: Denies: Fever, Weakness Pulmonary: Reports: Cough. Denies: Shortness of Breath, Sputum, Hemoptysis Cardiovascular: Denies: Chest Pain, Palpitations Gastrointestinal: Reports: Difficulty Swallowing. Denies: Abdominal Pain, Constipation Genitourinary: Denies: Dysuria, Frequency, Burning Musculoskeletal: Denies: Neck Pain, Shoulder Pain, Arm Pain Skin: Denies: Cyanosis, Jaundice, Mottled - Patient Data Vitals - Most Recent: Last Vital Signs Temp 36.6 C 08/09/19 07:13 Pulse 76 08/09/19 07:13 Resp 18 08/09/19 07:13 BP 120/68 08/09/19 07:13 Pulse Ox 93 L 08/09/19 07:13 Weight - Most Recent: 103.464 kg I&O - Last 24 Hours: Intake & Output 08/08/19 08/09/19 08/09/19 22:59 06:59 14:59 Intake Total 300 240 Output Total 1410 750 Balance -1110 -510 Lab Results Last 24 Hours: Laboratory Results - last 24 hr 08/09/19 08/09/19 Range/Units 05:50 05:50 WBC 10.45 (4.0-11.0) K/uL RBC 4.28 L (4.30-5.90) M/uL Hgb 12.2 (12.0-16.0) g/dL Hct 39.3 (36.0-46.0) % MCV 91.8 (80.0-98.0) fL MCH 28.5 (27.0-32.0) pg MCHC 31.0 (31.0-37.0) g/dL RDW Std Deviation 55.1 (28.0-62.0) fl RDW Coeff of Ade 17 H (11.0-15.0) % Plt Count 186 (150-400) K/uL MPV 11.10 (7.40-12.00) fL Neut % (Auto) 91.2 H (48.0-80.0) % Lymph % (Auto) 5.8 L (16.0-40.0) % Orange % (Auto) 2.9 (0.0-15.0) % Eos % (Auto) 0.0 (0.0-7.0) % Baso % (Auto) 0.1 (0.0-1.5) % Neut # (Auto) 9.5 H (1.4-5.7) K/uL Lymph # (Auto) 0.6 (0.6-2.4) K/uL Orange # (Auto) 0.3 (0.0-0.8) K/uL Eos # (Auto) 0.0 (0.0-0.7) K/uL Baso # (Auto) 0.0 (0.0-0.1) K/uL Nucleated RBC % 0.0 /100WBC Nucleated RBCs # 0 K/uL Sodium 137 (136-145) mmol/L Potassium 3.8 (3.5-5.1) mmol/L Chloride 98 (98-107) mmol/L Carbon Dioxide 31.2 (21.0-32.0) mmol/L BUN 35 H (7.0-18.0) mg/dL Creatinine 1.2 H (0.6-1.0) mg/dL Est Cr Clr Drug Dosing 42.39 mL/min Estimated GFR (MDRD) 46.8 ml/min Glucose 138 H (74-106) mg/dL Calcium 9.3 (8.5-10.1) mg/dL Cj Results Last 24 Hours: Microbiology 08/05/19 20:21 Aerobic Blood Culture - Preliminary Blood - Venous - Lab Draw NO GROWTH AFTER 3 DAYS Anaerobic Blood Culture - Final 08/05/19 20:07 Aerobic Blood Culture - Preliminary Blood - Venous NO GROWTH AFTER 3 DAYS Anaerobic Blood Culture - Final Med Orders - Current: Current Medications Acetaminophen (Tylenol) 650 mg PO Q4H PRN PRN Reason: Pain Last Admin: 08/08/19 18:42 Dose: 650 mg Albuterol/Ipratropium (Duoneb 3.0-0.5 Mg/3 Ml) 3 ml NEB Q4HRRT PRN PRN Reason: Shortness Of Breath/wheezing Last Admin: 08/09/19 01:40 Dose: 3 ml Baclofen (Lioresal) 20 mg PO BID [facility] Last Admin: 08/09/19 08:53 Dose: 20 mg Cholecalciferol (Vitamin D3) 25 mcg PO DAILY [facility] Last Admin: 08/09/19 08:55 Dose: 25 mcg Diazepam (Valium.) 5 mg PO BID PRN PRN Reason: Anxiety Last Admin: 08/08/19 15:14 Dose: 5 mg Duloxetine HCl (Cymbalta) 30 mg PO BEDTIME [facility] Last Admin: 08/08/19 21:27 Dose: 30 mg Duloxetine HCl (Cymbalta) 60 mg PO DAILY [facility] Last Admin: 08/09/19 08:52 Dose: 60 mg Fluticasone Propionate (Flonase) 0 gm NASBOTH DAILY [facility] Last Admin: 08/09/19 08:51 Dose: Not Given Furosemide (Lasix) 40 mg PO DAILY [facility] Last Admin: 08/09/19 08:53 Dose: 40 mg Guaifenesin (Mucinex) 600 mg PO BID [facility] Last Admin: 08/09/19 08:55 Dose: 600 mg Heparin Sodium (Porcine) (Heparin Sodium) 5,000 units SUBCUT Q8H [facility] Last Admin: 08/09/19 05:52 Dose: 5,000 units Levofloxacin/Dextrose 750 mg/ (Premix) 150 mls @ 100 mls/hr IV Q48H [facility] Last Admin: 08/08/19 10:02 Dose: 100 mls/hr Pantoprazole Sodium 40 mg/ (Sodium Chloride) 10 mls @ 300 mls/hr IV DAILY [facility] Last Admin: 08/09/19 08:38 Dose: 300 mls/hr Latanoprost (Xalatan 0.005% Ophth Soln) 0 ml EYEBOTH BEDTIME [facility] Last Admin: 08/08/19 21:36 Dose: 1 drop Megestrol Acetate (Megace) 40 mg PO DAILY [facility] Last Admin: 08/09/19 08:54 Dose: 40 mg Methylprednisolone Sodium Succinate (Solu-Medrol) 40 mg IVPUSH BID [facility] Last Admin: 08/09/19 08:39 Dose: 40 mg Ondansetron HCl (Zofran) 4 mg IVPUSH Q4H PRN PRN Reason: Nausea Last Admin: 08/09/19 08:32 Dose: 4 mg Teriflunomide [ (Aubagio] 14 Mg) 1 each PO DAILY [facility] Last Admin: 08/09/19 09:00 Dose: 1 each Nystatin [Nystatin] (30 Gm) 1 each TOP TID [facility] Last Admin: 08/09/19 05:55 Dose: Not Given Sodium Chloride (Saline Flush) 10 ml FLUSH ASDIRECTED PRN PRN Reason: Keep Vein Open Sodium Chloride (Saline Flush) 2.5 ml FLUSH ASDIRECTED PRN PRN Reason: Keep Vein Open Sodium Chloride (Normal Saline) 10 ml IV ASDIRECTED PRN PRN Reason: IV Use Tramadol HCl (Ultram) 50 mg PO Q12H PRN PRN Reason: Pain Discontinued Medications Albuterol/Ipratropium (Duoneb 3.0-0.5 Mg/3 Ml) 3 ml NEB ONETIME ONE Stop: 08/05/19 19:24 Last Admin: 08/05/19 19:32 Dose: 3 ml Albuterol/Ipratropium (Duoneb 3.0-0.5 Mg/3 Ml) 3 ml NEB Q4HRRT PRN PRN Reason: Shortness Of Breath/wheezing Last Admin: 08/06/19 07:56 Dose: 3 ml Albuterol/Ipratropium (Duoneb 3.0-0.5 Mg/3 Ml) 3 ml NEB Q4HRRT [facility] Last Admin: 08/08/19 21:38 Dose: Not Given Furosemide (Lasix) 20 mg IVPUSH ONETIME ONE Stop: 08/07/19 09:26 Last Admin: 08/07/19 10:01 Dose: 20 mg Furosemide (Lasix) 20 mg IVPUSH ONETIME ONE Stop: 08/07/19 15:52 Last Admin: 08/07/19 17:37 Dose: 20 mg Sodium Chloride (Normal Saline) 500 mls @ 999 mls/hr IV ASDIRECTED [facility] Last Admin: 08/06/19 01:33 Dose: 999 mls/hr Magnesium Sulfate 4 gm/ Premix 100 mls @ 50 mls/hr IV ONETIME ONE Stop: 08/06/19 20:39 Last Admin: 08/06/19 18:56 Dose: 50 mls/hr Lorazepam (Ativan) 1 mg PO ONETIME ONE Stop: 08/06/19 19:46 Last Admin: 08/06/19 20:45 Dose: 1 mg Methylprednisolone Sodium Succinate (Solu-Medrol) 125 mg IVPUSH ONETIME ONE Stop: 08/06/19 08:47 Last Admin: 08/06/19 09:52 Dose: 125 mg Methylprednisolone Sodium Succinate (Solu-Medrol) 40 mg IVPUSH Q8H [facility] Last Admin: 08/08/19 03:21 Dose: 40 mg Pantoprazole Sodium (Protonix) 40 mg PO DAILY [facility] Last Admin: 08/06/19 15:11 Dose: 40 mg Pantoprazole Sodium (Protonix) Confirm Administered Dose 40 mg .ROUTE .STK- MED ONE Stop: 08/06/19 15:12 Last Admin: 08/06/19 15:18 Dose: Not Given - Exam Quality Assessment: Supplemental Oxygen General: Alert, Oriented, Cooperative HEENT: Pupils Equal Neck: Supple Lungs: Clear to Auscultation, Normal Respiratory Effort Cardiovascular: Regular Rate, Regular Rhythm GI/Abdominal Exam: Normal Bowel Sounds, Soft, Non-Tender Extremities: No Pedal Edema Peripheral Pulses: 3+: Dorsalis Pedis (L), Dorsalis Pedis (R) Skin: Warm, Dry - Problem List & Annotations (1) Hypercapnic respiratory failure SNOMED Code(s): 137675828 Code(s): J96.92 - RESPIRATORY FAILURE, UNSPECIFIED WITH HYPERCAPNIA Status : Acute Current Visit: Yes Qualifiers: Chronicity: acute on chronic Qualified Code(s): J96.22 - Acute and chronic respiratory failure with hypercapnia (2) Altered mental status SNOMED Code(s): 684122555 Code(s): R41.82 - ALTERED MENTAL STATUS, UNSPECIFIED Status: Acute Priority: High Current Visit: Yes Qualifiers: Altered mental status type: disorientation Qualified Code(s): R41.0 - Disorientation, unspecified (3) Hypercarbia SNOMED Code(s): 80969869 Code(s): R06.89 - OTHER ABNORMALITIES OF BREATHING Status: Acute Current Visit: Yes (4) Ambulatory dysfunction SNOMED Code(s): 697773954 Code(s): R26.2 - DIFFICULTY IN WALKING, NOT ELSEWHERE CLASSIFIED Status: Acute Current Visit: Yes - Problem List Review Problem List Initiated/Reviewed/Updated: Yes - My Orders Last 24 Hours: My Active Orders 08/08/19 22:22 Albuterol/Ipratropium [DuoNeb 3.0-0.5 MG/3 ML] 3 ml NEB Q4HRRT PRN 08/09/19 09:35 Power Lineworker Discontinue [Cardiac Monitoring Discontinue] [RC] Click to Edit - Plan Plan:: 1. Acute COPD exacerbation: cont DuoNebs, cont steroids, will taper down as tolerated, cont BIPAP at night as tolerated, patient continue to refuse it though 2. Leukocytosis: resolved 3. Dysphagia: speech on board, cont puree diet, prefers jelly over apple sauce though 4. Poor appetite: appetite stimulant started, will cont to monitor intake. May need calorie count if continues to have poor PO intake. Need goals of care discussion in near future again. 5. History of multiple sclerosis cont supportive care 6. Acute on chronic hypercapnic respiratory failure, resolved, on NC 7. Ambulatory dysfunction sec to MS, cont PT, will assess if needs to go to SNF f or rehab
[2019-08-09] MEDS: DULoxetine 30 MG Cap PO SCH (21:07)
[2019-08-09] MEDS: Latanoprost 0.005% Ophth Soln 2.5 ML Bottle EYEBOTH SCH (21:09)
[2019-08-10] MEDS: Ondansetron 4 MG/2 ML SDV IVPUSH PRN ×5 (04:05→21:56)
[2019-08-10] MEDS: Heparin Sodium 5,000 Units/ML Vial SUBCUT SCH ×3 (05:31→21:46)
[2019-08-10] MEDS: NYSTATIN 30 GM TOP SCH ×3 (05:35→22:58)
[2019-08-10 06:33] LABS: CARBON DIOXIDE,CO2 33.7 mmol/L (21.0-32.0); POTASSIUM,K 3.6 mmol/L (3.5-5.1)
[2019-08-10] MEDS: Baclofen 10 MG Tab PO SCH ×2 (08:03→21:44)
[2019-08-10] MEDS: Pantoprazole 40 MG in Sodium Chloride 0.9% 10 ML IV SCH (08:03)
[2019-08-10] MEDS: DULoxetine 60 MG Cap PO SCH (08:03)
--- NOTE | 2019-08-10 08:56 | PCM.PN ---
- General Info Date of Service: 08/10/19 Admission Dx/Problem (Free Text): Admission Diagnosis/Problem Admission Diagnosis/Problem Altered mental status Subjective Update: Sitting up in recliner. Reports she is feeling somewhat better. Declined Bipap use overnight. No chest pain. Breathing improving. reports congestion and suing IS and flutter valve to help cough sputum up. Discussed need for rehabilitation due to acute illness and acute deconditioning. Functional Status: Reports: Pain Controlled, Tolerating Diet, Ambulating (very little, up with walker and assistance for very short distances) - Review of Systems General: Reports: Weakness (generalized). Denies: Fatigue, Malaise HEENT: Reports: No Symptoms. Denies: Ear Pain, Headaches, Sore Throat, Visual Changes Pulmonary: Reports: Shortness of Breath (intermittent), Cough, Sputum, Wheezing Cardiovascular: Reports: No Symptoms. Denies: Chest Pain Gastrointestinal: Reports: No Symptoms. Denies: Abdominal Pain, Nausea, Vomiting Genitourinary: Reports: No Symptoms Neurological: Reports: No Symptoms Psychiatric: Reports: No Symptoms - Patient Data Vitals - Most Recent: Last Vital Signs Temp 99.1 F 08/10/19 07:30 Pulse 63 08/10/19 07:30 Resp 18 08/10/19 07:30 BP 135/64 08/10/19 07:30 Pulse Ox 91 L 08/10/19 07:30 Weight - Most Recent: 97.296 kg I&O - Last 24 Hours: Intake & Output 08/09/19 08/10/19 08/10/19 22:59 06:59 14:59 Intake Total 400 240 Output Total 1400 500 Balance -1000 -260 Lab Results Last 24 Hours: Laboratory Results - last 24 hr 08/10/19 08/10/19 Range/Units 05:55 05:55 WBC 9.42 (4.0-11.0) K/uL RBC 4.60 (4.30-5.90) M/uL Hgb 13.3 (12.0-16.0) g/dL Hct 41.5 (36.0-46.0) % MCV 90.2 (80.0-98.0) fL MCH 28.9 (27.0-32.0) pg MCHC 32.0 (31.0-37.0) g/dL RDW Std Deviation 52.2 (28.0-62.0) fl RDW Coeff of Ade 16 H (11.0-15.0) % Plt Count 202 (150-400) K/uL MPV 11.70 (7.40-12.00) fL Neut % (Auto) 87.0 H (48.0-80.0) % Lymph % (Auto) 5.9 L (16.0-40.0) % Stephenson % (Auto) 7.1 (0.0-15.0) % Eos % (Auto) 0.0 (0.0-7.0) % Baso % (Auto) 0.0 (0.0-1.5) % Neut # (Auto) 8.2 H (1.4-5.7) K/uL Lymph # (Auto) 0.6 (0.6-2.4) K/uL Stephenson # (Auto) 0.7 (0.0-0.8) K/uL Eos # (Auto) 0.0 (0.0-0.7) K/uL Baso # (Auto) 0.0 (0.0-0.1) K/uL Nucleated RBC % 0.0 /100WBC Nucleated RBCs # 0 K/uL Sodium 140 (136-145) mmol/L Potassium 3.6 (3.5-5.1) mmol/L Chloride 97 L (98-107) mmol/L Carbon Dioxide 33.7 H (21.0-32.0) mmol/L BUN 36 H (7.0-18.0) mg/dL Creatinine 1.3 H (0.6-1.0) mg/dL Est Cr Clr Drug Dosing 39.13 mL/min Estimated GFR (MDRD) 42.7 ml/min Glucose 167 H (74-106) mg/dL Calcium 9.8 (8.5-10.1) mg/dL Phosphorus 3.2 (2.6-4.7) mg/dL Magnesium 2.1 (1.8-2.4) mg/dL Cj Results Last 24 Hours: Microbiology 08/05/19 20:21 Aerobic Blood Culture - Preliminary Blood - Venous - Lab Draw NO GROWTH AFTER 4 DAYS Anaerobic Blood Culture - Final 08/05/19 20:07 Aerobic Blood Culture - Preliminary Blood - Venous NO GROWTH AFTER 4 DAYS Anaerobic Blood Culture - Final Med Orders - Current: Current Medications Acetaminophen (Tylenol) 650 mg PO Q4H PRN PRN Reason: Pain Last Admin: 08/08/19 18:42 Dose: 650 mg Albuterol/Ipratropium (Duoneb 3.0-0.5 Mg/3 Ml) 3 ml NEB Q4HRRT PRN PRN Reason: Shortness Of Breath/wheezing Last Admin: 08/09/19 21:33 Dose: 3 ml Baclofen (Lioresal) 20 mg PO BID [facility] Last Admin: 08/10/19 08:03 Dose: 20 mg Cholecalciferol (Vitamin D3) 25 mcg PO DAILY TRA Last Admin: 08/09/19 08:55 Dose: 25 mcg Diazepam (Valium.) 5 mg PO BID PRN PRN Reason: Anxiety Last Admin: 08/08/19 15:14 Dose: 5 mg Duloxetine HCl (Cymbalta) 30 mg PO BEDTIME [facility] Last Admin: 08/09/19 21:07 Dose: 30 mg Duloxetine HCl (Cymbalta) 60 mg PO DAILY [facility] Last Admin: 08/10/19 08:03 Dose: 60 mg Fluticasone Propionate (Flonase) 0 gm NASBOTH DAILY [facility] Last Admin: 08/09/19 08:51 Dose: Not Given Guaifenesin (Mucinex) 600 mg PO BID [facility] Last Admin: 08/09/19 21:07 Dose: 600 mg Heparin Sodium (Porcine) (Heparin Sodium) 5,000 units SUBCUT Q8H [facility] Last Admin: 08/10/19 05:31 Dose: 5,000 units Levofloxacin/Dextrose 750 mg/ (Premix) 150 mls @ 100 mls/hr IV Q48H TRA Last Admin: 08/08/19 10:02 Dose: 100 mls/hr Pantoprazole Sodium 40 mg/ (Sodium Chloride) 10 mls @ 300 mls/hr IV DAILY [facility] Last Admin: 08/10/19 08:03 Dose: 300 mls/hr Latanoprost (Xalatan 0.005% Ophth Soln) 0 ml EYEBOTH BEDTIME [facility] Last Admin: 08/09/19 21:09 Dose: 1 drop Megestrol Acetate (Megace) 40 mg PO DAILY [facility] Last Admin: 08/09/19 08:54 Dose: 40 mg Methylprednisolone Sodium Succinate (Solu-Medrol) 40 mg IVPUSH BID [facility] Last Admin: 08/09/19 21:09 Dose: 40 mg Ondansetron HCl (Zofran) 4 mg IVPUSH Q4H PRN PRN Reason: Nausea Last Admin: 08/10/19 08:04 Dose: 4 mg Teriflunomide [ (Aubagio] 14 Mg) 1 each PO DAILY [facility] Last Admin: 08/09/19 09:00 Dose: 1 each Nystatin [Nystatin] (30 Gm) 1 each TOP TID [facility] Last Admin: 08/10/19 05:35 Dose: Not Given Sodium Chloride (Saline Flush) 10 ml FLUSH ASDIRECTED PRN PRN Reason: Keep Vein Open Sodium Chloride (Saline Flush) 2.5 ml FLUSH ASDIRECTED PRN PRN Reason: Keep Vein Open Sodium Chloride (Normal Saline) 10 ml IV ASDIRECTED PRN PRN Reason: IV Use Tramadol HCl (Ultram) 50 mg PO Q12H PRN PRN Reason: Pain Discontinued Medications Albuterol/Ipratropium (Duoneb 3.0-0.5 Mg/3 Ml) 3 ml NEB ONETIME ONE Stop: 08/05/19 19:24 Last Admin: 08/05/19 19:32 Dose: 3 ml Albuterol/Ipratropium (Duoneb 3.0-0.5 Mg/3 Ml) 3 ml NEB Q4HRRT PRN PRN Reason: Shortness Of Breath/wheezing Last Admin: 08/06/19 07:56 Dose: 3 ml Albuterol/Ipratropium (Duoneb 3.0-0.5 Mg/3 Ml) 3 ml NEB Q4HRRT [facility] Last Admin: 08/08/19 21:38 Dose: Not Given Furosemide (Lasix) 20 mg IVPUSH ONETIME ONE Stop: 08/07/19 09:26 Last Admin: 08/07/19 10:01 Dose: 20 mg Furosemide (Lasix) 20 mg IVPUSH ONETIME ONE Stop: 08/07/19 15:52 Last Admin: 08/07/19 17:37 Dose: 20 mg Furosemide (Lasix) 40 mg PO DAILY [facility] Last Admin: 08/09/19 08:53 Dose: 40 mg Furosemide (Lasix) 20 mg PO DAILY [facility] Sodium Chloride (Normal Saline) 500 mls @ 999 mls/hr IV ASDIRECTED [facility] Last Admin: 08/06/19 01:33 Dose: 999 mls/hr Magnesium Sulfate 4 gm/ Premix 100 mls @ 50 mls/hr IV ONETIME ONE Stop: 08/06/19 20:39 Last Admin: 08/06/19 18:56 Dose: 50 mls/hr Lorazepam (Ativan) 1 mg PO ONETIME ONE Stop: 08/06/19 19:46 Last Admin: 08/06/19 20:45 Dose: 1 mg Methylprednisolone Sodium Succinate (Solu-Medrol) 125 mg IVPUSH ONETIME ONE Stop: 08/06/19 08:47 Last Admin: 08/06/19 09:52 Dose: 125 mg Methylprednisolone Sodium Succinate (Solu-Medrol) 40 mg IVPUSH Q8H [facility] Last Admin: 08/08/19 03:21 Dose: 40 mg Pantoprazole Sodium (Protonix) 40 mg PO DAILY [facility] Last Admin: 08/06/19 15:11 Dose: 40 mg Pantoprazole Sodium (Protonix) Confirm Administered Dose 40 mg .ROUTE .STK- MED ONE Stop: 08/06/19 15:12 Last Admin: 08/06/19 15:18 Dose: Not Given - Exam Quality Assessment: Supplemental Oxygen General: Alert, Oriented, Cooperative, No Acute Distress Lungs: Normal Respiratory Effort, Rhonchi, Wheezing Cardiovascular: Regular Rate, Regular Rhythm GI/Abdominal Exam: Normal Bowel Sounds, Soft, Non-Tender Back Exam: Normal Inspection Skin: Dry Neurological: No New Focal Deficit Psy/Mental Status: Alert, Normal Affect - Problem List & Annotations (1) Hypercapnic respiratory failure SNOMED Code(s): 473398385 Code(s): J96.92 - RESPIRATORY FAILURE, UNSPECIFIED WITH HYPERCAPNIA Status : Resolved Current Visit: Yes Qualifiers: Chronicity: acute on chronic Qualified Code(s): J96.22 - Acute and chronic respiratory failure with hypercapnia (2) Altered mental status SNOMED Code(s): 160156813 Code(s): R41.82 - ALTERED MENTAL STATUS, UNSPECIFIED Status: Resolved Priority: High Current Visit: Yes Qualifiers: Altered mental status type: disorientation Qualified Code(s): R41.0 - Disorientation, unspecified (3) COPD (chronic obstructive pulmonary disease) SNOMED Code(s): 36525361 Code(s): J44.9 - CHRONIC OBSTRUCTIVE PULMONARY DISEASE, UNSPECIFIED Status : Acute Current Visit: Yes Qualifiers: COPD type: COPD with acute exacerbation Qualified Code(s): J44.1 - Chronic obstructive pulmonary disease with (acute) exacerbation (4) Total self-care deficit SNOMED Code(s): 43011340 Code(s): R41.89 - OTH SYMPTOMS AND SIGNS W COGNITIVE FUNCTIONS AND AWARENESS Status: Acute Current Visit: No (5) Multiple sclerosis SNOMED Code(s): 20783316 Code(s): G35 - MULTIPLE SCLEROSIS Status: Chronic Priority: High Current Visit: No - Problem List Review Problem List Initiated/Reviewed/Updated: Yes - Plan Plan:: This 54 year old female admitted with Acute hypercapnic/hypoxic respiratory failure and AMS 1. COPD exacerbation: Wheezing improving, continue to taper Steroids now, change to Prednisone 40 mg PO daily and Levaquin for COPD exacerbation x 4 days , administer today's dose then will be fully treated. Duonebs PRN. Continue to wean oxygen as possible. Encourage IS, flutter valve and ambulation. 2. Dysphagia: speech on board, cont puree diet, Eating more. Has intermittent emesis. Megace started as appetite stimulant. Will monitor. 3. MS: due to acute illness, ambulatory dysfunction noted. Not back at baseline. We discussed further rehabilitation this morning, and she agrees she needs to go to [place] for short term rehab until stron enough to return home. VTE prophylaxis: Heparin GI prophylaxis: Protonix Dispo: Likely [facility] in am.
[2019-08-10] MEDS ORDERED: Furosemide 20 MG Tab PO SCH (09:00)
[2019-08-10] MEDS ORDERED: Levofloxacin 250 MG Tab PO SCH (09:00)
[2019-08-10] MEDS: Cholecalciferol (Vitamin D3) 25 MCG Tab PO SCH (09:06)
[2019-08-10] MEDS: Diazepam 5 MG Tab PO PRN ×2 (09:07→21:46)
[2019-08-10] MEDS: guaiFENesin 600 MG Tab.ER PO SCH ×2 (09:07→21:44)
[2019-08-10] MEDS: Fluticasone Propionate Nasal Spray 16 GM Bottle NASBOTH SCH (09:08)
[2019-08-10] MEDS: Teriflunomide [Aubagio] 14 MG PO SCH (09:10)
[2019-08-10] MEDS: predniSONE 20 MG Tab PO SCH (10:03)
[2019-08-10] MEDS: Megestrol 40 MG Tab PO SCH (10:05)
[2019-08-10] MEDS: Albuterol/Ipratropium 3.0-0.5 MG/3 ML Neb Soln NEB PRN ×2 (14:58→23:23)
[2019-08-10] MEDS ORDERED: traZODone 50 MG Tab PO SCH (21:00)
[2019-08-10] MEDS: DULoxetine 30 MG Cap PO SCH (21:44)
[2019-08-10] MEDS: Latanoprost 0.005% Ophth Soln 2.5 ML Bottle EYEBOTH SCH (21:49)
[2019-08-11] MEDS: NYSTATIN 30 GM TOP SCH (05:33)
[2019-08-11] MEDS: Heparin Sodium 5,000 Units/ML Vial SUBCUT SCH (05:47)
[2019-08-11] MEDS: Ondansetron 4 MG/2 ML SDV IVPUSH PRN (06:13)
[2019-08-11] MEDS ORDERED: Pantoprazole 40 MG Tab.CR PO SCH (07:30)
[2019-08-11] MEDS ORDERED: Bisacodyl 10 MG Supp RECTAL PRN (08:13)
[2019-08-11] MEDS: predniSONE 20 MG Tab PO SCH (09:10)
[2019-08-11] MEDS: guaiFENesin 600 MG Tab.ER PO SCH (09:10)
[2019-08-11] MEDS: Baclofen 10 MG Tab PO SCH (09:10)
[2019-08-11] MEDS: Cholecalciferol (Vitamin D3) 25 MCG Tab PO SCH (09:10)
[2019-08-11] MEDS: Megestrol 40 MG Tab PO SCH (09:10)
[2019-08-11] MEDS: DULoxetine 60 MG Cap PO SCH (09:10)
[2019-08-11] MEDS: Teriflunomide [Aubagio] 14 MG PO SCH (09:11)
[2019-08-11] MEDS: Fluticasone Propionate Nasal Spray 16 GM Bottle NASBOTH SCH (09:11)
[2019-08-11 09:33] LABS: CARBON DIOXIDE,CO2 33.5 mmol/L (21.0-32.0); POTASSIUM,K 3.1 mmol/L (3.5-5.1)
--- NOTE | 2019-08-11 10:16 | PCM.DCSUM1 ---
Discharge Summary - Hospital Course Brief History: Patient is a 54-year-old female with PMH of severe MS, recurrent pneumonia and UTIs managed by Dr Quinonez presents to ER secondary to concern of altered mental status since this afternoon. Per family patient was in her usual state of health around noon today. Her parents who tried to wake her up from a nap but was hard to be aroused so EMS was called. Patient uses a walker per her baseline for mobility. Upon arrival to ER, patient was alert, orientated to person place and time, but is was drowsy. ABG showed Hypercapnia. CT scan was negative for acute stroke. Patiently started on BIPAP which she was able to tolerate well and admitted for management of Hypercapnic raspatory failure to ICU. Diagnosis: Stroke: No - Discharge Data Discharge Date: 08/11/19 Discharge Disposition: DC/Tfer to SNF 03 Condition: Good - Referral to Home Health Primary Care Physician: PCP None - Discharge Diagnosis/Problem(s) (1) Hypercapnic respiratory failure SNOMED Code(s): 276794924 ICD Code: J96.92 - RESPIRATORY FAILURE, UNSPECIFIED WITH HYPERCAPNIA Status : Resolved Qualifiers: Chronicity: acute on chronic Qualified Code(s): J96.22 - Acute and chronic respiratory failure with hypercapnia (2) Altered mental status SNOMED Code(s): 481300302 ICD Code: R41.82 - ALTERED MENTAL STATUS, UNSPECIFIED Status: Resolved Priority: High Qualifiers: Altered mental status type: disorientation Qualified Code(s): R41.0 - Disorientation, unspecified (3) COPD (chronic obstructive pulmonary disease) SNOMED Code(s): 94848742 ICD Code: J44.9 - CHRONIC OBSTRUCTIVE PULMONARY DISEASE, UNSPECIFIED Status : Acute Qualifiers: COPD type: COPD with acute exacerbation Qualified Code(s): J44.1 - Chronic obstructive pulmonary disease with (acute) exacerbation (4) Total self-care deficit SNOMED Code(s): 21696153 ICD Code: R41.89 - OTH SYMPTOMS AND SIGNS W COGNITIVE FUNCTIONS AND AWARENESS Status: Acute (5) Multiple sclerosis SNOMED Code(s): 53915707 ICD Code: G35 - MULTIPLE SCLEROSIS Status: Chronic Priority: High - Patient Summary/Data Consults: Consultations 08/06/19 06:15 Consult to Physician [CONS] Stat 08/06/19 08:45 Consult to Speech Language Pathology [[employer] Evaluation and Treatment] [CONS] Routine 08/07/19 09:27 Consult to Physical Therapy [PT Evaluation and Treatment] [CONS] Routine - Discharge Plan Prescriptions/Med Rec: Baclofen 20 mg PO BID #14 tablet diazePAM [Valium] 5 mg PO BID PRN #14 tablet PRN Reason: Anxiety Gabapentin [Neurontin] 300 mg PO QAM #7 capsule Gabapentin [Neurontin] 600 mg PO BEDTIME #14 capsule Megestrol [Megace] 40 mg PO DAILY #14 tablet predniSONE 20 mg PO WITHBREAKFAST #7 tablet traMADol [Ultram] 50 mg PO Q12H PRN #14 tablet PRN Reason: Pain Home Medications: Home Meds DULoxetine HCl [Cymbalta] 60 mg PO DAILY 08/22/15 [History] Pantoprazole Sodium 40 mg PO DAILY 08/22/15 [History] traZODone 200 mg PO BEDTIME 10/21/15 [History] Cholecalciferol (Vitamin D3) [Vitamin D3] 1,000 unit PO DAILY 10/24/15 [History] traMADol [Ultram] 50 mg PO Q8H 12/22/15 [History] Albuterol [Ventolin HFA] 2 puff INH Q4H PRN 10/27/18 [History] DULoxetine HCl [Cymbalta] 30 mg PO BEDTIME 10/28/18 [History] Albuterol/Ipratropium [DuoNeb 3.0-0.5 MG/3 ML] 3 ml NEB Q4HRRT PRN 12/03/18 [ History] Furosemide [Lasix] 40 mg PO DAILY 12/05/18 [History] L.acidoph,Paracasei, B.lactis [Probiotic] 1 cap PO DAILY 12/05/18 [History] Teriflunomide [Aubagio] 14 mg PO DAILY 12/05/18 [History] guaiFENesin [Mucinex] 600 mg PO DAILY PRN 12/05/18 [History] Latanoprost [Xalatan] 1 drop EYEBOTH BEDTIME 08/06/19 [History] Nystatin 30 gm TP TID 08/08/19 [History] Baclofen 20 mg PO BID #14 tablet 08/11/19 [Rx] Bisacodyl [Dulcolax] 10 mg RECTAL DAILY PRN #3 supp 08/11/19 [Rx] Fluticasone Propionate [Flonase] 1 spray NASBOTH DAILY #1 bottle 08/11/19 [Rx] Gabapentin [Neurontin] 300 mg PO QAM #7 capsule 08/11/19 [Rx] Gabapentin [Neurontin] 600 mg PO BEDTIME #14 capsule 08/11/19 [Rx] Megestrol [Megace] 40 mg PO DAILY #14 tablet 08/11/19 [Rx] diazePAM [Valium] 5 mg PO BID PRN #14 tablet 08/11/19 [Rx] predniSONE 20 mg PO WITHBREAKFAST #7 tablet 08/11/19 [Rx] traMADol [Ultram] 50 mg PO Q12H PRN #14 tablet 08/11/19 [Rx] Oxygen Therapy Mode: Nasal Cannula Patient Handouts: Hypoxia, Chronic Obstructive Pulmonary Disease, [id number] Referrals: Sun Quinonez MD [Physician] - 08/17/19 4:30 pm Ryan Evans MD [Physician] - 08/17/19 - Discharge Summary/Plan Comment DC Time >30 min.: No Discharge Summary/Plan Comment: Admitting Diagnoses: Hypercapnic hypoxic respiratory failure AMS COPD exacerbation Discharge Diagnoses: Hypercapnic hypoxic respiratory failure AMS- resolved. COPD exacerbation Weakness Total self care deficit Other PMH: MS Lacy was admitted and treated initially with Bipap due to hypercapnic hypoxic respiratory failure, this improved within 24 hours of treatment, though she had some worsening initially. ALl sedating medications were held and slowly started back at lower doses. She was also started on steroids and Levaquin for COPD exacerbation, no pneumonia suspected. She was evaluate by for aspiration risk , initially she was started on pureed diet but as she became more and more alert she was able to return to regular diet. She was again, started on lower doses of sedating medications, including Valium, Baclofen, Gabapentin and Tramadol due to the risk of respiratory failure. She has been stable over the last few days as we restarted these medications. She has completed 7 days of Levaquin and will be continued on Prednisone taper upon discharge. She remains on 3 L NC now still has some cough and congestion. She was counseled on smoking cessation. We also discussed residential prognosis and the need to evaluate the possibility that MS is progressing and now causing respiratory depression. Mother was not very interested in discussion, though Bambi expressed she would not want a feeding tube or tracheostomy. I spoke with Dr Evans regarding transfer to [facility] today due to deconditioning from acute illness and need for rehabilitation. He was informed of medication changes. She will be discharged to [facility] today. - Patient Data Vitals - Most Recent: Last Vital Signs Temp 97.0 F 08/11/19 07:57 Pulse 58 L 08/11/19 07:57 Resp 16 08/11/19 07:57 BP 109/71 08/11/19 07:57 Pulse Ox 96 08/11/19 07:57 Weight - Most Recent: 98.702 kg I&O - Last 24 hours: Intake & Output 08/10/19 08/11/19 08/11/19 22:59 06:59 14:59 Intake Total 620 150 Output Total 500 300 Balance 120 -150 Lab Results - Last 24 hrs: Laboratory Results - last 24 hr 08/11/19 Range/Units 08:48 Sodium 142 (136-145) mmol/L Potassium 3.1 L (3.5-5.1) mmol/L Chloride 100 (98-107) mmol/L Carbon Dioxide 33.5 H (21.0-32.0) mmol/L BUN 31 H (7.0-18.0) mg/dL Creatinine 1.1 H (0.6-1.0) mg/dL Est Cr Clr Drug Dosing 46.24 mL/min Estimated GFR (MDRD) 51.8 ml/min Glucose 113 H (74-106) mg/dL Calcium 9.6 (8.5-10.1) mg/dL KRIS Results - Last 24 hrs: Microbiology 08/05/19 20:21 Aerobic Blood Culture - Final Blood - Venous - Lab Draw NO GROWTH AFTER 5 DAYS Anaerobic Blood Culture - Final 08/05/19 20:07 Aerobic Blood Culture - Final Blood - Venous NO GROWTH AFTER 5 DAYS Anaerobic Blood Culture - Final Med Orders - Current: Current Medications Acetaminophen (Tylenol) 650 mg PO Q4H PRN PRN Reason: Pain Last Admin: 08/08/19 18:42 Dose: 650 mg Albuterol/Ipratropium (Duoneb 3.0-0.5 Mg/3 Ml) 3 ml NEB Q4HRRT PRN PRN Reason: Shortness Of Breath/wheezing Last Admin: 08/10/19 23:23 Dose: 3 ml Baclofen (Lioresal) 20 mg PO BID [facility] Last Admin: 08/11/19 09:10 Dose: 20 mg Bisacodyl (Dulcolax) 10 mg RECTAL DAILY PRN PRN Reason: Constipation Cholecalciferol (Vitamin D3) 25 mcg PO DAILY [facility] Last Admin: 08/11/19 09:10 Dose: 25 mcg Diazepam (Valium.) 5 mg PO BID PRN PRN Reason: Anxiety Last Admin: 08/10/19 21:46 Dose: 5 mg Duloxetine HCl (Cymbalta) 30 mg PO BEDTIME [facility] Last Admin: 08/10/19 21:44 Dose: 30 mg Duloxetine HCl (Cymbalta) 60 mg PO DAILY [facility] Last Admin: 08/11/19 09:10 Dose: 60 mg Fluticasone Propionate (Flonase) 0 gm NASBOTH DAILY [facility] Last Admin: 08/11/19 09:11 Dose: 1 spray Guaifenesin (Mucinex) 600 mg PO BID [facility] Last Admin: 08/11/19 09:10 Dose: 600 mg Heparin Sodium (Porcine) (Heparin Sodium) 5,000 units SUBCUT Q8H [facility] Last Admin: 08/11/19 05:47 Dose: 5,000 units Latanoprost (Xalatan 0.005% Ophth Soln) 0 ml EYEBOTH BEDTIME [facility] Last Admin: 08/10/19 21:49 Dose: 1 drop Levofloxacin (Levaquin) 750 mg PO Q48H [facility] Last Admin: 08/10/19 10:48 Dose: 750 mg Megestrol Acetate (Megace) 40 mg PO DAILY [facility] Last Admin: 08/11/19 09:10 Dose: 40 mg Ondansetron HCl (Zofran) 4 mg IVPUSH Q4H PRN PRN Reason: Nausea Last Admin: 08/11/19 06:13 Dose: 4 mg Pantoprazole Sodium (Protonix) 40 mg PO ACBREAKFAST [facility] Last Admin: 08/11/19 08:17 Dose: 40 mg Teriflunomide [ (Aubagio] 14 Mg) 1 each PO DAILY [facility] Last Admin: 08/11/19 09:11 Dose: 1 each Nystatin [Nystatin] (30 Gm) 1 each TOP TID [facility] Last Admin: 08/11/19 05:33 Dose: Not Given Prednisone (Prednisone) 40 mg PO WITHBREAKFAST [facility] Last Admin: 08/11/19 09:10 Dose: 40 mg Sodium Chloride (Saline Flush) 10 ml FLUSH ASDIRECTED PRN PRN Reason: Keep Vein Open Sodium Chloride (Saline Flush) 2.5 ml FLUSH ASDIRECTED PRN PRN Reason: Keep Vein Open Sodium Chloride (Normal Saline) 10 ml IV ASDIRECTED PRN PRN Reason: IV Use Tramadol HCl (Ultram) 50 mg PO Q12H PRN PRN Reason: Pain Trazodone HCl (Trazodone) 200 mg PO BEDTIME [facility] Last Admin: 08/10/19 21:44 Dose: 200 mg Discontinued Medications Albuterol/Ipratropium (Duoneb 3.0-0.5 Mg/3 Ml) 3 ml NEB ONETIME ONE Stop: 08/05/19 19:24 Last Admin: 08/05/19 19:32 Dose: 3 ml Albuterol/Ipratropium (Duoneb 3.0-0.5 Mg/3 Ml) 3 ml NEB Q4HRRT PRN PRN Reason: Shortness Of Breath/wheezing Last Admin: 08/06/19 07:56 Dose: 3 ml Albuterol/Ipratropium (Duoneb 3.0-0.5 Mg/3 Ml) 3 ml NEB Q4HRRT [facility] Last Admin: 08/08/19 21:38 Dose: Not Given Furosemide (Lasix) 20 mg IVPUSH ONETIME ONE Stop: 08/07/19 09:26 Last Admin: 08/07/19 10:01 Dose: 20 mg Furosemide (Lasix) 20 mg IVPUSH ONETIME ONE Stop: 08/07/19 15:52 Last Admin: 08/07/19 17:37 Dose: 20 mg Furosemide (Lasix) 40 mg PO DAILY [facility] Last Admin: 08/09/19 08:53 Dose: 40 mg Furosemide (Lasix) 20 mg PO DAILY [facility] Sodium Chloride (Normal Saline) 500 mls @ 999 mls/hr IV ASDIRECTED TRA Last Admin: 08/06/19 01:33 Dose: 999 mls/hr Levofloxacin/Dextrose 750 mg/ (Premix) 150 mls @ 100 mls/hr IV Q48H [facility] Last Admin: 08/08/19 10:02 Dose: 100 mls/hr Magnesium Sulfate 4 gm/ Premix 100 mls @ 50 mls/hr IV ONETIME ONE Stop: 08/06/19 20:39 Last Admin: 08/06/19 18:56 Dose: 50 mls/hr Pantoprazole Sodium 40 mg/ (Sodium Chloride) 10 mls @ 300 mls/hr IV DAILY [facility] Last Admin: 08/10/19 08:03 Dose: 300 mls/hr Lorazepam (Ativan) 1 mg PO ONETIME ONE Stop: 08/06/19 19:46 Last Admin: 08/06/19 20:45 Dose: 1 mg Methylprednisolone Sodium Succinate (Solu-Medrol) 125 mg IVPUSH ONETIME ONE Stop: 08/06/19 08:47 Last Admin: 08/06/19 09:52 Dose: 125 mg Methylprednisolone Sodium Succinate (Solu-Medrol) 40 mg IVPUSH Q8H [facility] Last Admin: 08/08/19 03:21 Dose: 40 mg Methylprednisolone Sodium Succinate (Solu-Medrol) 40 mg IVPUSH BID [facility] Last Admin: 08/09/19 21:09 Dose: 40 mg Pantoprazole Sodium (Protonix) 40 mg PO DAILY [facility] Last Admin: 08/06/19 15:11 Dose: 40 mg Pantoprazole Sodium (Protonix) Confirm Administered Dose 40 mg .ROUTE .STK- MED ONE Stop: 08/06/19 15:12 Last Admin: 08/06/19 15:18 Dose: Not Given
[2019-08-11] MEDS: Diazepam 5 MG Tab PO PRN (10:50)
[2019-08-11 11:47] VITALS: BP 128/69; PULSE 59
== END 2019-08-11 13:45 | DRG 189 ==
LOC: MW.ED 18:53 → MW.ICU 21:18 → UNDOADMIN 22:11 → MW.MS 08-07 15:25 → MW.ICU 08-07 15:25 → UNDODISIN 08-11 13:45
PROVIDERS: ADMIT Student in an Organized Health Care Education/Training Program; ATTEND Student in an Organized Health Care Education/Training Program
PROC: 5A09357 Assistance with Respiratory Ventilation, Less than 24 Consecutive Hours, Continuous Positive Airway Pressure (ICD-10-PCS; principal; 2019-08-05)
DX: J96.22 Acute and chronic respiratory failure with hypercapnia (principal); R06.89 Other abnormalities of breathing; J44.1 Chronic obstructive pulmonary disease with (acute) exacerbation; R41.0 Disorientation, unspecified; G35 Multiple sclerosis; K21.9 Gastro-esophageal reflux disease without esophagitis; F17.210 Nicotine dependence, cigarettes, uncomplicated; Z87.01 Personal history of pneumonia (recurrent); Z87.440 Personal history of urinary (tract) infections; F41.9 Anxiety disorder, unspecified; E66.9 Obesity, unspecified; R13.10 Dysphagia, unspecified; D72.829 Elevated white blood cell count, unspecified; R26.2 Difficulty in walking, not elsewhere classified; Z79.52 Long term (current) use of systemic steroids; Z79.899 Other long term (current) drug therapy; Z71.6 Tobacco abuse counseling; Z68.39 Body mass index [BMI] 39.0-39.9, adult
CPT/HCPCS: 36415; 36600 ×2; 70450; 71045; 80053; 80305; 81003; 82140; 82803 ×2; 83605; 84443; 84484; 85025; 85610; 85730; 87040 ×2; 87804 ×2; 93005; 94640; 94660; 99285; G0480; 51702; 80048; 83735; 84100; 92526-GN; 92610-GN; 94667; 97110-GP; 97162-GP; 97530-GP; A9270-GY; C9113; J1644; J1956; J2405; J2920; J2930; J3475; J7030; J7050; J7620-GY

== ENCOUNTER 2020-05-12 15:01 | Emergency (ER) | payer MEDICARE, BC ==
[2020-05-12] MEDS ORDERED: Sodium Chloride 0.9% 2.5 ML Syringe FLUSH PRN (15:31)
[2020-05-12] MEDS ORDERED: Ondansetron 4 MG/2 ML SDV IVPUSH ONE (15:31)
[2020-05-12] MEDS ORDERED: Sodium Chloride 0.9% 10 ML Syringe FLUSH PRN (15:31)
[2020-05-12] MEDS ORDERED: Sodium Chloride 0.9% 1,000 ML IV ONE ×2 (15:31→16:59)
--- NOTE | 2020-05-12 15:39 | EDM.PDOC ---
ED HPI GENERAL MEDICAL PROBLEM - General Chief Complaint: Diabetic Complaint Stated Complaint: BLOOD SUGAR 400 BLURRY VISION Time Seen by Provider: 05/12/20 15:24 - History of Present Illness INITIAL COMMENTS - FREE TEXT/NARRATIVE: History of present illness: Patient presents with an elevated blood sugar she realized this after taking her blood sugar at home with her dad's glucometer. She has been experiencing generalized malaise weakness with increased thirst and increased voiding she denies any pain no chest pain no fevers no chills no cough no trouble breathing nothing seems to make it better or worse. She has not had a previous diagnosis of diabetes she does have a diagnosis of multiple sclerosis. Review of systems: As per history of present illness and below otherwise all systems reviewed and negative. Past medical history: As per history of present illness and as reviewed below otherwise noncontributory. Surgical history: As per history of present illness and as reviewed below otherwise noncontributor y. Social history: No reported history of drug or alcohol abuse. Family history: As per history of present illness and as reviewed below otherwise noncontributory. Physical exam: HEENT: Atraumatic, normocephalic, pupils reactive, negative for conjunctival pallor or scleral icterus, mucous membranes moist, throat clear, neck supple, nontender, trachea midline. Lungs: Clear to auscultation, breath sounds equal bilaterally, chest nontender. Heart: S1S2, regular, negative for clicks, rubs, or JVD. Abdomen: Soft, nondistended, nontender. Negative for masses or hepatosplenomegaly. Negative for costovertebral tenderness. Pelvis: Stable nontender. Genitourinary: Deferred. Rectal: Deferred. Extremities: Atraumatic, negative for cords or calf pain. Neurovascular unremarkable. Neuro: Awake, alert, oriented. Cranial nerves II through XII unremarkable. Cerebellum unremarkable. Motor and sensory unremarkable throughout. Exam nonfocal. Diagnostics: [] Therapeutics: [] Impression: Hyperglycemia [] Plan: Labs and fluids will be given and obtained she will be reassessed [] Definitive disposition and diagnosis as appropriate pending reevaluation and review of above. - Related Data Allergies Allergy/AdvReac Type Severity Reaction Status Date / Time No Known Allergies Allergy Verified 08/08/19 05:57 Home Meds: Home Meds DULoxetine HCl [Cymbalta] 60 mg PO DAILY 08/22/15 [History] Pantoprazole Sodium 40 mg PO DAILY 08/22/15 [History] Cholecalciferol (Vitamin D3) [Vitamin D3] 1,000 unit PO DAILY 10/24/15 [History] DULoxetine HCl [Cymbalta] 30 mg PO BEDTIME 10/28/18 [History] Furosemide [Lasix] 40 mg PO DAILY 12/05/18 [History] Teriflunomide [Aubagio] 14 mg PO DAILY 12/05/18 [History] Baclofen 20 mg PO BID #14 tablet 08/11/19 [Rx] Gabapentin [Neurontin] 300 mg PO QAM #7 capsule 08/11/19 [Rx] Gabapentin [Neurontin] 600 mg PO BEDTIME #14 capsule 08/11/19 [Rx] Baclofen 40 mg PO PCLUNCH 05/12/20 [History] Bifidobacterium Infantis [Align] 1 tab PO DAILY 05/12/20 [History] Budesonide/Formoterol Fumarate [Symbicort 80-4.5 MCG] 1 puff IH DAILY 05/12/20 [History] FA/Lycopene/Lut/MV,Ca,Iron,Min [Centrum] 1 tab PO DAILY 05/12/20 [History] Gabapentin [Neurontin] 300 mg PO PCLUNCH 05/12/20 [History] Mecobalamin [B12 Active] 1,000 mcg PO DAILY 05/12/20 [History] Potassium Chloride 10 meq PO BID 05/12/20 [History] diazePAM [Valium.] 2 mg PO TID PRN 05/12/20 [History] metFORMIN [Glucophage XR] 500 mg PO BIDMEALS #60 tab.er 05/12/20 [Rx] traZODone HCl [Trazodone HCl] 200 mg PO BEDTIME 05/12/20 [History] Past Medical History Other HEENT History: top and bottom dentures Cardiovascular History: Reports: None Respiratory History: Reports: Bronchitis, Recurrent, Other (See Below) Other Respiratory History: 30 yr history of smoking, use [place] on & off, current use 1/2 pack per day Gastrointestinal History: Reports: Cholelithiasis, GERD Other Gastrointestinal History: hx: Gallstones, 'unsure if they are still there, they do not give me any trouble" Genitourinary History: Reports: None TAX COLLECTOR 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 (See Below) Other TAX COLLECTOR History: Pelvic pain 'midline'- before gall bladder removal Musculoskeletal 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 (See Below) Other Musculoskeletal History: Scoliosis Upper and lower back, Multiple Sclerosis "mobility good, use a walker" Neurological History: Reports: MS Other Neuro History: Good mobility generally, but "sometimes use walker when not up to par or feel weak" Psychiatric History: Reports: Anxiety, Depression Endocrine/Metabolic History: Reports: Obesity/BMI 30+ Hematologic History: Reports: None Immunologic History: Reports: None Oncologic (Cancer) History: Reports: None Dermatologic History: Reports: None - Infectious Disease History Infectious Disease History: Reports: Chicken Pox, Measles - Past Surgical History HEENT Surgical 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 (See Below) Female Surgical History: Reports: Tubal Ligation Musculoskeletal Surgical 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 (See Below) Social & Family History - Family History Family Medical History: Noncontributory - Tobacco Use Smoking Status *Q: Former Smoker Used Tobacco, but Quit: Yes Month/Year Tobacco Last Used: 09/2014 - Caffeine Use Caffeine Use: Reports: Soda - Recreational Drug Use Recreational Drug Use: No - Living Situation & Occupation Living situation: Reports: Single, with Family Occupation: Disabled ED ROS GENERAL - Review of Systems Review Of Systems: See Below ED EXAM GENERAL NO PERIP PULSE - Physical Exam Exam: See Below EKG INTERPRETATION EKG Interpretation Comments: EKG is normal sinus rhythm rate of [address]-T changes no eaw ischemia normal axis normal intervals read and interpreted by me Course - Vital Signs Text/Narrative:: Patient is noted through her evaluation to have decreased oxygen saturations they are persistently in the 80s she denies any shortness of breath no cough she is not had any chest pain or swelling. A cardiovascular evaluation will be added to her assessment. We are still working on lowering her blood sugars. A one-view portable chest read interpreted by me no acute cardiopulmonary pathology is evident there is profound kyphoscoliosis noted. Patient's reexamined at 6:44 PM she wants to go home her troponins negative EKG is nonischemic and her chest x-ray is unremarkable. She is maintaining her sats above 90% there are dips but with poor plethysmography. She will be discharged home on metformin she is to follow-up with primary care doctor return to the ED if worsening over the weekend. Last Recorded V/S: Last Vital Signs Temp 36.4 C 05/12/20 15:13 Pulse 83 05/12/20 17:30 Resp 20 05/12/20 17:30 BP 117/79 05/12/20 17:30 Pulse Ox 96 05/12/20 17:30 - Orders/Labs/Meds Orders: Active Orders 24 hr Category Date Time Status EKG 12 Lead [EKG Documentation Completion] [RC] STAT Care 05/12/20 18:00 Active B-TYPE NATRIURETIC PEPTIDE,BNP [CHEM] Stat Lab 05/12/20 18:00 Stop Req CORONAVIRUS COVID-19 PCR PHL Stat Lab 05/12/20 18:00 Stop Req Sodium Chloride 0.9% [Saline Flush] Med 05/12/20 15:31 Active 10 ml FLUSH ASDIRECTED PRN Sodium Chloride 0.9% [Saline Flush] Med 05/12/20 15:31 Active 2.5 ml FLUSH ASDIRECTED PRN Saline Lock Insert [OM.PC] Stat Oth 05/12/20 15:31 Ordered Medication Orders Sodium Chloride (Saline Flush) 10 ml FLUSH ASDIRECTED PRN PRN Reason: Keep Vein Open Last Admin: 05/12/20 15:41 Dose: 10 ml Documented by: BOYD Sodium Chloride (Saline Flush) 2.5 ml FLUSH ASDIRECTED PRN PRN Reason: Keep Vein Open Last Admin: 05/12/20 15:41 Dose: 2.5 ml Documented by: BOYD Labs: Laboratory Tests 05/12/20 05/12/20 05/12/20 Range/Units 15:29 15:29 15:29 WBC 10.72 (4.0-11.0) K/uL RBC 4.89 (4.30-5.90) M/uL Hgb 14.7 (12.0-16.0) g/dL Hct 46.1 H (36.0-46.0) % MCV 94.3 (80.0-98.0) fL MCH 30.1 (27.0-32.0) pg MCHC 31.9 (31.0-37.0) g/dL RDW Std Deviation 49.0 (28.0-62.0) fl RDW Coeff of Ade 14 (11.0-15.0) % Plt Count 219 (150-400) K/uL MPV 11.00 (7.40-12.00) fL Neut % (Auto) 70.0 (48.0-80.0) % Lymph % (Auto) 18.0 (16.0-40.0) % Thayer % (Auto) 9.8 (0.0-15.0) % Eos % (Auto) 1.8 (0.0-7.0) % Baso % (Auto) 0.4 (0.0-1.5) % Neut # (Auto) 7.5 H (1.4-5.7) K/uL Lymph # (Auto) 1.9 (0.6-2.4) K/uL Thayer # (Auto) 1.1 H (0.0-0.8) K/uL Eos # (Auto) 0.2 (0.0-0.7) K/uL Baso # (Auto) 0.0 (0.0-0.1) K/uL Nucleated RBC % 0.0 /100WBC Nucleated RBCs # 0 K/uL VBG pH 7.43 H (7.31-7.41) VBG pCO2 42 (35-45) mmHG VBG pO2 60 H (30-40) mmHG VBG HCO3 28 (22-30) mEq/L VBG Total CO2 25 L (41-51) mmol/L VBG Base Excess 3.0 (-3.0-3.0) Sodium 134 L (136-145) mmol/L Potassium 4.0 (3.5-5.1) mmol/L Chloride 95 L (98-107) mmol/L Carbon Dioxide 26.5 (21.0-32.0) mmol/L BUN 7 (7.0-18.0) mg/dL Creatinine 1.2 H (0.6-1.0) mg/dL Est Cr Clr Drug Dosing 42.39 mL/min Estimated GFR (MDRD) 46.8 ml/min Glucose 494 H (74-106) mg/dL POC Glucose (60-110) mg/dL Calcium 9.2 (8.5-10.1) mg/dL Total Bilirubin 0.6 (0.2-1.0) mg/dL AST 61 H (15-37) IU/L ALT 55 (14-63) IU/L Alkaline Phosphatase 211 H (46-116) U/L Troponin I (0.000-0.056) ng/mL Total Protein 6.7 (6.4-8.2) g/dL Albumin 3.3 L (3.4-5.0) g/dL Globulin 3.4 (2.6-4.0) g/dL Albumin/Globulin Ratio 1.0 (0.9-1.6) 05/12/20 05/12/20 Range/Units 15:29 17:29 WBC (4.0-11.0) K/uL RBC (4.30-5.90) M/uL Hgb (12.0-16.0) g/dL Hct (36.0-46.0) % MCV (80.0-98.0) fL MCH (27.0-32.0) pg MCHC (31.0-37.0) g/dL RDW Std Deviation (28.0-62.0) fl RDW Coeff of Ade (11.0-15.0) % Plt Count (150-400) K/uL MPV (7.40-12.00) fL Neut % (Auto) (48.0-80.0) % Lymph % (Auto) (16.0-40.0) % Thayer % (Auto) (0.0-15.0) % Eos % (Auto) (0.0-7.0) % Baso % (Auto) (0.0-1.5) % Neut # (Auto) (1.4-5.7) K/uL Lymph # (Auto) (0.6-2.4) K/uL Thayer # (Auto) (0.0-0.8) K/uL Eos # (Auto) (0.0-0.7) K/uL Baso # (Auto) (0.0-0.1) K/uL Nucleated RBC % /100WBC Nucleated RBCs # K/uL VBG pH (7.31-7.41) VBG pCO2 (35-45) mmHG VBG pO2 (30-40) mmHG VBG HCO3 (22-30) mEq/L VBG Total CO2 (41-51) mmol/L VBG Base Excess (-3.0-3.0) Sodium (136-145) mmol/L Potassium (3.5-5.1) mmol/L Chloride (98-107) mmol/L Carbon Dioxide (21.0-32.0) mmol/L BUN (7.0-18.0) mg/dL Creatinine (0.6-1.0) mg/dL Est Cr Clr Drug Dosing mL/min Estimated GFR (MDRD) ml/min Glucose (74-106) mg/dL POC Glucose 361 H (60-110) mg/dL Calcium (8.5-10.1) mg/dL Total Bilirubin (0.2-1.0) mg/dL AST (15-37) IU/L ALT (14-63) IU/L Alkaline Phosphatase (46-116) U/L Troponin I < 0.050 (0.000-0.056) ng/mL Total Protein (6.4-8.2) g/dL Albumin (3.4-5.0) g/dL Globulin (2.6-4.0) g/dL Albumin/Globulin Ratio (0.9-1.6) Meds: Medications Generic Name Dose Route Start Last Admin Trade Name Freq PRN Reason Stop Dose Admin Sodium Chloride 10 ml 05/12/20 15:31 05/12/20 15:41 Saline Flush FLUSH 10 ml ASDIRECTED PRN Administration Keep Vein Open Sodium Chloride 2.5 ml 05/12/20 15:31 05/12/20 15:41 Saline Flush FLUSH 2.5 ml ASDIRECTED PRN Administration Keep Vein Open Discontinued Medications Generic Name Dose Route Start Last Admin Trade Name Freq PRN Reason Stop Dose Admin Diazepam 2 mg 05/12/20 15:52 05/12/20 16:16 Valium PO 05/12/20 15:53 2 mg ONETIME ONE Administration Sodium Chloride 1,000 mls @ 999 mls/hr 05/12/20 15:31 05/12/20 15:36 Normal Saline IV 05/12/20 16:31 999 mls/hr .Bolus ONE Administration Sodium Chloride 1,000 mls @ 9,999 mls/hr 05/12/20 16:59 05/12/20 17:32 Normal Saline IV 05/12/20 17:04 9,999 mls/hr .Bolus ONE Administration Insulin Human Regular 12 unit 05/12/20 16:59 05/12/20 17:44 Novolin R SUBCUT 05/12/20 17:00 12 unit ONETIME ONE Administration Protocol Ondansetron HCl 4 mg 05/12/20 15:31 05/12/20 15:36 Zofran IVPUSH 05/12/20 15:32 4 mg ONETIME ONE Administration Departure - Departure Time of Disposition: 18:44 Disposition: Home, Self-Care 01 Condition: Good Clinical Impression: Hyperglycemia - Discharge Information *PRESCRIPTION DRUG MONITORING PROGRAM REVIEWED*: Not Applicable *COPY OF PRESCRIPTION DRUG MONITORING REPORT IN PATIENT JUAN MANUEL: Not Applicable Instructions: Hyperglycemia Referrals: Ryan Evans MD [Primary Care Provider] - Forms: ED Department Discharge Additional Instructions: The following information is given to patients seen in the emergency department who are being discharged to home. This information is to outline your options for follow-up care. We provide all patients seen in our emergency department with a follow-up referral. The need for follow-up, as well as the timing and circumstances, are variable depending upon the specifics of your emergency department visit. If you don't have a primary care physician on staff, we will provide you with a referral. We always advise you to contact your personal physician following an emergency department visit to inform them of the circumstance of the visit and for follow-up with them and/or the need for any referrals to a consulting specialist. The emergency department will also refer you to a specialist when appropriate. This referral assures that you have the opportunity for follow-up care with a specialist. All of these measure are taken in an effort to provide you with optimal care, which includes your follow-up. Under all circumstances we always encourage you to contact your private physician who remains a resource for coordinating your care. When calling for follow-up care, please make the office aware that this follow-up is from your recent emergency room visit. If for any reason you are refused follow-up, please contact the Emergency Department at and asked to speak to the emergency department charge nurse. Sepsis Event Note (ED) - Evaluation Sepsis Screening Result: No Definite Risk - Focused Exam Vital Signs: Vital Signs Temp Pulse Resp BP Pulse Ox 05/12/20 17:30 83 20 117/79 96 05/12/20 17:25 20 80 L 05/12/20 17:15 20 96 05/12/20 16:30 89 19 95 05/12/20 15:13 36.4 C 107 H 20 134/90 86 L - My Orders Last 24 Hours: My Active Orders 05/12/20 15:31 Sodium Chloride 0.9% [Saline Flush] 10 ml FLUSH ASDIRECTED PRN Sodium Chloride 0.9% [Saline Flush] 2.5 ml FLUSH ASDIRECTED PRN Saline Lock Insert [OM.PC] Stat 05/12/20 18:00 EKG 12 Lead [EKG Documentation Completion] [RC] STAT B-TYPE NATRIURETIC PEPTIDE,BNP [CHEM] Stat CORONAVIRUS COVID-19 PCR PHL Stat - Assessment/Plan Last 24 Hours: My Active Orders 05/12/20 15:31 Sodium Chloride 0.9% [Saline Flush] 10 ml FLUSH ASDIRECTED PRN Sodium Chloride 0.9% [Saline Flush] 2.5 ml FLUSH ASDIRECTED PRN Saline Lock Insert [OM.PC] Stat 05/12/20 18:00 EKG 12 Lead [EKG Documentation Completion] [RC] STAT B-TYPE NATRIURETIC PEPTIDE,BNP [CHEM] Stat CORONAVIRUS COVID-19 PCR PHL Stat
[2020-05-12] MEDS ORDERED: Diazepam 2 MG Tab PO ONE (15:52)
[2020-05-12 16:16] LABS: CARBON DIOXIDE,CO2 26.5 mmol/L (21.0-32.0)
[2020-05-12] MEDS ORDERED: Insulin Regular, Human 100 Units/ML 10 ML Vial SUBCUT ONE (16:59)
--- NOTE | 2020-05-12 18:34 | CR ---
Chest: Portable view of the chest was obtained. Comparison: Prior chest x-ray of 08/07/19. Heart size and mediastinum are within normal limits. Scoliosis is noted within the spine. Lungs show no acute parenchymal change. Impression: 1. Stable chest x-ray from previous exam. 2. Nothing acute is identified. Diagnostic code #2 This report was dictated in MDT
[2020-05-12 19:21] VITALS: BP 118/79; PULSE 84
== END 2020-05-12 19:02 | disposition home or self-care (01) ==
LOC: MW.ED 15:01
DX: R73.9 Hyperglycemia, unspecified (principal); K21.9 Gastro-esophageal reflux disease without esophagitis; G35 Multiple sclerosis; F41.9 Anxiety disorder, unspecified; F32.9 Major depressive disorder, single episode, unspecified; E66.9 Obesity, unspecified; Z68.41 Body mass index [BMI] 40.0-44.9, adult; Z79.899 Other long term (current) drug therapy; Z87.891 Personal history of nicotine dependence
CPT/HCPCS: 36415; 71045; 80053; 82803; 82962; 83880; 84484; 85025; 93005; 96361; 96374; 99285; A9270; J2405; J7030; J1815-GY

== ENCOUNTER 2021-01-18 10:20 | Inpatient (IN) | payer MEDICARE, BC ==
--- NOTE | 2021-01-18 10:42 | EDM.PDOC ---
ED HPI GENERAL MEDICAL PROBLEM - General Chief Complaint: Respiratory Problem Stated Complaint: DIFFICULTY BREATHING Time Seen by Provider: 01/18/21 10:33 Source of Information: Reports: Patient, EMS History Limitations: Reports: Altered Mental Status - History of Present Illness INITIAL COMMENTS - FREE TEXT/NARRATIVE: Patient is a 55-year-old female with a history of MS who presents today for altered mental status. Per EMS patient lives with her family but today she started acting weird 9 string questions correctly responding to questions. On exam patient it was that her name where she is at but seems to be spaced out and always there. Patient had a oxygen level down in the 70s was placed on a nonrebreather is now currently breathing at 9%. Patient has no recent falls or he clear reasons of why patient has altered status. - Related Data Allergies Allergy/AdvReac Type Severity Reaction Status Date / Time No Known Allergies Allergy Unverified 01/18/21 10:24 Home Meds: Home Meds DULoxetine HCl [Cymbalta] 60 mg PO DAILY 08/22/15 [History] Pantoprazole Sodium 40 mg PO DAILY 08/22/15 [History] Cholecalciferol (Vitamin D3) [Vitamin D3] 1,000 unit PO DAILY 10/24/15 [History] DULoxetine HCl [Cymbalta] 30 mg PO BEDTIME 10/28/18 [History] Furosemide [Lasix] 40 mg PO DAILY 12/05/18 [History] Teriflunomide [Aubagio] 14 mg PO DAILY 12/05/18 [History] Baclofen 20 mg PO BID #14 tablet 08/11/19 [Rx] Gabapentin [Neurontin] 300 mg PO QAM #7 capsule 08/11/19 [Rx] Gabapentin [Neurontin] 600 mg PO BEDTIME #14 capsule 08/11/19 [Rx] Baclofen 40 mg PO PCLUNCH 05/12/20 [History] Bifidobacterium Infantis [Align] 1 tab PO DAILY 05/12/20 [History] Budesonide/Formoterol Fumarate [Symbicort 80-4.5 MCG] 1 puff IH DAILY 05/12/20 [History] FA/Lycopene/Lut/MV,Ca,Iron,Min [Centrum] 1 tab PO DAILY 05/12/20 [History] Gabapentin [Neurontin] 300 mg PO PCLUNCH 05/12/20 [History] Mecobalamin [B12 Active] 1,000 mcg PO DAILY 05/12/20 [History] Potassium Chloride 10 meq PO BID 05/12/20 [History] diazePAM [Valium.] 2 mg PO TID PRN 05/12/20 [History] metFORMIN [Glucophage XR] 500 mg PO BIDMEALS #60 tab.er 05/12/20 [Rx] traZODone HCl [Trazodone HCl] 200 mg PO BEDTIME 05/12/20 [History] Past Medical History Other HEENT History: top and bottom dentures Cardiovascular History: Reports: None Respiratory History: Reports: Bronchitis, Recurrent, Other (See Below) Other Respiratory History: 30 yr history of smoking, use [place] on & off, current use 1/2 pack per day Gastrointestinal History: Reports: Cholelithiasis, GERD Other Gastrointestinal History: hx: Gallstones, 'unsure if they are still there, they do not give me any trouble" Genitourinary History: Reports: None [employer] 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 (See Below) Other [employer] History: Pelvic pain 'midline'- before gall bladder removal Musculoskeletal 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 (See Below) Other Musculoskeletal History: Scoliosis Upper and lower back, Multiple Sclerosis "mobility good, use a walker" Neurological History: Reports: MS Other Neuro History: Good mobility generally, but "sometimes use walker when not up to par or feel weak" Psychiatric History: Reports: Anxiety, Depression Endocrine/Metabolic History: Reports: Obesity/BMI 30+ Hematologic History: Reports: None Immunologic History: Reports: None Oncologic (Cancer) History: Reports: None Dermatologic History: Reports: None - Infectious Disease History Infectious Disease History: Reports: Chicken Pox, Measles - Past Surgical History HEENT Surgical 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 (See Below) Other HEENT Surgeries/Procedures: '95 surgery [place], [place] 'stretching of throat' Achalasia, Tubal ligation, Bilateral Bunionectomy, D&C GI Surgical History: Reports: Cholecystectomy, Esophageal Dilatation Female Surgical History: Reports: Tubal Ligation Neurological Surgical History: Reports: None Musculoskeletal Surgical 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 (See Below) Other Musculoskeletal Surgeries/Procedures:: Bilateral bunionectomies with some hardware Social & Family History - Family History Family Medical History: No Pertinent Family History - Tobacco Use Tobacco Use Status *Q: Former Tobacco User Used Tobacco, but Quit: Yes Month/Year Tobacco Last Used: unk - Caffeine Use Caffeine Use: Reports: Soda - Recreational Drug Use Recreational Drug Use: No - Living Situation & Occupation Living situation: Reports: Single, with Family Occupation: Disabled ED ROS GENERAL - Review of Systems Review Of Systems: Unable To Obtain Reason Not Obtained: AMS ED EXAM, GENERAL - Physical Exam Exam: See Below Exam Limited By: Altered Mental Status General Appearance: No Apparent Distress Eye Exam: Bilateral Eye: EOMI Respiratory/Chest: No Respiratory Distress, Lungs Clear, Normal Breath Sounds Cardiovascular: Normal Peripheral Pulses, Regular Rate, Rhythm Neurological: Alert, CN II-XII Intact ED LUMBAR PUNCTURE - Lumbar Puncture Indication: Fever, Mental Status Change Consent Obtained: Patient, Guardian Position: Lateral Decubitus Prep: Sterile Drapes, Betadine Local Anesthesia - Lidocaine (Xylocaine): 1% Plain Local Anesthetic Volume: 3cc Vertebral Interspace: L4/L5 Spinal Needle With Stylet: 20ga, 3.5 Inch (Adult) Number of Attempts: 1 Fluid Appearance: Clear Opening Pressure: 15 Tubes Obtained: 4 Total Fluid Amount: 4cc Complications: No Sterile Dressing: Other (bandage) #1 Interpretation EKG Date: 01/18/21 Time: 10:24 Rhythm: Other (sinus tachy) Rate (Beats/Min): 109 ST-T: Normal Course - Vital Signs Last Recorded V/S: Last Vital Signs Temp 99.3 F 01/18/21 11:41 Pulse 101 H 01/18/21 11:41 Resp 12 01/18/21 11:41 BP 119/60 01/18/21 11:41 Pulse Ox 94 L 01/18/21 11:41 - Orders/Labs/Meds Orders: Active Orders 24 hr Category Date Time Status EKG 12 Lead [EKG Documentation Completion] [RC] URGENT Care 01/18/21 10:43 Active Flat in Bed [RC] ASDIRECTED Care 01/18/21 12:35 Active Procedure Tray at Bedside [RC] ASDIRECTED Care 01/18/21 12:35 Active Verify Patient Consent Obtain [RC] ASDIRECTED Care 01/18/21 12:35 Active Chest w Cont [CT] Stat Exams 01/18/21 12:33 Ordered CELL COUNT,CSF [BF] Urgent Lab 01/18/21 12:35 Ordered CULTURE BLOOD [BC] Stat Lab 01/18/21 12:15 Results CULTURE BLOOD [BC] Stat Lab 01/18/21 12:20 Received CULTURE CSF + SMEAR [RM] Urgent Lab 01/18/21 12:35 Ordered GLUCOSE,CSF [BF] Urgent Lab 01/18/21 12:35 Ordered PROTEIN,CSF [BF] Urgent Lab 01/18/21 12:35 Ordered Vancomycin 1.5 gm Med 01/18/21 11:50 Active Sodium Chloride 0.9% [Normal Saline (AdvBag)] 250 ml IV ONETIME Blood Culture x2 Reflex Set [OM.PC] Stat Oth 01/18/21 12:01 Ordered ED Lumbar Puncture Reflex [OM.PC] Click to Edit Oth 01/18/21 12:35 Ordered Medication Orders Vancomycin HCl 1.5 gm/ Sodium (Chloride) 250 mls @ 166 mls/hr IV ONETIME ONE Stop: 01/18/21 13:20 Last Admin: 01/18/21 12:38 Dose: 166 mls/hr Documented by: [email or web address] Labs: Laboratory Tests 01/18/21 01/18/21 01/18/21 Range/Units 10:33 10:33 10:35 WBC 21.49 H (4.0-11.0) K/uL RBC 5.28 (4.30-5.90) M/uL Hgb 16.0 (12.0-16.0) g/dL Hct 50.7 H (36.0-46.0) % MCV 96.0 (80.0-98.0) fL MCH 30.3 (27.0-32.0) pg MCHC 31.6 (31.0-37.0) g/dL RDW Std Deviation 50.2 (28.0-62.0) fl RDW Coeff of Ade 14 (11.0-15.0) % Plt Count 236 (150-400) K/uL MPV 10.90 (7.40-12.00) fL Neut % (Auto) 90.5 H (48.0-80.0) % Lymph % (Auto) 3.7 L (16.0-40.0) % [place] % (Auto) 5.7 (0.0-15.0) % Eos % (Auto) 0.0 (0.0-7.0) % Baso % (Auto) 0.1 (0.0-1.5) % Neut # (Auto) 19.4 H (1.4-5.7) K/uL Lymph # (Auto) 0.8 (0.6-2.4) K/uL [place] # (Auto) 1.2 H (0.0-0.8) K/uL Eos # (Auto) 0.0 (0.0-0.7) K/uL Baso # (Auto) 0.0 (0.0-0.1) K/uL Nucleated RBC % 0.0 /100WBC Nucleated RBCs # 0 K/uL INR APTT (18.6-31.3) SEC ABG pH 7.424 (7.35-7.45) ABG pCO2 49 H (35-45) mmHG ABG pO2 111 H (75-100) mmHG ABG HCO3 32 H (22-26) mEq/L ABG Total CO2 27.6 ABG Base Excess 6.1 H (-2.0-2.0) Lactate 1.5 (0.20-2.00) mmol/L Sodium (136-145) mmol/L Potassium (3.5-5.1) mmol/L Chloride (98-107) mmol/L Carbon Dioxide (21.0-32.0) mmol/L BUN (7.0-18.0) mg/dL Creatinine (0.6-1.0) mg/dL Est Cr Clr Drug Dosing mL/min Estimated GFR (MDRD) ml/min Glucose (74-106) mg/dL Calcium (8.5-10.1) mg/dL Magnesium (1.8-2.4) mg/dL Total Bilirubin (0.2-1.0) mg/dL AST (15-37) IU/L ALT (14-63) IU/L Alkaline Phosphatase (46-116) U/L Ammonia (19-54) ug/dL Creatine Kinase (26-308) U/L Total Protein (6.4-8.2) g/dL Albumin (3.4-5.0) g/dL Globulin (2.6-4.0) g/dL Albumin/Globulin Ratio (0.9-1.6) Lipase (73-393) U/L Urine Color Urine Appearance Urine pH (5.0-8.0) Ur Specific [place] (1.001-1.035) Urine Protein (NEGATIVE) mg/dL Urine Glucose (UA) (NEGATIVE) mg/dL Urine Ketones (NEGATIVE) mg/dL Urine Occult Blood (NEGATIVE) Urine Nitrite (NEGATIVE) Urine Bilirubin (NEGATIVE) Urine Ictotest Urine Urobilinogen (<2.0) EU/dL Ur Leukocyte Esterase (NEGATIVE) Urine RBC (0-2/HPF) Urine WBC (0-5/HPF) Ur Epithelial Cells (NONE-FEW) Amorphous Sediment (NEGATIVE) Urine Bacteria (NEGATIVE) Urine Mucus (NONE-MOD) Urine Opiates Screen (NEGATIVE) Ur Oxycodone Screen (NEGATIVE) Urine Methadone Screen (NEGATIVE) Ur Barbiturates Screen (NEGATIVE) Ur Phencyclidine Scrn (NEGATIVE) Ur Amphetamine Screen (NEGATIVE) U Methamphetamines Scrn (NEGATIVE) U Benzodiazepines Scrn (NEGATIVE) U Cocaine Metab Screen (NEGATIVE) U Marijuana (THC) Screen (NEGATIVE) Ethyl Alcohol mg/dL SARS-CoV-2 RNA (NAZARIO) (NEGATIVE) 01/18/21 01/18/21 01/18/21 Range/Units 10:35 10:35 10:35 WBC (4.0-11.0) K/uL RBC (4.30-5.90) M/uL Hgb (12.0-16.0) g/dL Hct (36.0-46.0) % MCV (80.0-98.0) fL MCH (27.0-32.0) pg MCHC (31.0-37.0) g/dL RDW Std Deviation (28.0-62.0) fl RDW Coeff of Ade (11.0-15.0) % Plt Count (150-400) K/uL MPV (7.40-12.00) fL Neut % (Auto) (48.0-80.0) % Lymph % (Auto) (16.0-40.0) % [place] % (Auto) (0.0-15.0) % Eos % (Auto) (0.0-7.0) % Baso % (Auto) (0.0-1.5) % Neut # (Auto) (1.4-5.7) K/uL Lymph # (Auto) (0.6-2.4) K/uL [place] # (Auto) (0.0-0.8) K/uL Eos # (Auto) (0.0-0.7) K/uL Baso # (Auto) (0.0-0.1) K/uL Nucleated RBC % /100WBC Nucleated RBCs # K/uL INR 1.02 APTT 23.2 (18.6-31.3) SEC ABG pH (7.35-7.45) ABG pCO2 (35-45) mmHG ABG pO2 (75-100) mmHG ABG HCO3 (22-26) mEq/L ABG Total CO2 ABG Base Excess (-2.0-2.0) Lactate (0.20-2.00) mmol/L Sodium 139 (136-145) mmol/L Potassium 4.0 (3.5-5.1) mmol/L Chloride 99 (98-107) mmol/L Carbon Dioxide 30.6 (21.0-32.0) mmol/L BUN 14 (7.0-18.0) mg/dL Creatinine 1.4 H (0.6-1.0) mg/dL Est Cr Clr Drug Dosing 45.80 mL/min Estimated GFR (MDRD) 39.0 ml/min Glucose 198 H (74-106) mg/dL Calcium 8.9 (8.5-10.1) mg/dL Magnesium 1.6 L (1.8-2.4) mg/dL Total Bilirubin 0.8 (0.2-1.0) mg/dL AST 77 H (15-37) IU/L ALT 54 (14-63) IU/L Alkaline Phosphatase 156 H (46-116) U/L Ammonia 28 (19-54) ug/dL Creatine Kinase 482 H (26-308) U/L Total Protein 7.6 (6.4-8.2) g/dL Albumin 3.4 (3.4-5.0) g/dL Globulin 4.2 H (2.6-4.0) g/dL Albumin/Globulin Ratio 0.8 L (0.9-1.6) Lipase 318 (73-393) U/L Urine Color Urine Appearance Urine pH (5.0-8.0) Ur Specific [place] (1.001-1.035) Urine Protein (NEGATIVE) mg/dL Urine Glucose (UA) (NEGATIVE) mg/dL Urine Ketones (NEGATIVE) mg/dL Urine Occult Blood (NEGATIVE) Urine Nitrite (NEGATIVE) Urine Bilirubin (NEGATIVE) Urine Ictotest Urine Urobilinogen (<2.0) EU/dL Ur Leukocyte Esterase (NEGATIVE) Urine RBC (0-2/HPF) Urine WBC (0-5/HPF) Ur Epithelial Cells (NONE-FEW) Amorphous Sediment (NEGATIVE) Urine Bacteria (NEGATIVE) Urine Mucus (NONE-MOD) Urine Opiates Screen (NEGATIVE) Ur Oxycodone Screen (NEGATIVE) Urine Methadone Screen (NEGATIVE) Ur Barbiturates Screen (NEGATIVE) Ur Phencyclidine Scrn (NEGATIVE) Ur Amphetamine Screen (NEGATIVE) U Methamphetamines Scrn (NEGATIVE) U Benzodiazepines Scrn (NEGATIVE) U Cocaine Metab Screen (NEGATIVE) U Marijuana (THC) Screen (NEGATIVE) Ethyl Alcohol < 3.0 mg/dL SARS-CoV-2 RNA (NAZARIO) (NEGATIVE) 01/18/21 01/18/21 01/18/21 Range/Units 11:55 11:55 11:55 WBC (4.0-11.0) K/uL RBC (4.30-5.90) M/uL Hgb (12.0-16.0) g/dL Hct (36.0-46.0) % MCV (80.0-98.0) fL MCH (27.0-32.0) pg MCHC (31.0-37.0) g/dL RDW Std Deviation (28.0-62.0) fl RDW Coeff of Ade (11.0-15.0) % Plt Count (150-400) K/uL MPV (7.40-12.00) fL Neut % (Auto) (48.0-80.0) % Lymph % (Auto) (16.0-40.0) % [place] % (Auto) (0.0-15.0) % Eos % (Auto) (0.0-7.0) % Baso % (Auto) (0.0-1.5) % Neut # (Auto) (1.4-5.7) K/uL Lymph # (Auto) (0.6-2.4) K/uL [place] # (Auto) (0.0-0.8) K/uL Eos # (Auto) (0.0-0.7) K/uL Baso # (Auto) (0.0-0.1) K/uL Nucleated RBC % /100WBC Nucleated RBCs # K/uL INR APTT (18.6-31.3) SEC ABG pH (7.35-7.45) ABG pCO2 (35-45) mmHG ABG pO2 (75-100) mmHG ABG HCO3 (22-26) mEq/L ABG Total CO2 ABG Base Excess (-2.0-2.0) Lactate (0.20-2.00) mmol/L Sodium (136-145) mmol/L Potassium (3.5-5.1) mmol/L Chloride (98-107) mmol/L Carbon Dioxide (21.0-32.0) mmol/L BUN (7.0-18.0) mg/dL Creatinine (0.6-1.0) mg/dL Est Cr Clr Drug Dosing mL/min Estimated GFR (MDRD) ml/min Glucose (74-106) mg/dL Calcium (8.5-10.1) mg/dL Magnesium (1.8-2.4) mg/dL Total Bilirubin (0.2-1.0) mg/dL AST (15-37) IU/L ALT (14-63) IU/L Alkaline Phosphatase (46-116) U/L Ammonia (19-54) ug/dL Creatine Kinase (26-308) U/L Total Protein (6.4-8.2) g/dL Albumin (3.4-5.0) g/dL Globulin (2.6-4.0) g/dL Albumin/Globulin Ratio (0.9-1.6) Lipase (73-393) U/L Urine Color YELLOW Urine Appearance SLT CLOUDY Urine pH 5.5 (5.0-8.0) Ur Specific [place] 1.025 (1.001-1.035) Urine Protein NEGATIVE (NEGATIVE) mg/dL Urine Glucose (UA) NEGATIVE (NEGATIVE) mg/dL Urine Ketones TRACE H (NEGATIVE) mg/dL Urine Occult Blood NEGATIVE (NEGATIVE) Urine Nitrite POSITIVE H (NEGATIVE) Urine Bilirubin SMALL H (NEGATIVE) Urine Ictotest NEGATIVE Urine Urobilinogen 0.2 (<2.0) EU/dL Ur Leukocyte Esterase SMALL H (NEGATIVE) Urine RBC RARE (0-2/HPF) Urine WBC 6-8 (0-5/HPF) Ur Epithelial Cells FEW (NONE-FEW) Amorphous Sediment MODERATE (NEGATIVE) Urine Bacteria 1+ H (NEGATIVE) Urine Mucus MODERATE (NONE-MOD) Urine Opiates Screen NEGATIVE (NEGATIVE) Ur Oxycodone Screen NEGATIVE (NEGATIVE) Urine Methadone Screen NEGATIVE (NEGATIVE) Ur Barbiturates Screen NEGATIVE (NEGATIVE) Ur Phencyclidine Scrn NEGATIVE (NEGATIVE) Ur Amphetamine Screen NEGATIVE (NEGATIVE) U Methamphetamines Scrn NEGATIVE (NEGATIVE) U Benzodiazepines Scrn POSITIVE (NEGATIVE) U Cocaine Metab Screen NEGATIVE (NEGATIVE) U Marijuana (THC) Screen NEGATIVE (NEGATIVE) Ethyl Alcohol mg/dL SARS-CoV-2 RNA (NAZARIO) NEGATIVE (NEGATIVE) Meds: Medications Generic Name Dose Route Start Last Admin Trade Name Freq PRN Reason Stop Dose Admin Vancomycin HCl 1.5 gm/ Sodium 250 mls @ 166 mls/hr 01/18/21 11:50 01/18/21 12:38 Chloride IV 01/18/21 13:20 166 mls/hr ONETIME ONE Administration Discontinued Medications Generic Name Dose Route Start Last Admin Trade Name Freq PRN Reason Stop Dose Admin Sodium Chloride 1,000 mls @ 1,000 mls/hr 01/18/21 11:50 01/18/21 12:36 Normal Saline IV 01/18/21 12:49 1,000 mls/hr .Bolus ONE Administration Ceftriaxone Sodium/Dextrose 1 50 mls @ 100 mls/hr 01/18/21 12:32 01/18/21 12:35 gm/ Premix IV 01/18/21 13:01 100 mls/hr ONETIME ONE Administration Departure - Departure Time of Disposition: 13:10 Disposition: Admitted As Inpatient 66 Condition: Good Clinical Impression: AMS (altered mental status) - Discharge Information Referrals: Ryan Evans MD [Primary Care Provider] - Forms: ED Department Discharge Critical Care Note - Critical Care Note Total Time (mins): 45 Comments: Critical Care Procedure Note Authorized and Performed by: Dr. Irene Total critical care time: Approximately Due to a high probability of clinically significant, life threatening deterioration, the patient required my highest level of preparedness to intervene emergently and I personally spent this critical care time directly and personally managing the patient. This critical care time included obtaining a history; examining the patient; pulse oximetry; ordering and review of studies; arranging urgent treatment with development of a management plan; evaluation of patient's response to treatment; frequent reassessment; and, discussions with other providers. This critical care time was performed to assess and manage the high probability of imminent, life-threatening deterioration that could result in multi-organ failure. It was exclusive of separately billable procedures and treating other patients and teaching time. Sepsis Event Note (ED) - Evaluation Sepsis Screening Result: Possible Sepsis Risk - Focused Exam Vital Signs: Vital Signs Temp Temp Pulse Resp BP Pulse Ox 01/18/21 11:41 99.3 F 101 H 12 119/60 94 L 01/18/21 10:24 98.9 F 114 H 22 H 145/90 H 98 - My Orders Last 24 Hours: My Active Orders 01/18/21 10:43 EKG 12 Lead [EKG Documentation Completion] [RC] URGENT 01/18/21 11:50 Vancomycin 1.5 gm Sodium Chloride 0.9% [Normal Saline (AdvBag)] 250 ml IV ONETIME 01/18/21 12:01 Blood Culture x2 Reflex Set [OM.PC] Stat 01/18/21 12:15 CULTURE BLOOD [BC] Stat 01/18/21 12:20 CULTURE BLOOD [BC] Stat 01/18/21 12:33 Chest w Cont [CT] Stat 01/18/21 12:35 Flat in Bed [RC] ASDIRECTED Procedure Tray at Bedside [RC] ASDIRECTED Verify Patient Consent Obtain [RC] ASDIRECTED CELL COUNT,CSF [BF] Urgent CULTURE CSF + SMEAR [RM] Urgent GLUCOSE,CSF [BF] Urgent PROTEIN,CSF [BF] Urgent ED Lumbar Puncture Reflex [OM.PC] Click to Edit - Assessment/Plan Last 24 Hours: My Active Orders 01/18/21 10:43 EKG 12 Lead [EKG Documentation Completion] [RC] URGENT 01/18/21 11:50 Vancomycin 1.5 gm Sodium Chloride 0.9% [Normal Saline (AdvBag)] 250 ml IV ONETIME 01/18/21 12:01 Blood Culture x2 Reflex Set [OM.PC] Stat 01/18/21 12:15 CULTURE BLOOD [BC] Stat 01/18/21 12:20 CULTURE BLOOD [BC] Stat 01/18/21 12:33 Chest w Cont [CT] Stat 01/18/21 12:35 Flat in Bed [RC] ASDIRECTED Procedure Tray at Bedside [RC] ASDIRECTED Verify Patient Consent Obtain [RC] ASDIRECTED CELL COUNT,CSF [BF] Urgent CULTURE CSF + SMEAR [RM] Urgent GLUCOSE,CSF [BF] Urgent PROTEIN,CSF [BF] Urgent ED Lumbar Puncture Reflex [OM.PC] Click to Edit Plan: Patient is a 55-year-old female presents today for ultimate status unknown cause. Patient also has hypoxia on exam. Will obtain ABG labs x-ray and reassess.
[2021-01-18 11:20] LABS: BLOOD UREA NITROGEN,BUN 14 mg/dL (7.0-18.0); CARBON DIOXIDE,CO2 30.6 mmol/L (21.0-32.0); CHLORIDE,CL 99 mmol/L (98-107); GLUCOSE RANDOM 198 mg/dL (74-106); LIPASE 318 U/L (73-393); SODIUM,NA 139 mmol/L (136-145)
--- NOTE | 2021-01-18 11:26 | CR ---
INDICATION: Hypoxia. TECHNIQUE: Chest 1 view. COMPARISON: Chest radiograph 05/12/2020. FINDINGS: No focal consolidation, pleural effusion, or pneumothorax. New mild interstitial opacities throughout the lungs bilaterally. Heart size upper limits of normal which appears increased compared to prior exam but may be exaggerated by portable technique. Mildly prominent central pulmonary vascularity. Tortuous aorta. Thoracolumbar curve. IMPRESSION: Heart size upper limits of normal with mildly prominent central pulmonary vascularity and new mild interstitial opacities throughout the lungs. Dictated by Migdalia Lee MD @ 01/18/2021 11:25:[address] Migdalia Lee @ Jan 18 2021 11:25AM
--- NOTE | 2021-01-18 11:37 | CT ---
INDICATION: Altered mental status. History of multiple sclerosis. COMPARISON: CT head 08/05/2019. TECHNIQUE: CT of the head without IV contrast. Coronal and sagittal reconstructions are provided. FINDINGS: No intracranial hemorrhage, mass effect, or evidence of acute infarct. No midline shift. No abnormal extra-axial fluid collections. Mild generalized cerebral and cerebellar volume loss with stable mild ex vacuo dilation of the lateral ventricles. Stable periventricular white-matter low-attenuation changes which may be related to chronic small vessel ischemic disease versus history of multiple sclerosis. Orbits and extraocular muscles are symmetric. Stable opacification of a few right posterior mastoid air cells. The paranasal sinuses and left mastoid air cells are clear. No acute fracture. Soft tissues are unremarkable. IMPRESSION: : No acute intracranial findings. Please note that all CT scans at this facility use dose modulation, iterative reconstruction, and/or weight-based dosing when appropriate to reduce radiation dose to as low as reasonably achievable. Dictated by Migdalia Lee MD @ 01/18/2021 11:35:[address] Migdalia Lee @ Jan 18 2021 11:35AM
[2021-01-18] MEDS ORDERED: Sodium Chloride 0.9% 1,000 ML IV ONE (11:50)
[2021-01-18] MEDS ORDERED: cefTRIAXone 1 GM Vial IVPUSH ONE (11:50)
[2021-01-18] MEDS ORDERED: cefTRIAXone 1 GM in Premix Bag 1 BAG IV ONE (12:32)
[2021-01-18] MEDS ORDERED: Acetaminophen 500 MG Tab PO ONE (13:36)
--- NOTE | 2021-01-18 14:53 | CT ---
INDICATION: Hypoxia. TECHNIQUE: CT chest was acquired with 100 cc Isovue 370 IV contrast. COMPARISON: Chest x-ray January 18, 2021. CT chest November 13, 2018. FINDINGS: Lungs and pleural: There are patchy airspace infiltrates medially in both lower lobes. Smaller nodular infiltrates are in the right upper lobe and to a lesser extent left upper lobe. No suspicious nodules. No pleural effusions, pleural thickening, or pneumothorax. Heart and vasculature: Heart size is normal. Thoracic aorta and pulmonary artery are normal in caliber. Lymph nodes/mediastinum: No mediastinal, hilar, or axillary adenopathy. Thyroid gland is normal. Chest wall: No masses. Upper abdomen: Normal. Bones: Severe scoliosis. IMPRESSION: Multilobar bilateral pneumonia. This is not a classical pattern for COVID pneumonitis, however this entity remains a possibility. Please note that all CT scans at this facility use dose modulation, iterative reconstruction, and/or weight-based dosing when appropriate to reduce radiation dose to as low as reasonably achievable. Dictated by Chuck Arita MD @ 01/18/2021 2:52:[address] Chuck Arita @ Jan 18 2021 2:52PM
[2021-01-18] MEDS ORDERED: Acetaminophen 325 MG Tab PO PRN (15:22)
[2021-01-18] MEDS ORDERED: Albuterol/Ipratropium 3.0-0.5 MG/3 ML Neb Soln NEB PRN (15:22)
--- NOTE | 2021-01-18 15:22 | PCM.HP.2 ---
H&P History of Present Illness - General Date of Service: 01/18/21 Admit Problem/Dx: Admission Diagnosis/Problem Admission Diagnosis/Problem Altered mental status Source of Information: Patient, Family History Limitations: Reports: Altered Mental Status - History of Present Illness Initial Comments - Free Text/Narative: Patient is a 54-year-old female with PMH of severe MS, recurrent pneumonia and UTIs managed by Dr Quinonez presents to ER secondary to concern of altered mental status since this morning. According to patient's mother, she found the patient sitting on her chair, she was confused and was not making any sense. She also states that she found her slouching on the chair and could hear gurgling sounds in her throat. They checked her oxygen level which was in 70s, patient was started on oxygen (father's home oxygen) which improved her oxygen saturation to mid 80s. After that the oxygen was removed and patient tried to go to use the restroom but was not successful. Patient increasingly started to get more confused and lethargic so EMS was called. In the ER patient was found to be hypoxic saturating in 80s and hence was started on nasal cannula oxygen, she was requiring 5 L of oxygen to maintain pulse ox of 92%. Patient was found to be febrile and had leukocytosis, lumbar puncture was done in the ER to rule out meningitis, CT head was unremarkable for any acute change, CT of the chest was requested by me which showed bilateral pneumonia, UA was also significant for UTI. Patient was found to be in sepsis secondary to pneumonia and UTI. Patient was started on broad-spectrum antibiotics, IV fluids were administered and blood cultures were obtained. Lumbar puncture results were benign, patient was admitted to hospital for further management - Related Data Allergies/Adverse Reactions: Allergies Allergy/AdvReac Type Severity Reaction Status Date / Time No Known Allergies Allergy Unverified 01/18/21 10:24 Home Medications: Home Meds DULoxetine HCl [Cymbalta] 60 mg PO DAILY 08/22/15 [History] Pantoprazole Sodium 40 mg PO DAILY 08/22/15 [History] Cholecalciferol (Vitamin D3) [Vitamin D3] 1,000 unit PO DAILY 10/24/15 [History] DULoxetine HCl [Cymbalta] 30 mg PO BEDTIME 10/28/18 [History] Furosemide [Lasix] 40 mg PO DAILY 12/05/18 [History] Teriflunomide [Aubagio] 14 mg PO DAILY 12/05/18 [History] Baclofen 20 mg PO BID #14 tablet 08/11/19 [Rx] Gabapentin [Neurontin] 300 mg PO QAM #7 capsule 08/11/19 [Rx] Gabapentin [Neurontin] 600 mg PO BEDTIME #14 capsule 08/11/19 [Rx] Bifidobacterium Infantis [Align] 1 tab PO DAILY 05/12/20 [History] Budesonide/Formoterol Fumarate [Symbicort 80-4.5 MCG] 1 puff IH DAILY 05/12/20 [History] FA/Lycopene/Lut/MV,Ca,Iron,Min [Centrum] 1 tab PO DAILY 05/12/20 [History] Mecobalamin [B12 Active] 1,000 mcg PO DAILY 05/12/20 [History] Potassium Chloride 20 meq PO BID 05/12/20 [History] diazePAM [Valium.] 5 mg PO BID PRN 05/12/20 [History] metFORMIN [Glucophage XR] 500 mg PO BIDMEALS #60 tab.er 05/12/20 [Rx] traZODone HCl [Trazodone HCl] 200 mg PO BEDTIME 05/12/20 [History] traMADol [Ultram] 50 mg PO BEDTIME 01/18/21 [History] Past Medical History Other HEENT History: top and bottom dentures Cardiovascular History: Reports: None Respiratory History: Reports: Bronchitis, Recurrent, Other (See Below) Other Respiratory History: 30 yr history of smoking, use [place] on & off, current use 1/2 pack per day Gastrointestinal History: Reports: Cholelithiasis, GERD Other Gastrointestinal History: hx: Gallstones, 'unsure if they are still there, they do not give me any trouble" Genitourinary History: Reports: None OB/GYN DOCTOR 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 (See Below) Other OB/BYN History: Pelvic pain 'midline'- before gall bladder removal Musculoskeletal 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 (See Below) Other Musculoskeletal History: Scoliosis Upper and lower back, Multiple Sclerosis "mobility good, use a walker" Neurological History: Reports: MS Other Neuro History: Good mobility generally, but "sometimes use walker when not up to par or feel weak" Psychiatric History: Reports: Anxiety, Depression Endocrine/Metabolic History: Reports: Obesity/BMI 30+ Hematologic History: Reports: None Immunologic History: Reports: None Oncologic (Cancer) History: Reports: None Dermatologic History: Reports: None - Infectious Disease History Infectious Disease History: Reports: Chicken Pox, Measles - Past Surgical History HEENT Surgical 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 (See Below) Other HEENT Surgeries/Procedures: '95 surgery [place], [place] 'stretching of throat' Achalasia, Tubal ligation, Bilateral Bunionectomy, D&C GI Surgical History: Reports: Cholecystectomy, Esophageal Dilatation Female Surgical History: Reports: Tubal Ligation Neurological Surgical History: Reports: None Musculoskeletal Surgical 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 (See Below) Other Musculoskeletal Surgeries/Procedures:: Bilateral bunionectomies with some hardware Social & Family History - Family History Family Medical History: No Pertinent Family History - Tobacco Use Tobacco Use Status *Q: Former Tobacco User Used Tobacco, but Quit: Yes Month/Year Tobacco Last Used: unk - Caffeine Use Caffeine Use: Reports: Soda - Recreational Drug Use Recreational Drug Use: No - Living Situation & Occupation Living situation: Reports: Single, with Family Occupation: Disabled H&P Review of Systems - Review of Systems: Review Of Systems: See Below General: Reports: Fever, Malaise, Weakness Pulmonary: Reports: Shortness of Breath, Cough, Sputum Cardiovascular: Denies: Chest Pain, Palpitations Gastrointestinal: Denies: Abdominal Pain, Anorexia, Bloody Stool, Nausea Genitourinary: Reports: Dysuria, Frequency, Burning Musculoskeletal: Denies: Neck Pain, Shoulder Pain, Arm Pain Skin: Denies: Cyanosis, Jaundice, Mottled Exam - Exam Exam: See Below - Vital Signs Vital Signs: Last Vital Signs Temp 38.8 C H 01/18/21 13:50 Pulse 99 01/18/21 13:30 Resp 12 01/18/21 13:30 BP 117/70 01/18/21 13:30 Pulse Ox 94 L 01/18/21 13:30 Weight: 117.934 kg - Exam Quality Assessment: Supplemental Oxygen General: Alert, Oriented Neck: Supple, Trachea Midline Lungs: Decreased Breath Sounds, Rales Cardiovascular: Regular Rate, Regular Rhythm - Patient Data Lab Results Last 24 hrs: Laboratory Results - last 24 hr 01/18/21 01/18/21 01/18/21 Range/Units 10:33 10:33 10:35 WBC 21.49 H (4.0-11.0) K/uL RBC 5.28 (4.30-5.90) M/uL Hgb 16.0 (12.0-16.0) g/dL Hct 50.7 H (36.0-46.0) % MCV 96.0 (80.0-98.0) fL MCH 30.3 (27.0-32.0) pg MCHC 31.6 (31.0-37.0) g/dL RDW Std Deviation 50.2 (28.0-62.0) fl RDW Coeff of Ade 14 (11.0-15.0) % Plt Count 236 (150-400) K/uL MPV 10.90 (7.40-12.00) fL Neut % (Auto) 90.5 H (48.0-80.0) % Lymph % (Auto) 3.7 L (16.0-40.0) % Piatt % (Auto) 5.7 (0.0-15.0) % Eos % (Auto) 0.0 (0.0-7.0) % Baso % (Auto) 0.1 (0.0-1.5) % Neut # (Auto) 19.4 H (1.4-5.7) K/uL Lymph # (Auto) 0.8 (0.6-2.4) K/uL Piatt # (Auto) 1.2 H (0.0-0.8) K/uL Eos # (Auto) 0.0 (0.0-0.7) K/uL Baso # (Auto) 0.0 (0.0-0.1) K/uL Nucleated RBC % 0.0 /100WBC Nucleated RBCs # 0 K/uL INR APTT (18.6-31.3) SEC ABG pH 7.424 (7.35-7.45) ABG pCO2 49 H (35-45) mmHG ABG pO2 111 H (75-100) mmHG ABG HCO3 32 H (22-26) mEq/L ABG Total CO2 27.6 ABG Base Excess 6.1 H (-2.0-2.0) Lactate 1.5 (0.20-2.00) mmol/L Sodium (136-145) mmol/L Potassium (3.5-5.1) mmol/L Chloride (98-107) mmol/L Carbon Dioxide (21.0-32.0) mmol/L BUN (7.0-18.0) mg/dL Creatinine (0.6-1.0) mg/dL Est Cr Clr Drug Dosing mL/min Estimated GFR (MDRD) ml/min Glucose (74-106) mg/dL Calcium (8.5-10.1) mg/dL Magnesium (1.8-2.4) mg/dL Total Bilirubin (0.2-1.0) mg/dL AST (15-37) IU/L ALT (14-63) IU/L Alkaline Phosphatase (46-116) U/L Ammonia (19-54) ug/dL Creatine Kinase (26-308) U/L Total Protein (6.4-8.2) g/dL Albumin (3.4-5.0) g/dL Globulin (2.6-4.0) g/dL Albumin/Globulin Ratio (0.9-1.6) Lipase (73-393) U/L Urine Color Urine Appearance Urine pH (5.0-8.0) Ur Specific [place] (1.001-1.035) Urine Protein (NEGATIVE) mg/dL Urine Glucose (UA) (NEGATIVE) mg/dL Urine Ketones (NEGATIVE) mg/dL Urine Occult Blood (NEGATIVE) Urine Nitrite (NEGATIVE) Urine Bilirubin (NEGATIVE) Urine Ictotest Urine Urobilinogen (<2.0) EU/dL Ur Leukocyte Esterase (NEGATIVE) Urine RBC (0-2/HPF) Urine WBC (0-5/HPF) Ur Epithelial Cells (NONE-FEW) Amorphous Sediment (NEGATIVE) Urine Bacteria (NEGATIVE) Urine Mucus (NONE-MOD) CSF Appearance CSF Color CSF WBC (0-5) /uL CSF RBC (0-0) /uL CSF Glucose (40-70) mg/dL CSF Total Protein (15-45) mg/dL Urine Opiates Screen (NEGATIVE) Ur Oxycodone Screen (NEGATIVE) Urine Methadone Screen (NEGATIVE) Ur Barbiturates Screen (NEGATIVE) Ur Phencyclidine Scrn (NEGATIVE) Ur Amphetamine Screen (NEGATIVE) U Methamphetamines Scrn (NEGATIVE) U Benzodiazepines Scrn (NEGATIVE) U Cocaine Metab Screen (NEGATIVE) U Marijuana (THC) Screen (NEGATIVE) Ethyl Alcohol mg/dL SARS-CoV-2 RNA (NAZARIO) (NEGATIVE) 01/18/21 01/18/21 01/18/21 Range/Units 10:35 10:35 10:35 WBC (4.0-11.0) K/uL RBC (4.30-5.90) M/uL Hgb (12.0-16.0) g/dL Hct (36.0-46.0) % MCV (80.0-98.0) fL MCH (27.0-32.0) pg MCHC (31.0-37.0) g/dL RDW Std Deviation (28.0-62.0) fl RDW Coeff of Ade (11.0-15.0) % Plt Count (150-400) K/uL MPV (7.40-12.00) fL Neut % (Auto) (48.0-80.0) % Lymph % (Auto) (16.0-40.0) % Piatt % (Auto) (0.0-15.0) % Eos % (Auto) (0.0-7.0) % Baso % (Auto) (0.0-1.5) % Neut # (Auto) (1.4-5.7) K/uL Lymph # (Auto) (0.6-2.4) K/uL Piatt # (Auto) (0.0-0.8) K/uL Eos # (Auto) (0.0-0.7) K/uL Baso # (Auto) (0.0-0.1) K/uL Nucleated RBC % /100WBC Nucleated RBCs # K/uL INR 1.02 APTT 23.2 (18.6-31.3) SEC ABG pH (7.35-7.45) ABG pCO2 (35-45) mmHG ABG pO2 (75-100) mmHG ABG HCO3 (22-26) mEq/L ABG Total CO2 ABG Base Excess (-2.0-2.0) Lactate (0.20-2.00) mmol/L Sodium 139 (136-145) mmol/L Potassium 4.0 (3.5-5.1) mmol/L Chloride 99 (98-107) mmol/L Carbon Dioxide 30.6 (21.0-32.0) mmol/L BUN 14 (7.0-18.0) mg/dL Creatinine 1.4 H (0.6-1.0) mg/dL Est Cr Clr Drug Dosing 45.80 mL/min Estimated GFR (MDRD) 39.0 ml/min Glucose 198 H (74-106) mg/dL Calcium 8.9 (8.5-10.1) mg/dL Magnesium 1.6 L (1.8-2.4) mg/dL Total Bilirubin 0.8 (0.2-1.0) mg/dL AST 77 H (15-37) IU/L ALT 54 (14-63) IU/L Alkaline Phosphatase 156 H (46-116) U/L Ammonia 28 (19-54) ug/dL Creatine Kinase 482 H (26-308) U/L Total Protein 7.6 (6.4-8.2) g/dL Albumin 3.4 (3.4-5.0) g/dL Globulin 4.2 H (2.6-4.0) g/dL Albumin/Globulin Ratio 0.8 L (0.9-1.6) Lipase 318 (73-393) U/L Urine Color Urine Appearance Urine pH (5.0-8.0) Ur Specific [place] (1.001-1.035) Urine Protein (NEGATIVE) mg/dL Urine Glucose (UA) (NEGATIVE) mg/dL Urine Ketones (NEGATIVE) mg/dL Urine Occult Blood (NEGATIVE) Urine Nitrite (NEGATIVE) Urine Bilirubin (NEGATIVE) Urine Ictotest Urine Urobilinogen (<2.0) EU/dL Ur Leukocyte Esterase (NEGATIVE) Urine RBC (0-2/HPF) Urine WBC (0-5/HPF) Ur Epithelial Cells (NONE-FEW) Amorphous Sediment (NEGATIVE) Urine Bacteria (NEGATIVE) Urine Mucus (NONE-MOD) CSF Appearance CSF Color CSF WBC (0-5) /uL CSF RBC (0-0) /uL CSF Glucose (40-70) mg/dL CSF Total Protein (15-45) mg/dL Urine Opiates Screen (NEGATIVE) Ur Oxycodone Screen (NEGATIVE) Urine Methadone Screen (NEGATIVE) Ur Barbiturates Screen (NEGATIVE) Ur Phencyclidine Scrn (NEGATIVE) Ur Amphetamine Screen (NEGATIVE) U Methamphetamines Scrn (NEGATIVE) U Benzodiazepines Scrn (NEGATIVE) U Cocaine Metab Screen (NEGATIVE) U Marijuana (THC) Screen (NEGATIVE) Ethyl Alcohol < 3.0 mg/dL SARS-CoV-2 RNA (NAZARIO) (NEGATIVE) 01/18/21 01/18/21 01/18/21 Range/Units 11:55 11:55 11:55 WBC (4.0-11.0) K/uL RBC (4.30-5.90) M/uL Hgb (12.0-16.0) g/dL Hct (36.0-46.0) % MCV (80.0-98.0) fL MCH (27.0-32.0) pg MCHC (31.0-37.0) g/dL RDW Std Deviation (28.0-62.0) fl RDW Coeff of Ade (11.0-15.0) % Plt Count (150-400) K/uL MPV (7.40-12.00) fL Neut % (Auto) (48.0-80.0) % Lymph % (Auto) (16.0-40.0) % Piatt % (Auto) (0.0-15.0) % Eos % (Auto) (0.0-7.0) % Baso % (Auto) (0.0-1.5) % Neut # (Auto) (1.4-5.7) K/uL Lymph # (Auto) (0.6-2.4) K/uL Piatt # (Auto) (0.0-0.8) K/uL Eos # (Auto) (0.0-0.7) K/uL Baso # (Auto) (0.0-0.1) K/uL Nucleated RBC % /100WBC Nucleated RBCs # K/uL INR APTT (18.6-31.3) SEC ABG pH (7.35-7.45) ABG pCO2 (35-45) mmHG ABG pO2 (75-100) mmHG ABG HCO3 (22-26) mEq/L ABG Total CO2 ABG Base Excess (-2.0-2.0) Lactate (0.20-2.00) mmol/L Sodium (136-145) mmol/L Potassium (3.5-5.1) mmol/L Chloride (98-107) mmol/L Carbon Dioxide (21.0-32.0) mmol/L BUN (7.0-18.0) mg/dL Creatinine (0.6-1.0) mg/dL Est Cr Clr Drug Dosing mL/min Estimated GFR (MDRD) ml/min Glucose (74-106) mg/dL Calcium (8.5-10.1) mg/dL Magnesium (1.8-2.4) mg/dL Total Bilirubin (0.2-1.0) mg/dL AST (15-37) IU/L ALT (14-63) IU/L Alkaline Phosphatase (46-116) U/L Ammonia (19-54) ug/dL Creatine Kinase (26-308) U/L Total Protein (6.4-8.2) g/dL Albumin (3.4-5.0) g/dL Globulin (2.6-4.0) g/dL Albumin/Globulin Ratio (0.9-1.6) Lipase (73-393) U/L Urine Color YELLOW Urine Appearance SLT CLOUDY Urine pH 5.5 (5.0-8.0) Ur Specific [place] 1.025 (1.001-1.035) Urine Protein NEGATIVE (NEGATIVE) mg/dL Urine Glucose (UA) NEGATIVE (NEGATIVE) mg/dL Urine Ketones TRACE H (NEGATIVE) mg/dL Urine Occult Blood NEGATIVE (NEGATIVE) Urine Nitrite POSITIVE H (NEGATIVE) Urine Bilirubin SMALL H (NEGATIVE) Urine Ictotest NEGATIVE Urine Urobilinogen 0.2 (<2.0) EU/dL Ur Leukocyte Esterase SMALL H (NEGATIVE) Urine RBC RARE (0-2/HPF) Urine WBC 6-8 (0-5/HPF) Ur Epithelial Cells FEW (NONE-FEW) Amorphous Sediment MODERATE (NEGATIVE) Urine Bacteria 1+ H (NEGATIVE) Urine Mucus MODERATE (NONE-MOD) CSF Appearance CSF Color CSF WBC (0-5) /uL CSF RBC (0-0) /uL CSF Glucose (40-70) mg/dL CSF Total Protein (15-45) mg/dL Urine Opiates Screen NEGATIVE (NEGATIVE) Ur Oxycodone Screen NEGATIVE (NEGATIVE) Urine Methadone Screen NEGATIVE (NEGATIVE) Ur Barbiturates Screen NEGATIVE (NEGATIVE) Ur Phencyclidine Scrn NEGATIVE (NEGATIVE) Ur Amphetamine Screen NEGATIVE (NEGATIVE) U Methamphetamines Scrn NEGATIVE (NEGATIVE) U Benzodiazepines Scrn POSITIVE (NEGATIVE) U Cocaine Metab Screen NEGATIVE (NEGATIVE) U Marijuana (THC) Screen NEGATIVE (NEGATIVE) Ethyl Alcohol mg/dL SARS-CoV-2 RNA (NAZARIO) NEGATIVE (NEGATIVE) 01/18/21 01/18/21 Range/Units 13:10 13:10 WBC (4.0-11.0) K/uL RBC (4.30-5.90) M/uL Hgb (12.0-16.0) g/dL Hct (36.0-46.0) % MCV (80.0-98.0) fL MCH (27.0-32.0) pg MCHC (31.0-37.0) g/dL RDW Std Deviation (28.0-62.0) fl RDW Coeff of Ade (11.0-15.0) % Plt Count (150-400) K/uL MPV (7.40-12.00) fL Neut % (Auto) (48.0-80.0) % Lymph % (Auto) (16.0-40.0) % Piatt % (Auto) (0.0-15.0) % Eos % (Auto) (0.0-7.0) % Baso % (Auto) (0.0-1.5) % Neut # (Auto) (1.4-5.7) K/uL Lymph # (Auto) (0.6-2.4) K/uL Piatt # (Auto) (0.0-0.8) K/uL Eos # (Auto) (0.0-0.7) K/uL Baso # (Auto) (0.0-0.1) K/uL Nucleated RBC % /100WBC Nucleated RBCs # K/uL INR APTT (18.6-31.3) SEC ABG pH (7.35-7.45) ABG pCO2 (35-45) mmHG ABG pO2 (75-100) mmHG ABG HCO3 (22-26) mEq/L ABG Total CO2 ABG Base Excess (-2.0-2.0) Lactate (0.20-2.00) mmol/L Sodium (136-145) mmol/L Potassium (3.5-5.1) mmol/L Chloride (98-107) mmol/L Carbon Dioxide (21.0-32.0) mmol/L BUN (7.0-18.0) mg/dL Creatinine (0.6-1.0) mg/dL Est Cr Clr Drug Dosing mL/min Estimated GFR (MDRD) ml/min Glucose (74-106) mg/dL Calcium (8.5-10.1) mg/dL Magnesium (1.8-2.4) mg/dL Total Bilirubin (0.2-1.0) mg/dL AST (15-37) IU/L ALT (14-63) IU/L Alkaline Phosphatase (46-116) U/L Ammonia (19-54) ug/dL Creatine Kinase (26-308) U/L Total Protein (6.4-8.2) g/dL Albumin (3.4-5.0) g/dL Globulin (2.6-4.0) g/dL Albumin/Globulin Ratio (0.9-1.6) Lipase (73-393) U/L Urine Color Urine Appearance Urine pH (5.0-8.0) Ur Specific [place] (1.001-1.035) Urine Protein (NEGATIVE) mg/dL Urine Glucose (UA) (NEGATIVE) mg/dL Urine Ketones (NEGATIVE) mg/dL Urine Occult Blood (NEGATIVE) Urine Nitrite (NEGATIVE) Urine Bilirubin (NEGATIVE) Urine Ictotest Urine Urobilinogen (<2.0) EU/dL Ur Leukocyte Esterase (NEGATIVE) Urine RBC (0-2/HPF) Urine WBC (0-5/HPF) Ur Epithelial Cells (NONE-FEW) Amorphous Sediment (NEGATIVE) Urine Bacteria (NEGATIVE) Urine Mucus (NONE-MOD) CSF Appearance CLEAR CSF Color COLORLESS CSF WBC 0 (0-5) /uL CSF RBC 0 (0-0) /uL CSF Glucose 132.0 H (40-70) mg/dL CSF Total Protein 30 (15-45) mg/dL Urine Opiates Screen (NEGATIVE) Ur Oxycodone Screen (NEGATIVE) Urine Methadone Screen (NEGATIVE) Ur Barbiturates Screen (NEGATIVE) Ur Phencyclidine Scrn (NEGATIVE) Ur Amphetamine Screen (NEGATIVE) U Methamphetamines Scrn (NEGATIVE) U Benzodiazepines Scrn (NEGATIVE) U Cocaine Metab Screen (NEGATIVE) U Marijuana (THC) Screen (NEGATIVE) Ethyl Alcohol mg/dL SARS-CoV-2 RNA (NAZARIO) (NEGATIVE) Result Diagrams: 01/18/21 10:35 01/18/21 10:35 Cj Results Last 24 hrs: Microbiology 01/18/21 13:10 Gram Stain - Final Cerebral Spinal Fluid 01/18/21 12:15 Anaerobic Blood Culture - Final Blood - Venous - Lab Draw Sepsis Event Note - Evaluation Sepsis Screening Result: Possible Sepsis Risk - Focused Exam Vital Signs: Vital Signs Temp Temp Temp Temp Pulse Resp BP 01/18/21 13:50 38.8 C H 01/18/21 13:30 38.8 C H 99 12 117/70 01/18/21 12:30 99 12 119/84 01/18/21 11:41 37.4 C 101 H 12 119/60 01/18/21 10:24 37.2 C 114 H 22 H 145/90 H Pulse Ox 01/18/21 13:50 01/18/21 13:30 94 L 01/18/21 12:30 94 L 01/18/21 11:41 94 L 01/18/21 10:24 98 - Problem List (1) Sepsis SNOMED Code(s): 44082288 ICD Code: A41.9 - SEPSIS, UNSPECIFIED ORGANISM Status: Acute Current Visit: Yes (2) AMS (altered mental status) SNOMED Code(s): 285632580 ICD Code: R41.82 - ALTERED MENTAL STATUS, UNSPECIFIED Status: Acute Current Visit: Yes (3) COPD (chronic obstructive pulmonary disease) SNOMED Code(s): 79006091 ICD Code: J44.9 - CHRONIC OBSTRUCTIVE PULMONARY DISEASE, UNSPECIFIED Status: Acute Current Visit: No Qualifiers: COPD type: COPD with acute exacerbation Qualified Code(s): J44.1 - Chronic obstructive pulmonary disease with (acute) exacerbation (4) Hypoxia SNOMED Code(s): 858168910 ICD Code: R09.02 - HYPOXEMIA Status: Acute Current Visit: No (5) Pneumonia SNOMED Code(s): 082007789 ICD Code: J18.9 - PNEUMONIA, UNSPECIFIED ORGANISM Status: Acute Current Visit: No Qualifiers: Pneumonia type: due to unspecified organism (6) UTI (urinary tract infection) SNOMED Code(s): 23141792 ICD Code: N39.0 - URINARY TRACT INFECTION, SITE NOT SPECIFIED Status: Acute Current Visit: No (7) Multiple sclerosis SNOMED Code(s): 58147318 ICD Code: G35 - MULTIPLE SCLEROSIS Status: Chronic Priority: High Current Visit: No Problem List Initiated/Reviewed/Updated: Yes Orders Last 24hrs: Active Orders 24 hr Category Date Time Status Patient Status [ADT] Routine ADT 01/18/21 13:11 Active EKG 12 Lead [EKG Documentation Completion] [RC] URGENT Care 01/18/21 10:43 Active Flat in Bed [RC] ASDIRECTED Care 01/18/21 12:35 Active Procedure Tray at Bedside [RC] ASDIRECTED Care 01/18/21 12:35 Active Verify Patient Consent Obtain [RC] ASDIRECTED Care 01/18/21 12:35 Active CULTURE BLOOD [BC] Stat Lab 01/18/21 12:15 Results CULTURE BLOOD [BC] Stat Lab 01/18/21 12:20 Received CULTURE CSF + SMEAR [] Urgent Lab 01/18/21 13:10 Results Blood Culture x2 Reflex Set [OM.PC] Stat Oth 01/18/21 12:01 Ordered ED Lumbar Puncture Reflex [OM.PC] Click to Edit Oth 01/18/21 12:35 Ordered Assessment/Plan Comment:: Patient is a 55-year-old female admitted for sepsis secondary to bilateral pneumonia and UTI Start aggressive IV fluid hydration Start broad-spectrum antibiotics including IV vancomycin and Zosyn Follow-up on blood cultures, follow-up on urine cultures Lactate not elevated DuoNebs as needed for shortness of breath Continue oxygenation via nasal cannula to maintain pulse ox more than 88% SCD for DVT prophylaxis We will consult speech and swallow for assessment of swallowing as patient states that she has been choking on her pills and food Hold off on any sedating medications as of now Ativan 1 mg as needed for anxiety as patient is chronically taking benzod iazepines at home to prevent withdrawal Fall precautions in place Check daily labs including CBC, BMP, magnesium and phosphorus Monitor and replete electrolytes as needed
[2021-01-18] MEDS ORDERED: Lactated Ringers 1,000 ML IV ONE (15:40)
[2021-01-18] MEDS ORDERED: Acetaminophen 500 MG Tab PO PRN (15:40)
[2021-01-18] MEDS: Piperacillin/Tazobactam 3.375 GM in Sodium Chloride 0.9% 50 ML IV SCH ×2 (16:11→22:56)
[2021-01-18] MEDS: Lactated Ringers 1,000 ML IV SCH (18:04)
[2021-01-18] MEDS ORDERED: Iopamidol 755 MG/ML 500 ML Multipack Bottle IVPUSH STA (18:37)
[2021-01-18] MEDS: LORazepam 2 MG/ML SDV IVPUSH PRN (21:17)
[2021-01-19] MEDS: VANCOmycin 1.75 GM/350 ML 1.75 GM in Premix Bag 1 BAG IV SCH ×2 (01:57→13:35)
[2021-01-19] MEDS: Lactated Ringers 1,000 ML IV SCH ×2 (06:26→13:55)
[2021-01-19 06:44] LABS: CARBON DIOXIDE,CO2 31.3 mmol/L (21.0-32.0); POTASSIUM,K 3.2 mmol/L (3.5-5.1)
[2021-01-19] MEDS: Piperacillin/Tazobactam 3.375 GM in Sodium Chloride 0.9% 50 ML IV SCH ×2 (07:54→15:27)
[2021-01-19] MEDS ORDERED: Potassium Chloride 20 MEQ Tab.ER PO ONE (11:15)
[2021-01-19] MEDS ORDERED: Magnesium Sulfate/Water 4 GM/100 ML BAG IV ONE (11:15)
--- NOTE | 2021-01-19 12:31 | PCM.PN ---
- General Info Date of Service: 01/19/21 Admission Dx/Problem (Free Text): Admission Diagnosis/Problem Admission Diagnosis/Problem Altered mental status Subjective Update: patient seen at bedside, has trouble expressing her urine, mentation improved Functional Status: Reports: Pain Controlled, Tolerating Diet, Urinating. Denies: Ambulating - Review of Systems General: Reports: Weakness. Denies: Fever, Fatigue Pulmonary: Reports: Shortness of Breath, Cough, Sputum. Denies: Pleuritic Chest Pain Cardiovascular: Denies: Chest Pain, Palpitations Gastrointestinal: Denies: Abdominal Pain, Constipation, Decreased Appetite Genitourinary: Reports: Dysuria, Frequency, Pain, Retention. Denies: Burning - Patient Data Vitals - Most Recent: Last Vital Signs Temp 36.2 C 01/19/21 12:09 Pulse 92 01/19/21 12:09 Resp 18 01/19/21 12:09 BP 97/67 01/19/21 12:09 Pulse Ox 96 01/19/21 12:09 Weight - Most Recent: 117.934 kg I&O - Last 24 Hours: Intake & Output 01/18/21 01/19/21 01/19/21 22:59 06:59 14:59 Intake Total 1050 550 Output Total 550 980 Balance 500 -430 Lab Results Last 24 Hours: Laboratory Results - last 24 hr 01/18/21 01/18/21 01/18/21 Range/Units 11:55 13:10 13:10 WBC (4.0-11.0) K/uL RBC (4.30-5.90) M/uL Hgb (12.0-16.0) g/dL Hct (36.0-46.0) % MCV (80.0-98.0) fL MCH (27.0-32.0) pg MCHC (31.0-37.0) g/dL RDW Std Deviation (28.0-62.0) fl RDW Coeff of Ade (11.0-15.0) % Plt Count (150-400) K/uL MPV (7.40-12.00) fL Neut % (Auto) (48.0-80.0) % Lymph % (Auto) (16.0-40.0) % Bertie % (Auto) (0.0-15.0) % Eos % (Auto) (0.0-7.0) % Baso % (Auto) (0.0-1.5) % Neut # (Auto) (1.4-5.7) K/uL Lymph # (Auto) (0.6-2.4) K/uL Bertie # (Auto) (0.0-0.8) K/uL Eos # (Auto) (0.0-0.7) K/uL Baso # (Auto) (0.0-0.1) K/uL Nucleated RBC % /100WBC Nucleated RBCs # K/uL Sodium (136-145) mmol/L Potassium (3.5-5.1) mmol/L Chloride (98-107) mmol/L Carbon Dioxide (21.0-32.0) mmol/L BUN (7.0-18.0) mg/dL Creatinine (0.6-1.0) mg/dL Est Cr Clr Drug Dosing mL/min Estimated GFR (MDRD) ml/min Glucose (74-106) mg/dL Calcium (8.5-10.1) mg/dL Phosphorus (2.6-4.7) mg/dL Magnesium (1.8-2.4) mg/dL Total Bilirubin (0.2-1.0) mg/dL AST (15-37) IU/L ALT (14-63) IU/L Alkaline Phosphatase (46-116) U/L Total Protein (6.4-8.2) g/dL Albumin (3.4-5.0) g/dL Globulin (2.6-4.0) g/dL Albumin/Globulin Ratio (0.9-1.6) CSF Appearance CLEAR CSF Color COLORLESS CSF WBC 0 (0-5) /uL CSF RBC 0 (0-0) /uL CSF Glucose 132.0 H (40-70) mg/dL CSF Total Protein 30 (15-45) mg/dL SARS-CoV-2 RNA (NAZARIO) NEGATIVE (NEGATIVE) 01/19/21 01/19/21 Range/Units 05:34 05:34 WBC 23.41 H (4.0-11.0) K/uL RBC 4.43 (4.30-5.90) M/uL Hgb 13.1 (12.0-16.0) g/dL Hct 42.4 (36.0-46.0) % MCV 95.7 (80.0-98.0) fL MCH 29.6 (27.0-32.0) pg MCHC 30.9 L (31.0-37.0) g/dL RDW Std Deviation 50.0 (28.0-62.0) fl RDW Coeff of Ade 15 (11.0-15.0) % Plt Count 205 (150-400) K/uL MPV 11.50 (7.40-12.00) fL Neut % (Auto) 86.0 H (48.0-80.0) % Lymph % (Auto) 7.3 L (16.0-40.0) % Bertie % (Auto) 5.9 (0.0-15.0) % Eos % (Auto) 0.6 (0.0-7.0) % Baso % (Auto) 0.2 (0.0-1.5) % Neut # (Auto) 20.1 H (1.4-5.7) K/uL Lymph # (Auto) 1.7 (0.6-2.4) K/uL Bertie # (Auto) 1.4 H (0.0-0.8) K/uL Eos # (Auto) 0.2 (0.0-0.7) K/uL Baso # (Auto) 0.1 (0.0-0.1) K/uL Nucleated RBC % 0.0 /100WBC Nucleated RBCs # 0 K/uL Sodium 140 (136-145) mmol/L Potassium 3.2 L (3.5-5.1) mmol/L Chloride 101 (98-107) mmol/L Carbon Dioxide 31.3 (21.0-32.0) mmol/L BUN 12 (7.0-18.0) mg/dL Creatinine 1.0 (0.6-1.0) mg/dL Est Cr Clr Drug Dosing 59.51 mL/min Estimated GFR (MDRD) 57.6 ml/min Glucose 131 H (74-106) mg/dL Calcium 8.4 L (8.5-10.1) mg/dL Phosphorus 2.7 (2.6-4.7) mg/dL Magnesium 1.6 L (1.8-2.4) mg/dL Total Bilirubin 0.6 (0.2-1.0) mg/dL AST 48 H (15-37) IU/L ALT 48 (14-63) IU/L Alkaline Phosphatase 113 (46-116) U/L Total Protein 6.0 L (6.4-8.2) g/dL Albumin 2.5 L (3.4-5.0) g/dL Globulin 3.5 (2.6-4.0) g/dL Albumin/Globulin Ratio 0.7 L (0.9-1.6) CSF Appearance CSF Color CSF WBC (0-5) /uL CSF RBC (0-0) /uL CSF Glucose (40-70) mg/dL CSF Total Protein (15-45) mg/dL SARS-CoV-2 RNA (NAZARIO) (NEGATIVE) Cj Results Last 24 Hours: Microbiology 01/18/21 13:10 Gram Stain - Final Cerebral Spinal Fluid CSF Culture - Preliminary NO GROWTH AFTER 1 DAY 01/18/21 12:15 Anaerobic Blood Culture - Final Blood - Venous - Lab Draw Med Orders - Current: Current Medications Acetaminophen (Acetaminophen 500 Mg Tab) 500 mg PO Q4H PRN PRN Reason: Pain/Fever Albuterol/Ipratropium (Albuterol/Ipratropium 3.0-0.5 Mg/3 Ml Neb Soln) 3 ml NEB Q4HRRT PRN PRN Reason: Shortness Of Breath/wheezing Lactated Ringer's (Ringers, Lactated) 1,000 mls @ 125 mls/hr IV ASDIRECTED [facility] Last Admin: 01/19/21 06:26 Dose: 125 mls/hr Documented by: Piperacillin Sod/Tazobactam (Sod 3.375 gm/ Sodium Chloride) 50 mls @ 100 mls/hr IV Q8H [facility] Last Admin: 01/19/21 07:54 Dose: 100 mls/hr Documented by: Vancomycin HCl 1.75 gm/ Premix 350 mls @ 233.333 mls/hr IV Q12H [facility] Last Admin: 01/19/21 01:57 Dose: 233.333 mls/hr Documented by: Magnesium Sulfate (Magnesium Sulfate In Water 4 Gm/100 Ml) 4 gm in 100 mls @ 50 mls/hr IV ONETIME ONE Stop: 01/19/21 13:14 Last Admin: 01/19/21 11:29 Dose: 50 mls/hr Documented by: Lorazepam (Lorazepam 2 Mg/Ml Sdv) 0.5 mg IVPUSH Q4H PRN PRN Reason: Anxiety Last Admin: 01/18/21 21:17 Dose: 0.5 mg Documented by: Vancomycin HCl (Pharmacy To Dose - Vancomycin) 0 dose .XX ASDIRECTED TRA Discontinued Medications Acetaminophen (Acetaminophen 500 Mg Tab) 1,000 mg PO ONETIME ONE Stop: 01/18/21 13:37 Last Admin: 01/18/21 13:50 Dose: 1,000 mg Documented by: Acetaminophen (Acetaminophen 325 Mg Tab) 650 mg PO Q4H PRN PRN Reason: Pain (Mild 1-3)/fever Sodium Chloride (Normal Saline) 1,000 mls @ 1,000 mls/hr IV .Bolus ONE Stop: 01/18/21 12:49 Last Admin: 01/18/21 12:36 Dose: 1,000 mls/hr Documented by: Vancomycin HCl 1.5 gm/ Sodium (Chloride) 250 mls @ 166 mls/hr IV ONETIME ONE Stop: 01/18/21 13:20 Last Admin: 01/18/21 12:38 Dose: 166 mls/hr Documented by: Ceftriaxone Sodium/Dextrose 1 (gm/ Premix) 50 mls @ 100 mls/hr IV ONETIME ONE Stop: 01/18/21 13:01 Last Admin: 01/18/21 12:35 Dose: 100 mls/hr Documented by: Lactated Ringer's (Ringers, Lactated) 1,000 mls @ 999 mls/hr IV .BOLUS ONE Stop: 01/18/21 16:40 Last Admin: 01/18/21 16:11 Dose: 999 mls/hr Documented by: Iopamidol (Iopamidol 755 Mg/Ml 500 Ml Multipack Bottle) 75 ml IVPUSH ONETIME STA Stop: 01/18/21 18:38 Last Admin: 01/18/21 18:39 Dose: 75 ml Documented by: Potassium Chloride (Potassium Chloride 20 Meq Tab.Er) 40 meq PO ONETIME ONE Stop: 01/19/21 11:16 Last Admin: 01/19/21 11:29 Dose: 40 meq Documented by: Vancomycin HCl (Pharmacy To Dose - Vancomycin) 1 dose .XX ASDIRECTED TRA - Exam Quality Assessment: Supplemental Oxygen General: Alert, Oriented, Cooperative, No Acute Distress Neck: Supple Lungs: Normal Respiratory Effort, Decreased Breath Sounds, Rales Cardiovascular: Regular Rate, Regular Rhythm GI/Abdominal Exam: Normal Bowel Sounds, Soft, Non-Tender - Patient Data Lab Results Last 24 hrs: Laboratory Results - last 24 hr 01/18/21 01/18/21 01/18/21 Range/Units 11:55 13:10 13:10 WBC (4.0-11.0) K/uL RBC (4.30-5.90) M/uL Hgb (12.0-16.0) g/dL Hct (36.0-46.0) % MCV (80.0-98.0) fL MCH (27.0-32.0) pg MCHC (31.0-37.0) g/dL RDW Std Deviation (28.0-62.0) fl RDW Coeff of Ade (11.0-15.0) % Plt Count (150-400) K/uL MPV (7.40-12.00) fL Neut % (Auto) (48.0-80.0) % Lymph % (Auto) (16.0-40.0) % Bertie % (Auto) (0.0-15.0) % Eos % (Auto) (0.0-7.0) % Baso % (Auto) (0.0-1.5) % Neut # (Auto) (1.4-5.7) K/uL Lymph # (Auto) (0.6-2.4) K/uL Bertie # (Auto) (0.0-0.8) K/uL Eos # (Auto) (0.0-0.7) K/uL Baso # (Auto) (0.0-0.1) K/uL Nucleated RBC % /100WBC Nucleated RBCs # K/uL Sodium (136-145) mmol/L Potassium (3.5-5.1) mmol/L Chloride (98-107) mmol/L Carbon Dioxide (21.0-32.0) mmol/L BUN (7.0-18.0) mg/dL Creatinine (0.6-1.0) mg/dL Est Cr Clr Drug Dosing mL/min Estimated GFR (MDRD) ml/min Glucose (74-106) mg/dL Calcium (8.5-10.1) mg/dL Phosphorus (2.6-4.7) mg/dL Magnesium (1.8-2.4) mg/dL Total Bilirubin (0.2-1.0) mg/dL AST (15-37) IU/L ALT (14-63) IU/L Alkaline Phosphatase (46-116) U/L Total Protein (6.4-8.2) g/dL Albumin (3.4-5.0) g/dL Globulin (2.6-4.0) g/dL Albumin/Globulin Ratio (0.9-1.6) CSF Appearance CLEAR CSF Color COLORLESS CSF WBC 0 (0-5) /uL CSF RBC 0 (0-0) /uL CSF Glucose 132.0 H (40-70) mg/dL CSF Total Protein 30 (15-45) mg/dL SARS-CoV-2 RNA (NAZARIO) NEGATIVE (NEGATIVE) 01/19/21 01/19/21 Range/Units 05:34 05:34 WBC 23.41 H (4.0-11.0) K/uL RBC 4.43 (4.30-5.90) M/uL Hgb 13.1 (12.0-16.0) g/dL Hct 42.4 (36.0-46.0) % MCV 95.7 (80.0-98.0) fL MCH 29.6 (27.0-32.0) pg MCHC 30.9 L (31.0-37.0) g/dL RDW Std Deviation 50.0 (28.0-62.0) fl RDW Coeff of Ade 15 (11.0-15.0) % Plt Count 205 (150-400) K/uL MPV 11.50 (7.40-12.00) fL Neut % (Auto) 86.0 H (48.0-80.0) % Lymph % (Auto) 7.3 L (16.0-40.0) % Bertie % (Auto) 5.9 (0.0-15.0) % Eos % (Auto) 0.6 (0.0-7.0) % Baso % (Auto) 0.2 (0.0-1.5) % Neut # (Auto) 20.1 H (1.4-5.7) K/uL Lymph # (Auto) 1.7 (0.6-2.4) K/uL Bertie # (Auto) 1.4 H (0.0-0.8) K/uL Eos # (Auto) 0.2 (0.0-0.7) K/uL Baso # (Auto) 0.1 (0.0-0.1) K/uL Nucleated RBC % 0.0 /100WBC Nucleated RBCs # 0 K/uL Sodium 140 (136-145) mmol/L Potassium 3.2 L (3.5-5.1) mmol/L Chloride 101 (98-107) mmol/L Carbon Dioxide 31.3 (21.0-32.0) mmol/L BUN 12 (7.0-18.0) mg/dL Creatinine 1.0 (0.6-1.0) mg/dL Est Cr Clr Drug Dosing 59.51 mL/min Estimated GFR (MDRD) 57.6 ml/min Glucose 131 H (74-106) mg/dL Calcium 8.4 L (8.5-10.1) mg/dL Phosphorus 2.7 (2.6-4.7) mg/dL Magnesium 1.6 L (1.8-2.4) mg/dL Total Bilirubin 0.6 (0.2-1.0) mg/dL AST 48 H (15-37) IU/L ALT 48 (14-63) IU/L Alkaline Phosphatase 113 (46-116) U/L Total Protein 6.0 L (6.4-8.2) g/dL Albumin 2.5 L (3.4-5.0) g/dL Globulin 3.5 (2.6-4.0) g/dL Albumin/Globulin Ratio 0.7 L (0.9-1.6) CSF Appearance CSF Color CSF WBC (0-5) /uL CSF RBC (0-0) /uL CSF Glucose (40-70) mg/dL CSF Total Protein (15-45) mg/dL SARS-CoV-2 RNA (NAZARIO) (NEGATIVE) Result Diagrams: 01/19/21 05:34 01/19/21 05:34 Cj Results Last 24 hrs: Microbiology 01/18/21 13:10 Gram Stain - Final Cerebral Spinal Fluid CSF Culture - Preliminary NO GROWTH AFTER 1 DAY 01/18/21 12:15 Anaerobic Blood Culture - Final Blood - Venous - Lab Draw Sepsis Event Note - Evaluation Sepsis Screening Result: No Definite Risk - Focused Exam Vital Signs: Vital Signs Temp Pulse Resp BP Pulse Ox Pulse Ox 01/19/21 12:09 36.2 C 92 18 97/67 96 01/19/21 12:03 36.2 C 94 18 96 01/19/21 10:09 94 L 01/19/21 07:28 37.1 C 94 18 102/53 L 91 L 01/19/21 04:00 37.1 C 88 18 101/68 94 L - Problem List & Annotations (1) Sepsis SNOMED Code(s): 24593081 Code(s): A41.9 - SEPSIS, UNSPECIFIED ORGANISM Status: Acute Current Visit: Yes (2) AMS (altered mental status) SNOMED Code(s): 412988574 Code(s): R41.82 - ALTERED MENTAL STATUS, UNSPECIFIED Status: Acute Current Visit: Yes (3) COPD (chronic obstructive pulmonary disease) SNOMED Code(s): 16089848 Code(s): J44.9 - CHRONIC OBSTRUCTIVE PULMONARY DISEASE, UNSPECIFIED Status: Acute Current Visit: No Qualifiers: COPD type: COPD with acute exacerbation Qualified Code(s): J44.1 - Chronic obstructive pulmonary disease with (acute) exacerbation (4) Hypoxia SNOMED Code(s): 687573932 Code(s): R09.02 - HYPOXEMIA Status: Acute Current Visit: No (5) Pneumonia SNOMED Code(s): 530023682 Code(s): J18.9 - PNEUMONIA, UNSPECIFIED ORGANISM Status: Acute Current Visit: No Qualifiers: Pneumonia type: due to unspecified organism (6) UTI (urinary tract infection) SNOMED Code(s): 53229609 Code(s): N39.0 - URINARY TRACT INFECTION, SITE NOT SPECIFIED Status: Acute Current Visit: No (7) Multiple sclerosis SNOMED Code(s): 17132840 Code(s): G35 - MULTIPLE SCLEROSIS Status: Chronic Priority: High Current Visit: No - Problem List Review Problem List Initiated/Reviewed/Updated: Yes - My Orders Last 24 Hours: My Active Orders 01/18/21 11:55 CULTURE URINE [RM] Routine STREP PNEUMONIAE ANTIGEN [MREF] Routine 01/18/21 15:22 Ambulate [RC] ASDIRECTED Albuterol/Ipratropium [DuoNeb 3.0-0.5 MG/3 ML] 3 ml NEB Q4HRRT PRN 01/18/21 15:24 Oxygen Therapy [RC] PRN VTE/DVT Education [RC] PER UNIT ROUTINE Vital Signs [RC] Q4H Sequential Compression Device [OM.PC] Per Unit Routine 01/18/21 15:30 Lactated Ringers [Ringers, Lactated] 1,000 ml IV ASDIRECTED 01/18/21 15:31 Antiembolic Devices [RC] DAILY RT Aerosol Therapy [RC] ASDIRECTED 01/18/21 15:40 Acetaminophen [Tylenol Extra Strength] 500 mg PO Q4H PRN 01/18/21 15:45 Swallow Screen [Nursing Bedside Swallow Screen] [RC] ASDIRECTED Pharmacy to Dose - Vancomycin See Dose Instructions .XX ASDIRECTED Piperacillin/Tazobactam [Piperacil-Tazobact] 3.375 gm Sodium Chloride 0.9% [Normal Saline] 50 ml IV Q8H 01/18/21 15:48 IS (RT) [RT Incentive Spirometry] [RC] Q2HWA LORazepam [Ativan] 0.5 mg IVPUSH Q4H PRN 01/18/21 22:34 Resuscitation Status Routine 01/18/21 23:28 Communication Order [RC] ROUTINE 01/18/21 23:35 Consult to Speech Language Pathology [RUSSIAN RUBBER Evaluation and Treatment] [CONS] Routine 01/19/21 01:00 VANCOmycin 1.75 GM/350 ML 1.75 gm Premix Bag 1 bag IV Q12H - Plan Plan:: Patient is a 55-year-old female admitted for sepsis secondary to bilateral pneumonia and UTI cont IV fluid hydration cont broad-spectrum antibiotics including IV vancomycin and Zosyn Follow-up on blood cultures, follow-up on urine cultures DuoNebs as needed for shortness of breath Continue oxygenation via nasal cannula to maintain pulse ox more than 88% SCD for DVT prophylaxis speech cleared for regaular diet with thin liquids Hold off on any sedating medications as of now Ativan 1 mg as needed for anxiety as patient is chronically taking b enzodiazepines at home to prevent withdrawal Fall precautions in place Check daily labs including CBC, BMP, magnesium and phosphorus Monitor and replete electrolytes as needed Resume home meds as appropriate Guy in place due to retention
[2021-01-19] MEDS: Enoxaparin 40 MG/0.4 ML Syringe SUBCUT SCH (13:06)
[2021-01-19] MEDS: Ondansetron 4 MG/2 ML SDV IVPUSH PRN ×2 (13:55→18:18)
[2021-01-19] MEDS: Gabapentin 300 MG Cap PO SCH (20:54)
[2021-01-19] MEDS: DULoxetine 30 MG Cap PO SCH (20:57)
[2021-01-19] MEDS: LORazepam 2 MG/ML SDV IVPUSH PRN (22:11)
[2021-01-20] MEDS: Piperacillin/Tazobactam 3.375 GM in Sodium Chloride 0.9% 50 ML IV SCH ×4 (00:03→22:55)
[2021-01-20] MEDS: VANCOmycin 1.75 GM/350 ML 1.75 GM in Premix Bag 1 BAG IV SCH ×2 (00:48→12:57)
[2021-01-20] MEDS: Lactated Ringers 1,000 ML IV SCH ×3 (02:52→22:54)
[2021-01-20 06:31] LABS: BLOOD UREA NITROGEN,BUN 8 mg/dL (7.0-18.0); CARBON DIOXIDE,CO2 30.8 mmol/L (21.0-32.0); CHLORIDE,CL 104 mmol/L (98-107); GLUCOSE RANDOM 106 mg/dL (74-106); POTASSIUM,K 3.2 mmol/L (3.5-5.1); SODIUM,NA 143 mmol/L (136-145)
[2021-01-20] MEDS: Ondansetron 4 MG/2 ML SDV IVPUSH PRN ×3 (07:35→16:36)
[2021-01-20] MEDS ORDERED: Potassium Chloride 20 MEQ Tab.ER PO ONE (08:21)
[2021-01-20] MEDS ORDERED: Albuterol 8 GM Inhaler INH PRN (09:34)
[2021-01-20] MEDS: Phosphorus #1 250 MG Tab PO SCH ×4 (09:41→23:00)
[2021-01-20] MEDS: Furosemide 40 MG Tab PO SCH (09:43)
[2021-01-20] MEDS: DULoxetine 60 MG Cap PO SCH (09:43)
[2021-01-20] MEDS: Pantoprazole 40 MG Tab.CR PO SCH (09:43)
[2021-01-20] MEDS: Teriflunomide [Aubagio] 14 MG Tablet PO SCH (09:46)
[2021-01-20] MEDS: Gabapentin 300 MG Cap PO SCH ×4 (10:01→20:57)
[2021-01-20] MEDS ORDERED: Diazepam 5 MG Tab PO PRN (10:52)
[2021-01-20] MEDS: Baclofen 10 MG Tab PO SCH ×2 (11:28→20:57)
[2021-01-20] MEDS: Enoxaparin 40 MG/0.4 ML Syringe SUBCUT SCH (12:57)
--- NOTE | 2021-01-20 13:13 | PCM.PN ---
- General Info Date of Service: 01/20/21 Admission Dx/Problem (Free Text): Admission Diagnosis/Problem Admission Diagnosis/Problem Altered mental status Subjective Update: patient seen at bedside, mentation back to baseline, feels weak, oxygen requirement has improved to 2 Lts Functional Status: Reports: Tolerating Diet, Urinating - Review of Systems General: Reports: Weakness, Fatigue. Denies: Fever Pulmonary: Denies: Shortness of Breath, Pleuritic Chest Pain, Cough Cardiovascular: Denies: Chest Pain, Palpitations Gastrointestinal: Denies: Abdominal Pain, Constipation, Decreased Appetite, Nausea, Vomiting Genitourinary: Denies: Dysuria, Frequency, Burning Musculoskeletal: Denies: Neck Pain, Shoulder Pain, Arm Pain Skin: Denies: Jaundice, Mottled, Pallor Neurological: Denies: Confusion, Dizziness - Patient Data Vitals - Most Recent: Last Vital Signs Temp 36.4 C 01/20/21 12:00 Pulse 87 01/20/21 12:00 Resp 16 01/20/21 12:00 BP 110/78 01/20/21 12:00 Pulse Ox 93 L 01/20/21 12:00 Weight - Most Recent: 117.934 kg I&O - Last 24 Hours: Intake & Output 01/19/21 01/20/21 01/20/21 22:59 06:59 14:59 Intake Total 2994 600 Output Total 600 950 Balance 2394 -350 Lab Results Last 24 Hours: Laboratory Results - last 24 hr 01/20/21 01/20/21 Range/Units 05:13 05:13 WBC 15.70 H (4.0-11.0) K/uL RBC 4.30 (4.30-5.90) M/uL Hgb 12.8 (12.0-16.0) g/dL Hct 41.1 (36.0-46.0) % MCV 95.6 (80.0-98.0) fL MCH 29.8 (27.0-32.0) pg MCHC 31.1 (31.0-37.0) g/dL RDW Std Deviation 50.1 (28.0-62.0) fl RDW Coeff of Ade 15 (11.0-15.0) % Plt Count 202 (150-400) K/uL MPV 10.80 (7.40-12.00) fL Neut % (Auto) 84.1 H (48.0-80.0) % Lymph % (Auto) 7.3 L (16.0-40.0) % Ward % (Auto) 7.3 (0.0-15.0) % Eos % (Auto) 1.2 (0.0-7.0) % Baso % (Auto) 0.1 (0.0-1.5) % Neut # (Auto) 13.2 H (1.4-5.7) K/uL Lymph # (Auto) 1.2 (0.6-2.4) K/uL [place] # (Auto) 1.2 H (0.0-0.8) K/uL Eos # (Auto) 0.2 (0.0-0.7) K/uL Baso # (Auto) 0.0 (0.0-0.1) K/uL Nucleated RBC % 0.0 /100WBC Nucleated RBCs # 0 K/uL Sodium 143 (136-145) mmol/L Potassium 3.2 L (3.5-5.1) mmol/L Chloride 104 (98-107) mmol/L Carbon Dioxide 30.8 (21.0-32.0) mmol/L BUN 8 (7.0-18.0) mg/dL Creatinine 0.8 (0.6-1.0) mg/dL Est Cr Clr Drug Dosing 74.38 mL/min Estimated GFR (MDRD) > 60.0 ml/min Glucose 106 (74-106) mg/dL Calcium 8.5 (8.5-10.1) mg/dL Phosphorus 2.4 L (2.6-4.7) mg/dL Magnesium 2.0 (1.8-2.4) mg/dL Cj Results Last 24 Hours: Microbiology 01/18/21 12:20 Aerobic Blood Culture - Preliminary Blood - Venous NO GROWTH AFTER 2 DAYS Anaerobic Blood Culture - Preliminary NO GROWTH AFTER 2 DAYS 01/18/21 12:15 Aerobic Blood Culture - Preliminary Blood - Venous - Lab Draw NO GROWTH AFTER 2 DAYS Anaerobic Blood Culture - Final 01/18/21 13:10 Gram Stain - Final Cerebral Spinal Fluid CSF Culture - Preliminary NO GROWTH AFTER 2 DAYS 01/18/21 11:55 Urine Culture - Final Urine, Clean Catch MIXED STEPHEN >100,000 CFU/ML 01/18/21 11:55 Streptococcus pneumoniae Antigen (M - Final Urine Med Orders - Current: Current Medications Acetaminophen (Acetaminophen 500 Mg Tab) 500 mg PO Q4H PRN PRN Reason: Pain/Fever Albuterol (Albuterol 8 Gm Inhaler) 0 gm INH Q4H PRN PRN Reason: Shortness of Breath Albuterol/Ipratropium (Albuterol/Ipratropium 3.0-0.5 Mg/3 Ml Neb Soln) 3 ml NEB Q4HRRT PRN PRN Reason: Shortness Of Breath/wheezing Baclofen (Baclofen 10 Mg Tab) 20 mg PO BID [facility] Last Admin: 01/20/21 11:28 Dose: 20 mg Documented by: Diazepam (Diazepam 5 Mg Tab) 5 mg PO BID PRN PRN Reason: Anxiety Duloxetine HCl (Duloxetine 30 Mg Cap) 30 mg PO BEDTIME [facility] Last Admin: 01/19/21 20:57 Dose: 30 mg Documented by: Duloxetine HCl (Duloxetine 60 Mg Cap) 60 mg PO DAILY [facility] Last Admin: 01/20/21 09:43 Dose: 60 mg Documented by: Enoxaparin Sodium (Enoxaparin 40 Mg/0.4 Ml Syringe) 40 mg SUBCUT Q24H [facility] Last Admin: 01/20/21 12:57 Dose: 40 mg Documented by: Fluticasone Propionate (Fluticasone Propionate Nasal [place] 16 Gm Bottle) 0 gm NASBOTH DAILY PRN PRN Reason: Allergies Furosemide (Furosemide 40 Mg Tab) 40 mg PO DAILY [facility] Last Admin: 01/20/21 09:43 Dose: 40 mg Documented by: Gabapentin (Gabapentin 300 Mg Cap) 600 mg PO BEDTIME [facility] Last Admin: 01/19/21 20:54 Dose: 600 mg Documented by: Gabapentin (Gabapentin 300 Mg Cap) 300 mg PO QAM [facility] Last Admin: 01/20/21 11:59 Dose: 300 mg Documented by: Lactated Ringer's (Ringers, Lactated) 1,000 mls @ 125 mls/hr IV ASDIRECTED [facility] Last Admin: 01/20/21 12:57 Dose: 125 mls/hr Documented by: Piperacillin Sod/Tazobactam (Sod 3.375 gm/ Sodium Chloride) 50 mls @ 100 mls/hr IV Q8H [facility] Last Admin: 01/20/21 07:35 Dose: 100 mls/hr Documented by: Vancomycin HCl 1.75 gm/ Premix 350 mls @ 233.333 mls/hr IV Q12H [facility] Last Admin: 01/20/21 12:57 Dose: 233.333 mls/hr Documented by: Ondansetron HCl (Ondansetron 4 Mg/2 Ml Sdv) 4 mg IVPUSH Q4H PRN PRN Reason: Nausea/Vomiting Last Admin: 01/20/21 11:58 Dose: 4 mg Documented by: Pantoprazole Sodium (Pantoprazole 40 Mg Tab.Cr) 40 mg PO DAILY [facility] Last Admin: 01/20/21 09:43 Dose: 40 mg Documented by: Teriflunomide [ Aubagio] 14 Mg Tablet 1 each PO DAILY [facility] Last Admin: 01/20/21 09:46 Dose: 1 each Documented by: Symbicort 160-4.5 (Mcg) 2 each INH BID [facility] Last Admin: 01/20/21 09:55 Dose: 2 each Documented by: Sodium Phosphate (Phosphorus #1 250 Mg Tab) 250 mg PO QID [facility] Last Admin: 01/20/21 11:27 Dose: 250 mg Documented by: Trazodone HCl (Trazodone 50 Mg Tab) 200 mg PO BEDTIME [facility] Vancomycin HCl (Pharmacy To Dose - Vancomycin) 0 dose .XX ASDIRECTED [facility] Discontinued Medications Acetaminophen (Acetaminophen 500 Mg Tab) 1,000 mg PO ONETIME ONE Stop: 01/18/21 13:37 Last Admin: 01/18/21 13:50 Dose: 1,000 mg Documented by: Acetaminophen (Acetaminophen 325 Mg Tab) 650 mg PO Q4H PRN PRN Reason: Pain (Mild 1-3)/fever Sodium Chloride (Normal Saline) 1,000 mls @ 1,000 mls/hr IV .Bolus ONE Stop: 01/18/21 12:49 Last Admin: 01/18/21 12:36 Dose: 1,000 mls/hr Documented by: Vancomycin HCl 1.5 gm/ Sodium (Chloride) 250 mls @ 166 mls/hr IV ONETIME ONE Stop: 01/18/21 13:20 Last Admin: 01/18/21 12:38 Dose: 166 mls/hr Documented by: Ceftriaxone Sodium/Dextrose 1 (gm/ Premix) 50 mls @ 100 mls/hr IV ONETIME ONE Stop: 01/18/21 13:01 Last Admin: 01/18/21 12:35 Dose: 100 mls/hr Documented by: Lactated Ringer's (Ringers, Lactated) 1,000 mls @ 999 mls/hr IV .BOLUS ONE Stop: 01/18/21 16:40 Last Admin: 01/18/21 16:11 Dose: 999 mls/hr Documented by: Magnesium Sulfate (Magnesium Sulfate In Water 4 Gm/100 Ml) 4 gm in 100 mls @ 50 mls/hr IV ONETIME ONE Stop: 01/19/21 13:14 Last Admin: 01/19/21 11:29 Dose: 50 mls/hr Documented by: Iopamidol (Iopamidol 755 Mg/Ml 500 Ml Multipack Bottle) 75 ml IVPUSH ONETIME STA Stop: 01/18/21 18:38 Last Admin: 01/18/21 18:39 Dose: 75 ml Documented by: Lorazepam (Lorazepam 2 Mg/Ml Sdv) 0.5 mg IVPUSH Q4H PRN PRN Reason: Anxiety Last Admin: 01/19/21 22:11 Dose: 0.5 mg Documented by: Potassium Chloride (Potassium Chloride 20 Meq Tab.Er) 40 meq PO ONETIME ONE Stop: 01/19/21 11:16 Last Admin: 01/19/21 11:29 Dose: 40 meq Documented by: Potassium Chloride (Potassium Chloride 20 Meq Tab.Er) 40 meq PO ONETIME ONE Stop: 01/20/21 08:22 Last Admin: 01/20/21 09:40 Dose: 40 meq Documented by: Vancomycin HCl (Pharmacy To Dose - Vancomycin) 1 dose .XX ASDIRECTED TRA - Exam Quality Assessment: Supplemental Oxygen General: Alert, Oriented, Cooperative, No Acute Distress Neck: Supple Lungs: Clear to Auscultation, Normal Respiratory Effort Cardiovascular: Regular Rate, Regular Rhythm GI/Abdominal Exam: Normal Bowel Sounds, Soft, Non-Tender - Patient Data Lab Results Last 24 hrs: Laboratory Results - last 24 hr 01/20/21 01/20/21 Range/Units 05:13 05:13 WBC 15.70 H (4.0-11.0) K/uL RBC 4.30 (4.30-5.90) M/uL Hgb 12.8 (12.0-16.0) g/dL Hct 41.1 (36.0-46.0) % MCV 95.6 (80.0-98.0) fL MCH 29.8 (27.0-32.0) pg MCHC 31.1 (31.0-37.0) g/dL RDW Std Deviation 50.1 (28.0-62.0) fl RDW Coeff of Ade 15 (11.0-15.0) % Plt Count 202 (150-400) K/uL MPV 10.80 (7.40-12.00) fL Neut % (Auto) 84.1 H (48.0-80.0) % Lymph % (Auto) 7.3 L (16.0-40.0) % Ward % (Auto) 7.3 (0.0-15.0) % Eos % (Auto) 1.2 (0.0-7.0) % Baso % (Auto) 0.1 (0.0-1.5) % Neut # (Auto) 13.2 H (1.4-5.7) K/uL Lymph # (Auto) 1.2 (0.6-2.4) K/uL Ward # (Auto) 1.2 H (0.0-0.8) K/uL Eos # (Auto) 0.2 (0.0-0.7) K/uL Baso # (Auto) 0.0 (0.0-0.1) K/uL Nucleated RBC % 0.0 /100WBC Nucleated RBCs # 0 K/uL Sodium 143 (136-145) mmol/L Potassium 3.2 L (3.5-5.1) mmol/L Chloride 104 (98-107) mmol/L Carbon Dioxide 30.8 (21.0-32.0) mmol/L BUN 8 (7.0-18.0) mg/dL Creatinine 0.8 (0.6-1.0) mg/dL Est Cr Clr Drug Dosing 74.38 mL/min Estimated GFR (MDRD) > 60.0 ml/min Glucose 106 (74-106) mg/dL Calcium 8.5 (8.5-10.1) mg/dL Phosphorus 2.4 L (2.6-4.7) mg/dL Magnesium 2.0 (1.8-2.4) mg/dL Result Diagrams: 01/20/21 05:13 01/20/21 05:13 Cj Results Last 24 hrs: Microbiology 01/18/21 12:20 Aerobic Blood Culture - Preliminary Blood - Venous NO GROWTH AFTER 2 DAYS Anaerobic Blood Culture - Preliminary NO GROWTH AFTER 2 DAYS 01/18/21 12:15 Aerobic Blood Culture - Preliminary Blood - Venous - Lab Draw NO GROWTH AFTER 2 DAYS Anaerobic Blood Culture - Final 01/18/21 13:10 Gram Stain - Final Cerebral Spinal Fluid CSF Culture - Preliminary NO GROWTH AFTER 2 DAYS 01/18/21 11:55 Urine Culture - Final Urine, Clean Catch MIXED STEPHEN >100,000 CFU/ML 01/18/21 11:55 Streptococcus pneumoniae Antigen (M - Final Urine Sepsis Event Note - Evaluation Sepsis Screening Result: No Definite Risk - Focused Exam Vital Signs: Vital Signs Temp Pulse Resp BP Pulse Ox Pulse Ox 01/20/21 12:00 36.4 C 87 16 110/78 93 L 01/20/21 07:45 94 L 01/20/21 07:31 36.4 C 85 16 111/72 94 L 01/20/21 03:33 36.2 C 77 18 102/62 93 L - Problem List & Annotations (1) Sepsis SNOMED Code(s): 66847662 Code(s): A41.9 - SEPSIS, UNSPECIFIED ORGANISM Status: Acute Current Visit: Yes (2) AMS (altered mental status) SNOMED Code(s): 676483907 Code(s): R41.82 - ALTERED MENTAL STATUS, UNSPECIFIED Status: Acute Current Visit: Yes (3) COPD (chronic obstructive pulmonary disease) SNOMED Code(s): 55810873 Code(s): J44.9 - CHRONIC OBSTRUCTIVE PULMONARY DISEASE, UNSPECIFIED Status: Acute Current Visit: No Qualifiers: COPD type: COPD with acute exacerbation Qualified Code(s): J44.1 - Chronic obstructive pulmonary disease with (acute) exacerbation (4) Hypoxia SNOMED Code(s): 890025613 Code(s): R09.02 - HYPOXEMIA Status: Acute Current Visit: No (5) Pneumonia SNOMED Code(s): 988334630 Code(s): J18.9 - PNEUMONIA, UNSPECIFIED ORGANISM Status: Acute Current Visit: No Qualifiers: Pneumonia type: due to unspecified organism (6) UTI (urinary tract infection) SNOMED Code(s): 87994805 Code(s): N39.0 - URINARY TRACT INFECTION, SITE NOT SPECIFIED Status: Acute Current Visit: No (7) Multiple sclerosis SNOMED Code(s): 95529888 Code(s): G35 - MULTIPLE SCLEROSIS Status: Chronic Priority: High Current Visit: No - Problem List Review Problem List Initiated/Reviewed/Updated: Yes - My Orders Last 24 Hours: My Active Orders 01/19/21 13:00 Enoxaparin [Lovenox] 40 mg SUBCUT Q24H 01/19/21 13:49 Ondansetron [Zofran] 4 mg IVPUSH Q4H PRN 01/19/21 21:00 DULoxetine [Cymbalta] 30 mg PO BEDTIME Gabapentin [Neurontin] 600 mg PO BEDTIME 01/20/21 09:00 DULoxetine [Cymbalta] 60 mg PO DAILY Furosemide [Lasix] 40 mg PO DAILY Pantoprazole [ProTONIX] 40 mg PO DAILY Patient's Own Medication [Ptom] 1 each PO DAILY - Plan Plan:: Patient is a 55-year-old female admitted for sepsis secondary to bilateral pneumonia and UTI cont IV fluid hydration cont broad-spectrum antibiotics including IV vancomycin and Zosyn Follow-up on blood cultures, follow-up on urine cultures DuoNebs as needed for shortness of breath Continue oxygenation via nasal cannula to maintain pulse ox more than 88% SCD for DVT prophylaxis speech cleared for regaular diet with thin liquids Hold off on tramadol, patient requesting her chronic home meds will resume as appropriate Fall precautions in place Check daily labs including CBC, BMP, magnesium and phosphorus Monitor and replete electrolytes as needed Resume home meds as appropriate Guy in place due to retention, consider dc in AM PT consulted to assess ambulation
[2021-01-20] MEDS: Acidophilus with Citrus Pectin Tab PO SCH (14:27)
[2021-01-20] MEDS: DULoxetine 30 MG Cap PO SCH (20:58)
[2021-01-20] MEDS: traZODone 50 MG Tab PO SCH (22:40)
[2021-01-21] MEDS: traZODone 50 MG Tab PO SCH ×2 (00:26→23:51)
[2021-01-21] MEDS: VANCOmycin 1.5 GM/300 ML 1.5 GM in Premix Bag 1 BAG IV SCH ×2 (03:00→14:04)
[2021-01-21 06:54] LABS: BLOOD UREA NITROGEN,BUN 4 mg/dL (7.0-18.0); CHLORIDE,CL 107 mmol/L (98-107); GLUCOSE RANDOM 133 mg/dL (74-106); POTASSIUM,K 2.6 mmol/L (3.5-5.1); SODIUM,NA 146 mmol/L (136-145)
[2021-01-21] MEDS: Phosphorus #1 250 MG Tab PO SCH (06:58)
[2021-01-21] MEDS: Lactated Ringers 1,000 ML IV SCH (07:44)
[2021-01-21] MEDS: Piperacillin/Tazobactam 3.375 GM in Sodium Chloride 0.9% 50 ML IV SCH (07:48)
[2021-01-21] MEDS: Gabapentin 300 MG Cap PO SCH ×2 (08:11→22:32)
[2021-01-21] MEDS: Baclofen 10 MG Tab PO SCH ×2 (08:11→22:31)
[2021-01-21] MEDS: Furosemide 40 MG Tab PO SCH (08:12)
[2021-01-21] MEDS: Pantoprazole 40 MG Tab.CR PO SCH (08:12)
[2021-01-21] MEDS: Acidophilus with Citrus Pectin Tab PO SCH (08:12)
[2021-01-21] MEDS: DULoxetine 60 MG Cap PO SCH (08:13)
[2021-01-21] MEDS: Fluticasone Propionate Nasal Spray 16 GM Bottle NASBOTH PRN (08:14)
[2021-01-21] MEDS: Teriflunomide [Aubagio] 14 MG Tablet PO SCH (08:15)
[2021-01-21] MEDS ORDERED: Magnesium Sulfate/Water 2 GM/50 ML Premix Bag IV ONE (10:05)
[2021-01-21] MEDS ORDERED: Potassium Chloride 20 MEQ Tab.ER PO ONE ×2 (10:07→22:43)
[2021-01-21] MEDS ORDERED: Potassium Chloride 20 MEQ Tab.ER PO SCH (10:15)
[2021-01-21] MEDS ORDERED: Sodium Chloride 0.9% with KCl 1,000 ML IV SCH (10:15)
[2021-01-21] MEDS ORDERED: Potassium Chloride 40 MEQ in Sodium Chloride 0.45% 1,000 ML IV ONE (10:15)
[2021-01-21] MEDS ORDERED: Magnesium Sulfate/Water 2 GM/50 ML BAG IV ONE (10:30)
--- NOTE | 2021-01-21 11:45 | PCM.PN ---
- General Info Date of Service: 01/21/21 - Review of Systems Systems Review Comment:: feeling better, no fevers, no shortness of breath, - Patient Data Vitals - Most Recent: Last Vital Signs Temp 36.8 C 01/21/21 08:04 Pulse 101 H 01/21/21 08:04 Resp 18 01/21/21 08:04 BP 129/88 01/21/21 08:04 Pulse Ox 93 L 01/21/21 08:04 Weight - Most Recent: 117.934 kg I&O - Last 24 Hours: Intake & Output 01/20/21 01/21/21 01/21/21 22:59 06:59 14:59 Intake Total 2965 1140 Output Total 650 1200 Balance 2315 -60 Lab Results Last 24 Hours: Laboratory Results - last 24 hr 01/20/21 01/21/21 01/21/21 Range/Units 12:43 06:05 06:05 WBC 12.97 H (4.0-11.0) K/uL RBC 4.24 L (4.30-5.90) M/uL Hgb 12.6 (12.0-16.0) g/dL Hct 40.5 (36.0-46.0) % MCV 95.5 (80.0-98.0) fL MCH 29.7 (27.0-32.0) pg MCHC 31.1 (31.0-37.0) g/dL RDW Std Deviation 50.7 (28.0-62.0) fl RDW Coeff of Ade 15 (11.0-15.0) % Plt Count 224 (150-400) K/uL MPV 10.90 (7.40-12.00) fL Neut % (Auto) 80.4 H (48.0-80.0) % Lymph % (Auto) 8.3 L (16.0-40.0) % [place] % (Auto) 9.1 (0.0-15.0) % Eos % (Auto) 2.0 (0.0-7.0) % Baso % (Auto) 0.2 (0.0-1.5) % Neut # (Auto) 10.4 H (1.4-5.7) K/uL Lymph # (Auto) 1.1 (0.6-2.4) K/uL [place] # (Auto) 1.2 H (0.0-0.8) K/uL Eos # (Auto) 0.3 (0.0-0.7) K/uL Baso # (Auto) 0.0 (0.0-0.1) K/uL Nucleated RBC % 0.0 /100WBC Nucleated RBCs # 0 K/uL Sodium 146 H (136-145) mmol/L Potassium 2.6 L (3.5-5.1) mmol/L Chloride 107 (98-107) mmol/L Carbon Dioxide 30.0 (21.0-32.0) mmol/L BUN 4 L (7.0-18.0) mg/dL Creatinine 0.7 (0.6-1.0) mg/dL Est Cr Clr Drug Dosing 85.01 mL/min Estimated GFR (MDRD) > 60.0 ml/min Glucose 133 H (74-106) mg/dL Calcium 8.5 (8.5-10.1) mg/dL Phosphorus 3.6 (2.6-4.7) mg/dL Magnesium 1.7 L (1.8-2.4) mg/dL Vancomycin Trough 22.3 H (5.0-10.0) ug/mL Cj Results Last 24 Hours: Microbiology 01/18/21 13:10 Gram Stain - Final Cerebral Spinal Fluid CSF Culture - Final NO GROWTH AFTER 3 DAYS 01/18/21 12:20 Aerobic Blood Culture - Preliminary Blood - Venous NO GROWTH AFTER 2 DAYS Anaerobic Blood Culture - Preliminary NO GROWTH AFTER 2 DAYS 01/18/21 12:15 Aerobic Blood Culture - Preliminary Blood - Venous - Lab Draw NO GROWTH AFTER 2 DAYS Anaerobic Blood Culture - Final 01/18/21 11:55 Urine Culture - Final Urine, Clean Catch MIXED STEPHEN >100,000 CFU/ML 01/18/21 11:55 Streptococcus pneumoniae Antigen (M - Final Urine Med Orders - Current: Current Medications Acetaminophen (Acetaminophen 500 Mg Tab) 500 mg PO Q4H PRN PRN Reason: Pain/Fever Acidophilus/Pectin (Acidophilus With [place] Pectin Tab) 1 tab PO DAILY [facility] Last Admin: 01/21/21 08:12 Dose: 1 tab Documented by: Albuterol (Albuterol 8 Gm Inhaler) 0 gm INH Q4H PRN PRN Reason: Shortness of Breath Albuterol/Ipratropium (Albuterol/Ipratropium 3.0-0.5 Mg/3 Ml Neb Soln) 3 ml NEB Q4HRRT PRN PRN Reason: Shortness Of Breath/wheezing Baclofen (Baclofen 10 Mg Tab) 20 mg PO BID [facility] Last Admin: 01/21/21 08:11 Dose: 20 mg Documented by: Diazepam (Diazepam 5 Mg Tab) 5 mg PO BID PRN PRN Reason: Anxiety Duloxetine HCl (Duloxetine 30 Mg Cap) 30 mg PO BEDTIME [facility] Last Admin: 01/20/21 20:58 Dose: 30 mg Documented by: Duloxetine HCl (Duloxetine 60 Mg Cap) 60 mg PO DAILY [facility] Last Admin: 01/21/21 08:13 Dose: 60 mg Documented by: Enoxaparin Sodium (Enoxaparin 40 Mg/0.4 Ml Syringe) 40 mg SUBCUT Q24H [facility] Last Admin: 01/20/21 12:57 Dose: 40 mg Documented by: Fluticasone Propionate (Fluticasone Propionate Nasal [place] 16 Gm Bottle) 0 gm NASBOTH DAILY PRN PRN Reason: Allergies Last Admin: 01/21/21 08:14 Dose: 1 each Documented by: Gabapentin (Gabapentin 300 Mg Cap) 600 mg PO BEDTIME [facility] Last Admin: 01/20/21 20:57 Dose: 600 mg Documented by: Gabapentin (Gabapentin 300 Mg Cap) 300 mg PO QAM [facility] Last Admin: 01/21/21 08:11 Dose: 300 mg Documented by: Piperacillin Sod/Tazobactam (Sod 3.375 gm/ Sodium Chloride) 50 mls @ 100 mls/hr IV Q8H [facility] Last Admin: 01/21/21 07:48 Dose: 100 mls/hr Documented by: Vancomycin HCl 1.5 gm/ Premix 300 mls @ 200 mls/hr IV Q12H [facility] Last Admin: 01/21/21 03:00 Dose: Not Given Documented by: Potassium Chloride 40 meq/ (Sodium Chloride) 1,020 mls @ 75 mls/hr IV ONETIME ONE Stop: 01/21/21 23:50 Ondansetron HCl (Ondansetron 4 Mg/2 Ml Sdv) 4 mg IVPUSH Q4H PRN PRN Reason: Nausea/Vomiting Last Admin: 01/20/21 16:36 Dose: 4 mg Documented by: Pantoprazole Sodium (Pantoprazole 40 Mg Tab.Cr) 40 mg PO DAILY [facility] Last Admin: 01/21/21 08:12 Dose: 40 mg Documented by: Teriflunomide [ Aubagio] 14 Mg Tablet 1 each PO DAILY [facility] Last Admin: 01/21/21 08:15 Dose: 1 each Documented by: Symbicort 160-4.5 (Mcg) 2 each INH BID [facility] Last Admin: 01/21/21 10:36 Dose: 2 each Documented by: Trazodone HCl (Trazodone 50 Mg Tab) 200 mg PO BEDTIME [facility] Last Admin: 01/21/21 00:26 Dose: 100 mg Documented by: Vancomycin HCl (Pharmacy To Dose - Vancomycin) 0 dose .XX ASDIRECTED [facility] Discontinued Medications Acetaminophen (Acetaminophen 500 Mg Tab) 1,000 mg PO ONETIME ONE Stop: 01/18/21 13:37 Last Admin: 01/18/21 13:50 Dose: 1,000 mg Documented by: Acetaminophen (Acetaminophen 325 Mg Tab) 650 mg PO Q4H PRN PRN Reason: Pain (Mild 1-3)/fever Furosemide (Furosemide 40 Mg Tab) 40 mg PO DAILY [facility] Last Admin: 01/21/21 08:12 Dose: 40 mg Documented by: Sodium Chloride (Normal Saline) 1,000 mls @ 1,000 mls/hr IV .Bolus ONE Stop: 01/18/21 12:49 Last Admin: 01/18/21 12:36 Dose: 1,000 mls/hr Documented by: Vancomycin HCl 1.5 gm/ Sodium (Chloride) 250 mls @ 166 mls/hr IV ONETIME ONE Stop: 01/18/21 13:20 Last Admin: 01/18/21 12:38 Dose: 166 mls/hr Documented by: Ceftriaxone Sodium/Dextrose 1 (gm/ Premix) 50 mls @ 100 mls/hr IV ONETIME ONE Stop: 01/18/21 13:01 Last Admin: 01/18/21 12:35 Dose: 100 mls/hr Documented by: Lactated Ringer's (Ringers, Lactated) 1,000 mls @ 125 mls/hr IV ASDIRECTED [facility] Last Admin: 01/21/21 07:44 Dose: 125 mls/hr Documented by: Lactated Ringer's (Ringers, Lactated) 1,000 mls @ 999 mls/hr IV .BOLUS ONE Stop: 01/18/21 16:40 Last Admin: 01/18/21 16:11 Dose: 999 mls/hr Documented by: Vancomycin HCl 1.75 gm/ Premix 350 mls @ 233.333 mls/hr IV Q12H [facility] Last Admin: 01/20/21 12:57 Dose: 233.333 mls/hr Documented by: Magnesium Sulfate (Magnesium Sulfate In Water 4 Gm/100 Ml) 4 gm in 100 mls @ 50 mls/hr IV ONETIME ONE Stop: 01/19/21 13:14 Last Admin: 01/19/21 11:29 Dose: 50 mls/hr Documented by: Potassium Chloride/Sodium Chloride (Normal Saline With 40 Meq Kcl) 1,000 mls @ 75 mls/hr IV ASDIRECTED [facility] Stop: 01/21/21 23:34 Magnesium Sulfate (Magnesium Sulfate In Water 2 Gm/50 Ml) 2 gm in 50 mls @ 50 mls/hr IV ONETIME ONE Stop: 01/21/21 11:29 Last Admin: 01/21/21 10:37 Dose: 50 mls/hr Documented by: Iopamidol (Iopamidol 755 Mg/Ml 500 Ml Multipack Bottle) 75 ml IVPUSH ONETIME STA Stop: 01/18/21 18:38 Last Admin: 01/18/21 18:39 Dose: 75 ml Documented by: Lorazepam (Lorazepam 2 Mg/Ml Sdv) 0.5 mg IVPUSH Q4H PRN PRN Reason: Anxiety Last Admin: 01/19/21 22:11 Dose: 0.5 mg Documented by: Potassium Chloride (Potassium Chloride 20 Meq Tab.Er) 40 meq PO ONETIME ONE Stop: 01/19/21 11:16 Last Admin: 01/19/21 11:29 Dose: 40 meq Documented by: Potassium Chloride (Potassium Chloride 20 Meq Tab.Er) 40 meq PO ONETIME ONE Stop: 01/20/21 08:22 Last Admin: 01/20/21 09:40 Dose: 40 meq Documented by: Potassium Chloride (Potassium Chloride 20 Meq Tab.Er) 40 meq PO BID [facility] Potassium Chloride (Potassium Chloride 20 Meq Tab.Er) 60 meq PO ONETIME ONE Stop: 01/21/21 10:08 Last Admin: 01/21/21 10:36 Dose: 60 meq Documented by: Sodium Phosphate (Phosphorus #1 250 Mg Tab) 250 mg PO QID [facility] Last Admin: 01/21/21 06:58 Dose: 250 mg Documented by: Vancomycin HCl (Pharmacy To Dose - Vancomycin) 1 dose .XX ASDIRECTED TRA - Exam General: Alert, Oriented, Cooperative Neck: Supple Lungs: Clear to Auscultation, Normal Respiratory Effort Cardiovascular: Regular Rate, Regular Rhythm GI/Abdominal Exam: Soft, Non-Tender, No Distention Extremities: Non-Tender, No Pedal Edema Skin: Warm, Dry, Intact Neurological: No New Focal Deficit - Patient Data Lab Results Last 24 hrs: Laboratory Results - last 24 hr 01/20/21 01/21/21 01/21/21 Range/Units 12:43 06:05 06:05 WBC 12.97 H (4.0-11.0) K/uL RBC 4.24 L (4.30-5.90) M/uL Hgb 12.6 (12.0-16.0) g/dL Hct 40.5 (36.0-46.0) % MCV 95.5 (80.0-98.0) fL MCH 29.7 (27.0-32.0) pg MCHC 31.1 (31.0-37.0) g/dL RDW Std Deviation 50.7 (28.0-62.0) fl RDW Coeff of Ade 15 (11.0-15.0) % Plt Count 224 (150-400) K/uL MPV 10.90 (7.40-12.00) fL Neut % (Auto) 80.4 H (48.0-80.0) % Lymph % (Auto) 8.3 L (16.0-40.0) % [place] % (Auto) 9.1 (0.0-15.0) % Eos % (Auto) 2.0 (0.0-7.0) % Baso % (Auto) 0.2 (0.0-1.5) % Neut # (Auto) 10.4 H (1.4-5.7) K/uL Lymph # (Auto) 1.1 (0.6-2.4) K/uL [place] # (Auto) 1.2 H (0.0-0.8) K/uL Eos # (Auto) 0.3 (0.0-0.7) K/uL Baso # (Auto) 0.0 (0.0-0.1) K/uL Nucleated RBC % 0.0 /100WBC Nucleated RBCs # 0 K/uL Sodium 146 H (136-145) mmol/L Potassium 2.6 L (3.5-5.1) mmol/L Chloride 107 (98-107) mmol/L Carbon Dioxide 30.0 (21.0-32.0) mmol/L BUN 4 L (7.0-18.0) mg/dL Creatinine 0.7 (0.6-1.0) mg/dL Est Cr Clr Drug Dosing 85.01 mL/min Estimated GFR (MDRD) > 60.0 ml/min Glucose 133 H (74-106) mg/dL Calcium 8.5 (8.5-10.1) mg/dL Phosphorus 3.6 (2.6-4.7) mg/dL Magnesium 1.7 L (1.8-2.4) mg/dL Vancomycin Trough 22.3 H (5.0-10.0) ug/mL Result Diagrams: 01/21/21 06:05 01/21/21 06:05 Cj Results Last 24 hrs: Microbiology 01/18/21 13:10 Gram Stain - Final Cerebral Spinal Fluid CSF Culture - Final NO GROWTH AFTER 3 DAYS 01/18/21 12:20 Aerobic Blood Culture - Preliminary Blood - Venous NO GROWTH AFTER 2 DAYS Anaerobic Blood Culture - Preliminary NO GROWTH AFTER 2 DAYS 01/18/21 12:15 Aerobic Blood Culture - Preliminary Blood - Venous - Lab Draw NO GROWTH AFTER 2 DAYS Anaerobic Blood Culture - Final 01/18/21 11:55 Urine Culture - Final Urine, Clean Catch MIXED STEPHEN >100,000 CFU/ML 01/18/21 11:55 Streptococcus pneumoniae Antigen (M - Final Urine Sepsis Event Note - Evaluation Sepsis Screening Result: No Definite Risk - Focused Exam Vital Signs: Vital Signs Temp Pulse Resp BP Pulse Ox 01/21/21 08:04 36.8 C 101 H 18 129/88 93 L 01/21/21 03:13 95 01/21/21 03:12 36.4 C 81 16 118/78 89 L - Problem List Review Problem List Initiated/Reviewed/Updated: Yes - My Orders Last 24 Hours: My Active Orders 01/21/21 10:15 Potassium Chloride 40 meq Sodium Chloride 0.45% 1,000 ml IV ONETIME 01/21/21 19:00 BASIC METABOLIC PANEL,BMP [CHEM] Routine MAGNESIUM [CHEM] Routine 01/22/21 05:11 BASIC METABOLIC PANEL,BMP [CHEM] AM CBC WITH AUTO DIFF [HEME] AM MAGNESIUM [CHEM] AM PHOSPHORUS [CHEM] AM - Plan Plan:: Patient is a 55-year-old female admitted for sepsis secondary to bilateral pneumonia and UTI pneumonia/UTI: continue zosyn, d/c vancomycin, blood cultures have been NGTD Encephalopathy likely due to sepsis and polypharmacy: resolved, d/c tramadol hypokalemia: replacing, d/c lasix, patient reports was on lasix for leg swelling and kept using it as she thought it helped her urinate Diarrhea: will check for C.diff SCD for DVT prophylaxis speech cleared for regaular diet with thin liquids Hx of depression and PTSD: on Cymbalta, valium prn urinary retention: patient reports a history of urinary retention likely due to MS, will remove wells to see if she can resume urinating by herself again, Patient instructed that she is on several medications that can cause urinary retention. Will d/c tramadol. dispo: likely home tomorrow.
[2021-01-21] MEDS: Enoxaparin 40 MG/0.4 ML Syringe SUBCUT SCH (14:02)
[2021-01-21] MEDS ORDERED: Loperamide 2 MG Cap PO ONE (18:00)
[2021-01-21 19:47] LABS: BLOOD UREA NITROGEN,BUN 2 mg/dL (7.0-18.0); CHLORIDE,CL 104 mmol/L (98-107); GLUCOSE RANDOM 135 mg/dL (74-106); POTASSIUM,K 3.1 mmol/L (3.5-5.1); SODIUM,NA 142 mmol/L (136-145)
[2021-01-21] MEDS: DULoxetine 30 MG Cap PO SCH (22:31)
[2021-01-22] MEDS: VANCOmycin 1.5 GM/300 ML 1.5 GM in Premix Bag 1 BAG IV SCH (02:26)
[2021-01-22 07:35] LABS: BLOOD UREA NITROGEN,BUN 1 mg/dL (7.0-18.0); CARBON DIOXIDE,CO2 26.7 mmol/L (21.0-32.0); CHLORIDE,CL 107 mmol/L (98-107); GLUCOSE RANDOM 104 mg/dL (74-106); POTASSIUM,K 3.3 mmol/L (3.5-5.1); SODIUM,NA 144 mmol/L (136-145)
[2021-01-22] MEDS: Baclofen 10 MG Tab PO SCH (08:43)
[2021-01-22] MEDS: Pantoprazole 40 MG Tab.CR PO SCH (08:44)
[2021-01-22] MEDS: Gabapentin 300 MG Cap PO SCH (08:44)
[2021-01-22] MEDS: Teriflunomide [Aubagio] 14 MG Tablet PO SCH (08:45)
[2021-01-22] MEDS: DULoxetine 60 MG Cap PO SCH (08:45)
[2021-01-22] MEDS: Fluticasone Propionate Nasal Spray 16 GM Bottle NASBOTH PRN (08:46)
[2021-01-22] MEDS: Ondansetron 4 MG/2 ML SDV IVPUSH PRN (09:00)
[2021-01-22] MEDS ORDERED: Potassium Chloride 20 MEQ Tab.ER PO ONE (10:07)
[2021-01-22] MEDS: Acidophilus with Citrus Pectin Tab PO SCH (10:25)
[2021-01-22 11:50] VITALS: BP 118/76; PULSE 84
[2021-01-22] MEDS ORDERED: Levofloxacin 500 MG Tab PO ONE (12:49)
--- NOTE | 2021-01-22 12:58 | PCM.DCSUM1 ---
Discharge Summary - Discharge Data Discharge Date: 01/22/21 Discharge Disposition: Home, Self-Care 01 Condition: Stable - Referral to Home Health Primary Care Physician: Ryan Evans MD - Patient Summary/Data Consults: Consultations 01/18/21 23:35 Consult to Speech Language Pathology [[employer] Evaluation and Treatment] [CONS] Routine 01/20/21 11:15 PT Evaluation and Treatment [CONS] Routine Hospital Course: Patient is a 54-year-old female with PMH of severe MS with neurogenic bladder,, recurrent pneumonia and UTIs who was admitted for pneumonia and uti with sepsis acute encephalopathy. She presented to the ER secondary to concern of altered mental status. According to patient's mother, she was found sitting on her chair, she was confused and was not making any sense. She also states that she found her slouching on the chair and could hear gurgling sounds in her throat. They checked her oxygen level which was in 70s, patient was started on oxygen (father's home oxygen) which improved her oxygen saturation to mid 80s. After that the oxygen was removed and patient tried to go to use the restroom but was not successful. Patient increasingly started to get more confused and lethargic so EMS was called. In the ER patient was found to be hypoxic saturating in 80s and hence was started on nasal cannula oxygen, she was requiring 5 L of oxygen to maintain pulse ox of 92%. Patient was found to be febrile and had leukocytosis. Lumbar puncture was done in the ER to rule out meningitis. CT head was unremarkable for any acute change. CT of the chest showed bilateral pneumonia, and UA was also significant for UTI. Lumbar puncture results were benign. She was resuscitated with IV fluids and treated with vancomycin and Zosyn. Blood cultures were negative and urine cultures grew out mixed shreya. A wells catheter was placed due to urinary retention. Patient did have improvement in her mentation and she reports she has been having increased difficulty with urinating. She has been having to bear down and push on her bladder to urinate. Patient reports she takes lasix to help her urinate. She also has had her tramadol increased recently. After a discussion about polypharmacy and its link to her altered mental status and urinary retention, she has agreed to stop taking tramadol and diazepam. Yesterday her Wells was removed and she was incontinent twice but she was able to urinate today without difficulty. When it was discussed that the lasix was likely causing her to drink more and urinate more frequently she requested to have this medication discontinued. She says it was started for leg edema several years ago for which she states is not a problem for her anymore. Patient was discharged with two days of Levaquin. She is to follow up with her primary care provider and Neurology clinic. - Patient Instructions Diet: Usual Diet as Tolerated Activity: As Tolerated Notify Provider of: Fever, Increased Pain, Swelling and Redness, Nausea and/or Vomiting - Discharge Plan Prescriptions/Med Rec: levoFLOXacin [Levaquin] 500 mg PO DAILY #2 tab Home Medications: Home Meds DULoxetine HCl [Cymbalta] 60 mg PO DAILY 08/22/15 [History] Pantoprazole Sodium 40 mg PO DAILY 08/22/15 [History] Cholecalciferol (Vitamin D3) [Vitamin D3] 1,000 unit PO DAILY 10/24/15 [History] DULoxetine HCl [Cymbalta] 30 mg PO BEDTIME 10/28/18 [History] Teriflunomide [Aubagio] 14 mg PO DAILY 12/05/18 [History] Gabapentin [Neurontin] 300 mg PO QAM #7 capsule 08/11/19 [Rx] Gabapentin [Neurontin] 600 mg PO BEDTIME #14 capsule 08/11/19 [Rx] Budesonide/Formoterol Fumarate [Symbicort 80-4.5 MCG] 2 inh IH BID 05/12/20 [History] Mecobalamin [B12 Active] 1,000 mcg PO DAILY 05/12/20 [History] traZODone HCl [Trazodone HCl] 200 mg PO BEDTIME 05/12/20 [History] Albuterol [Ventolin HFA] 2 inh IH Q4H PRN 01/19/21 [History] Fluticasone Propionate 2 sprays NASBOTH DAILY PRN 01/19/21 [History] Baclofen 20 mg PO BID PRN #14 tablet 01/22/21 [Rx] levoFLOXacin [Levaquin] 500 mg PO DAILY #2 tab 01/22/21 [Rx] Patient Handouts: Confusion, Baclofen tablets, Sepsis, Diagnosis, Adult, Levofloxacin tablets, Sepsis, Self Care, Adult Referrals: Ryan Evans MD [Primary Care Provider] - 01/30/21 10:15 am - Discharge Summary/Plan Comment DC Time >30 min.: No - Patient Data Vitals - Most Recent: Last Vital Signs Temp 36.7 C 01/22/21 11:48 Pulse 84 01/22/21 11:48 Resp 16 01/22/21 11:48 BP 118/76 01/22/21 11:48 Pulse Ox 96 01/22/21 11:48 Weight - Most Recent: 117.934 kg I&O - Last 24 hours: Intake & Output 01/21/21 01/22/21 01/22/21 22:59 06:59 14:59 Intake Total 2979 1746 Output Total 1300 870 Balance 1679 876 Lab Results - Last 24 hrs: Laboratory Results - last 24 hr 01/21/21 01/22/21 01/22/21 Range/Units 19:24 06:05 06:05 WBC 8.86 (4.0-11.0) K/uL RBC 4.35 (4.30-5.90) M/uL Hgb 13.0 (12.0-16.0) g/dL Hct 41.5 (36.0-46.0) % MCV 95.4 (80.0-98.0) fL MCH 29.9 (27.0-32.0) pg MCHC 31.3 (31.0-37.0) g/dL RDW Std Deviation 51.4 (28.0-62.0) fl RDW Coeff of Ade 15 (11.0-15.0) % Plt Count 216 (150-400) K/uL MPV 11.30 (7.40-12.00) fL Neut % (Auto) 67.9 (48.0-80.0) % Lymph % (Auto) 15.8 L (16.0-40.0) % Castro % (Auto) 12.3 (0.0-15.0) % Eos % (Auto) 3.4 (0.0-7.0) % Baso % (Auto) 0.6 (0.0-1.5) % Neut # (Auto) 6.0 H (1.4-5.7) K/uL Lymph # (Auto) 1.4 (0.6-2.4) K/uL Castro # (Auto) 1.1 H (0.0-0.8) K/uL Eos # (Auto) 0.3 (0.0-0.7) K/uL Baso # (Auto) 0.1 (0.0-0.1) K/uL Nucleated RBC % 0.0 /100WBC Nucleated RBCs # 0 K/uL Sodium 142 144 (136-145) mmol/L Potassium 3.1 L 3.3 L (3.5-5.1) mmol/L Chloride 104 107 (98-107) mmol/L Carbon Dioxide 29.0 26.7 (21.0-32.0) mmol/L BUN 2 L 1 L (7.0-18.0) mg/dL Creatinine 0.8 0.7 (0.6-1.0) mg/dL Est Cr Clr Drug Dosing 74.38 85.01 mL/min Estimated GFR (MDRD) > 60.0 > 60.0 ml/min Glucose 135 H 104 (74-106) mg/dL Calcium 8.4 L 8.9 (8.5-10.1) mg/dL Phosphorus 3.5 (2.6-4.7) mg/dL Magnesium 1.8 1.9 (1.8-2.4) mg/dL KRIS Results - Last 24 hrs: Microbiology 01/18/21 12:20 Aerobic Blood Culture - Preliminary Blood - Venous NO GROWTH AFTER 4 DAYS Anaerobic Blood Culture - Preliminary NO GROWTH AFTER 4 DAYS 01/18/21 12:15 Aerobic Blood Culture - Preliminary Blood - Venous - Lab Draw NO GROWTH AFTER 4 DAYS Anaerobic Blood Culture - Final 01/21/21 14:05 C. difficile Antigen & Toxins A,B - Final Stool / Feces 01/18/21 13:10 Gram Stain - Final Cerebral Spinal Fluid CSF Culture - Final NO GROWTH AFTER 3 DAYS Med Orders - Current: Current Medications Acetaminophen (Acetaminophen 500 Mg Tab) 500 mg PO Q4H PRN PRN Reason: Pain/Fever Acidophilus/Pectin (Acidophilus With [place] Pectin Tab) 1 tab PO DAILY TRA Last Admin: 01/22/21 10:25 Dose: 1 tab Documented by: Albuterol (Albuterol 8 Gm Inhaler) 0 gm INH Q4H PRN PRN Reason: Shortness of Breath Albuterol/Ipratropium (Albuterol/Ipratropium 3.0-0.5 Mg/3 Ml Neb Soln) 3 ml NEB Q4HRRT PRN PRN Reason: Shortness Of Breath/wheezing Baclofen (Baclofen 10 Mg Tab) 20 mg PO BID [facility] Last Admin: 01/22/21 08:43 Dose: 20 mg Documented by: Diazepam (Diazepam 5 Mg Tab) 5 mg PO BID PRN PRN Reason: Anxiety Duloxetine HCl (Duloxetine 30 Mg Cap) 30 mg PO BEDTIME [facility] Last Admin: 01/21/21 22:31 Dose: 30 mg Documented by: Duloxetine HCl (Duloxetine 60 Mg Cap) 60 mg PO DAILY [facility] Last Admin: 01/22/21 08:45 Dose: 60 mg Documented by: Enoxaparin Sodium (Enoxaparin 40 Mg/0.4 Ml Syringe) 40 mg SUBCUT Q24H [facility] Last Admin: 01/21/21 14:02 Dose: 40 mg Documented by: Fluticasone Propionate (Fluticasone Propionate Nasal [place] 16 Gm Bottle) 0 gm NASBOTH DAILY PRN PRN Reason: Allergies Last Admin: 01/22/21 08:46 Dose: 1 each Documented by: Gabapentin (Gabapentin 300 Mg Cap) 600 mg PO BEDTIME [facility] Last Admin: 01/21/21 22:32 Dose: 600 mg Documented by: Gabapentin (Gabapentin 300 Mg Cap) 300 mg PO QAM [facility] Last Admin: 01/22/21 08:44 Dose: 300 mg Documented by: Vancomycin HCl 1.5 gm/ Premix 300 mls @ 200 mls/hr IV Q12H [facility] Last Admin: 01/22/21 02:26 Dose: 200 mls/hr Documented by: Levofloxacin (Levofloxacin 500 Mg Tab) 500 mg PO ONETIME ONE Stop: 01/22/21 12:50 Ondansetron HCl (Ondansetron 4 Mg/2 Ml Sdv) 4 mg IVPUSH Q4H PRN PRN Reason: Nausea/Vomiting Last Admin: 01/22/21 09:00 Dose: 4 mg Documented by: Pantoprazole Sodium (Pantoprazole 40 Mg Tab.Cr) 40 mg PO DAILY [facility] Last Admin: 01/22/21 08:44 Dose: 40 mg Documented by: Teriflunomide [ Aubagio] 14 Mg Tablet 1 each PO DAILY [facility] Last Admin: 01/22/21 08:45 Dose: 1 each Documented by: Symbicort 160-4.5 (Mcg) 2 each INH BID [facility] Last Admin: 01/22/21 08:47 Dose: 2 each Documented by: Trazodone HCl (Trazodone 50 Mg Tab) 200 mg PO BEDTIME [facility] Last Admin: 01/21/21 23:51 Dose: 200 mg Documented by: Vancomycin HCl (Pharmacy To Dose - Vancomycin) 0 dose .XX ASDIRECTED [facility] Discontinued Medications Acetaminophen (Acetaminophen 500 Mg Tab) 1,000 mg PO ONETIME ONE Stop: 01/18/21 13:37 Last Admin: 01/18/21 13:50 Dose: 1,000 mg Documented by: Acetaminophen (Acetaminophen 325 Mg Tab) 650 mg PO Q4H PRN PRN Reason: Pain (Mild 1-3)/fever Furosemide (Furosemide 40 Mg Tab) 40 mg PO DAILY [facility] Last Admin: 01/21/21 08:12 Dose: 40 mg Documented by: Sodium Chloride (Normal Saline) 1,000 mls @ 1,000 mls/hr IV .Bolus ONE Stop: 01/18/21 12:49 Last Admin: 01/18/21 12:36 Dose: 1,000 mls/hr Documented by: Vancomycin HCl 1.5 gm/ Sodium (Chloride) 250 mls @ 166 mls/hr IV ONETIME ONE Stop: 01/18/21 13:20 Last Admin: 01/18/21 12:38 Dose: 166 mls/hr Documented by: Ceftriaxone Sodium/Dextrose 1 (gm/ Premix) 50 mls @ 100 mls/hr IV ONETIME ONE Stop: 01/18/21 13:01 Last Admin: 01/18/21 12:35 Dose: 100 mls/hr Documented by: Lactated Ringer's (Ringers, Lactated) 1,000 mls @ 125 mls/hr IV ASDIRECTED [facility] Last Admin: 01/21/21 07:44 Dose: 125 mls/hr Documented by: Piperacillin Sod/Tazobactam (Sod 3.375 gm/ Sodium Chloride) 50 mls @ 100 mls/hr IV Q8H [facility] Last Admin: 01/21/21 07:48 Dose: 100 mls/hr Documented by: Lactated Ringer's (Ringers, Lactated) 1,000 mls @ 999 mls/hr IV .BOLUS ONE Stop: 01/18/21 16:40 Last Admin: 01/18/21 16:11 Dose: 999 mls/hr Documented by: Vancomycin HCl 1.75 gm/ Premix 350 mls @ 233.333 mls/hr IV Q12H [facility] Last Admin: 01/20/21 12:57 Dose: 233.333 mls/hr Documented by: Magnesium Sulfate (Magnesium Sulfate In Water 4 Gm/100 Ml) 4 gm in 100 mls @ 50 mls/hr IV ONETIME ONE Stop: 01/19/21 13:14 Last Admin: 01/19/21 11:29 Dose: 50 mls/hr Documented by: Potassium Chloride/Sodium Chloride (Normal Saline With 40 Meq Kcl) 1,000 mls @ 75 mls/hr IV ASDIRECTED [facility] Stop: 01/21/21 23:34 Potassium Chloride 40 meq/ (Sodium Chloride) 1,020 mls @ 75 mls/hr IV ONETIME ONE Stop: 01/21/21 23:50 Last Admin: 01/21/21 11:39 Dose: 75 mls/hr Documented by: Magnesium Sulfate (Magnesium Sulfate In Water 2 Gm/50 Ml) 2 gm in 50 mls @ 50 mls/hr IV ONETIME ONE Stop: 01/21/21 11:29 Last Admin: 01/21/21 10:37 Dose: 50 mls/hr Documented by: Iopamidol (Iopamidol 755 Mg/Ml 500 Ml Multipack Bottle) 75 ml IVPUSH ONETIME STA Stop: 01/18/21 18:38 Last Admin: 01/18/21 18:39 Dose: 75 ml Documented by: Loperamide HCl (Loperamide 2 Mg Cap) 4 mg PO ONETIME ONE Stop: 01/21/21 18:01 Last Admin: 01/21/21 18:22 Dose: 4 mg Documented by: Lorazepam (Lorazepam 2 Mg/Ml Sdv) 0.5 mg IVPUSH Q4H PRN PRN Reason: Anxiety Last Admin: 01/19/21 22:11 Dose: 0.5 mg Documented by: Potassium Chloride (Potassium Chloride 20 Meq Tab.Er) 40 meq PO ONETIME ONE Stop: 01/19/21 11:16 Last Admin: 01/19/21 11:29 Dose: 40 meq Documented by: Potassium Chloride (Potassium Chloride 20 Meq Tab.Er) 40 meq PO ONETIME ONE Stop: 01/20/21 08:22 Last Admin: 01/20/21 09:40 Dose: 40 meq Documented by: Potassium Chloride (Potassium Chloride 20 Meq Tab.Er) 40 meq PO BID [facility] Potassium Chloride (Potassium Chloride 20 Meq Tab.Er) 60 meq PO ONETIME ONE Stop: 01/21/21 10:08 Last Admin: 01/21/21 10:36 Dose: 60 meq Documented by: Potassium Chloride (Potassium Chloride 20 Meq Tab.Er) 60 meq PO ONETIME ONE Stop: 01/21/21 22:44 Last Admin: 01/21/21 23:52 Dose: Not Given Documented by: Potassium Chloride (Potassium Chloride 20 Meq Tab.Er) 40 meq PO ONETIME ONE Stop: 01/22/21 10:08 Last Admin: 01/22/21 10:25 Dose: 40 meq Documented by: Sodium Phosphate (Phosphorus #1 250 Mg Tab) 250 mg PO QID [facility] Last Admin: 01/21/21 06:58 Dose: 250 mg Documented by: Vancomycin HCl (Pharmacy To Dose - Vancomycin) 1 dose .XX ASDIRECTED [facility]
== END 2021-01-22 13:40 | disposition home or self-care (01) | DRG 871 ==
LOC: MW.ED 10:20 → MW.MS 13:11
PROVIDERS: ADMIT Student in an Organized Health Care Education/Training Program; ATTEND Student in an Organized Health Care Education/Training Program
PROC: 009U3ZX Drainage of Spinal Canal, Percutaneous Approach, Diagnostic (ICD-10-PCS; principal; 2021-01-18)
DX: A41.9 Sepsis, unspecified organism (principal); J18.9 Pneumonia, unspecified organism; G93.41 Metabolic encephalopathy; N39.0 Urinary tract infection, site not specified; J44.1 Chronic obstructive pulmonary disease with (acute) exacerbation; Z68.41 Body mass index [BMI] 40.0-44.9, adult; R33.9 Retention of urine, unspecified; R41.82 Altered mental status, unspecified; F17.210 Nicotine dependence, cigarettes, uncomplicated; K21.9 Gastro-esophageal reflux disease without esophagitis; E87.6 Hypokalemia; R19.7 Diarrhea, unspecified; F43.10 Post-traumatic stress disorder, unspecified; K80.20 Calculus of gallbladder without cholecystitis without obstruction; M41.9 Scoliosis, unspecified; G35 Multiple sclerosis; Z90.49 Acquired absence of other specified parts of digestive tract; Z98.51 Tubal ligation status; F32.9 Major depressive disorder, single episode, unspecified; F41.9 Anxiety disorder, unspecified; Z87.891 Personal history of nicotine dependence; E66.9 Obesity, unspecified; Z79.84 Long term (current) use of oral hypoglycemic drugs; Z79.899 Other long term (current) drug therapy; Z20.822 Contact with and (suspected) exposure to COVID-19
CPT/HCPCS: 36415; 36600; 70450; 71045; 71260; 80053; 80305; 80307; 81001; 82140; 82550; 82803; 82945; 83605; 83690; 83735; 84157; 85025; 85610; 85730; 87040 ×2; 87070; 87086; 87205; 87899; 89050; 93005; J0696; J3370; J7030; J7050; U0002; 51701; 51702; 51798; 80048; 80202; 84100; 87045; 87046; 87324; 87449; 92610-GN; 97161-GP; A9270-GY; J1650; J2060; J2405; J2543; J3475; J3480; J7120; Q9967

== ENCOUNTER 2021-10-09 08:33 | Inpatient (IN) | payer MEDICARE, BC ==
[2021-10-09] MEDS ORDERED: Sodium Chloride 0.9% 2.5 ML Syringe FLUSH PRN (08:49)
[2021-10-09] MEDS ORDERED: Ondansetron 4 MG/2 ML SDV IVPUSH ONE (08:49)
[2021-10-09] MEDS ORDERED: Dexamethasone 10 MG/ML SDV IVPUSH ONE (08:49)
[2021-10-09] MEDS ORDERED: Sodium Chloride 0.9% 10 ML Syringe FLUSH PRN (08:49)
[2021-10-09] MEDS ORDERED: Albuterol/Ipratropium 3.0-0.5 MG/3 ML Neb Soln NEB ONE (08:49)
[2021-10-09] MEDS ORDERED: cefTRIAXone 1 GM in Sodium Chloride 0.9% 50 ML IV ONE (08:59)
[2021-10-09] MEDS ORDERED: Azithromycin 500 MG in Sodium Chloride 0.9% 250 ML IV SCH (09:00)
[2021-10-09 10:01] LABS: BLOOD UREA NITROGEN,BUN 10 mg/dL (7.0-18.0); CHLORIDE,CL 99 mmol/L (98-107); GLUCOSE RANDOM 165 mg/dL (74-106); SODIUM,NA 137 mmol/L (136-145)
[2021-10-09 10:11] LABS: CORONAVIRUS COVID-19 NAA POSITIVE (NEGATIVE); INFLUENZA A NAA NEGATIVE (NEGATIVE); INFLUENZA B NAA NEGATIVE (NEGATIVE)
[2021-10-09] MEDS ORDERED: Iopamidol 755 MG/ML 500 ML Multipack Bottle IVPUSH STA (11:02)
[2021-10-09] MEDS: REMDESIVIR 200 MG in Sodium Chloride 0.9% 250 ML IV ONE ×2 (11:52→12:00)
[2021-10-09] MEDS ORDERED: Acetaminophen 325 MG Tab PO PRN (11:55)
[2021-10-09] MEDS ORDERED: Ondansetron 4 MG Tab.DIS PO PRN (11:55)
[2021-10-09] MEDS ORDERED: Docusate Sodium 100 MG Cap PO PRN (11:55)
[2021-10-09] MEDS ORDERED: Enoxaparin 40 MG/0.4 ML Syringe SUBCUT SCH (12:00)
[2021-10-09] MEDS ORDERED: Magnesium Sulfate/Water 2 GM in Premix Bag 1 BAG IV ONE (12:26)
[2021-10-09] MEDS ORDERED: REMDESIVIR 100 MG in Sodium Chloride 0.9% 100 ML IV SCH (12:30)
[2021-10-09] MEDS ORDERED: Baclofen 10 MG Tab PO PRN (12:48)
[2021-10-09] MEDS: Albuterol/Ipratropium 3.0-0.5 MG/3 ML Neb Soln NEB SCH ×3 (14:07→21:22)
[2021-10-09] MEDS: Levofloxacin/Dextrose 5%-Water 750 MG in Premix Bag 1 BAG IV SCH (14:13)
[2021-10-09] MEDS ORDERED: Albuterol/Ipratropium 4 GM Inhalation Spray INH PRN (14:35)
[2021-10-09] MEDS ORDERED: Ondansetron 4 MG/2 ML SDV IVPUSH PRN (15:13)
[2021-10-09] MEDS: Enoxaparin 40 MG/0.4 ML Syringe SUBCUT SCH (15:21)
[2021-10-09] MEDS: traMADol 50 MG Tab PO PRN (15:23)
[2021-10-09] MEDS ORDERED: DULoxetine 30 MG Cap PO SCH (21:00)
[2021-10-09] MEDS: Potassium Chloride 10 MEQ Tab.ER PO SCH (21:21)
[2021-10-09] MEDS: traZODone 50 MG Tab PO SCH (21:21)
[2021-10-09] MEDS: Gabapentin 300 MG Cap PO SCH (21:22)
[2021-10-09] MEDS: Nystatin Topical Powder 15 GM Bottle TOP SCH (21:22)
[2021-10-09] MEDS: Budesonide/Formoterol 160-4.5 MCG/Puff 6 GM Inhaler INH SCH (22:53)
[2021-10-10] MEDS: Ondansetron 4 MG/2 ML SDV IVPUSH PRN ×5 (00:07→22:03)
[2021-10-10] MEDS: Albuterol/Ipratropium 3.0-0.5 MG/3 ML Neb Soln NEB SCH ×6 (02:15→22:04)
[2021-10-10] MEDS: traMADol 50 MG Tab PO PRN ×2 (04:04→16:42)
[2021-10-10] MEDS: Enoxaparin 40 MG/0.4 ML Syringe SUBCUT SCH ×2 (04:04→15:41)
[2021-10-10] MEDS: Nystatin Topical Powder 15 GM Bottle TOP SCH ×3 (05:42→22:05)
[2021-10-10 06:35] LABS: BLOOD UREA NITROGEN,BUN 13 mg/dL (7.0-18.0); CARBON DIOXIDE,CO2 31.7 mmol/L (21.0-32.0); CHLORIDE,CL 98 mmol/L (98-107); GLUCOSE RANDOM 128 mg/dL (74-106); POTASSIUM,K 4.1 mmol/L (3.5-5.1); SODIUM,NA 139 mmol/L (136-145)
[2021-10-10] MEDS: Baclofen 10 MG Tab PO SCH ×2 (08:11→13:47)
[2021-10-10] MEDS: Pantoprazole 40 MG in Sodium Chloride 0.9% 10 ML IVPUSH SCH (08:11)
[2021-10-10] MEDS: Gabapentin 300 MG Cap PO SCH ×2 (08:11→22:04)
[2021-10-10] MEDS: Potassium Chloride 10 MEQ Tab.ER PO SCH ×3 (08:12→22:03)
[2021-10-10] MEDS: DULoxetine 30 MG Cap PO SCH ×2 (08:12→22:03)
[2021-10-10] MEDS: Dexamethasone 4 MG Tab PO SCH (08:12)
[2021-10-10] MEDS: Furosemide 40 MG Tab PO SCH (08:12)
[2021-10-10] MEDS: Cyanocobalamin (Vitamin B12) 500 MCG Tab PO SCH (08:12)
[2021-10-10] MEDS: Teriflunomide [Aubagio] 14 MG Tablet PO SCH ×2 (08:19→10:17)
[2021-10-10] MEDS: Budesonide/Formoterol 160-4.5 MCG/Puff 6 GM Inhaler INH SCH ×3 (08:19→22:05)
[2021-10-10] MEDS ORDERED: DULoxetine 60 MG Cap PO SCH (09:00)
[2021-10-10] MEDS ORDERED: Fluticasone Propionate Nasal Spray 16 GM Bottle NASBOTH PRN (11:00)
[2021-10-10] MEDS: Fluticasone Propionate Nasal Spray 16 GM Bottle NASBOTH PRN (11:04)
[2021-10-10] MEDS: REMDESIVIR 100 MG in Sodium Chloride 0.9% 100 ML IV SCH (11:06)
[2021-10-10] MEDS ORDERED: [UNRECOGNIZED DRUG - REMARK] BUCCAL PRN (12:00)
[2021-10-10] MEDS: Levofloxacin/Dextrose 5%-Water 750 MG in Premix Bag 1 BAG IV SCH (12:28)
[2021-10-10] MEDS: traZODone 50 MG Tab PO SCH (22:03)
[2021-10-11] MEDS: Budesonide/Formoterol 160-4.5 MCG/Puff 6 GM Inhaler INH SCH ×3 (02:27→21:20)
[2021-10-11] MEDS: Albuterol/Ipratropium 3.0-0.5 MG/3 ML Neb Soln NEB SCH ×6 (04:49→21:38)
[2021-10-11 06:34] LABS: BLOOD UREA NITROGEN,BUN 16 mg/dL (7.0-18.0); CARBON DIOXIDE,CO2 33.7 mmol/L (21.0-32.0); CHLORIDE,CL 100 mmol/L (98-107); GLUCOSE RANDOM 116 mg/dL (74-106); POTASSIUM,K 3.6 mmol/L (3.5-5.1); SODIUM,NA 139 mmol/L (136-145)
[2021-10-11] MEDS: Nystatin Topical Powder 15 GM Bottle TOP SCH ×3 (06:40→21:21)
[2021-10-11] MEDS: DULoxetine 30 MG Cap PO SCH ×2 (08:03→21:18)
[2021-10-11] MEDS: Dexamethasone 4 MG Tab PO SCH (08:03)
[2021-10-11] MEDS: Potassium Chloride 10 MEQ Tab.ER PO SCH ×2 (08:04→21:17)
[2021-10-11] MEDS: Baclofen 10 MG Tab PO SCH ×2 (08:05→14:27)
[2021-10-11] MEDS: Gabapentin 300 MG Cap PO SCH ×2 (08:06→21:17)
[2021-10-11] MEDS: Teriflunomide [Aubagio] 14 MG Tablet PO SCH (08:07)
[2021-10-11] MEDS: Cyanocobalamin (Vitamin B12) 500 MCG Tab PO SCH (08:07)
[2021-10-11] MEDS: Pantoprazole 40 MG in Sodium Chloride 0.9% 10 ML IVPUSH SCH (08:08)
[2021-10-11] MEDS: Furosemide 40 MG Tab PO SCH (08:14)
[2021-10-11] MEDS: traMADol 50 MG Tab PO PRN ×2 (09:35→21:50)
[2021-10-11] MEDS: Fluticasone Propionate Nasal Spray 16 GM Bottle NASBOTH PRN (09:38)
[2021-10-11] MEDS: Diazepam 5 MG Tab PO PRN (11:43)
[2021-10-11] MEDS: REMDESIVIR 100 MG in Sodium Chloride 0.9% 100 ML IV SCH (11:43)
[2021-10-11] MEDS: Levofloxacin/Dextrose 5%-Water 750 MG in Premix Bag 1 BAG IV SCH (13:21)
[2021-10-11] MEDS: Enoxaparin 40 MG/0.4 ML Syringe SUBCUT SCH (16:25)
[2021-10-11] MEDS: traZODone 50 MG Tab PO SCH (21:18)
[2021-10-11] MEDS: Ondansetron 4 MG/2 ML SDV IVPUSH PRN (21:41)
[2021-10-12] MEDS: Albuterol/Ipratropium 3.0-0.5 MG/3 ML Neb Soln NEB SCH ×6 (02:53→21:53)
[2021-10-12] MEDS: Nystatin Topical Powder 15 GM Bottle TOP SCH ×3 (06:31→21:52)
[2021-10-12 08:25] LABS: CARBON DIOXIDE,CO2 30.9 mmol/L (21.0-32.0); POTASSIUM,K 3.5 mmol/L (3.5-5.1)
[2021-10-12] MEDS: Ondansetron 4 MG/2 ML SDV IVPUSH PRN ×2 (08:27→17:11)
[2021-10-12] MEDS: Teriflunomide [Aubagio] 14 MG Tablet PO SCH (09:10)
[2021-10-12] MEDS: Budesonide/Formoterol 160-4.5 MCG/Puff 6 GM Inhaler INH SCH ×2 (09:11→21:52)
[2021-10-12] MEDS: DULoxetine 30 MG Cap PO SCH ×2 (09:12→21:51)
[2021-10-12] MEDS: Baclofen 10 MG Tab PO SCH ×2 (09:12→15:00)
[2021-10-12] MEDS: Dexamethasone 4 MG Tab PO SCH (09:12)
[2021-10-12] MEDS: Cyanocobalamin (Vitamin B12) 500 MCG Tab PO SCH (09:13)
[2021-10-12] MEDS: Gabapentin 300 MG Cap PO SCH ×2 (09:13→21:49)
[2021-10-12] MEDS: Furosemide 40 MG Tab PO SCH (09:13)
[2021-10-12] MEDS: Potassium Chloride 10 MEQ Tab.ER PO SCH ×2 (09:13→21:50)
[2021-10-12] MEDS: Pantoprazole 40 MG in Sodium Chloride 0.9% 10 ML IVPUSH SCH (09:16)
[2021-10-12] MEDS: traMADol 50 MG Tab PO PRN ×2 (09:55→21:51)
[2021-10-12] MEDS: Fluticasone Propionate Nasal Spray 16 GM Bottle NASBOTH PRN (09:56)
[2021-10-12] MEDS: guaiFENesin/Dextromethorphan 100-10 MG/5 ML Soln 10 ML Cup PO PRN (10:37)
[2021-10-12] MEDS: REMDESIVIR 100 MG in Sodium Chloride 0.9% 100 ML IV SCH (12:42)
[2021-10-12] MEDS: Diazepam 5 MG Tab PO PRN (12:52)
[2021-10-12] MEDS: Levofloxacin/Dextrose 5%-Water 750 MG in Premix Bag 1 BAG IV SCH (14:00)
[2021-10-12] MEDS: Enoxaparin 40 MG/0.4 ML Syringe SUBCUT SCH (15:14)
[2021-10-12] MEDS: traZODone 50 MG Tab PO SCH (21:49)
[2021-10-13] MEDS: Albuterol/Ipratropium 3.0-0.5 MG/3 ML Neb Soln NEB SCH ×4 (02:28→13:49)
[2021-10-13] MEDS: Nystatin Topical Powder 15 GM Bottle TOP SCH ×2 (06:18→13:50)
[2021-10-13 07:05] LABS: BLOOD UREA NITROGEN,BUN 15 mg/dL (7.0-18.0); CARBON DIOXIDE,CO2 32.8 mmol/L (21.0-32.0); CHLORIDE,CL 100 mmol/L (98-107); GLUCOSE RANDOM 137 mg/dL (74-106); POTASSIUM,K 4.2 mmol/L (3.5-5.1); SODIUM,NA 140 mmol/L (136-145)
[2021-10-13] MEDS: Gabapentin 300 MG Cap PO SCH (08:59)
[2021-10-13] MEDS: Cyanocobalamin (Vitamin B12) 500 MCG Tab PO SCH (08:59)
[2021-10-13] MEDS: Potassium Chloride 10 MEQ Tab.ER PO SCH (08:59)
[2021-10-13] MEDS: Dexamethasone 4 MG Tab PO SCH (08:59)
[2021-10-13] MEDS: Baclofen 10 MG Tab PO SCH ×2 (09:00→13:50)
[2021-10-13] MEDS: DULoxetine 30 MG Cap PO SCH (09:00)
[2021-10-13] MEDS: Furosemide 40 MG Tab PO SCH (09:00)
[2021-10-13] MEDS: Budesonide/Formoterol 160-4.5 MCG/Puff 6 GM Inhaler INH SCH (09:06)
[2021-10-13] MEDS: Teriflunomide [Aubagio] 14 MG Tablet PO SCH (09:07)
[2021-10-13] MEDS: guaiFENesin/Dextromethorphan 100-10 MG/5 ML Soln 10 ML Cup PO PRN (09:08)
[2021-10-13] MEDS: Pantoprazole 40 MG in Sodium Chloride 0.9% 10 ML IVPUSH SCH (09:08)
[2021-10-13] MEDS: Fluticasone Propionate Nasal Spray 16 GM Bottle NASBOTH PRN (09:19)
[2021-10-13] MEDS: traMADol 50 MG Tab PO PRN (10:35)
[2021-10-13] MEDS: Diazepam 5 MG Tab PO PRN (12:16)
[2021-10-13] MEDS: REMDESIVIR 100 MG in Sodium Chloride 0.9% 100 ML IV SCH (12:17)
[2021-10-13] MEDS: Levofloxacin/Dextrose 5%-Water 750 MG in Premix Bag 1 BAG IV SCH (13:50)
[2021-10-13] MEDS: Enoxaparin 40 MG/0.4 ML Syringe SUBCUT SCH (15:41)
[2021-10-13 15:42] VITALS: BP 117/71; PULSE 101
== END 2021-10-13 16:10 | disposition home or self-care (01) | DRG 177 ==
LOC: MW.ED 08:33 → MW.ICU 10:58 → UNDOADMIN 11:28 → MW.ICU 11:28 → MW.MS 10-10 15:24
PROVIDERS: ADMIT Student in an Organized Health Care Education/Training Program; ATTEND Student in an Organized Health Care Education/Training Program
DX: U07.1 COVID-19 (principal); J12.82 Pneumonia due to coronavirus disease 2019; J96.01 Acute respiratory failure with hypoxia; J44.1 Chronic obstructive pulmonary disease with (acute) exacerbation; J44.0 Chronic obstructive pulmonary disease with (acute) lower respiratory infection; Z87.891 Personal history of nicotine dependence; E11.9 Type 2 diabetes mellitus without complications; K21.9 Gastro-esophageal reflux disease without esophagitis; R33.9 Retention of urine, unspecified; E66.01 Morbid (severe) obesity due to excess calories; G35 Multiple sclerosis; E83.42 Hypomagnesemia; I50.9 Heart failure, unspecified; Z90.49 Acquired absence of other specified parts of digestive tract; Z87.01 Personal history of pneumonia (recurrent); F32.A Depression, unspecified; Z86.19 Personal history of other infectious and parasitic diseases; Z98.51 Tubal ligation status; F41.9 Anxiety disorder, unspecified; Z79.51 Long term (current) use of inhaled steroids; Z79.899 Other long term (current) drug therapy
CPT/HCPCS: 0240U; 36415; 36600; 71045; 71275; 80053; 81001; 82248; 82803; 83605; 83735; 83880; 84484; 85025; 85027; 85379; 85610; 85730; 86140; 87040; 87086; 93005; 94640; 96365; 96367; 96375; 97110; 97162; 97165; 97530; 99285; 99223; 99233; 99238; A9270-GY; C9113; J0248; J0456; J0696; J1100; J1650; J1956; J2405; J3475; J7050; J7620-GY; J8540; Q9967

== ENCOUNTER 2022-01-28 07:55 | Emergency (ER) | payer MEDICARE, BC ==
[~2022-01-28 07:55] MED LIST changes: +Etomidate 2 MG/ML 20 ML SDV IVPUSH ONE; -Gadobutrol 7.5 mMOL/7.5 ML SDV IVPUSH STA
[2022-01-28] MEDS ORDERED: Rocuronium 100 MG/10 ML MDV IVPUSH STA (07:56)
[2022-01-28] MEDS ORDERED: fentaNYL 100 MCG/2 ML SDV IVPUSH ONE (08:01)
[2022-01-28] MEDS ORDERED: fentaNYL/Normal Saline 2,500 MCG in Premix Bag 1 BAG IV STA (08:06)
[2022-01-28] MEDS ORDERED: Aspirin 300 MG Supp RECTAL STA (08:06)
[2022-01-28] MEDS ORDERED: Albuterol/Ipratropium 3.0-0.5 MG/3 ML Neb Soln NEB ONE (08:17)
[2022-01-28] MEDS ORDERED: Cefepime 1 GM in Premix Bag 1 BAG IV ONE (08:31)
[2022-01-28] MEDS ORDERED: Lactated Ringers 1,000 ML IV STA ×2 (08:32)
[2022-01-28 08:47] LABS: BLOOD UREA NITROGEN,BUN 13 mg/dL (7.0-18.0); CARBON DIOXIDE,CO2 33.5 mmol/L (21.0-32.0); CHLORIDE,CL 98 mmol/L (98-107); GLUCOSE RANDOM 249 mg/dL (74-106); SODIUM,NA 138 mmol/L (136-145)
[2022-01-28] MEDS ORDERED: VANCOmycin 1.5 GM/300 ML 1.5 GM in Premix Bag 1 BAG IV ONE (09:00)
[2022-01-28] MEDS: fentaNYL 100 MCG/2 ML SDV ONE ×4 (10:32→10:39)
[2022-01-28] MEDS ORDERED: fentaNYL 50 MCG/ML SDV IVPUSH ONE (10:38)
[2022-01-28] MEDS ORDERED: propofoL 100 ML ONE (10:53)
[2022-01-28] MEDS ORDERED: propofoL 100 ML IV SCH (11:00)
[2022-01-28 11:46] VITALS: BP 140/81; PULSE 76
== END 2022-01-28 12:00 ==
LOC: MW.ED 07:55
DX: I46.9 Cardiac arrest, cause unspecified (principal); A41.9 Sepsis, unspecified organism; I50.9 Heart failure, unspecified; J96.02 Acute respiratory failure with hypercapnia; J44.9 Chronic obstructive pulmonary disease, unspecified; E66.9 Obesity, unspecified; Z68.30 Body mass index [BMI] 30.0-30.9, adult; Z20.822 Contact with and (suspected) exposure to COVID-19
CPT/HCPCS: 31500; 36415; 36600; 43752; 51702; 71045; 80053; 81001; 82803; 83605; 83735; 83880; 84484; 85025; 85610; 87040; 93005; 94640; 96365; 96366; 96368; 99285; A9270; J0692; J2704; J3010; J3370; J3490; J7120; U0002; J7620-GY

== ENCOUNTER 2022-04-23 19:58 | Emergency (ER) | payer MEDICARE, BC ==
[2022-04-23] MEDS ORDERED: Sodium Chloride 0.9% 10 ML Syringe FLUSH PRN (20:09)
[2022-04-23] MEDS ORDERED: Sodium Chloride 0.9% 1,000 ML IV ONE (20:09)
[2022-04-23] MEDS ORDERED: Sodium Chloride 0.9% 2.5 ML Syringe FLUSH PRN (20:09)
[2022-04-23 21:03] LABS: CARBON DIOXIDE,CO2 39.8 mmol/L (21.0-32.0); POTASSIUM,K 2.7 mmol/L (3.5-5.1)
[2022-04-23] MEDS ORDERED: Insulin Regular, Human 100 Units/ML 10 ML Vial IVPUSH ONE (21:42)
[2022-04-23] MEDS ORDERED: 50% Dextrose in Water 50 ML Syringe IVPUSH PRN (21:42)
[2022-04-23] MEDS ORDERED: Glucagon,Human Recombinant 1 MG Vial IM PRN (21:42)
[2022-04-23] MEDS ORDERED: Potassium Chloride 10% 20 MEQ/15 ML Soln 30 ML UD Cup PO ONE (21:42)
[2022-04-23 23:53] VITALS: BP 107/57; PULSE 72
== END 2022-04-23 23:52 | disposition home or self-care (01) ==
LOC: MW.ED 19:58
DX: E11.65 Type 2 diabetes mellitus with hyperglycemia (principal); J44.9 Chronic obstructive pulmonary disease, unspecified; G35 Multiple sclerosis; E66.01 Morbid (severe) obesity due to excess calories; Z68.36 Body mass index [BMI] 36.0-36.9, adult; Z79.899 Other long term (current) drug therapy
CPT/HCPCS: 36415; 80053; 81003; 82803; 82947; 85025; 96360; 99284; A9270; J3490; J7030; J1815-GY

== ENCOUNTER 2022-09-07 08:46 | Emergency (ER) | payer MEDICARE, BC ==
[2022-09-07 10:58] LABS: CORONAVIRUS COVID-19 NAA NEGATIVE (NEGATIVE); INFLUENZA A NAA NEGATIVE (NEGATIVE); INFLUENZA B NAA NEGATIVE (NEGATIVE)
[2022-09-07 11:18] LABS: CARBON DIOXIDE,CO2 34.4 mmol/L (21.0-32.0); POTASSIUM,K 3.8 mmol/L (3.5-5.1)
[2022-09-07 11:55] VITALS: BP 104/72; PULSE 67
== END 2022-09-07 11:55 | disposition home or self-care (01) ==
LOC: MW.ED 08:46
DX: J20.9 Acute bronchitis, unspecified (principal); K21.9 Gastro-esophageal reflux disease without esophagitis; E66.9 Obesity, unspecified; Z68.37 Body mass index [BMI] 37.0-37.9, adult; Z86.16 Personal history of COVID-19; Z88.1 Allergy status to other antibiotic agents; Z20.822 Contact with and (suspected) exposure to COVID-19
CPT/HCPCS: 0240U; 36415; 71045; 80053; 85025; 99283

== ENCOUNTER 2023-01-07 19:25 | Inpatient (IN) | payer MEDICARE, BC ==
[2023-01-07] MEDS ORDERED: Sodium Chloride 0.9% 1,000 ML IV ONE (19:31)
[2023-01-07 20:59] LABS: BLOOD UREA NITROGEN,BUN 43 mg/dL (7.0-18.0); CHLORIDE,CL 88 mmol/L (98-107); GLUCOSE RANDOM 167 mg/dL (74-106); POTASSIUM,K 2.7 mmol/L (3.5-5.1); SODIUM,NA 137 mmol/L (136-145)
[2023-01-07 21:12] LABS: ESTIMATED GFR 37 mL/min (>60)
[2023-01-07] MEDS: Potassium Chloride 100 ML IV SCH (21:28)
[2023-01-08] MEDS: Potassium Chloride 100 ML IV SCH (00:08)
[2023-01-08] MEDS ORDERED: Gabapentin 300 MG Cap PO SCH ×2 (00:54→09:00)
[2023-01-08] MEDS ORDERED: Diazepam 5 MG Tab PO PRN (00:54)
[2023-01-08] MEDS ORDERED: traMADol 50 MG Tab PO PRN (00:54)
[2023-01-08] MEDS ORDERED: NS with KCl 40mEq 1,000 ML IV SCH (01:00)
[2023-01-08] MEDS ORDERED: Glucagon,Human Recombinant 1 MG Vial IM PRN (01:02)
[2023-01-08] MEDS ORDERED: 50% Dextrose in Water 50 ML Syringe IVPUSH PRN (01:02)
[2023-01-08] MEDS: cefTRIAXone 1 GM in Sodium Chloride 0.9% 50 ML IV SCH (01:37)
[2023-01-08 07:02] LABS: CARBON DIOXIDE,CO2 39.9 mmol/L (21.0-32.0); POTASSIUM,K 2.5 mmol/L (3.5-5.1)
[2023-01-08] MEDS: Insulin Aspart 100 Units/ML 3 ML Pen SUBCUT SCH ×3 (07:46→16:36)
[2023-01-08] MEDS ORDERED: Potassium Chloride 10 MEQ Tab.ER PO ONE (07:59)
[2023-01-08] MEDS ORDERED: Sodium Chloride 0.9% 500 ML IV ONE (08:15)
[2023-01-08] MEDS ORDERED: Potassium Chloride 20 MEQ in Premix Bag 1 BAG IV SCH ×2 (08:15→13:00)
[2023-01-08] MEDS ORDERED: Baclofen 10 MG Tab PO SCH ×3 (09:00→12:30)
[2023-01-08] MEDS: DULoxetine 30 MG Cap PO SCH ×2 (09:22→22:18)
[2023-01-08] MEDS: Gabapentin 300 MG Cap PO SCH ×2 (09:22→22:20)
[2023-01-08] MEDS: Baclofen 10 MG Tab PO SCH ×2 (09:23→22:19)
[2023-01-08] MEDS: Teriflunomide [Aubagio] 14 MG Tablet PO SCH (09:28)
[2023-01-08] MEDS: Budesonide/Formoterol 160-4.5 MCG/Puff 6 GM Inhaler INH SCH ×2 (09:29→22:33)
[2023-01-08] MEDS: Fluticasone NASAL Spray 16 GM Bottle NASBOTH SCH (09:33)
[2023-01-08] MEDS: Insulin Glargine,Hum.Rec.Anlog 100 UNIT/ML 3 ML Pen SUBCUT SCH (10:41)
[2023-01-08 10:47] LABS: HEMOGLOBIN A1C 6.4 %
[2023-01-08 16:21] LABS: CARBON DIOXIDE,CO2 38.8 mmol/L (21.0-32.0); POTASSIUM,K 3.2 mmol/L (3.5-5.1)
[2023-01-08] MEDS ORDERED: Potassium Chloride 20 MEQ Tab.ER PO ONE (16:30)
[2023-01-08] MEDS: TRAZODONE 50 MG TABLET PO SCH (22:21)
[2023-01-09] MEDS: cefTRIAXone 1 GM in Sodium Chloride 0.9% 50 ML IV SCH (03:47)
[2023-01-09] MEDS: Insulin Aspart 100 Units/ML 3 ML Pen SUBCUT SCH ×3 (08:12→16:50)
[2023-01-09] MEDS: Budesonide/Formoterol 160-4.5 MCG/Puff 6 GM Inhaler INH SCH ×2 (08:20→22:10)
[2023-01-09] MEDS: Fluticasone NASAL Spray 16 GM Bottle NASBOTH SCH (08:20)
[2023-01-09] MEDS: DULoxetine 30 MG Cap PO SCH ×2 (08:21→22:09)
[2023-01-09] MEDS: Gabapentin 300 MG Cap PO SCH ×2 (08:21→22:09)
[2023-01-09] MEDS: Baclofen 10 MG Tab PO SCH ×2 (08:21→22:09)
[2023-01-09] MEDS: Insulin Glargine,Hum.Rec.Anlog 100 UNIT/ML 3 ML Pen SUBCUT SCH (08:23)
[2023-01-09] MEDS: Teriflunomide [Aubagio] 14 MG Tablet PO SCH (08:23)
[2023-01-09 08:34] LABS: CARBON DIOXIDE,CO2 39.1 mmol/L (21.0-32.0); POTASSIUM,K 2.9 mmol/L (3.5-5.1)
[2023-01-09] MEDS ORDERED: NS with KCl 40mEq 1,000 ML IV SCH (10:15)
[2023-01-09] MEDS ORDERED: Potassium Chloride 100 ML IV SCH (10:15)
[2023-01-09] MEDS ORDERED: Potassium Chloride 20 MEQ Tab.ER PO ONE ×2 (10:20→17:15)
[2023-01-09] MEDS: Diazepam 5 MG Tab PO PRN (13:28)
[2023-01-09 16:40] LABS: CARBON DIOXIDE,CO2 33.8 mmol/L (21.0-32.0); POTASSIUM,K 3.5 mmol/L (3.5-5.1)
[2023-01-09] MEDS: TRAZODONE 50 MG TABLET PO SCH (22:09)
[2023-01-10] MEDS: cefTRIAXone 1 GM in Sodium Chloride 0.9% 50 ML IV SCH (02:09)
[2023-01-10] MEDS ORDERED: Budesonide/Formoterol 160-4.5 MCG/Puff 6 GM Inhaler INH SCH (06:40)
[2023-01-10] MEDS ORDERED: Fluticasone NASAL Spray 16 GM Bottle NASBOTH SCH (06:42)
[2023-01-10] MEDS: Insulin Aspart 100 Units/ML 3 ML Pen SUBCUT SCH ×2 (07:30→11:53)
[2023-01-10 07:35] LABS: POTASSIUM,K 3.3 mmol/L (3.5-5.1)
[2023-01-10] MEDS: Baclofen 10 MG Tab PO SCH (09:17)
[2023-01-10] MEDS: Gabapentin 300 MG Cap PO SCH (09:17)
[2023-01-10] MEDS: DULoxetine 30 MG Cap PO SCH (09:18)
[2023-01-10] MEDS: Teriflunomide [Aubagio] 14 MG Tablet PO SCH (09:20)
[2023-01-10] MEDS: Insulin Glargine,Hum.Rec.Anlog 100 UNIT/ML 3 ML Pen SUBCUT SCH (09:21)
[2023-01-10] MEDS: Diazepam 5 MG Tab PO PRN (09:24)
[2023-01-10] MEDS ORDERED: Loperamide 2 MG Cap PO ONE (10:57)
[2023-01-10] MEDS ORDERED: Acetaminophen 325 MG Tab PO ONE (10:57)
[2023-01-10 13:43] VITALS: BP 107/59; PULSE 77
== END 2023-01-10 13:15 | disposition home health service (06) | DRG 683 ==
LOC: MW.ED 19:25 → MW.MS 21:22
PROVIDERS: ADMIT Internal Medicine; ATTEND Internal Medicine
DX: N17.9 Acute kidney failure, unspecified (principal); N30.00 Acute cystitis without hematuria; E86.0 Dehydration; E87.6 Hypokalemia; G35 Multiple sclerosis; E11.9 Type 2 diabetes mellitus without complications; E66.9 Obesity, unspecified; J44.9 Chronic obstructive pulmonary disease, unspecified; K21.9 Gastro-esophageal reflux disease without esophagitis; F41.9 Anxiety disorder, unspecified; F32.A Depression, unspecified; Z90.49 Acquired absence of other specified parts of digestive tract; Z98.890 Other specified postprocedural states; Z88.1 Allergy status to other antibiotic agents; Z79.899 Other long term (current) drug therapy; Z98.51 Tubal ligation status; Z87.891 Personal history of nicotine dependence
CPT/HCPCS: 36415; 51798; 70450; 70450-26; 71045; 71045-26; 80048; 80053; 81001; 82728; 82947; 83036; 83550; 83605; 83735; 83880; 84484; 85025; 87040; 87086; 93005; 93010; 96360; 99222; 99231; 99239; 99285; 99285-25; A9270-GY; J0696; J1815-GY; J3480; J3490; J7030; J7040

== ENCOUNTER 2023-04-05 18:05 | Emergency (ER) | payer MEDICARE, BC ==
[2023-04-05 19:43] LABS: BILIRUBIN,URINE NEGATIVE (NEGATIVE); COLOR,URINE YELLOW; GLUCOSE,URINE NEGATIVE (NEGATIVE); KETONES,URINE NEGATIVE (NEGATIVE); LEUKOCYTE ESTERASE,URINE SMALL (NEGATIVE); NITRITE,URINE NEGATIVE (NEGATIVE); OCCULT BLOOD,URINE TRACE-INTACT (NEGATIVE); PROTEIN,URINE NEGATIVE (NEGATIVE); UROBILINOGEN,URINE 0.2 EU/dL (<2.0)
[2023-04-05 19:45] LABS: APPEARANCE,URINE SLT CLOUDY
[2023-04-05 19:54] LABS: BACTERIA,URINE MODERATE (NEGATIVE); EPITHELIAL CELLS,URINE NOT SEEN (NONE-FEW); RBC,URINE 0-2 (0-2/HPF); SQUAMOUS EPITHELIAL CELLS,UR NOT SEEN; WBC,URINE 0-5 (0-5/HPF)
[2023-04-05 19:55] LABS: HYALINE CASTS,URINE RARE (0-2/LPF)
[2023-04-05 20:40] VITALS: BP 143/79; PULSE 63
== END 2023-04-05 20:00 | disposition home or self-care (01) ==
LOC: MW.ED 18:05
DX: N30.00 Acute cystitis without hematuria (principal); E11.9 Type 2 diabetes mellitus without complications; F17.210 Nicotine dependence, cigarettes, uncomplicated; Z88.1 Allergy status to other antibiotic agents; Z79.899 Other long term (current) drug therapy
CPT/HCPCS: 81001; 87086; 87088; 87186; 99283

== ENCOUNTER 2023-07-10 17:24 | Observation (INO) | payer MEDICARE, BC ==
[2023-07-10] MEDS ORDERED: Ondansetron 4 MG Tab.DIS PO ONE (19:37)
[2023-07-10] MEDS ORDERED: Acetaminophen/HYDROcodone 325-5 MG Tab PO ONE (19:37)
[2023-07-11] MEDS ORDERED: traMADol 50 MG Tab PO PRN ×2 (00:51→08:46)
[2023-07-11] MEDS ORDERED: Baclofen 10 MG Tab PO ONE (03:00)
[2023-07-11] MEDS ORDERED: Albuterol/Ipratropium 3.0-0.5 MG/3 ML Neb Soln NEB PRN (07:24)
[2023-07-11] MEDS ORDERED: Acetaminophen 325 MG Tab PO PRN (07:24)
[2023-07-11] MEDS ORDERED: Ondansetron 4 MG/2 ML SDV IVPUSH PRN (07:24)
[2023-07-11] MEDS ORDERED: 50% Dextrose in Water 50 ML Syringe IVPUSH PRN (07:27)
[2023-07-11] MEDS ORDERED: Glucagon,Human Recombinant 1 MG Vial IM PRN (07:27)
[2023-07-11 07:57] LABS: BASOPHILS ABSOLUTE AUTO 0.04 K/uL (0.00-0.20); BASOPHILS PERCENT AUTO 0.5 % (0.0-1.0); EOSINOPHILS ABSOLUTE AUTO 0.22 K/uL (0.00-0.45); EOSINOPHILS PERCENT AUTO 2.7 % (0.0-6.0); HEMOGLOBIN 12.1 g/dL (12.0-16.0); IMMATURE GRAN ABSOLUTE AUTO 0.02 K/uL (0.00-0.05); IMMATURE GRAN PERCENT AUTO 0.2 % (0.0-0.4); LYMPHOCYTES ABSOLUTE AUTO 1.48 K/uL (1.00-4.80); LYMPHOCYTES PERCENT AUTO 18.4 % (24.0-44.0); MEAN CORPUSCULAR HEMOGLOBIN 29.8 pg (28.0-32.0); MEAN CORPUSCULAR HGB CONC 31.8 g/dL (32.0-36.0); MEAN CORPUSCULAR VOLUME 93.6 fL (83.0-99.0); MEAN PLATELET VOLUME 10.1 fL (9.4-12.3); MONOCYTES ABSOLUTE AUTO 0.93 K/uL (0.00-0.80); MONOCYTES PERCENT AUTO 11.6 % (0.0-8.0); NEUTROPHILS ABSOLUTE AUTO 5.36 K/uL (1.80-7.70); NEUTROPHILS PERCENT AUTO 66.6 % (41.0-71.0); PLATELET COUNT,PLT 215 K/uL (150-400); RED BLOOD CELL COUNT 4.06 M/uL (4.10-5.30); WHITE BLOOD CELL COUNT,WBC 8.05 K/uL (3.9-11.3)
[2023-07-11] MEDS ORDERED: Pantoprazole 40 MG in Sodium Chloride 0.9% 10 ML IVPUSH SCH (08:00)
[2023-07-11 08:16] LABS: HEMOGLOBIN A1C 7.4 %
[2023-07-11 08:26] LABS: A/G RATIO 0.7 (0.9-1.6); ALBUMIN 3.2 g/dL (3.4-5.0); BILIRUBIN TOTAL 0.5 mg/dL (0.2-1.0); CALCIUM 9.4 mg/dL (8.5-10.1); CARBON DIOXIDE,CO2 35.5 mmol/L (21.0-32.0); EST CRCL DRUG DOSING (CG) 48.5 mL/min; POTASSIUM,K 3.4 mmol/L (3.5-5.1); PROTEIN TOTAL,TP 7.5 g/dL (6.4-8.2)
[2023-07-11] MEDS ORDERED: Potassium Chloride 20 MEQ Tab.ER PO ONE (08:45)
[2023-07-11] MEDS ORDERED: Gabapentin 300 MG Cap PO SCH (09:00)
[2023-07-11] MEDS ORDERED: Pantoprazole 40 MG Tab.CR PO SCH (09:00)
[2023-07-11] MEDS ORDERED: Furosemide 40 MG Tab PO SCH (09:00)
[2023-07-11] MEDS ORDERED: DULoxetine 60 MG Cap PO SCH (09:00)
[2023-07-11] MEDS ORDERED: Enoxaparin 40 MG/0.4 ML Syringe SUBCUT SCH (09:00)
[2023-07-11] MEDS ORDERED: Diazepam 5 MG Tab PO SCH (09:15)
[2023-07-11] MEDS: Insulin Aspart 100 Units/ML 3 ML Pen SUBCUT SCH ×2 (09:28→11:24)
[2023-07-11] MEDS ORDERED: Potassium Chloride 10 MEQ Tab.ER PO ONE (10:30)
[2023-07-11] MEDS ORDERED: Teriflunomide [Aubagio] 14 MG Tablet PO SCH (11:30)
[2023-07-11] MEDS ORDERED: Insulin Glargine,Hum.Rec.Anlog 100 UNIT/ML 3 ML Pen SUBCUT SCH (12:00)
[2023-07-11 15:41] VITALS: BP 122/65; PULSE 90
[2023-07-11] MEDS ORDERED: Baclofen 10 MG Tab PO SCH ×2 (21:00)
[2023-07-11] MEDS ORDERED: traZODone 50 MG Tab PO SCH (21:00)
== END 2023-07-11 15:30 | disposition home health service (06) ==
LOC: MW.ED 17:24 → MW.MS 22:50
PROVIDERS: ADMIT Internal Medicine; ATTEND Internal Medicine
DX: M17.11 Unilateral primary osteoarthritis, right knee (principal); M25.462 Effusion, left knee; R26.2 Difficulty in walking, not elsewhere classified; J44.9 Chronic obstructive pulmonary disease, unspecified; G35 Multiple sclerosis; E11.9 Type 2 diabetes mellitus without complications; K21.9 Gastro-esophageal reflux disease without esophagitis; G43.909 Migraine, unspecified, not intractable, without status migrainosus; F41.1 Generalized anxiety disorder; F32.9 Major depressive disorder, single episode, unspecified; F41.0 Panic disorder [episodic paroxysmal anxiety]; G89.4 Chronic pain syndrome; Z88.1 Allergy status to other antibiotic agents; Z79.4 Long term (current) use of insulin; Z79.2 Long term (current) use of antibiotics; Z79.899 Other long term (current) drug therapy; Z86.74 Personal history of sudden cardiac arrest; W19.XXXA Unspecified fall, initial encounter
CPT/HCPCS: 36415; 73562; 73610; 73630; 80053; 82947; 83036; 85025; 96372; 97162; A9270; G0378; J1650

== ENCOUNTER 2023-11-25 16:55 | Inpatient (IN) | payer MEDICARE ==
[2023-11-25 21:11] LABS: A/G RATIO 0.7 (0.9-1.6); ALBUMIN 3.1 g/dL (3.4-5.0); BILIRUBIN TOTAL 0.4 mg/dL (0.2-1.0); CALCIUM 9.1 mg/dL (8.5-10.1); CARBON DIOXIDE,CO2 32.7 mmol/L (21.0-32.0); EST CRCL DRUG DOSING (CG) 44.05 mL/min; POTASSIUM,K 4.4 mmol/L (3.5-5.1); PROTEIN TOTAL,TP 7.5 g/dL (6.4-8.2)
[2023-11-25 21:14] LABS: APPEARANCE,URINE CLEAR; BILIRUBIN,URINE NEGATIVE (NEGATIVE); COLOR,URINE YELLOW; GLUCOSE,URINE NEGATIVE (NEGATIVE); KETONES,URINE NEGATIVE (NEGATIVE); LEUKOCYTE ESTERASE,URINE SMALL (NEGATIVE); NITRITE,URINE NEGATIVE (NEGATIVE); OCCULT BLOOD,URINE NEGATIVE (NEGATIVE); PROTEIN,URINE NEGATIVE (NEGATIVE); UROBILINOGEN,URINE 0.2 EU/dL (<2.0)
[2023-11-25] MEDS ORDERED: Albuterol/Ipratropium 3.0-0.5 MG/3 ML Neb Soln NEB PRN (21:18)
[2023-11-25] MEDS ORDERED: Acetaminophen 325 MG Tab PO PRN (21:18)
[2023-11-25 21:19] LABS: BASOPHILS ABSOLUTE AUTO 0.05 K/uL (0.00-0.20); BASOPHILS PERCENT AUTO 0.4 % (0.0-1.0); EOSINOPHILS ABSOLUTE AUTO 0.34 K/uL (0.00-0.45); EOSINOPHILS PERCENT AUTO 2.6 % (0.0-6.0); HEMATOCRIT 38.3 % (37.0-47.0); HEMOGLOBIN 11.9 g/dL (12.0-16.0); IMMATURE GRAN ABSOLUTE AUTO 0.05 K/uL (0.00-0.05); IMMATURE GRAN PERCENT AUTO 0.4 % (0.0-0.4); LYMPHOCYTES ABSOLUTE AUTO 1.81 K/uL (1.00-4.80); LYMPHOCYTES PERCENT AUTO 13.7 % (24.0-44.0); MEAN CORPUSCULAR HEMOGLOBIN 29.9 pg (28.0-32.0); MEAN CORPUSCULAR HGB CONC 31.1 g/dL (32.0-36.0); MEAN CORPUSCULAR VOLUME 96.2 fL (83.0-99.0); MEAN PLATELET VOLUME 9.7 fL (9.4-12.3); MONOCYTES ABSOLUTE AUTO 1.04 K/uL (0.00-0.80); MONOCYTES PERCENT AUTO 7.9 % (0.0-8.0); NEUTROPHILS ABSOLUTE AUTO 9.88 K/uL (1.80-7.70); PLATELET COUNT,PLT 243 K/uL (150-400); RED BLOOD CELL COUNT 3.98 M/uL (4.10-5.30); WHITE BLOOD CELL COUNT,WBC 13.17 K/uL (3.9-11.3)
[2023-11-25 21:25] LABS: RBC,URINE 0-1 (0-2/HPF)
[2023-11-25] MEDS ORDERED: 50% Dextrose in Water 50 ML Syringe IVPUSH PRN (21:25)
[2023-11-25] MEDS ORDERED: Glucagon,Human Recombinant 1 MG Vial IM PRN (21:25)
[2023-11-25 21:26] LABS: BACTERIA,URINE FEW (NEGATIVE); EPITHELIAL CELLS,URINE FEW (NONE-FEW)
[2023-11-25] MEDS: Sodium Chloride 0.9% 500 ML IV ONE (22:20)
[2023-11-25] MEDS: cefTRIAXone 1 GM in Sodium Chloride 0.9% 50 ML IV ONE (22:23)
[2023-11-25] MEDS: Insulin Aspart 100 Units/ML 3 ML Pen SUBCUT SCH (22:36)
[2023-11-25] MEDS: Non-Formulary Medication 1 Each (Baclofen [Baclofen] 20 MG Tablet) PO SCH (22:38)
[2023-11-25] MEDS: Baclofen 10 MG Tab PO SCH (22:56)
[2023-11-26] MEDS ORDERED: Formoterol/Mometasone 200-5 MCG 8.8 GM Inhaler INH SCH (09:00)
[2023-11-26] MEDS: SYMBICORT 160/4.5 INH SCH (09:51)
[2023-11-26] MEDS: Insulin Glargine,Hum.Rec.Anlog 100 UNIT/ML 3 ML Pen SUBCUT SCH (09:51)
[2023-11-26] MEDS: traMADol 50 MG Tab PO PRN (10:05)
[2023-11-26] MEDS: Ondansetron 4 MG/2 ML SDV IVPUSH PRN (10:06)
[2023-11-26 10:35] LABS: BASOPHILS ABSOLUTE AUTO 0.04 K/uL (0.00-0.20); BASOPHILS PERCENT AUTO 0.4 % (0.0-1.0); EOSINOPHILS ABSOLUTE AUTO 0.25 K/uL (0.00-0.45); EOSINOPHILS PERCENT AUTO 2.5 % (0.0-6.0); HEMATOCRIT 39.6 % (37.0-47.0); IMMATURE GRAN ABSOLUTE AUTO 0.04 K/uL (0.00-0.05); IMMATURE GRAN PERCENT AUTO 0.4 % (0.0-0.4); LYMPHOCYTES ABSOLUTE AUTO 0.98 K/uL (1.00-4.80); MEAN CORPUSCULAR HEMOGLOBIN 29.1 pg (28.0-32.0); MEAN CORPUSCULAR HGB CONC 30.3 g/dL (32.0-36.0); MEAN CORPUSCULAR VOLUME 95.9 fL (83.0-99.0); MEAN PLATELET VOLUME 9.7 fL (9.4-12.3); MONOCYTES ABSOLUTE AUTO 0.84 K/uL (0.00-0.80); MONOCYTES PERCENT AUTO 8.6 % (0.0-8.0); NEUTROPHILS ABSOLUTE AUTO 7.66 K/uL (1.80-7.70); NEUTROPHILS PERCENT AUTO 78.1 % (41.0-71.0); PLATELET COUNT,PLT 245 K/uL (150-400); RED BLOOD CELL COUNT 4.13 M/uL (4.10-5.30); WHITE BLOOD CELL COUNT,WBC 9.81 K/uL (3.9-11.3)
[2023-11-26 10:56] LABS: CALCIUM 8.9 mg/dL (8.5-10.1); CARBON DIOXIDE,CO2 32.4 mmol/L (21.0-32.0); EST CRCL DRUG DOSING (CG) 44.05 mL/min
[2023-11-26] MEDS ORDERED: Albuterol/Ipratropium 3.0-0.5 MG/3 ML Neb Soln NEB PRN (12:29)
[2023-11-26] MEDS ORDERED: Loperamide 2 MG Cap PO PRN (12:30)
[2023-11-26] MEDS: DULoxetine 60 MG Cap PO SCH (13:11)
[2023-11-26] MEDS: Cyanocobalamin (Vitamin B12) 500 MCG Tab PO SCH (13:11)
[2023-11-26] MEDS: Teriflunomide [Aubagio] 14 MG Tablet PO SCH (13:11)
[2023-11-26] MEDS: Furosemide 40 MG Tab PO SCH (13:12)
[2023-11-26] MEDS: Cholecalciferol (Vitamin D3) 25 MCG Tab PO SCH (13:12)
[2023-11-26] MEDS: Gabapentin 300 MG Cap PO SCH (13:12)
[2023-11-26] MEDS: Acidophilus with Citrus Pectin/L.acidophilus Tab PO SCH (13:12)
[2023-11-26] MEDS: Diazepam 5 MG Tab PO SCH (13:12)
[2023-11-26] MEDS: Fluticasone NASAL Spray 16 GM Bottle NAS SCH (13:13)
[2023-11-26] MEDS ORDERED: Baclofen 10 MG Tab PO SCH (21:00)
[2023-11-26] MEDS: cefTRIAXone 1 GM in Sodium Chloride 0.9% 50 ML IV SCH (22:08)
[2023-11-26] MEDS: Latanoprost 0.005% Ophth Soln 2.5 ML Bottle EYEBOTH SCH (22:10)
[2023-11-27 06:02] LABS: BASOPHILS ABSOLUTE AUTO 0.05 K/uL (0.00-0.20); BASOPHILS PERCENT AUTO 0.6 % (0.0-1.0); EOSINOPHILS ABSOLUTE AUTO 0.28 K/uL (0.00-0.45); EOSINOPHILS PERCENT AUTO 3.4 % (0.0-6.0); HEMATOCRIT 35.8 % (37.0-47.0); IMMATURE GRAN ABSOLUTE AUTO 0.02 K/uL (0.00-0.05); IMMATURE GRAN PERCENT AUTO 0.2 % (0.0-0.4); LYMPHOCYTES ABSOLUTE AUTO 0.88 K/uL (1.00-4.80); LYMPHOCYTES PERCENT AUTO 10.8 % (24.0-44.0); MEAN CORPUSCULAR HEMOGLOBIN 29.6 pg (28.0-32.0); MEAN CORPUSCULAR HGB CONC 30.7 g/dL (32.0-36.0); MEAN CORPUSCULAR VOLUME 96.2 fL (83.0-99.0); MONOCYTES ABSOLUTE AUTO 0.84 K/uL (0.00-0.80); MONOCYTES PERCENT AUTO 10.3 % (0.0-8.0); NEUTROPHILS ABSOLUTE AUTO 6.08 K/uL (1.80-7.70); NEUTROPHILS PERCENT AUTO 74.7 % (41.0-71.0); PLATELET COUNT,PLT 218 K/uL (150-400); RED BLOOD CELL COUNT 3.72 M/uL (4.10-5.30); WHITE BLOOD CELL COUNT,WBC 8.15 K/uL (3.9-11.3)
[2023-11-27 06:26] LABS: A/G RATIO 0.7 (0.9-1.6); ALBUMIN 2.8 g/dL (3.4-5.0); BILIRUBIN TOTAL 0.4 mg/dL (0.2-1.0); CALCIUM 8.7 mg/dL (8.5-10.1); CARBON DIOXIDE,CO2 32.2 mmol/L (21.0-32.0); EST CRCL DRUG DOSING (CG) 44.05 mL/min; MAGNESIUM 1.9 mg/dL (1.8-2.4); POTASSIUM,K 3.5 mmol/L (3.5-5.1); PROTEIN TOTAL,TP 6.7 g/dL (6.4-8.2)
[2023-11-28 05:59] LABS: BASOPHILS ABSOLUTE AUTO 0.05 K/uL (0.00-0.20); BASOPHILS PERCENT AUTO 0.7 % (0.0-1.0); EOSINOPHILS ABSOLUTE AUTO 0.39 K/uL (0.00-0.45); EOSINOPHILS PERCENT AUTO 5.1 % (0.0-6.0); HEMATOCRIT 36.7 % (37.0-47.0); HEMOGLOBIN 11.1 g/dL (12.0-16.0); IMMATURE GRAN ABSOLUTE AUTO 0.02 K/uL (0.00-0.05); IMMATURE GRAN PERCENT AUTO 0.3 % (0.0-0.4); LYMPHOCYTES ABSOLUTE AUTO 1.06 K/uL (1.00-4.80); LYMPHOCYTES PERCENT AUTO 13.9 % (24.0-44.0); MEAN CORPUSCULAR HEMOGLOBIN 28.9 pg (28.0-32.0); MEAN CORPUSCULAR HGB CONC 30.2 g/dL (32.0-36.0); MEAN CORPUSCULAR VOLUME 95.6 fL (83.0-99.0); MEAN PLATELET VOLUME 10.1 fL (9.4-12.3); MONOCYTES ABSOLUTE AUTO 0.75 K/uL (0.00-0.80); MONOCYTES PERCENT AUTO 9.8 % (0.0-8.0); NEUTROPHILS ABSOLUTE AUTO 5.35 K/uL (1.80-7.70); NEUTROPHILS PERCENT AUTO 70.2 % (41.0-71.0); PLATELET COUNT,PLT 234 K/uL (150-400); RED BLOOD CELL COUNT 3.84 M/uL (4.10-5.30); WHITE BLOOD CELL COUNT,WBC 7.62 K/uL (3.9-11.3)
[2023-11-28 06:24] LABS: A/G RATIO 0.7 (0.9-1.6); ALBUMIN 2.9 g/dL (3.4-5.0); BILIRUBIN TOTAL 0.4 mg/dL (0.2-1.0); CALCIUM 8.9 mg/dL (8.5-10.1); CARBON DIOXIDE,CO2 31.5 mmol/L (21.0-32.0); EST CRCL DRUG DOSING (CG) 44.05 mL/min; MAGNESIUM 1.9 mg/dL (1.8-2.4); POTASSIUM,K 3.3 mmol/L (3.5-5.1); PROTEIN TOTAL,TP 7.2 g/dL (6.4-8.2)
[2023-11-28] MEDS: Potassium Chloride 20 MEQ Tab.ER PO ONE (08:01)
[2023-11-28] MEDS: POTASSIUM CHLORIDE 10 MEQ PO ONE (10:52)
[2023-11-28] MEDS: Pantoprazole 40 MG Tab.CR PO SCH (11:03)
[2023-11-28] MEDS: Enoxaparin 40 MG/0.4 ML Syringe SUBCUT SCH (11:03)
[2023-11-29 08:52] LABS: BASOPHILS ABSOLUTE AUTO 0.05 K/uL (0.00-0.20); BASOPHILS PERCENT AUTO 0.5 % (0.0-1.0); EOSINOPHILS PERCENT AUTO 5.5 % (0.0-6.0); HEMATOCRIT 37.5 % (37.0-47.0); HEMOGLOBIN 11.5 g/dL (12.0-16.0); IMMATURE GRAN ABSOLUTE AUTO 0.04 K/uL (0.00-0.05); IMMATURE GRAN PERCENT AUTO 0.4 % (0.0-0.4); LYMPHOCYTES PERCENT AUTO 8.7 % (24.0-44.0); MEAN CORPUSCULAR HEMOGLOBIN 29.7 pg (28.0-32.0); MEAN CORPUSCULAR HGB CONC 30.7 g/dL (32.0-36.0); MEAN CORPUSCULAR VOLUME 96.9 fL (83.0-99.0); MEAN PLATELET VOLUME 9.8 fL (9.4-12.3); MONOCYTES ABSOLUTE AUTO 0.94 K/uL (0.00-0.80); MONOCYTES PERCENT AUTO 10.3 % (0.0-8.0); NEUTROPHILS ABSOLUTE AUTO 6.83 K/uL (1.80-7.70); NEUTROPHILS PERCENT AUTO 74.6 % (41.0-71.0); PLATELET COUNT,PLT 238 K/uL (150-400); RED BLOOD CELL COUNT 3.87 M/uL (4.10-5.30); WHITE BLOOD CELL COUNT,WBC 9.16 K/uL (3.9-11.3)
[2023-11-29 09:17] LABS: CALCIUM 9.1 mg/dL (8.5-10.1); CARBON DIOXIDE,CO2 32.9 mmol/L (21.0-32.0); EST CRCL DRUG DOSING (CG) 44.05 mL/min; MAGNESIUM 1.7 mg/dL (1.8-2.4); POTASSIUM,K 3.6 mmol/L (3.5-5.1)
[2023-11-29] MEDS: Magnesium Sulfate/Water 2 GM in Premix Bag 1 BAG IV ONE (11:49)
[2023-11-30 06:55] LABS: CALCIUM 8.5 mg/dL (8.5-10.1); CARBON DIOXIDE,CO2 33.4 mmol/L (21.0-32.0); CREATININE 0.9 mg/dL (0.6-1.0); EST CRCL DRUG DOSING (CG) 48.94 mL/min; MAGNESIUM 2.2 mg/dL (1.8-2.4); POTASSIUM,K 3.2 mmol/L (3.5-5.1)
[2023-11-30] MEDS: Potassium Chloride 20 MEQ Tab.ER PO SCH (11:48)
[2023-11-30] MEDS: Sulfamethoxazole/Trimethoprim 800-160 MG Tab PO SCH (11:48)
[2023-11-30] MEDS: POTASSIUM CHLORIDE 10 MEQ PO SCH (13:02)
[2023-11-30] MEDS: Polyethylene Glycol 3350 Powder 17 GM Packet PO PRN (14:38)
[2023-12-01 06:18] LABS: BASOPHILS ABSOLUTE AUTO 0.05 K/uL (0.00-0.20); BASOPHILS PERCENT AUTO 0.5 % (0.0-1.0); EOSINOPHILS ABSOLUTE AUTO 0.48 K/uL (0.00-0.45); EOSINOPHILS PERCENT AUTO 5.2 % (0.0-6.0); HEMATOCRIT 38.1 % (37.0-47.0); HEMOGLOBIN 11.5 g/dL (12.0-16.0); IMMATURE GRAN ABSOLUTE AUTO 0.04 K/uL (0.00-0.05); IMMATURE GRAN PERCENT AUTO 0.4 % (0.0-0.4); LYMPHOCYTES ABSOLUTE AUTO 0.77 K/uL (1.00-4.80); LYMPHOCYTES PERCENT AUTO 8.4 % (24.0-44.0); MEAN CORPUSCULAR HEMOGLOBIN 29.1 pg (28.0-32.0); MEAN CORPUSCULAR HGB CONC 30.2 g/dL (32.0-36.0); MEAN CORPUSCULAR VOLUME 96.5 fL (83.0-99.0); MONOCYTES ABSOLUTE AUTO 0.74 K/uL (0.00-0.80); NEUTROPHILS ABSOLUTE AUTO 7.12 K/uL (1.80-7.70); NEUTROPHILS PERCENT AUTO 77.5 % (41.0-71.0); PLATELET COUNT,PLT 251 K/uL (150-400); RED BLOOD CELL COUNT 3.95 M/uL (4.10-5.30)
[2023-12-01 06:45] LABS: CALCIUM 8.7 mg/dL (8.5-10.1); CARBON DIOXIDE,CO2 30.5 mmol/L (21.0-32.0); CREATININE 1.1 mg/dL (0.6-1.0); EST CRCL DRUG DOSING (CG) 40.04 mL/min; POTASSIUM,K 3.2 mmol/L (3.5-5.1)
[2023-12-01] MEDS: Potassium Chloride 20 MEQ Tab.ER PO ONE (09:50)
[2023-12-01] MEDS: Potassium Chloride 10% 20 MEQ/15 ML Soln 15 ML UD Cup PO ONE (12:45)
[2023-12-03 11:31] VITALS: BP 119/58; PULSE 83
== END 2023-12-03 12:00 | disposition home health service (06) | DRG 563 ==
LOC: MW.ED 16:55 → MW.MS 20:33 → OBSVTOIN 11-26 12:28
PROVIDERS: ADMIT Family Medicine; ATTEND Family Medicine
DX: M25.571 Pain in right ankle and joints of right foot (principal); S93.401A Sprain of unspecified ligament of right ankle, initial encounter; E11.9 Type 2 diabetes mellitus without complications; N30.00 Acute cystitis without hematuria; I50.32 Chronic diastolic (congestive) heart failure; X50.1XXA Overexertion from prolonged static or awkward postures, initial encounter; J96.11 Chronic respiratory failure with hypoxia; J44.9 Chronic obstructive pulmonary disease, unspecified; G35 Multiple sclerosis; E11.40 Type 2 diabetes mellitus with diabetic neuropathy, unspecified; F41.9 Anxiety disorder, unspecified; F32.A Depression, unspecified; K21.9 Gastro-esophageal reflux disease without esophagitis; W19.XXXA Unspecified fall, initial encounter; E87.6 Hypokalemia; M17.11 Unilateral primary osteoarthritis, right knee; Z88.1 Allergy status to other antibiotic agents; Z79.51 Long term (current) use of inhaled steroids; Z79.899 Other long term (current) drug therapy; Z79.4 Long term (current) use of insulin; Z90.49 Acquired absence of other specified parts of digestive tract; Z98.51 Tubal ligation status; Z98.890 Other specified postprocedural states; Z87.891 Personal history of nicotine dependence; Z99.81 Dependence on supplemental oxygen
CPT/HCPCS: 36415 ×2; 73590; 73610; 73620; 80048; 80053; 81001; 82947 ×3; 85025 ×2; 87086; 87088; 87186; 99285; A9270 ×3; J0696; J2405; J3490; J7040; 83735; 96365; 96375; 97110-GP; 97162-GP; 97530-GP; 99222; 99231; 99232; 99239; 99284; G0378; J1650; J1815-GY; J3475

== ENCOUNTER 2024-02-07 12:55 | Inpatient (IN) | payer MEDICARE ==
[2024-02-07] MEDS ORDERED: Sodium Chloride 0.9% 10 ML Syringe FLUSH PRN (13:10)
[2024-02-07] MEDS ORDERED: Sodium Chloride 0.9% 2.5 ML Syringe FLUSH PRN (13:10)
[2024-02-07 14:02] LABS: BASOPHILS ABSOLUTE AUTO 0.04 K/uL (0.00-0.20); BASOPHILS PERCENT AUTO 0.4 % (0.0-1.0); EOSINOPHILS ABSOLUTE AUTO 0.49 K/uL (0.00-0.45); EOSINOPHILS PERCENT AUTO 4.5 % (0.0-6.0); HEMATOCRIT 37.5 % (37.0-47.0); HEMOGLOBIN 11.3 g/dL (12.0-16.0); IMMATURE GRAN ABSOLUTE AUTO 0.06 K/uL (0.00-0.05); IMMATURE GRAN PERCENT AUTO 0.5 % (0.0-0.4); LYMPHOCYTES ABSOLUTE AUTO 0.93 K/uL (1.00-4.80); LYMPHOCYTES PERCENT AUTO 8.5 % (24.0-44.0); MEAN CORPUSCULAR HEMOGLOBIN 29.3 pg (28.0-32.0); MEAN CORPUSCULAR HGB CONC 30.1 g/dL (32.0-36.0); MEAN CORPUSCULAR VOLUME 97.2 fL (83.0-99.0); MEAN PLATELET VOLUME 9.4 fL (9.4-12.3); MONOCYTES ABSOLUTE AUTO 1.16 K/uL (0.00-0.80); MONOCYTES PERCENT AUTO 10.6 % (0.0-8.0); NEUTROPHILS PERCENT AUTO 75.5 % (41.0-71.0); PLATELET COUNT,PLT 252 K/uL (150-400); RED BLOOD CELL COUNT 3.86 M/uL (4.10-5.30); WHITE BLOOD CELL COUNT,WBC 10.98 K/uL (3.9-11.3)
[2024-02-07] MEDS: Ondansetron 4 MG Tab.DIS PO STA (14:18)
[2024-02-07] MEDS: Morphine 4 MG/ML Syringe IM STA (14:18)
[2024-02-07 14:24] LABS: A/G RATIO 0.8 (0.9-1.6); BILIRUBIN TOTAL 0.3 mg/dL (0.2-1.0); CALCIUM 8.7 mg/dL (8.5-10.1); CARBON DIOXIDE,CO2 31.9 mmol/L (21.0-32.0); EST CRCL DRUG DOSING (CG) 44.05 mL/min; POTASSIUM,K 4.2 mmol/L (3.5-5.1); PROTEIN TOTAL,TP 6.8 g/dL (6.4-8.2)
[2024-02-07] MEDS: Ondansetron 4 MG/2 ML SDV IVPUSH STA (14:25)
[2024-02-07] MEDS: Morphine 4 MG/ML Syringe IVPUSH STA (14:26)
[2024-02-07 18:00] LABS: BASE EXCESS VENOUS 7.6 (-2.0-3.0); BICARBONATE,VENOUS 35 mEQ/mL (22-28); PCO2 VENOUS 65 mmHG (41-51); PH,VENOUS 7.34 (7.31-7.41)
[2024-02-07 18:01] LABS: PO2 VENOUS < 30 mmHG (35-45)
[2024-02-07 20:17] LABS: APPEARANCE,URINE CLEAR; BILIRUBIN,URINE NEGATIVE (NEGATIVE); COLOR,URINE YELLOW; GLUCOSE,URINE NEGATIVE (NEGATIVE); KETONES,URINE NEGATIVE (NEGATIVE); LEUKOCYTE ESTERASE,URINE SMALL (NEGATIVE); NITRITE,URINE NEGATIVE (NEGATIVE); OCCULT BLOOD,URINE NEGATIVE (NEGATIVE); PROTEIN,URINE NEGATIVE (NEGATIVE); UROBILINOGEN,URINE 0.2 EU/dL (<2.0)
[2024-02-07 20:17] LABS: BASE EXCESS ARTERIAL 7.1 (-2.0-3.0); BICARBONATE,ARTERIAL 35 mEq/L (22-26); PCO2 ARTERIAL 63 mmHG (35-45); PO2 ARTERIAL 68 mmHG (80-105)
[2024-02-07 20:24] LABS: BACTERIA,URINE FEW (NEGATIVE); EPITHELIAL CELLS,URINE RARE (NONE-FEW); RBC,URINE 0-1 (0-2/HPF)
[2024-02-07 20:30] LABS: AMPHETAMINES SCREEN, URINE NEGATIVE (CUTOFF=500); BARBITURATE SCREEN,URINE NEGATIVE (CUTOFF=200); BENZODIAZEPINES SCREEN,URINE PRESUMPTIVE POSITIVE (CUTOFF=150); BUPRENORPHINE SCREEN,URINE NEGATIVE (CUTOFF=10); METHADONE SCREEN, URINE NEGATIVE (CUTOFF=200); METHAMPHETAMINES SCREEN, URINE NEGATIVE (CUTOFF=500); OXYCODONE SCREEN,URINE NEGATIVE (CUT0FF=100); PCP SCREEN,URINE NEGATIVE (CUTOFF=25); THC SCREEN,URINE 20 NG/ML NEGATIVE (CUTOFF=50)
[2024-02-08] MEDS ORDERED: Albuterol/Ipratropium 3.0-0.5 MG/3 ML Neb Soln NEB PRN (00:32)
[2024-02-08] MEDS: Enoxaparin 40 MG/0.4 ML Syringe SUBCUT SCH (01:39)
[2024-02-08 06:20] LABS: HEMATOCRIT 36.2 % (37.0-47.0); HEMOGLOBIN 10.8 g/dL (12.0-16.0); MEAN CORPUSCULAR HGB CONC 29.8 g/dL (32.0-36.0); MEAN CORPUSCULAR VOLUME 97.1 fL (83.0-99.0); MEAN PLATELET VOLUME 9.4 fL (9.4-12.3); PLATELET COUNT,PLT 247 K/uL (150-400); RED BLOOD CELL COUNT 3.73 M/uL (4.10-5.30)
[2024-02-08 06:37] LABS: CARBON DIOXIDE,CO2 31.4 mmol/L (21.0-32.0); CREATININE 0.9 mg/dL (0.6-1.0); EST CRCL DRUG DOSING (CG) 53.89 mL/min; POTASSIUM,K 3.6 mmol/L (3.5-5.1)
[2024-02-08] MEDS: DULoxetine 60 MG Cap PO SCH (09:59)
[2024-02-08] MEDS: Nitrofurantoin Monohydrate/Macrocrystalline 100 MG Cap PO SCH (10:00)
[2024-02-08] MEDS: Gabapentin 300 MG Cap PO SCH (10:00)
[2024-02-08] MEDS: Insulin Glargine,Hum.Rec.Anlog 100 UNIT/ML 3 ML Pen SUBCUT SCH (10:11)
[2024-02-08] MEDS: Fluticasone NASAL Spray 16 GM Bottle NAS SCH (10:14)
[2024-02-08] MEDS: Diazepam 5 MG Tab PO PRN (22:43)
[2024-02-09 05:40] LABS: BASOPHILS ABSOLUTE AUTO 0.05 K/uL (0.00-0.20); BASOPHILS PERCENT AUTO 0.6 % (0.0-1.0); EOSINOPHILS ABSOLUTE AUTO 0.42 K/uL (0.00-0.45); EOSINOPHILS PERCENT AUTO 5.2 % (0.0-6.0); HEMATOCRIT 39.1 % (37.0-47.0); IMMATURE GRAN ABSOLUTE AUTO 0.04 K/uL (0.00-0.05); IMMATURE GRAN PERCENT AUTO 0.5 % (0.0-0.4); LYMPHOCYTES ABSOLUTE AUTO 1.22 K/uL (1.00-4.80); LYMPHOCYTES PERCENT AUTO 15.1 % (24.0-44.0); MEAN CORPUSCULAR HEMOGLOBIN 29.6 pg (28.0-32.0); MEAN CORPUSCULAR HGB CONC 30.7 g/dL (32.0-36.0); MEAN CORPUSCULAR VOLUME 96.5 fL (83.0-99.0); MEAN PLATELET VOLUME 9.9 fL (9.4-12.3); MONOCYTES ABSOLUTE AUTO 0.79 K/uL (0.00-0.80); MONOCYTES PERCENT AUTO 9.8 % (0.0-8.0); NEUTROPHILS ABSOLUTE AUTO 5.57 K/uL (1.80-7.70); NEUTROPHILS PERCENT AUTO 68.8 % (41.0-71.0); PLATELET COUNT,PLT 270 K/uL (150-400); RED BLOOD CELL COUNT 4.05 M/uL (4.10-5.30); WHITE BLOOD CELL COUNT,WBC 8.09 K/uL (3.9-11.3)
[2024-02-09 06:01] LABS: CALCIUM 9.4 mg/dL (8.5-10.1); CARBON DIOXIDE,CO2 29.2 mmol/L (21.0-32.0); CREATININE 0.8 mg/dL (0.6-1.0); EST CRCL DRUG DOSING (CG) 60.62 mL/min; POTASSIUM,K 3.4 mmol/L (3.5-5.1)
[2024-02-09] MEDS: Pantoprazole 40 MG Tab.CR PO SCH (10:21)
[2024-02-09] MEDS: Baclofen 10 MG Tab PO SCH ×2 (10:21→22:14)
[2024-02-09] MEDS: FORMOTEROL INH SCH (10:40)
[2024-02-09] MEDS: BUDESONIDE INH SCH (10:40)
[2024-02-09] MEDS: Potassium Chloride 20 MEQ Tab.ER PO ONE (12:19)
[2024-02-09] MEDS: traMADol 50 MG Tab PO PRN (22:14)
[2024-02-10 07:53] LABS: BASOPHILS ABSOLUTE AUTO 0.05 K/uL (0.00-0.20); BASOPHILS PERCENT AUTO 0.6 % (0.0-1.0); EOSINOPHILS ABSOLUTE AUTO 0.44 K/uL (0.00-0.45); EOSINOPHILS PERCENT AUTO 5.5 % (0.0-6.0); HEMATOCRIT 36.6 % (37.0-47.0); HEMOGLOBIN 11.2 g/dL (12.0-16.0); IMMATURE GRAN ABSOLUTE AUTO 0.03 K/uL (0.00-0.05); IMMATURE GRAN PERCENT AUTO 0.4 % (0.0-0.4); LYMPHOCYTES ABSOLUTE AUTO 0.91 K/uL (1.00-4.80); LYMPHOCYTES PERCENT AUTO 11.5 % (24.0-44.0); MEAN CORPUSCULAR HEMOGLOBIN 29.6 pg (28.0-32.0); MEAN CORPUSCULAR HGB CONC 30.6 g/dL (32.0-36.0); MEAN CORPUSCULAR VOLUME 96.6 fL (83.0-99.0); MEAN PLATELET VOLUME 9.6 fL (9.4-12.3); MONOCYTES ABSOLUTE AUTO 0.89 K/uL (0.00-0.80); MONOCYTES PERCENT AUTO 11.2 % (0.0-8.0); NEUTROPHILS ABSOLUTE AUTO 5.61 K/uL (1.80-7.70); NEUTROPHILS PERCENT AUTO 70.8 % (41.0-71.0); PLATELET COUNT,PLT 254 K/uL (150-400); RED BLOOD CELL COUNT 3.79 M/uL (4.10-5.30); WHITE BLOOD CELL COUNT,WBC 7.93 K/uL (3.9-11.3)
[2024-02-10 08:10] LABS: CALCIUM 8.9 mg/dL (8.5-10.1); CARBON DIOXIDE,CO2 29.2 mmol/L (21.0-32.0); EST CRCL DRUG DOSING (CG) 48.5 mL/min; POTASSIUM,K 3.3 mmol/L (3.5-5.1)
[2024-02-10] MEDS: Enoxaparin 40 MG/0.4 ML Syringe SUBCUT SCH (08:42)
[2024-02-11] MEDS: Albuterol 8 GM Inhaler INH PRN (03:04)
[2024-02-11 06:17] LABS: BASOPHILS ABSOLUTE AUTO 0.06 K/uL (0.00-0.20); BASOPHILS PERCENT AUTO 0.8 % (0.0-1.0); EOSINOPHILS PERCENT AUTO 6.6 % (0.0-6.0); HEMATOCRIT 36.2 % (37.0-47.0); HEMOGLOBIN 10.8 g/dL (12.0-16.0); IMMATURE GRAN ABSOLUTE AUTO 0.04 K/uL (0.00-0.05); IMMATURE GRAN PERCENT AUTO 0.5 % (0.0-0.4); LYMPHOCYTES ABSOLUTE AUTO 1.18 K/uL (1.00-4.80); LYMPHOCYTES PERCENT AUTO 15.5 % (24.0-44.0); MEAN CORPUSCULAR HGB CONC 29.8 g/dL (32.0-36.0); MEAN CORPUSCULAR VOLUME 97.3 fL (83.0-99.0); MEAN PLATELET VOLUME 9.8 fL (9.4-12.3); MONOCYTES ABSOLUTE AUTO 0.89 K/uL (0.00-0.80); MONOCYTES PERCENT AUTO 11.7 % (0.0-8.0); NEUTROPHILS ABSOLUTE AUTO 4.95 K/uL (1.80-7.70); NEUTROPHILS PERCENT AUTO 64.9 % (41.0-71.0); PLATELET COUNT,PLT 256 K/uL (150-400); RED BLOOD CELL COUNT 3.72 M/uL (4.10-5.30); WHITE BLOOD CELL COUNT,WBC 7.62 K/uL (3.9-11.3)
[2024-02-11 06:47] LABS: A/G RATIO 0.7 (0.9-1.6); ALBUMIN 2.8 g/dL (3.4-5.0); BILIRUBIN TOTAL 0.3 mg/dL (0.2-1.0); CARBON DIOXIDE,CO2 31.5 mmol/L (21.0-32.0); EST CRCL DRUG DOSING (CG) 48.5 mL/min; POTASSIUM,K 3.1 mmol/L (3.5-5.1); PROTEIN TOTAL,TP 6.7 g/dL (6.4-8.2)
[2024-02-11] MEDS ORDERED: Potassium Chloride 20 MEQ Tab.ER PO ONE (08:59)
[2024-02-11] MEDS: POTASSIUM CHLORIDE 10 MEQ PO SCH (12:01)
[2024-02-12 06:34] LABS: BASOPHILS ABSOLUTE AUTO 0.06 K/uL (0.00-0.20); BASOPHILS PERCENT AUTO 0.7 % (0.0-1.0); EOSINOPHILS ABSOLUTE AUTO 0.61 K/uL (0.00-0.45); EOSINOPHILS PERCENT AUTO 7.5 % (0.0-6.0); HEMATOCRIT 34.7 % (37.0-47.0); HEMOGLOBIN 10.5 g/dL (12.0-16.0); IMMATURE GRAN ABSOLUTE AUTO 0.04 K/uL (0.00-0.05); IMMATURE GRAN PERCENT AUTO 0.5 % (0.0-0.4); LYMPHOCYTES ABSOLUTE AUTO 1.43 K/uL (1.00-4.80); LYMPHOCYTES PERCENT AUTO 17.5 % (24.0-44.0); MEAN CORPUSCULAR HEMOGLOBIN 29.6 pg (28.0-32.0); MEAN CORPUSCULAR HGB CONC 30.3 g/dL (32.0-36.0); MEAN CORPUSCULAR VOLUME 97.7 fL (83.0-99.0); MEAN PLATELET VOLUME 9.8 fL (9.4-12.3); MONOCYTES ABSOLUTE AUTO 0.92 K/uL (0.00-0.80); MONOCYTES PERCENT AUTO 11.3 % (0.0-8.0); NEUTROPHILS ABSOLUTE AUTO 5.09 K/uL (1.80-7.70); NEUTROPHILS PERCENT AUTO 62.5 % (41.0-71.0); PLATELET COUNT,PLT 268 K/uL (150-400); RED BLOOD CELL COUNT 3.55 M/uL (4.10-5.30); WHITE BLOOD CELL COUNT,WBC 8.15 K/uL (3.9-11.3)
[2024-02-12 06:55] LABS: A/G RATIO 0.7 (0.9-1.6); ALBUMIN 2.8 g/dL (3.4-5.0); BILIRUBIN TOTAL 0.3 mg/dL (0.2-1.0); EST CRCL DRUG DOSING (CG) 48.5 mL/min; POTASSIUM,K 3.6 mmol/L (3.5-5.1); PROTEIN TOTAL,TP 6.6 g/dL (6.4-8.2)
[2024-02-12] MEDS ORDERED: Glucagon,Human Recombinant 1 MG Vial IM PRN (16:54)
[2024-02-12] MEDS ORDERED: 50% Dextrose in Water 50 ML Syringe IVPUSH PRN (16:54)
[2024-02-12] MEDS: Insulin Aspart 100 Units/ML 3 ML Pen SUBCUT SCH (17:18)
[2024-02-13] MEDS: Acidophilus with Citrus Pectin/L.acidophilus Tab PO SCH (14:00)
[2024-02-18 06:57] LABS: BASOPHILS ABSOLUTE AUTO 0.08 K/uL (0.00-0.20); BASOPHILS PERCENT AUTO 1.1 % (0.0-1.0); EOSINOPHILS PERCENT AUTO 10.6 % (0.0-6.0); HEMATOCRIT 36.4 % (37.0-47.0); HEMOGLOBIN 10.9 g/dL (12.0-16.0); IMMATURE GRAN ABSOLUTE AUTO 0.02 K/uL (0.00-0.05); IMMATURE GRAN PERCENT AUTO 0.3 % (0.0-0.4); LYMPHOCYTES ABSOLUTE AUTO 1.38 K/uL (1.00-4.80); LYMPHOCYTES PERCENT AUTO 18.3 % (24.0-44.0); MEAN CORPUSCULAR HEMOGLOBIN 29.4 pg (28.0-32.0); MEAN CORPUSCULAR HGB CONC 29.9 g/dL (32.0-36.0); MEAN CORPUSCULAR VOLUME 98.1 fL (83.0-99.0); MEAN PLATELET VOLUME 10.2 fL (9.4-12.3); MONOCYTES ABSOLUTE AUTO 0.91 K/uL (0.00-0.80); MONOCYTES PERCENT AUTO 12.1 % (0.0-8.0); NEUTROPHILS ABSOLUTE AUTO 4.34 K/uL (1.80-7.70); NEUTROPHILS PERCENT AUTO 57.6 % (41.0-71.0); PLATELET COUNT,PLT 282 K/uL (150-400); RED BLOOD CELL COUNT 3.71 M/uL (4.10-5.30); WHITE BLOOD CELL COUNT,WBC 7.53 K/uL (3.9-11.3)
[2024-02-18 07:51] LABS: A/G RATIO 0.8 (0.9-1.6); BILIRUBIN TOTAL 0.3 mg/dL (0.2-1.0); CALCIUM 8.8 mg/dL (8.5-10.1); CARBON DIOXIDE,CO2 29.7 mmol/L (21.0-32.0); EST CRCL DRUG DOSING (CG) 48.5 mL/min; POTASSIUM,K 3.6 mmol/L (3.5-5.1); PROTEIN TOTAL,TP 6.6 g/dL (6.4-8.2)
[2024-02-19] MEDS: Latanoprost 0.005% Ophth Soln 2.5 ML Bottle EYEBOTH SCH (00:24)
[2024-02-20 06:57] LABS: BASOPHILS ABSOLUTE AUTO 0.11 K/uL (0.00-0.20); BASOPHILS PERCENT AUTO 1.5 % (0.0-1.0); EOSINOPHILS ABSOLUTE AUTO 0.74 K/uL (0.00-0.45); EOSINOPHILS PERCENT AUTO 10.2 % (0.0-6.0); HEMATOCRIT 36.9 % (37.0-47.0); IMMATURE GRAN ABSOLUTE AUTO 0.02 K/uL (0.00-0.05); IMMATURE GRAN PERCENT AUTO 0.3 % (0.0-0.4); LYMPHOCYTES ABSOLUTE AUTO 1.38 K/uL (1.00-4.80); LYMPHOCYTES PERCENT AUTO 19.1 % (24.0-44.0); MEAN CORPUSCULAR HEMOGLOBIN 29.4 pg (28.0-32.0); MEAN CORPUSCULAR HGB CONC 29.8 g/dL (32.0-36.0); MEAN CORPUSCULAR VOLUME 98.7 fL (83.0-99.0); MEAN PLATELET VOLUME 10.5 fL (9.4-12.3); MONOCYTES ABSOLUTE AUTO 0.86 K/uL (0.00-0.80); MONOCYTES PERCENT AUTO 11.9 % (0.0-8.0); NEUTROPHILS ABSOLUTE AUTO 4.13 K/uL (1.80-7.70); PLATELET COUNT,PLT 266 K/uL (150-400); RED BLOOD CELL COUNT 3.74 M/uL (4.10-5.30); WHITE BLOOD CELL COUNT,WBC 7.24 K/uL (3.9-11.3)
[2024-02-20 07:27] LABS: A/G RATIO 0.8 (0.9-1.6); ALBUMIN 2.9 g/dL (3.4-5.0); BILIRUBIN TOTAL 0.4 mg/dL (0.2-1.0); CALCIUM 8.7 mg/dL (8.5-10.1); CARBON DIOXIDE,CO2 32.2 mmol/L (21.0-32.0); CREATININE 0.9 mg/dL (0.6-1.0); EST CRCL DRUG DOSING (CG) 53.89 mL/min; POTASSIUM,K 3.7 mmol/L (3.5-5.1); PROTEIN TOTAL,TP 6.7 g/dL (6.4-8.2)
[2024-02-20 12:34] VITALS: BP 122/60; PULSE 85
== END 2024-02-20 13:10 | disposition home or self-care (01) | DRG 556 ==
LOC: MW.ED 12:55 → MW.MS 20:59 → OBSVTOIN 02-09 22:36
PROVIDERS: ADMIT Internal Medicine; ATTEND Internal Medicine
PROC: 4A033R1 Measurement of Arterial Saturation, Peripheral, Percutaneous Approach (ICD-10-PCS; principal; 2024-02-09)
DX: M25.561 Pain in right knee (principal); N39.0 Urinary tract infection, site not specified; R26.81 Unsteadiness on feet; R26.2 Difficulty in walking, not elsewhere classified; G35 Multiple sclerosis; E11.9 Type 2 diabetes mellitus without complications; J44.9 Chronic obstructive pulmonary disease, unspecified; W19.XXXA Unspecified fall, initial encounter; H54.7 Unspecified visual loss; I10 Essential (primary) hypertension; K21.9 Gastro-esophageal reflux disease without esophagitis; Z75.8 Other problems related to medical facilities and other health care; W18.30XA Fall on same level, unspecified, initial encounter; Y92.019 Unspecified place in single-family (private) house as the place of occurrence of the external cause; F41.9 Anxiety disorder, unspecified; F32.A Depression, unspecified; R41.0 Disorientation, unspecified; G89.29 Other chronic pain; M25.551 Pain in right hip; Z99.81 Dependence on supplemental oxygen; Z88.1 Allergy status to other antibiotic agents; Z79.51 Long term (current) use of inhaled steroids; Z79.4 Long term (current) use of insulin; Z79.899 Other long term (current) drug therapy; I25.2 Old myocardial infarction; Z86.74 Personal history of sudden cardiac arrest; Z90.49 Acquired absence of other specified parts of digestive tract; Z98.51 Tubal ligation status
CPT/HCPCS: 36415 ×3; 36600; 70450; 72125; 72128; 72131; 72192; 73560; 80048 ×2; 80053; 80305; 80307; 81001; 81003; 82140; 82803 ×2; 82947 ×9; 84484; 85025 ×2; 85027; 87086; 93005; 96372; 99285; A9270 ×22; J1650 ×2; J2270; 73501-26-RT; 73501-RT; 93010; 97110-GO; 97110-GP; 97116-GP; 97162-GP; 97165-GO; 97530-GP; 99221; 99231; 99238; 99284; G0378